=== PATIENT | female | born 1980 | race Caucasian/White ===

== ENCOUNTER 2018-04-07 19:48 | Emergency (ER) | payer SELFPAY ==
--- NOTE | 2018-04-07 20:37 | EDM.PDOC ---
<Amandeep Marin - Last Filed: 04/07/18 22:23> ED HPI GENERAL MEDICAL PROBLEM - General Chief Complaint: Respiratory Problem Stated Complaint: COUGHING, NASAL CONGESTION, CHEST CONGESTION Time Seen by Provider: 04/07/18 20:24 - Related Data Allergies Allergy/AdvReac Type Severity Reaction Status Date / Time ciprofloxacin [From Cipro] Allergy Anaphylactic Verified 04/07/18 20:19 Shock clarithromycin [From Biaxin] Allergy Hives Verified 04/07/18 20:19 Home Meds: Home Meds . [No Known Home Meds] 04/07/18 [History] ED ROS GENERAL - Review of Systems Review Of Systems: ROS reveals no pertinent complaints other than HPI. ED EXAM, GENERAL - Physical Exam Exam: See Below (See dictation) Course - Vital Signs Text/Narrative:: Patient emergency room course has been unremarkable patient is eager for discharge x-ray was negative labs were unremarkable patient be discharged home with diagnosis of viral syndrome Last Recorded V/S: Last Vital Signs Temp 98.8 F 04/07/18 20:10 Pulse 82 04/07/18 22:28 Resp 18 04/07/18 22:28 BP 133/76 04/07/18 22:28 Pulse Ox 98 04/07/18 22:28 - Orders/Labs/Meds Labs: Laboratory Tests 04/07/18 04/07/18 04/07/18 Range/Units 20:43 20:43 20:45 WBC 5.10 (4.0-11.0) K/uL RBC 4.28 L (4.30-5.90) M/uL Hgb 11.0 L (12.0-16.0) g/dL Hct 34.8 L (36.0-46.0) % MCV 81.3 (80.0-98.0) fL MCH 25.7 L (27.0-32.0) pg MCHC 31.6 (31.0-37.0) g/dL RDW Std Deviation 51.0 (28.0-62.0) fl RDW Coeff of Mikala 17 H (11.0-15.0) % Plt Count 214 (150-400) K/uL MPV 10.60 (7.40-12.00) fL Neut % (Auto) 40.8 L (48.0-80.0) % Lymph % (Auto) 44.9 H (16.0-40.0) % Windham % (Auto) 7.8 (0.0-15.0) % Eos % (Auto) 5.9 (0.0-7.0) % Baso % (Auto) 0.6 (0.0-1.5) % Neut # (Auto) 2.1 (1.4-5.7) K/uL Lymph # (Auto) 2.3 (0.6-2.4) K/uL Windham # (Auto) 0.4 (0.0-0.8) K/uL Eos # (Auto) 0.3 (0.0-0.7) K/uL Baso # (Auto) 0.0 (0.0-0.1) K/uL Nucleated RBC % 0.0 /100WBC Nucleated RBCs # 0 K/uL Sodium 133 L (136-145) mmol/L Potassium 4.1 (3.5-5.1) mmol/L Chloride 102 (98-107) mmol/L Carbon Dioxide 22.5 (21.0-32.0) mmol/L BUN 15 (7.0-18.0) mg/dL Creatinine 0.8 (0.6-1.0) mg/dL Est Cr Clr Drug Dosing 91.81 mL/min Estimated GFR (MDRD) > 60.0 ml/min Glucose 128 H (74-106) mg/dL Calcium 8.8 (8.5-10.1) mg/dL Total Bilirubin 0.2 (0.2-1.0) mg/dL AST 19 (15-37) IU/L ALT 20 (14-63) IU/L Alkaline Phosphatase 69 (46-116) U/L Total Protein 7.0 (6.4-8.2) g/dL Albumin 3.5 (3.4-5.0) g/dL Globulin 3.5 (2.6-4.0) g/dL Albumin/Globulin Ratio 1.0 (0.9-1.6) Urine Color YELLOW Urine Appearance CLEAR Urine pH 5.0 (5.0-8.0) Ur Specific Whitmore 1.010 (1.001-1.035) Urine Protein NEGATIVE (NEGATIVE) mg/dL Urine Glucose (UA) NEGATIVE (NEGATIVE) mg/dL Urine Ketones NEGATIVE (NEGATIVE) mg/dL Urine Occult Blood NEGATIVE (NEGATIVE) Urine Nitrite NEGATIVE (NEGATIVE) Urine Bilirubin NEGATIVE (NEGATIVE) Urine Urobilinogen 0.2 (<2.0) EU/dL Ur Leukocyte Esterase NEGATIVE (NEGATIVE) Meds: Medications Discontinued Medications Generic Name Dose Route Start Last Admin Trade Name Trinoq PRN Reason Stop Dose Admin Albuterol/Ipratropium 3 ml 04/07/18 20:46 04/07/18 21:02 Duoneb 3.0-0.5 Mg/3 Ml NEB 04/07/18 20:47 3 ml ONETIME ONE Administration Departure - Departure Time of Disposition: 22:24 Disposition: Home, Self-Care 01 Condition: Good Clinical Impression: Viral syndrome - Discharge Information Instructions: Viral Illness, Adult Referrals: PCP,Not In Area [Primary Care Provider] - Forms: ED Department Discharge Additional Instructions: The following information is given to patients seen in the emergency department who are being discharged to home. This information is to outline your options for follow-up care. We provide all patients seen in our emergency department with a follow-up referral. The need for follow-up, as well as the timing and circumstances, are variable depending upon the specifics of your emergency department visit. If you don't have a primary care physician on staff, we will provide you with a referral. We always advise you to contact your personal physician following an emergency department visit to inform them of the circumstance of the visit and for follow-up with them and/or the need for any referrals to a consulting specialist. The emergency department will also refer you to a specialist when appropriate. This referral assures that you have the opportunity for followup care with a specialist. All of these measure are taken in an effort to provide you with optimal care, which includes your followup. Under all circumstances we always encourage you to contact your private physician who remains a resource for coordinating your care. When calling for followup care, please make the office aware that this follow-up is from your recent emergency room visit. If for any reason you are refused follow-up, please contact the [facility] emergency department at and asked to speak to the emergency department charge nurse. [facility] [address] [place] [id number] Push fluids stop smoking follow-up primary medical doctor as needed as discussed the return as needed as discussed <Dann Hamlin E - Last Filed: 04/09/18 14:30> ED HPI GENERAL MEDICAL PROBLEM - General Source of Information: Reports: Patient History Limitations: Reports: No Limitations - History of Present Illness INITIAL COMMENTS - FREE TEXT/NARRATIVE: HISTORY AND PHYSICAL: History of present illness: Patient is a 38-year-old female who presents to the ED today with concerns of cough, intermittent fevers, and diarrhea. Patient states the cough and fevers have been ongoing for the last 5 days. She states she decided to come into the ED today when she started having quite foul smelling diarrhea. She states that her diarrhea is black and watery in this is not usual for her. She states normally she would have solid stools. Patient has not been on any by antibiotics recently or traveled outside of the country. He has not taken any medications other than DayQuil. Sensation is also been having body aches and headaches. Sensation states she does get abdominal cramping while she's having a bowel movement but this ends with the bowel movement. She does smoke cigarettes about half a pack a day for several years. She denies redness of breath, difficulties breathing, chest pain, palpitations, turning with urination, vaginal discharge, diaphoresis, abdominal pain, were all other GI, , respiratory, or cardiovascular complaints. Patient has had several surgeries but denies any chronic health history. Review of systems: As per history of present illness and below otherwise all systems reviewed and negative. Past medical history: As per history of present illness and as reviewed below otherwise noncontributory. Surgical history: As per history of present illness and as reviewed below otherwise noncontributory. Social history: See social history for further information Family history: As per history of present illness and as reviewed below otherwise noncontributory. Physical exam: General: Patient is alert, oriented, and in no acute distress. She is sitting comfortably on exam table. HEENT: Atraumatic, normocephalic, pupils equal and reactive bilaterally, negative for conjunctival pallor or scleral icterus, mucous membranes moist, TMs normal bilaterally, throat clear, neck supple, nontender, trachea midline. No drooling or trismus noted. No meningeal signs. No hot potato voice noted. Lungs: Diffuse wheezing heard throughout all lung marquez. Breath sounds equal bilaterally, chest nontender. Heart: S1S2, regular rate and rhythm without overt murmur Abdomen: Soft, nondistended, nontender. Negative for masses or hepatosplenomegaly. Negative for costovertebral tenderness. Pelvis: Stable nontender. Genitourinary: Deferred. Rectal: This was done with consent jackaroo at the bedside. Hemoccult is negative. Good rectal tone. Skin: Intact, warm, dry. No lesions or rashes noted. Extremities: Atraumatic, negative for cords or calf pain. Neurovascular unremarkable. Neuro: Awake, alert, oriented. Cranial nerves II through XII unremarkable. Cerebellum unremarkable. Motor and sensory unremarkable throughout. Exam nonfocal. Notes: Hemoccult was performed and was negative. Will do additional labs and chest x- ray. Lab work is unremarkable. Stool studies are still pending. Dr Marin was briefed on this patient and will disposition this patient accordingly Diagnostics: CBC, CMP, influenza, chest x-ray, stool studies Therapeutics: DuoNeb Impression: Viral Illness Plan: Per Dr Marin Definitive disposition and diagnosis as appropriate pending reevaluation and review of above. Treatments SURGICAL COORDINATOR: Reports: Acetaminophen chest;head Pain Score (Numeric/FACES): 6 Past Medical History Cardiovascular History: Reports: Hypertension - Infectious Disease History Infectious Disease History: Reports: None - Past Surgical History HEENT Surgical History: Reports: Tonsillectomy GI Surgical History: Reports: Bariatric Procedure, Cholecystectomy Other Female Surgeries/Procedures: bladder stents Other Musculoskeletal Surgeries/Procedures:: Leg surgery Social & Family History - Family History Family Medical History: Noncontributory - Tobacco Use Smoking Status *Q: Current Every Day Smoker Years of Tobacco use: 10 Packs/Tins Daily: 1 - Caffeine Use Caffeine Use: Reports: Coffee - Recreational Drug Use Recreational Drug Use: No Course - Orders/Labs/Meds Labs: Laboratory Tests 04/07/18 04/07/18 04/07/18 Range/Units 20:43 20:43 20:45 WBC 5.10 (4.0-11.0) K/uL RBC 4.28 L (4.30-5.90) M/uL Hgb 11.0 L (12.0-16.0) g/dL Hct 34.8 L (36.0-46.0) % MCV 81.3 (80.0-98.0) fL MCH 25.7 L (27.0-32.0) pg MCHC 31.6 (31.0-37.0) g/dL RDW Std Deviation 51.0 (28.0-62.0) fl RDW Coeff of Mikala 17 H (11.0-15.0) % Plt Count 214 (150-400) K/uL MPV 10.60 (7.40-12.00) fL Neut % (Auto) 40.8 L (48.0-80.0) % Lymph % (Auto) 44.9 H (16.0-40.0) % Windham % (Auto) 7.8 (0.0-15.0) % Eos % (Auto) 5.9 (0.0-7.0) % Baso % (Auto) 0.6 (0.0-1.5) % Neut # (Auto) 2.1 (1.4-5.7) K/uL Lymph # (Auto) 2.3 (0.6-2.4) K/uL Windham # (Auto) 0.4 (0.0-0.8) K/uL Eos # (Auto) 0.3 (0.0-0.7) K/uL Baso # (Auto) 0.0 (0.0-0.1) K/uL Nucleated RBC % 0.0 /100WBC Nucleated RBCs # 0 K/uL Sodium 133 L (136-145) mmol/L Potassium 4.1 (3.5-5.1) mmol/L Chloride 102 (98-107) mmol/L Carbon Dioxide 22.5 (21.0-32.0) mmol/L BUN 15 (7.0-18.0) mg/dL Creatinine 0.8 (0.6-1.0) mg/dL Est Cr Clr Drug Dosing 91.81 mL/min Estimated GFR (MDRD) > 60.0 ml/min Glucose 128 H (74-106) mg/dL Calcium 8.8 (8.5-10.1) mg/dL Total Bilirubin 0.2 (0.2-1.0) mg/dL AST 19 (15-37) IU/L ALT 20 (14-63) IU/L Alkaline Phosphatase 69 (46-116) U/L Total Protein 7.0 (6.4-8.2) g/dL Albumin 3.5 (3.4-5.0) g/dL Globulin 3.5 (2.6-4.0) g/dL Albumin/Globulin Ratio 1.0 (0.9-1.6) Urine Color YELLOW Urine Appearance CLEAR Urine pH 5.0 (5.0-8.0) Ur Specific Whitmore 1.010 (1.001-1.035) Urine Protein NEGATIVE (NEGATIVE) mg/dL Urine Glucose (UA) NEGATIVE (NEGATIVE) mg/dL Urine Ketones NEGATIVE (NEGATIVE) mg/dL Urine Occult Blood NEGATIVE (NEGATIVE) Urine Nitrite NEGATIVE (NEGATIVE) Urine Bilirubin NEGATIVE (NEGATIVE) Urine Urobilinogen 0.2 (<2.0) EU/dL Ur Leukocyte Esterase NEGATIVE (NEGATIVE) Meds: Medications Discontinued Medications Generic Name Dose Route Start Last Admin Trade Name Freq PRN Reason Stop Dose Admin Albuterol/Ipratropium 3 ml 04/07/18 20:46 04/07/18 21:02 Duoneb 3.0-0.5 Mg/3 Ml NEB 04/07/18 20:47 3 ml ONETIME ONE Administration
[2018-04-07] MEDS ORDERED: Albuterol/Ipratropium 3.0-0.5 MG/3 ML Neb Soln NEB ONE (20:46)
[2018-04-07 21:10] LABS: CHLORIDE,CL 102 mmol/L (98-107); SODIUM,NA 133 mmol/L (136-145)
--- NOTE | 2018-04-07 22:12 | CR ---
Indication: Cough Technique: Chest 2 views Comparison: None Findings: Cardiovascular and mediastinum: Heart size and vasculature are normal in caliber and appearance. Lungs and pleural spaces: Lungs are clear. No sign of infiltrate or mass. No sign of pleural effusion. No pneumothorax. Bones and soft tissues: Surgical clips in the upper abdomen. Impression: No acute or significant findings. Dictated by Kristofer Padilla MD @ Apr 07 2018 10:09PM Signed by Dr. Kristofer Padilla @ Apr 07 2018 10:11PM
== END 2018-04-07 22:39 | disposition home or self-care (01) ==
LOC: MW.ED 19:48
DX: B34.9 Viral infection, unspecified (principal); I10 Essential (primary) hypertension; F17.210 Nicotine dependence, cigarettes, uncomplicated; Z90.49 Acquired absence of other specified parts of digestive tract; Z98.890 Other specified postprocedural states
CPT/HCPCS: 36415; 71046; 71046-26; 80053; 81003; 85025; 87804; 94640; 99283; 99284-25; J7620-GY

== ENCOUNTER 2018-05-09 19:07 | Emergency (ER) | payer OTHER ==
[2018-05-09] MEDS ORDERED: LORazepam 2 MG/ML SDV IVPUSH ONE (19:13)
--- NOTE | 2018-05-09 19:13 | EDM.PDOC ---
<Jimena Christie - Last Filed: 05/09/18 20:10> ED HPI GENERAL MEDICAL PROBLEM - General Chief Complaint: Chest Pain Stated Complaint: CHEST PAIN Time Seen by Provider: 05/09/18 19:13 Source of Information: Reports: Patient History Limitations: Reports: No Limitations - History of Present Illness INITIAL COMMENTS - FREE TEXT/NARRATIVE: HISTORY AND PHYSICAL: History of present illness: Patient is a 38-year-old female here with complaint of chest pain and panic attack. She states she has a history of anxiety and has been under a lot of stress recently. She started feeling really anxious this morning and began having a panic attack that has progressively gotten worse through the day. She states it progressed to chest heaviness and she is feeling short of breath and nauseous. She denies abdominal pain, vomiting, diarrhea, cough, fever, chills. She does not take anything for her anxiety and denies other significant past medical history. He does smoke about 4 cigarettes per day 10+ years. Review of systems: As per history of present illness and below otherwise all systems reviewed and negative. Past medical history: As per history of present illness and as reviewed below otherwise noncontributory. Surgical history: As per history of present illness and as reviewed below otherwise noncontributory. Social history: No reported history of drug or alcohol abuse. Family history: As per history of present illness and as reviewed below otherwise noncontributory. Physical exam: General: Patient sitting comfortably in no acute distress and nontoxic appearing. Patient is tearful and anxious appearing on examination HEENT: Atraumatic, normocephalic, pupils reactive, negative for conjunctival pallor or scleral icterus, mucous membranes moist, throat clear, neck supple, nontender, trachea midline. No meningeal signs. Lungs: Clear to auscultation, breath sounds equal bilaterally, chest nontender. Heart: S1S2, regular, negative for clicks, rubs, or overt murmur. Abdomen: Soft, nondistended, nontender. Negative for masses or hepatosplenomegaly. Negative for costovertebral tenderness. No rigidity, rebound , guarding. Pelvis: Stable nontender. Genitourinary: Deferred. Rectal: Deferred. Extremities: Atraumatic, negative for cords or calf pain. Neurovascular unremarkable. Neuro: Awake, alert, oriented. Cranial nerves II through XII unremarkable. Cerebellum unremarkable. Motor and sensory unremarkable throughout. Exam nonfocal. Notes: Diagnostics: CBC, CMP, troponin, chest x-ray, EKG Therapeutics: Ativan 1 mg Zofran 4mg Prescriptions: None Impression: Anxiety attack, atypical chest pain Plan: 1. Follow up with primary care provider 2. Return to ED as needed as discussed Definitive disposition and diagnosis as appropriate pending reevaluation and review of above. chest Pain Score (Numeric/FACES): 3 - Related Data Allergies Allergy/AdvReac Type Severity Reaction Status Date / Time ciprofloxacin [From Cipro] Allergy Anaphylactic Verified 05/10/18 09:33 Shock clarithromycin [From Biaxin] Allergy Hives Verified 05/10/18 09:33 Home Meds: Home Meds . [No Known Home Meds] 04/07/18 [History] Past Medical History Cardiovascular History: Reports: Hypertension - Infectious Disease History Infectious Disease History: Reports: None - Past Surgical History HEENT Surgical History: Reports: Tonsillectomy GI Surgical History: Reports: Bariatric Procedure, Cholecystectomy Other Female Surgeries/Procedures: bladder stents Other Musculoskeletal Surgeries/Procedures:: Leg surgery Social & Family History - Family History Family Medical History: Noncontributory - Caffeine Use Caffeine Use: Reports: Coffee ED ROS GENERAL - Review of Systems Review Of Systems: ROS reveals no pertinent complaints other than HPI. ED EXAM, GENERAL - Physical Exam Exam: See Below (See dictation) Course - Vital Signs Last Recorded V/S: Last Vital Signs Temp 36.1 C 05/09/18 21:00 Pulse 72 05/09/18 21:00 Resp 18 05/09/18 21:00 BP 160/90 H 05/09/18 21:00 Pulse Ox 97 05/09/18 21:00 - Orders/Labs/Meds Labs: Laboratory Tests 05/09/18 05/09/18 Range/Units 19:10 19:10 WBC 5.82 (4.0-11.0) K/uL RBC 4.94 (4.30-5.90) M/uL Hgb 12.7 (12.0-16.0) g/dL Hct 38.4 (36.0-46.0) % MCV 77.7 L (80.0-98.0) fL MCH 25.7 L (27.0-32.0) pg MCHC 33.1 (31.0-37.0) g/dL RDW Std Deviation 50.5 (28.0-62.0) fl RDW Coeff of Mikala 18 H (11.0-15.0) % Plt Count 237 (150-400) K/uL MPV 10.50 (7.40-12.00) fL Neut % (Auto) 68.5 (48.0-80.0) % Lymph % (Auto) 18.0 (16.0-40.0) % Desha % (Auto) 12.7 (0.0-15.0) % Eos % (Auto) 0.3 (0.0-7.0) % Baso % (Auto) 0.5 (0.0-1.5) % Neut # (Auto) 4.0 (1.4-5.7) K/uL Lymph # (Auto) 1.1 (0.6-2.4) K/uL Desha # (Auto) 0.7 (0.0-0.8) K/uL Eos # (Auto) 0.0 (0.0-0.7) K/uL Baso # (Auto) 0.0 (0.0-0.1) K/uL Nucleated RBC % 0.0 /100WBC Nucleated RBCs # 0 K/uL Sodium 140 (136-145) mmol/L Potassium 3.7 (3.5-5.1) mmol/L Chloride 103 (98-107) mmol/L Carbon Dioxide 19.7 L (21.0-32.0) mmol/L BUN 7 (7.0-18.0) mg/dL Creatinine 1.0 (0.6-1.0) mg/dL Est Cr Clr Drug Dosing 73.45 mL/min Estimated GFR (MDRD) > 60.0 ml/min Glucose 145 H (74-106) mg/dL Calcium 9.9 (8.5-10.1) mg/dL Total Bilirubin 0.5 (0.2-1.0) mg/dL AST 18 (15-37) IU/L ALT 20 (14-63) IU/L Alkaline Phosphatase 78 (46-116) U/L Troponin I < 0.050 (0.000-0.056) ng/mL Total Protein 8.3 H (6.4-8.2) g/dL Albumin 4.5 (3.4-5.0) g/dL Globulin 3.8 (2.6-4.0) g/dL Albumin/Globulin Ratio 1.2 (0.9-1.6) Meds: Medications Discontinued Medications Generic Name Dose Route Start Last Admin Trade Name Freq PRN Reason Stop Dose Admin Lorazepam 1 mg 05/09/18 19:13 05/09/18 19:22 Ativan IVPUSH 05/09/18 19:14 1 mg ONETIME ONE Administration Ondansetron HCl 4 mg 05/09/18 20:10 05/09/18 20:17 Zofran IVPUSH 05/09/18 20:11 4 mg ONETIME ONE Administration Departure - Departure Disposition: Home, Self-Care 01 Condition: Good Clinical Impression: Anxiety attack, Atypical chest pain Instructions: Chest Wall Pain, [id number], Panic Attack Referrals: PCP,None [Primary Care Provider] - Forms: ED Department Discharge Additional Instructions: The following information is given to patients seen in the emergency department who are being discharged to home. This information is to outline your options for follow-up care. We provide all patients seen in our emergency department with a follow-up referral. The need for follow-up, as well as the timing and circumstances, are variable depending upon the specifics of your emergency department visit. If you don't have a primary care physician on staff, we will provide you with a referral. We always advise you to contact your personal physician following an emergency department visit to inform them of the circumstance of the visit and for follow-up with them and/or the need for any referrals to a consulting specialist. The emergency department will also refer you to a specialist when appropriate. This referral assures that you have the opportunity for follow-up care with a specialist. All of these measure are taken in an effort to provide you with optimal care, which includes your follow-up. Under all circumstances we always encourage you to contact your private physician who remains a resource for coordinating your care. When calling for follow-up care, please make the office aware that this follow-up is from your recent emergency room visit. If for any reason you are refused follow-up, please contact the [facility] Department at and asked to speak to the emergency department charge nurse. [facility] [address] [place] [address] [facility] [address] [place] [id number] 1. Follow up with primary care provider 2. Return to ED as needed as discussed <Amandeep Marin - Last Filed: 05/11/18 01:36> Departure - Departure Time of Disposition: 01:36
[2018-05-09 19:46] LABS: CHLORIDE,CL 103 mmol/L (98-107); SODIUM,NA 140 mmol/L (136-145)
--- NOTE | 2018-05-09 20:02 | CR ---
INDICATION: chest pain TECHNIQUE: Chest 1 view. COMPARISON: 04/07/18 FINDINGS: Cardiovascular and mediastinum: Heart size and vasculature are normal in caliber and appearance. Mediastinum is within normal limits. Lungs and pleural space: Lungs are clear. No sign of infiltrate or mass. No sign of pleural effusion. No pneumothorax. Bones and soft tissues: No significant findings. IMPRESSION: Unremarkable chest. Dictated by: Jourdan Mijares MD @ 05/09/2018 20:00:23 (Electronically Signed)
[2018-05-09] MEDS ORDERED: Ondansetron 4 MG/2 ML SDV IVPUSH ONE (20:10)
== END 2018-05-09 21:00 | disposition home or self-care (01) ==
LOC: MW.ED 19:07
DX: F41.9 Anxiety disorder, unspecified (principal); I10 Essential (primary) hypertension; Z88.1 Allergy status to other antibiotic agents
CPT/HCPCS: 36415; 71045; 80053; 84484; 85025; 93005; 96374; 96375; 99285; J2060; J2405; 99284

== ENCOUNTER 2018-05-10 09:27 | Emergency (ER) | payer OTHER ==
--- NOTE | 2018-05-10 09:36 | EDM.PDOC ---
ED HPI GENERAL MEDICAL PROBLEM - General Chief Complaint: General Stated Complaint: CHEST PAIN Time Seen by Provider: 05/10/18 09:29 - History of Present Illness INITIAL COMMENTS - FREE TEXT/NARRATIVE: HISTORY AND PHYSICAL: History of present illness: Patient's a 38-year-old white female history of anxiety gentleman served chest pain and anxiety she is seen yesterday for the same. No fever chills vomiting diarrhea or other complaints. Patient's chest pains vaguely describes no associated palpitations diaphoresis or shortness of breath. Review of systems: As per history of present illness and below otherwise all systems reviewed and negative. Past medical history: As per history of present illness and as reviewed below otherwise noncontributory. Surgical history: As per history of present illness and as reviewed below otherwise noncontributory. Social history: No reported history of drug or alcohol abuse. Family history: As per history of present illness and as reviewed below otherwise noncontributory. Physical exam: HEENT: Atraumatic, normocephalic, pupils reactive, negative for conjunctival pallor or scleral icterus, mucous membranes moist, throat clear, neck supple, nontender, trachea midline. Lungs: Clear to auscultation, breath sounds equal bilaterally, chest nontender. Heart: S1S2, regular, negative for clicks, rubs, or JVD. Abdomen: Soft, nondistended, nontender. Negative for masses or hepatosplenomegaly. Negative for costovertebral tenderness. Pelvis: Stable nontender. Genitourinary: Deferred. Rectal: Deferred. Extremities: Atraumatic, negative for cords or calf pain. Neurovascular unremarkable. Neuro: Awake, alert, anxious, oriented. Cranial nerves II through XII unremarkable. Cerebellum unremarkable. Motor and sensory unremarkable throughout. Exam nonfocal. Diagnostics: Chest x-ray EKG Therapeutics: None Impression: #1 atypical chest pain #2 anxiety Definitive disposition and diagnosis as appropriate pending reevaluation and review of above. Chest/Back Pain Score (Numeric/FACES): 10 - Related Data Allergies Allergy/AdvReac Type Severity Reaction Status Date / Time ciprofloxacin [From Cipro] Allergy Anaphylactic Verified 05/10/18 09:33 Shock clarithromycin [From Biaxin] Allergy Hives Verified 05/10/18 09:33 Home Meds: Home Meds . [No Known Home Meds] 04/07/18 [History] Past Medical History HEENT History: Reports: None Cardiovascular History: Reports: Hypertension Gastrointestinal History: Reports: None Genitourinary History: Reports: None Musculoskeletal History: Reports: None Psychiatric History: Reports: Anxiety, Depression - Infectious Disease History Infectious Disease History: Reports: None - Past Surgical History HEENT Surgical History: Reports: Tonsillectomy GI Surgical History: Reports: Bariatric Procedure, Cholecystectomy Other Female Surgeries/Procedures: bladder stents Other Musculoskeletal Surgeries/Procedures:: Leg surgery Social & Family History - Family History Family Medical History: Noncontributory - Caffeine Use Caffeine Use: Reports: Coffee ED ROS GENERAL - Review of Systems Review Of Systems: ROS reveals no pertinent complaints other than HPI. ED EXAM, GENERAL - Physical Exam Exam: See Below (dictation) Course - Vital Signs Last Recorded V/S: Last Vital Signs Temp 37.3 C 05/10/18 09:31 Pulse 118 H 05/10/18 09:31 Resp 24 H 05/10/18 09:31 BP 184/124 H 05/10/18 09:31 Pulse Ox 98 05/10/18 09:31 - Orders/Labs/Meds Orders: Active Orders 24 hr Category Date Time Status EKG 12 Lead [EKG Documentation Completion] [RC] STAT Care 05/10/18 09:30 Active Chest 1V Frontal [CR] Stat Exams 05/10/18 09:29 Ordered Departure - Departure Time of Disposition: 09:35 Disposition: Home, Self-Care 01 Condition: Good Clinical Impression: Atypical chest pain, Anxiety - Discharge Information Referrals: PCP,None [Primary Care Provider] - Additional Instructions: The following information is given to patients seen in the emergency department who are being discharged to home. This information is to outline your options for follow-up care. We provide all patients seen in our emergency department with a follow-up referral. The need for follow-up, as well as the timing and circumstances, are variable depending upon the specifics of your emergency department visit. If you don't have a primary care physician on staff, we will provide you with a referral. We always advise you to contact your personal physician following an emergency department visit to inform them of the circumstance of the visit and for follow-up with them and/or the need for any referrals to a consulting specialist. The emergency department will also refer you to a specialist when appropriate. This referral assures that you have the opportunity for followup care with a specialist. All of these measure are taken in an effort to provide you with optimal care, which includes your followup. Under all circumstances we always encourage you to contact your private physician who remains a resource for coordinating your care. When calling for followup care, please make the office aware that this follow-up is from your recent emergency room visit. If for any reason you are refused follow-up, please contact the [facility] emergency department at and asked to speak to the emergency department charge nurse. [facility] [address] [place] [id number] Follow-up primary care clinic as discussed prior return as needed as discussed - My Orders Last 24 Hours: My Active Orders 05/10/18 09:29 Chest 1V Frontal [CR] Stat 05/10/18 09:30 EKG 12 Lead [EKG Documentation Completion] [RC] STAT - Assessment/Plan Last 24 Hours: My Active Orders 05/10/18 09:29 Chest 1V Frontal [CR] Stat 05/10/18 09:30 EKG 12 Lead [EKG Documentation Completion] [RC] STAT
--- NOTE | 2018-05-10 10:41 | CR ---
HISTORY: Anxiety attack FINDINGS: Single AP view of the chest is provided. The lungs are normally expanded and clear. No pleural effusion or pneumothorax is seen. Cardiac silhouette size is within normal limits. There is a mild thoracic scoliosis convex to the right. IMPRESSION: Clear lungs. Dictated by José Sam MD @ May 10 2018 10:39AM Signed by Dr. José Sam @ May 10 2018 10:40AM
[2018-05-10] MEDS ORDERED: Ondansetron 4 MG Tab.DIS PO ONE (10:42)
== END 2018-05-10 11:10 | disposition home or self-care (01) ==
LOC: MW.ED 09:27
DX: F41.9 Anxiety disorder, unspecified (principal); R07.89 Other chest pain; I10 Essential (primary) hypertension; Z88.1 Allergy status to other antibiotic agents
CPT/HCPCS: 71045; 93005; 99285; A9270; 99283

== ENCOUNTER 2018-05-20 18:12 | Emergency (ER) | payer OTHER ==
--- NOTE | 2018-05-20 18:41 | EDM.PDOC ---
<Gini Stahl - Last Filed: 05/20/18 19:24> ED HPI GENERAL MEDICAL PROBLEM - General Chief Complaint: Abdominal Pain Stated Complaint: SPOKE TO NURSE Time Seen by Provider: 05/20/18 18:38 Source of Information: Reports: Patient History Limitations: Reports: No Limitations - History of Present Illness INITIAL COMMENTS - FREE TEXT/NARRATIVE: History of present illness: []Patient has been this ER several times for the same complaint of abdominal pain. She has had a history of gastric bypass, abdominal hysterectomy and gallbladder removal has had several complications including an abdominal wall hematoma. Is not vomiting but is spitting saliva up and has not had a bowel movement for days. Patient's last dose of Zofran was 11 AM and it does work for her. Review of systems: As per history of present illness and below otherwise all systems reviewed and negative. Past medical history: As per history of present illness and as reviewed below otherwise noncontributory. Surgical history: As per history of present illness and as reviewed below otherwise noncontributory. Social history: No reported history of drug or alcohol abuse. Family history: As per history of present illness and as reviewed below otherwise noncontributory. Physical exam: General: Well developed, well nourished in NAD HEENT: Atraumatic, normocephalic, pupils reactive, negative for conjunctival pallor or scleral icterus, mucous membranes moist, throat clear, neck supple, nontender, trachea midline. Lungs: Clear to auscultation, breath sounds equal bilaterally, chest nontender. Heart: S1S2, regular, negative for clicks, rubs, or JVD. Abdomen: Scaphoid, NABS, no tinkling, Soft, nondistended, nontender on exam with no rigidity, rebound or guarding. Negative for masses or hepatosplenomegaly. Negative for costovertebral tenderness. Pelvis: Stable nontender. Genitourinary: Deferred. Rectal: Deferred. Extremities: Atraumatic, negative for cords or calf pain. Neurovascular unremarkable. Neuro: Awake, alert, oriented. Cranial nerves II through XII unremarkable. Cerebellum unremarkable. Motor and sensory unremarkable throughout. Exam nonfocal. Skin:warm and dry Diagnostics: Acute Abdominal series-no bowel obstruction, increased stool, CBC, chemistry, UA , urine culture Therapeutics: Zofran, Ativan, Toradol ED Course: Patient signed out to Dr. Peter to check labs and disposition the patient. Impression: Chronic abdominal pain, constipation Prescriptions: none Plan: Follow-up with primary care Definitive disposition and diagnosis as appropriate pending reevaluation and review of above. v Abdominal Pain Score (Numeric/FACES): 9 - Related Data Allergies Allergy/AdvReac Type Severity Reaction Status Date / Time ciprofloxacin [From Cipro] Allergy Anaphylactic Verified 05/20/18 18:37 Shock clarithromycin [From Biaxin] Allergy Hives Verified 05/20/18 18:37 Home Meds: Home Meds Mirtazapine 15 mg PO DAILY 05/20/18 [History] Ondansetron HCl [Zofran] 4 mg PO Q4HR #12 tablet 05/20/18 [Rx] Ondansetron [Zofran] 1 tab PO ASDIRECTED PRN 05/20/18 [History] Past Medical History HEENT History: Reports: None Cardiovascular History: Reports: Hypertension Gastrointestinal History: Reports: None Genitourinary History: Reports: None Musculoskeletal History: Reports: None Psychiatric History: Reports: Anxiety, Depression - Infectious Disease History Infectious Disease History: Reports: None - Past Surgical History HEENT Surgical History: Reports: Tonsillectomy GI Surgical History: Reports: Bariatric Procedure, Cholecystectomy Other Female Surgeries/Procedures: bladder stents Other Musculoskeletal Surgeries/Procedures:: Leg surgery Social & Family History - Family History Family Medical History: Noncontributory - Caffeine Use Caffeine Use: Reports: Coffee ED ROS GENERAL - Review of Systems Review Of Systems: ROS reveals no pertinent complaints other than HPI. ED EXAM, GI/ABD - Physical Exam Exam: See Below (The history of present illness) Course - Vital Signs Last Recorded V/S: Last Vital Signs Temp 37.3 C 05/20/18 18:33 Pulse 78 05/20/18 19:40 Resp 16 05/20/18 19:40 BP 173/109 H 05/20/18 19:40 Pulse Ox 98 05/20/18 19:40 - Orders/Labs/Meds Orders: Active Orders 24 hr Category Date Time Status Enema [RC] ASDIRECTED Care 05/20/18 20:29 Active CULTURE BLOOD [BC] Stat Lab 05/20/18 18:58 Received CULTURE BLOOD [BC] Stat Lab 05/20/18 19:05 Received CULTURE URINE [RM] Routine Lab 05/20/18 19:12 Received Blood Culture x2 Reflex Set [OM.PC] Stat Oth 05/20/18 18:46 Ordered Labs: Laboratory Tests 05/20/18 05/20/18 05/20/18 Range/Units 18:56 18:58 19:12 WBC 10.76 (4.0-11.0) K/uL RBC 5.07 (4.30-5.90) M/uL Hgb 13.0 (12.0-16.0) g/dL Hct 39.5 (36.0-46.0) % MCV 77.9 L (80.0-98.0) fL MCH 25.6 L (27.0-32.0) pg MCHC 32.9 (31.0-37.0) g/dL RDW Std Deviation 50.5 (28.0-62.0) fl RDW Coeff of Mikala 18 H (11.0-15.0) % Plt Count 321 (150-400) K/uL MPV 10.70 (7.40-12.00) fL Neut % (Auto) 77.8 (48.0-80.0) % Lymph % (Auto) 11.6 L (16.0-40.0) % [place] % (Auto) 10.3 (0.0-15.0) % Eos % (Auto) 0.1 (0.0-7.0) % Baso % (Auto) 0.2 (0.0-1.5) % Neut # (Auto) 8.4 H (1.4-5.7) K/uL Lymph # (Auto) 1.3 (0.6-2.4) K/uL [place] # (Auto) 1.1 H (0.0-0.8) K/uL Eos # (Auto) 0.0 (0.0-0.7) K/uL Baso # (Auto) 0.0 (0.0-0.1) K/uL Nucleated RBC % 0.0 /100WBC Nucleated RBCs # 0 K/uL Sodium 137 (136-145) mmol/L Potassium 3.2 L (3.5-5.1) mmol/L Chloride 100 (98-107) mmol/L Carbon Dioxide 24.4 (21.0-32.0) mmol/L BUN 8 (7.0-18.0) mg/dL Creatinine 1.0 (0.6-1.0) mg/dL Est Cr Clr Drug Dosing TNP Estimated GFR (MDRD) > 60.0 ml/min Glucose 130 H (74-106) mg/dL Calcium 9.3 (8.5-10.1) mg/dL Total Bilirubin 0.4 (0.2-1.0) mg/dL AST 22 (15-37) IU/L ALT 31 (14-63) IU/L Alkaline Phosphatase 66 (46-116) U/L Total Protein 7.9 (6.4-8.2) g/dL Albumin 4.2 (3.4-5.0) g/dL Globulin 3.7 (2.6-4.0) g/dL Albumin/Globulin Ratio 1.1 (0.9-1.6) Lipase 175 (73-393) U/L Urine Color YELLOW Urine Appearance CLEAR Urine pH 6.0 (5.0-8.0) Ur Specific [place] 1.015 (1.001-1.035) Urine Protein TRACE H (NEGATIVE) mg/dL Urine Glucose (UA) NEGATIVE (NEGATIVE) mg/dL Urine Ketones TRACE H (NEGATIVE) mg/dL Urine Occult Blood TRACE-INTACT H (NEGATIVE) Urine Nitrite NEGATIVE (NEGATIVE) Urine Bilirubin NEGATIVE (NEGATIVE) Urine Urobilinogen 0.2 (<2.0) EU/dL Ur Leukocyte Esterase NEGATIVE (NEGATIVE) Urine RBC 3-6 (0-2/HPF) Urine WBC 1-2 (0-5/HPF) Ur Epithelial Cells MANY (NONE-FEW) Urine Bacteria FEW (NEGATIVE) Meds: Medications Discontinued Medications Generic Name Dose Route Start Last Admin Trade Name Freq PRN Reason Stop Dose Admin Ketorolac Tromethamine 60 mg 05/20/18 18:45 05/20/18 19:21 Toradol IM 05/20/18 18:46 60 mg ONETIME ONE Administration Lorazepam 0.5 mg 05/20/18 18:57 05/20/18 19:22 Ativan PO 05/20/18 18:58 0.5 mg ONETIME ONE Administration Ondansetron HCl 4 mg 05/20/18 18:44 05/20/18 19:20 Zofran Odt PO 05/20/18 18:45 4 mg ONETIME ONE Administration Departure - Departure Disposition: Home, Self-Care 01 Condition: Good Clinical Impression: Chronic abdominal pain Constipation Qualifiers: Constipation type: unspecified constipation type Qualified Code(s): K59.00 - Constipation, unspecified - Discharge Information *PRESCRIPTION DRUG MONITORING PROGRAM REVIEWED*: No *COPY OF PRESCRIPTION DRUG MONITORING REPORT IN PATIENT BERNABE: No Prescriptions: Ondansetron HCl [Zofran] 4 mg PO Q4HR #12 tablet Referrals: PCP,Unknown [Primary Care Provider] - Forms: ED Department Discharge Additional Instructions: The following information is given to patients seen in the emergency department who are being discharged to home. This information is to outline your options for follow-up care. We provide all patients seen in our emergency department with a follow-up referral. The need for follow-up, as well as the timing and circumstances, are variable depending upon the specifics of your emergency department visit. If you don't have a primary care physician on staff, we will provide you with a referral. We always advise you to contact your personal physician following an emergency department visit to inform them of the circumstance of the visit and for follow-up with them and/or the need for any referrals to a consulting specialist. The emergency department will also refer you to a specialist when appropriate. This referral assures that you have the opportunity for follow-up care with a specialist. All of these measure are taken in an effort to provide you with optimal care, which includes your follow-up. Under all circumstances we always encourage you to contact your private physician who remains a resource for coordinating your care. When calling for follow-up care, please make the office aware that this follow-up is from your recent emergency room visit. If for any reason you are refused follow-up, please contact the [facility] Emergency Department at and asked to speak to the emergency department charge nurse. [facility] [address] [place] [id number] Use [id number] Colace as we discussed as well as MiraLAX. Push hydration - My Orders Last 24 Hours: My Active Orders 05/20/18 20:29 Enema [RC] ASDIRECTED - Assessment/Plan Last 24 Hours: My Active Orders 05/20/18 20:29 Enema [RC] ASDIRECTED <Larisa Peter - Last Filed: 05/20/18 21:40> ED HPI GENERAL MEDICAL PROBLEM - History of Present Illness INITIAL COMMENTS - FREE TEXT/NARRATIVE: Please note that the patient wanted to try an enema which we attempted and she did have a small amount of output but nothing significant. She is aware of all testing results and care plan for home and has been advised to start over-the- counter Colace and use MiraLAX or other [id number] products to get her bowels going. Departure - Departure Time of Disposition: 21:40 Condition: Good
[2018-05-20] MEDS ORDERED: Ondansetron 4 MG Tab.DIS PO ONE ×2 (18:44→18:45)
[2018-05-20] MEDS ORDERED: Ketorolac 60 MG/2 ML SDV IM ONE (18:45)
[2018-05-20] MEDS ORDERED: LORazepam 0.5 MG Tab PO ONE (18:57)
--- NOTE | 2018-05-20 19:05 | CR ---
Indication: Abdominal pain. Prior gastric bypass. Technique: Abdomen 1 view. Comparison: None. Findings: Surgical clips in the right upper quadrant. Small-bowel loops are upper normal in caliber with a moderate amount of stool within the colon. Impression: Somewhat nonspecific bowel gas pattern with a moderate amount of stool within the colon. Dictated by Kristofer Padilla MD @ May 20 2018 7:02PM Signed by Dr. Kristofer Padilla @ May 20 2018 7:03PM
[2018-05-20 19:51] LABS: CHLORIDE,CL 100 mmol/L (98-107); SODIUM,NA 137 mmol/L (136-145)
== END 2018-05-20 21:57 | disposition home or self-care (01) ==
LOC: MW.ED 18:12
DX: K59.00 Constipation, unspecified (principal); I10 Essential (primary) hypertension; F41.9 Anxiety disorder, unspecified; F32.9 Major depressive disorder, single episode, unspecified; Z88.1 Allergy status to other antibiotic agents; Z79.899 Other long term (current) drug therapy
CPT/HCPCS: 36415; 74018; 80053; 81001; 83690; 85025; 87040; 87086; 96372; 99284; A9270; J1885; 99283

== ENCOUNTER 2018-06-17 21:23 | Emergency (ER) | payer OTHER ==
--- NOTE | 2018-06-17 21:46 | EDM.PDOC ---
<Kimberli Cohn R - Last Filed: 06/17/18 21:48> ED HPI GENERAL MEDICAL PROBLEM - General Chief Complaint: Lower Extremity Injury/Pain Stated Complaint: SWOLLEN LEG Time Seen by Provider: 06/17/18 23:48 Source of Information: Reports: Patient History Limitations: Reports: No Limitations - History of Present Illness INITIAL COMMENTS - FREE TEXT/NARRATIVE: Patient presents with a three-day history of swelling in the right lower extremity and a little bit in the left lower extremity. 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 About 8 months later she noticed swelling in the thigh. Imaging revealed multiple masses. Surgical excision of the masses and biopsy revealed myositis ossificans. 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 Denies fever, shortness of breath or breathing problems. She states she has had some swelling in the right lower extremity without DVT but that is usually only after being up on it for greater than 10- 12 hours. She has not done that recently. left leg Pain Score (Numeric/FACES): 6 - Related Data Allergies Allergy/AdvReac Type Severity Reaction Status Date / Time ciprofloxacin [From Cipro] Allergy Anaphylactic Verified 05/20/18 18:37 Shock clarithromycin [From Biaxin] Allergy Hives Verified 05/20/18 18:37 Home Meds: Home Meds Mirtazapine 30 mg PO DAILY 05/20/18 [History] LORazepam [Ativan] 0.5 mg PO ASDIRECTED 06/17/18 [History] Past Medical History HEENT History: Reports: None Cardiovascular History: Reports: Hypertension Respiratory History: Reports: None Gastrointestinal History: Reports: None Genitourinary History: Reports: None Musculoskeletal History: Reports: None Psychiatric History: Reports: Anxiety, Depression Hematologic History: Reports: Anemia, Blood Transfusion(s) - Infectious Disease History Infectious Disease History: Reports: None - Past Surgical History HEENT Surgical History: Reports: Tonsillectomy GI Surgical History: Reports: Bariatric Procedure, Cholecystectomy Other Female Surgeries/Procedures: bladder stents Other Musculoskeletal Surgeries/Procedures:: Leg surgery Social & Family History - Family History Family Medical History: Noncontributory - Tobacco Use Smoking Status *Q: Current Every Day Smoker Years of Tobacco use: 20 Packs/Tins Daily: 1 - Caffeine Use Caffeine Use: Reports: Coffee - Recreational Drug Use Recreational Drug Use: Yes Drug Use in Last 12 Months: Yes Recreational Drug Type: Reports: Marijuana/Hashish Review of Systems - Review of Systems Review Of Systems: ROS reveals no pertinent complaints other than HPI. ED EXAM, GENERAL - Physical Exam Exam: See Below Exam Limited By: No Limitations General Appearance: Alert, No Apparent Distress Ears: Normal External Exam Nose: Normal Inspection Throat/Mouth: Normal Inspection Head: Atraumatic, Normocephalic Neck: Normal Inspection Respiratory/Chest: No Respiratory Distress, Lungs Clear, Normal Breath Sounds Cardiovascular: Regular Rate, Rhythm, No Murmur, Other (Swelling right lower extremity) GI/Abdominal: Soft Extremities: Normal Range of Motion, Other (Marked swelling in the right works dramatically from approximately mid thigh down. No erythema or calor. Calf is soft. Pedal and posttibial pulses strong.) Neurological: Alert, Oriented, Normal Cognition, No Motor/Sensory Deficits Psychiatric: Normal Affect, Normal Mood Skin Exam: Warm, Dry, Intact, Normal Color, No Rash Lymphatic: No Adenopathy Course - Vital Signs Last Recorded V/S: Last Vital Signs Temp 96.9 F 06/17/18 21:27 Pulse 83 06/17/18 21:27 Resp 18 06/17/18 21:27 BP 145/98 H 06/17/18 21:27 Pulse Ox 100 06/17/18 21:27 - Orders/Labs/Meds Orders: Active Orders 24 hr Category Date Time Status Venous Doppler Lwr Ext Bi [US] Stat Exams 06/17/18 21:37 Taken Furosemide [Lasix] Med 06/17/18 23:46 Once 20 mg PO ONETIME ONE Labs: Laboratory Tests 06/17/18 06/17/18 06/17/18 Range/Units 21:25 21:25 21:25 WBC 6.00 (4.0-11.0) K/uL RBC 4.18 L (4.30-5.90) M/uL Hgb 11.0 L (12.0-16.0) g/dL Hct 34.1 L (36.0-46.0) % MCV 81.6 (80.0-98.0) fL MCH 26.3 L (27.0-32.0) pg MCHC 32.3 (31.0-37.0) g/dL RDW Std Deviation 55.0 (28.0-62.0) fl RDW Coeff of Mikala 19 H (11.0-15.0) % Plt Count 288 (150-400) K/uL MPV 10.40 (7.40-12.00) fL Neut % (Auto) 53.1 (48.0-80.0) % Lymph % (Auto) 34.0 (16.0-40.0) % [place] % (Auto) 7.3 (0.0-15.0) % Eos % (Auto) 4.8 (0.0-7.0) % Baso % (Auto) 0.8 (0.0-1.5) % Neut # (Auto) 3.2 (1.4-5.7) K/uL Lymph # (Auto) 2.0 (0.6-2.4) K/uL [place] # (Auto) 0.4 (0.0-0.8) K/uL Eos # (Auto) 0.3 (0.0-0.7) K/uL Baso # (Auto) 0.1 (0.0-0.1) K/uL Nucleated RBC % 0.0 /100WBC Nucleated RBCs # 0 K/uL INR 0.90 Sodium 145 (136-145) mmol/L Potassium 3.5 (3.5-5.1) mmol/L Chloride 110 H (98-107) mmol/L Carbon Dioxide 25.5 (21.0-32.0) mmol/L BUN 9 (7.0-18.0) mg/dL Creatinine 0.8 (0.6-1.0) mg/dL Est Cr Clr Drug Dosing 91.81 mL/min Estimated GFR (MDRD) > 60.0 ml/min Glucose 80 (74-106) mg/dL Calcium 8.5 (8.5-10.1) mg/dL Total Bilirubin 0.2 (0.2-1.0) mg/dL AST 35 (15-37) IU/L ALT 63 (14-63) IU/L Alkaline Phosphatase 104 (46-116) U/L Total Protein 6.1 L (6.4-8.2) g/dL Albumin 3.1 L (3.4-5.0) g/dL Globulin 3.0 (2.6-4.0) g/dL Albumin/Globulin Ratio 1.0 (0.9-1.6) Departure - Departure Disposition: Home, Self-Care 01 Clinical Impression: Lymphedema - Discharge Information Referrals: PCP,None [Primary Care Provider] - Forms: ED Department Discharge Additional Instructions: Akin wraps and elevation as needed Medication as directed Follow-up with primary care in one week The following information is given to patients seen in the emergency department who are being discharged to home. This information is to outline your options for follow-up care. We provide all patients seen in our emergency department with a follow-up referral. The need for follow-up, as well as the timing and circumstances, are variable depending upon the specifics of your emergency department visit. If you don't have a primary care physician on staff, we will provide you with a referral. We always advise you to contact your personal physician following an emergency department visit to inform them of the circumstance of the visit and for follow-up with them and/or the need for any referrals to a consulting specialist. The emergency department will also refer you to a specialist when appropriate. This referral assures that you have the opportunity for follow-up care with a specialist. All of these measure are taken in an effort to provide you with optimal care, which includes your follow-up. Under all circumstances we always encourage you to contact your private physician who remains a resource for coordinating your care. When calling for follow-up care, please make the office aware that this follow-up is from your recent emergency room visit. If for any reason you are refused follow-up, please contact the [facility] emergency department at and asked to speak to the emergency department charge nurse. - My Orders Last 24 Hours: My Active Orders 06/17/18 23:46 Furosemide [Lasix] 20 mg PO ONETIME ONE - Assessment/Plan Last 24 Hours: My Active Orders 06/17/18 23:46 Furosemide [Lasix] 20 mg PO ONETIME ONE <Herson Martini - Last Filed: 06/17/18 23:48> ED HPI GENERAL MEDICAL PROBLEM - General Source of Information: Reports: Patient - History of Present Illness INITIAL COMMENTS - FREE TEXT/NARRATIVE: I've seen and examined the patient above and agree with the above Patient was signed out to me to followUltrasound studies to rule out DVT HISTORY AND PHYSICAL: History of present illness: [] Review of systems: As per history of present illness and below otherwise all systems reviewed and negative. Past medical history: As per history of present illness and as reviewed below otherwise noncontributory. Surgical history: As per history of present illness and as reviewed below otherwise noncontributory. Social history: No reported history of drug or alcohol abuse. Family history: As per history of present illness and as reviewed below otherwise noncontributory. Physical exam: HEENT: Atraumatic, normocephalic, pupils reactive, negative for conjunctival pallor or scleral icterus, mucous membranes moist, throat clear, neck supple, nontender, trachea midline. Lungs: Clear to auscultation, breath sounds equal bilaterally, chest nontender. Heart: S1S2, regular, negative for clicks, rubs, or JVD. Abdomen: Soft, nondistended, nontender. Negative for masses or hepatosplenomegaly. Negative for costovertebral tenderness. Pelvis: Stable nontender. Genitourinary: Deferred. Rectal: Deferred. Extremities: Atraumatic, negative for cords or calf pain. Neurovascular unremarkable. Neuro: Awake, alert, oriented. Cranial nerves II through XII unremarkable. Cerebellum unremarkable. Motor and sensory unremarkable throughout. Exam nonfocal. Diagnostics: [CBC CMP INR ] Therapeutics: [620 mg by mouth daily #10 no refill first dose now ] Impression: [lymphEdema Chronic history of baseline ] Definitive disposition and diagnosis as appropriate pending reevaluation and review of above. Review of Systems - Review of Systems Review Of Systems: See Below ED EXAM, GENERAL - Physical Exam Exam: See Below Departure - Departure Time of Disposition: 23:48 Condition: Good
[2018-06-17 22:00] LABS: CHLORIDE,CL 110 mmol/L (98-107); SODIUM,NA 145 mmol/L (136-145)
[2018-06-17] MEDS ORDERED: Furosemide 20 MG Tab PO ONE (23:46)
--- NOTE | 2018-06-18 13:55 | US ---
EXAM DATE: 06/17/18 PATIENT'S AGE: 38 Patient: LILY ZHOU Facility: 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 Compression venous exam was performed using march-scale, color Doppler, and spectral Doppler imaging. COMPARISON: None FINDINGS: Sonographic imaging demonstrates the common femoral, deep femoral, superficial femoral, popliteal, posterior tibial and greater saphenous veins to be fully compressible with normal color Doppler blood flow in both lower extremities. Limited evaluation of the right common femoral artery vascular graft demonstrates a 1.4 cm fusiform aneurysm. IMPRESSION: No DVT within the bilateral lower extremities. Limited evaluation of the right common femoral artery vascular graft demonstrates a 1.4 cm fusiform aneurysm. The patient states that this is a known aneurysm. Please correlate with prior studies. Dictated by Maricarmen Saavedra MD @ Jun 17 2018 11:08PM Signed by: Maricarmen Saavedra MD @06/17/2018 11:08:30 PM (Electronic Signature) Report Signed by Proxy. [facility]ICY[facility]
== END 2018-06-18 00:15 | disposition home or self-care (01) ==
LOC: MW.ED 21:23
DX: I89.0 Lymphedema, not elsewhere classified (principal); I10 Essential (primary) hypertension; Z88.1 Allergy status to other antibiotic agents; Z86.2 Personal history of diseases of the blood and blood-forming organs and certain disorders involving the immune mechanism; Z98.84 Bariatric surgery status; Z90.49 Acquired absence of other specified parts of digestive tract; Z98.890 Other specified postprocedural states; F17.210 Nicotine dependence, cigarettes, uncomplicated
CPT/HCPCS: 36415; 80053; 85025; 85610; 93970; 99284; A9270

== ENCOUNTER 2018-06-25 18:42 | Emergency (ER) | payer OTHER ==
[2018-06-25] MEDS ORDERED: Sodium Chloride 0.9% 2.5 ML Syringe FLUSH PRN (19:33)
[2018-06-25] MEDS ORDERED: Sodium Chloride 0.9% 10 ML Syringe FLUSH PRN (19:33)
--- NOTE | 2018-06-25 19:34 | EDM.PDOC ---
ED HPI GENERAL MEDICAL PROBLEM - General Chief Complaint: General Stated Complaint: ANXIETY Time Seen by Provider: 06/25/18 19:27 - History of Present Illness INITIAL COMMENTS - FREE TEXT/NARRATIVE: HISTORY AND PHYSICAL: History of present illness: The patient is a 38-year-old female with a long-standing history of anxiety and has been seen here before in the ED just this year for similar and presents with anxiety associated with an acute onset of a vertigo episode that happened this morning. The patient says that she had vertigo about a year ago and this morning she had sudden onset of dizziness and spinning as well as associated nausea and vomiting. She says the symptoms of the dizziness are better with her eyes closed and when she keeps her head still and this is very similar to her vertigo for which she had been seen by provider about a year ago. She says that the symptoms with the vertigo are making her anxiety worse and she has tried Zofran at home as well as a dose of lorazepam. She has no recent head injury and has no headache has no fevers chills abdominal pain chest pain or shortness of breath. She has no sore throat or upper respiratory symptoms and has no focal neurologic changes. She says that all the symptoms are very similar to her prior vertigo and her anxiety but her home meds were not controlling any of this so she is here for evaluation. Review of systems: As per history of present illness and below otherwise all systems reviewed and negative. Past medical history: As per history of present illness and as reviewed below otherwise noncontributory. Surgical history: As per history of present illness and as reviewed below otherwise noncontributory. Social history: No reported history of drug or alcohol abuse. Family history: As per history of present illness and as reviewed below otherwise noncontributory. Physical exam: General: Well-developed well-nourished female who looks anxious in the room and vital signs were noted by me. She prefers to keep her eyes closed and her head still to prevent her symptoms. HEENT: Atraumatic, normocephalic, pupils reactive, EOMs are intact and there is nystagmus when the patient looks to the left and that is when her symptoms are exacerbated, negative for conjunctival pallor or scleral icterus, mucous membranes moist, throat clear, neck supple, nontender, trachea midline. There is no cervical adenopathy or nuchal rigidity Lungs: Clear to auscultation, breath sounds equal bilaterally, chest nontender. Heart: S1S2, regular, negative for clicks, rubs, or JVD. Abdomen: Soft, nondistended, nontender. Negative for masses or hepatosplenomegaly. Negative for costovertebral tenderness. Pelvis: Stable nontender. Genitourinary: Deferred. Rectal: Deferred. Extremities: Atraumatic, negative for cords or calf pain. Neurovascular unremarkable. Full range of motion without defects or deficits Neuro: Awake, alert, oriented. Cranial nerves II through XII unremarkable. Cerebellum unremarkable. Motor and sensory unremarkable throughout. Exam nonfocal. Diagnostics: None Therapeutics: IV fluids Solu-Medrol Ativan Zofran Valium IV Discussed with the patient that the vertigo symptoms will take some time and we will start her on a Medrol Dosepak and Antivert. She has Zofran and lorazepam at home. Impression: Acute episode of vertigo with history of same, anxiety attack with history of same Definitive disposition and diagnosis as appropriate pending reevaluation and review of above. - Related Data Allergies Allergy/AdvReac Type Severity Reaction Status Date / Time ciprofloxacin [From Cipro] Allergy Anaphylactic Verified 06/25/18 19:12 Shock clarithromycin [From Biaxin] Allergy Hives Verified 06/25/18 19:12 Home Meds: Home Meds Mirtazapine 30 mg PO BEDTIME 05/20/18 [History] LORazepam [Ativan] 0.5 mg PO ASDIRECTED 06/17/18 [History] Past Medical History HEENT History: Reports: None Cardiovascular History: Reports: Hypertension Respiratory History: Reports: None Gastrointestinal History: Reports: None Genitourinary History: Reports: None Musculoskeletal History: Reports: None Psychiatric History: Reports: Anxiety, Depression Hematologic History: Reports: Anemia, Blood Transfusion(s) - Infectious Disease History Infectious Disease History: Reports: None - Past Surgical History HEENT Surgical History: Reports: Tonsillectomy GI Surgical History: Reports: Bariatric Procedure, Cholecystectomy Other Female Surgeries/Procedures: bladder stents Other Musculoskeletal Surgeries/Procedures:: Leg surgery Social & Family History - Family History Family Medical History: Noncontributory - Tobacco Use Smoking Status *Q: Current Every Day Smoker Years of Tobacco use: 7 Packs/Tins Daily: 1 - Caffeine Use Caffeine Use: Reports: Coffee - Recreational Drug Use Recreational Drug Use: Yes Drug Use in Last 12 Months: Yes Recreational Drug Type: Reports: Marijuana/Hashish Other Recreational Drug Type: a week ago ED ROS GENERAL - Review of Systems Review Of Systems: ROS reveals no pertinent complaints other than HPI. ED EXAM, GENERAL - Physical Exam Exam: See Below (See dictation) Course - Vital Signs Last Recorded V/S: Last Vital Signs Temp 36.1 C 06/25/18 19:05 Pulse 66 06/25/18 19:05 Resp 18 06/25/18 19:05 BP 164/107 H 06/25/18 19:05 Pulse Ox 100 06/25/18 19:05 - Orders/Labs/Meds Orders: Active Orders 24 hr Category Date Time Status Sodium Chloride 0.9% [Saline Flush] Med 06/25/18 19:33 Active 10 ml FLUSH ASDIRECTED PRN Sodium Chloride 0.9% [Saline Flush] Med 06/25/18 19:33 Active 2.5 ml FLUSH ASDIRECTED PRN Saline Lock Insert [OM.PC] Stat Oth 06/25/18 19:33 Ordered Medication Orders Sodium Chloride (Saline Flush) 10 ml FLUSH ASDIRECTED PRN PRN Reason: Keep Vein Open Sodium Chloride (Saline Flush) 2.5 ml FLUSH ASDIRECTED PRN PRN Reason: Keep Vein Open Meds: Medications Generic Name Dose Route Start Last Admin Trade Name Freq PRN Reason Stop Dose Admin Sodium Chloride 10 ml 06/25/18 19:33 Saline Flush FLUSH ASDIRECTED PRN Keep Vein Open Sodium Chloride 2.5 ml 06/25/18 19:33 Saline Flush FLUSH ASDIRECTED PRN Keep Vein Open Discontinued Medications Generic Name Dose Route Start Last Admin Trade Name Freq PRN Reason Stop Dose Admin Diazepam 1 mg 06/25/18 20:47 Valium IVPUSH 06/25/18 20:48 ONETIME ONE Sodium Chloride 1,000 mls @ 999 mls/hr 06/25/18 19:33 06/25/18 20:12 Normal Saline IV 06/25/18 20:33 999 mls/hr STAT ONE Administration Lorazepam 1 mg 06/25/18 19:33 06/25/18 20:12 Ativan IVPUSH 06/25/18 19:34 1 mg ONETIME ONE Administration Meclizine HCl 25 mg 06/25/18 20:47 Antivert PO 06/25/18 20:48 ONETIME ONE Methylprednisolone Sodium Succinate 125 mg 06/25/18 19:33 06/25/18 20:12 Solu-Medrol IVPUSH 06/25/18 19:34 125 mg ONETIME ONE Administration Ondansetron HCl 4 mg 06/25/18 19:33 06/25/18 20:12 Zofran IVPUSH 06/25/18 19:34 4 mg ONETIME ONE Administration Departure - Departure Time of Disposition: 20:50 Disposition: Home, Self-Care 01 Condition: Good Clinical Impression: Vertigo, Acute anxiety - Discharge Information Referrals: PCP,Unknown [Primary Care Provider] - Forms: ED Department Discharge Additional Instructions: The following information is given to patients seen in the emergency department who are being discharged to home. This information is to outline your options for follow-up care. We provide all patients seen in our emergency department with a follow-up referral. The need for follow-up, as well as the timing and circumstances, are variable depending upon the specifics of your emergency department visit. If you don't have a primary care physician on staff, we will provide you with a referral. We always advise you to contact your personal physician following an emergency department visit to inform them of the circumstance of the visit and for follow-up with them and/or the need for any referrals to a consulting specialist. The emergency department will also refer you to a specialist when appropriate. This referral assures that you have the opportunity for followup care with a specialist. All of these measure are taken in an effort to provide you with optimal care, which includes your followup. Under all circumstances we always encourage you to contact your private physician who remains a resource for coordinating your care. When calling for followup care, please make the office aware that this follow-up is from your recent emergency room visit. If for any reason you are refused follow-up, please contact the [facility] emergency department at and ask to speak to the emergency department charge nurse. [facility]- [place] [address] Use the new medications as prescribed and also use her Zofran and lorazepam that you have at home as directed. Please call and schedule a follow-up appointment for further care and evaluation and return to ER as needed and as discussed. Push hydration and rest - My Orders Last 24 Hours: My Active Orders 06/25/18 19:33 Sodium Chloride 0.9% [Saline Flush] 10 ml FLUSH ASDIRECTED PRN Sodium Chloride 0.9% [Saline Flush] 2.5 ml FLUSH ASDIRECTED PRN Saline Lock Insert [OM.PC] Stat - Assessment/Plan Last 24 Hours: My Active Orders 06/25/18 19:33 Sodium Chloride 0.9% [Saline Flush] 10 ml FLUSH ASDIRECTED PRN Sodium Chloride 0.9% [Saline Flush] 2.5 ml FLUSH ASDIRECTED PRN Saline Lock Insert [OM.PC] Stat
[2018-06-25] MEDS: methylPREDNISolone Sodium Succinate 125 MG/2 ML SDV IVPUSH ONE (20:12)
[2018-06-25] MEDS: Ondansetron 4 MG/2 ML SDV IVPUSH ONE ×2 (20:12→21:35)
[2018-06-25] MEDS: Sodium Chloride 0.9% 1,000 ML IV ONE (20:12)
[2018-06-25] MEDS: LORazepam 2 MG/ML SDV IVPUSH ONE (20:12)
[2018-06-25] MEDS: diazePAM 5 MG/ML MDV ONE (21:04)
[2018-06-25] MEDS: Meclizine 25 MG Tab PO ONE (21:07)
== END 2018-06-25 21:42 | disposition home or self-care (01) ==
LOC: MW.ED 18:42
DX: F41.9 Anxiety disorder, unspecified (principal); R42 Dizziness and giddiness; I10 Essential (primary) hypertension; F17.210 Nicotine dependence, cigarettes, uncomplicated; Z88.1 Allergy status to other antibiotic agents
CPT/HCPCS: 96361; 96374; 96375; 96376; 99283; A9270; J2060; J2405; J2930; J7040

== ENCOUNTER 2018-08-15 09:51 | Emergency (ER) | payer OTHER ==
[2018-08-15] MEDS ORDERED: Sodium Chloride 0.9% 1,000 ML IV ONE (10:07)
[2018-08-15] MEDS ORDERED: Ketorolac 30 MG/ML SDV IVPUSH ONE (10:16)
[2018-08-15] MEDS ORDERED: Ondansetron 4 MG/2 ML SDV IVPUSH ONE (10:17)
[2018-08-15 10:44] LABS: CHLORIDE,CL 99 mmol/L (98-107); SODIUM,NA 136 mmol/L (136-145)
[2018-08-15] MEDS ORDERED: Iopamidol 755 MG/ML 500 ML Multipack Bottle IVPUSH STA (11:24)
--- NOTE | 2018-08-15 11:49 | EDM.PDOC ---
ED HPI GENERAL MEDICAL PROBLEM - General Chief Complaint: Abdominal Pain Stated Complaint: stomach pain Time Seen by Provider: 08/15/18 10:05 Source of Information: Reports: Patient History Limitations: Reports: No Limitations - History of Present Illness INITIAL COMMENTS - FREE TEXT/NARRATIVE: HISTORY AND PHYSICAL: History of present illness: Patient is a 38-year-old female presents to the ED today with concern of left- sided lower abdominal pain since yesterday. Patient states she has a history of gastric bypass done in the year 1999. Patient states following the surgery she did have a complication where she had to go and have some of the surgery redone. Patient states since then she hasn't had any issues for many years. Patient states she does have anemia and other vitamin deficiencies due to the surgery. Patient states she does have chronic pain due to the surgery in the past. Patient denies any other symptoms or concerns at this time. Patient denies any other health history. Patient denies fever, chills, chest pain, shortness of breath, or cough. Denies headache, neck stiff ness, change in vision, syncope, or near syncope. Denies nausea, vomiting, diarrhea, constipation, or dysuria. Has not noted any blood in urine or stool. Patient has been eating and drinking appropriately. Review of systems: As per history of present illness and below otherwise all systems reviewed and negative. Past medical history: As per history of present illness and as reviewed below otherwise noncontributory. Surgical history: As per history of present illness and as reviewed below otherwise noncontributory. Social history: See social history for further information Family history: As per history of present illness and as reviewed below otherwise noncontributory. Physical exam: General: Patient is alert, oriented, and in no acute distress. Patient laying comfortably on exam table but anxious appearing. HEENT: Atraumatic, normocephalic, pupils equal and reactive bilaterally, negative for conjunctival pallor or scleral icterus, mucous membranes moist, TMs normal bilaterally, throat clear, neck supple, nontender, trachea midline. No drooling or trismus noted. No meningeal signs. No hot potato voice noted. Lungs: Clear to auscultation, breath sounds equal bilaterally, chest nontender. Heart: S1S2, regular rate and rhythm without overt murmur Abdomen: Soft, nondistended. Moderate pain to palpation of the LLQ without guarding. Negative for masses or hepatosplenomegaly. Negative for costovertebral tenderness. Pelvis: Stable nontender. Genitourinary: Deferred. Rectal: Deferred. Skin: Intact, warm, dry. No lesions or rashes noted. Extremities: Atraumatic, negative for cords or calf pain. Neurovascular unremarkable. Neuro: Awake, alert, oriented. Cranial nerves II through XII unremarkable. Cerebellum unremarkable. Motor and sensory unremarkable throughout. Exam nonfocal. Notes: Patient does express having heartburn at the end of his stay in the ED, GI cocktail provided. BP at end of visit 149/102. Discussed the importance of follow up for her blood pressure with primary care. Patient states she has known high blood pressure just has not addressed it in the past. Discussed the importance for follow-up with primary care provider.Voices understanding and is agreeable to plan of care. Denies any further questions or concerns at this time. Diagnostics: EKG, CBC, CMP, UA, urine hCG, lipase, abdominal pelvic CT, troponin Therapeutics: Normal saline, Zofran, Toradol, GI cocktail, Clonidine Prescription: None Impression: Abdominal pain, unspecified Hypertension, unspecified Plan: 1. You can alternate ibuprofen and Tylenol as directed for pain and discomfort. 2. Follow-up with a primary care provider as discussed. Return to the ED as needed and as discussed. Definitive disposition and diagnosis as appropriate pending reevaluation and review of above. Left lower abdominal Pain Score (Numeric/FACES): 8 - Related Data Allergies Allergy/AdvReac Type Severity Reaction Status Date / Time ciprofloxacin [From Cipro] Allergy Anaphylactic Verified 08/15/18 09:57 Shock clarithromycin [From Biaxin] Allergy Hives Verified 08/15/18 09:57 Home Meds: Home Meds Mirtazapine 30 mg PO BEDTIME 05/20/18 [History] LORazepam [Ativan] 0.5 mg PO ASDIRECTED 06/17/18 [History] Escitalopram Oxalate [Lexapro] 5 mg PO DAILY 08/15/18 [History] Past Medical History HEENT History: Reports: None Cardiovascular History: Reports: Hypertension Respiratory History: Reports: None Gastrointestinal History: Reports: None Genitourinary History: Reports: None Musculoskeletal History: Reports: None Psychiatric History: Reports: Anxiety, Depression Hematologic History: Reports: Anemia, Blood Transfusion(s) - Infectious Disease History Infectious Disease History: Reports: None - Past Surgical History HEENT Surgical History: Reports: Tonsillectomy GI Surgical History: Reports: Bariatric Procedure, Cholecystectomy Other Female Surgeries/Procedures: bladder stents Other Musculoskeletal Surgeries/Procedures:: Leg surgery Social & Family History - Family History Family Medical History: Noncontributory - Tobacco Use Smoking Status *Q: Current Every Day Smoker Years of Tobacco use: 14 Packs/Tins Daily: 0.5 - Caffeine Use Caffeine Use: Reports: Coffee - Recreational Drug Use Recreational Drug Use: No ED ROS GENERAL - Review of Systems Review Of Systems: ROS reveals no pertinent complaints other than HPI. ED EXAM, GI/ABD - Physical Exam Exam: See Below (See dictation) Course - Vital Signs Last Recorded V/S: Last Vital Signs Temp 36.8 C 08/15/18 09:59 Pulse 74 08/15/18 12:21 Resp 20 08/15/18 12:21 BP 183/130 H 08/15/18 12:22 Pulse Ox 98 08/15/18 12:21 - Orders/Labs/Meds Orders: Active Orders 24 hr Category Date Time Status EKG Documentation Completion [RC] STAT Care 08/15/18 10:13 Active Labs: Laboratory Tests 08/15/18 08/15/18 08/15/18 Range/Units 10:05 10:05 10:05 WBC 5.32 (4.0-11.0) K/uL RBC 4.93 (4.30-5.90) M/uL Hgb 13.0 (12.0-16.0) g/dL Hct 39.9 (36.0-46.0) % MCV 80.9 (80.0-98.0) fL MCH 26.4 L (27.0-32.0) pg MCHC 32.6 (31.0-37.0) g/dL RDW Std Deviation 50.0 (28.0-62.0) fl RDW Coeff of Mikala 17 H (11.0-15.0) % Plt Count 327 (150-400) K/uL MPV 10.60 (7.40-12.00) fL Neut % (Auto) 85.6 H (48.0-80.0) % Lymph % (Auto) 10.2 L (16.0-40.0) % [place] % (Auto) 3.8 (0.0-15.0) % Eos % (Auto) 0.0 (0.0-7.0) % Baso % (Auto) 0.4 (0.0-1.5) % Neut # (Auto) 4.6 (1.4-5.7) K/uL Lymph # (Auto) 0.5 L (0.6-2.4) K/uL [place] # (Auto) 0.2 (0.0-0.8) K/uL Eos # (Auto) 0.0 (0.0-0.7) K/uL Baso # (Auto) 0.0 (0.0-0.1) K/uL Nucleated RBC % 0.0 /100WBC Nucleated RBCs # 0 K/uL Sodium 136 (136-145) mmol/L Potassium 3.9 (3.5-5.1) mmol/L Chloride 99 (98-107) mmol/L Carbon Dioxide 22.4 (21.0-32.0) mmol/L BUN 4 L (7.0-18.0) mg/dL Creatinine 0.7 (0.6-1.0) mg/dL Est Cr Clr Drug Dosing 104.93 mL/min Estimated GFR (MDRD) > 60.0 ml/min Glucose 147 H (74-106) mg/dL Calcium 9.3 (8.5-10.1) mg/dL Total Bilirubin 0.5 (0.2-1.0) mg/dL AST 19 (15-37) IU/L ALT 19 (14-63) IU/L Alkaline Phosphatase 91 (46-116) U/L Troponin I < 0.050 (0.000-0.056) ng/mL Total Protein 8.2 (6.4-8.2) g/dL Albumin 4.5 (3.4-5.0) g/dL Globulin 3.7 (2.6-4.0) g/dL Albumin/Globulin Ratio 1.2 (0.9-1.6) Lipase 129 (73-393) U/L Urine Color Urine Appearance Urine pH (5.0-8.0) Ur Specific [place] (1.001-1.035) Urine Protein (NEGATIVE) mg/dL Urine Glucose (UA) (NEGATIVE) mg/dL Urine Ketones (NEGATIVE) mg/dL Urine Occult Blood (NEGATIVE) Urine Nitrite (NEGATIVE) Urine Bilirubin (NEGATIVE) Urine Urobilinogen (<2.0) EU/dL Ur Leukocyte Esterase (NEGATIVE) Urine RBC (0-2/HPF) Urine WBC (0-5/HPF) Ur Epithelial Cells (NONE-FEW) Urine Bacteria (NEGATIVE) 08/15/18 Range/Units 11:20 WBC (4.0-11.0) K/uL RBC (4.30-5.90) M/uL Hgb (12.0-16.0) g/dL Hct (36.0-46.0) % MCV (80.0-98.0) fL MCH (27.0-32.0) pg MCHC (31.0-37.0) g/dL RDW Std Deviation (28.0-62.0) fl RDW Coeff of Mikala (11.0-15.0) % Plt Count (150-400) K/uL MPV (7.40-12.00) fL Neut % (Auto) (48.0-80.0) % Lymph % (Auto) (16.0-40.0) % [place] % (Auto) (0.0-15.0) % Eos % (Auto) (0.0-7.0) % Baso % (Auto) (0.0-1.5) % Neut # (Auto) (1.4-5.7) K/uL Lymph # (Auto) (0.6-2.4) K/uL [place] # (Auto) (0.0-0.8) K/uL Eos # (Auto) (0.0-0.7) K/uL Baso # (Auto) (0.0-0.1) K/uL Nucleated RBC % /100WBC Nucleated RBCs # K/uL Sodium (136-145) mmol/L Potassium (3.5-5.1) mmol/L Chloride (98-107) mmol/L Carbon Dioxide (21.0-32.0) mmol/L BUN (7.0-18.0) mg/dL Creatinine (0.6-1.0) mg/dL Est Cr Clr Drug Dosing mL/min Estimated GFR (MDRD) ml/min Glucose (74-106) mg/dL Calcium (8.5-10.1) mg/dL Total Bilirubin (0.2-1.0) mg/dL AST (15-37) IU/L ALT (14-63) IU/L Alkaline Phosphatase (46-116) U/L Troponin I (0.000-0.056) ng/mL Total Protein (6.4-8.2) g/dL Albumin (3.4-5.0) g/dL Globulin (2.6-4.0) g/dL Albumin/Globulin Ratio (0.9-1.6) Lipase (73-393) U/L Urine Color YELLOW Urine Appearance CLEAR Urine pH 7.0 (5.0-8.0) Ur Specific [place] 1.020 (1.001-1.035) Urine Protein TRACE H (NEGATIVE) mg/dL Urine Glucose (UA) NEGATIVE (NEGATIVE) mg/dL Urine Ketones TRACE H (NEGATIVE) mg/dL Urine Occult Blood NEGATIVE (NEGATIVE) Urine Nitrite NEGATIVE (NEGATIVE) Urine Bilirubin NEGATIVE (NEGATIVE) Urine Urobilinogen 0.2 (<2.0) EU/dL Ur Leukocyte Esterase NEGATIVE (NEGATIVE) Urine RBC 0-1 (0-2/HPF) Urine WBC 0-1 (0-5/HPF) Ur Epithelial Cells FEW (NONE-FEW) Urine Bacteria RARE (NEGATIVE) Meds: Medications Discontinued Medications Generic Name Dose Route Start Last Admin Trade Name Daniel PRN Reason Stop Dose Admin Clonidine HCl 0.1 mg 08/15/18 12:02 08/15/18 12:22 Catapres PO 08/15/18 12:03 0.1 mg ONETIME ONE Administration Al Hydroxide/Mg Hydroxide 15 0 ml 08/15/18 11:57 08/15/18 12:04 ml/ Lidocaine HCl 5 ml PO 08/15/18 11:58 1 each ONETIME ONE Administration Sodium Chloride 1,000 mls @ 999 mls/hr 08/15/18 10:07 08/15/18 10:16 Normal Saline IV 08/15/18 11:07 999 mls/hr BOLUS ONE Administration Iopamidol 80 ml 08/15/18 11:24 08/15/18 11:24 Isovue Multipack-370 (76%) IVPUSH 08/15/18 11:25 80 ml ONETIME STA Administration Ketorolac Tromethamine 30 mg 08/15/18 10:16 08/15/18 10:24 Toradol IVPUSH 08/15/18 10:17 30 mg ONETIME ONE Administration Ondansetron HCl 4 mg 08/15/18 10:17 08/15/18 10:25 Zofran IVPUSH 08/15/18 10:18 4 mg ONETIME ONE Administration Departure - Departure Time of Disposition: 12:00 Disposition: Home, Self-Care 01 Clinical Impression: Abdominal pain Qualifiers: Abdominal location: unspecified location Qualified Code(s): R10.9 - Unspecified abdominal pain Hypertension Qualifiers: Hypertension type: unspecified Qualified Code(s): I10 - Essential (primary) hypertension - Discharge Information Referrals: PCP,None [Primary Care Provider] - Forms: ED Department Discharge Additional Instructions: The following information is given to patients seen in the emergency department who are being discharged to home. This information is to outline your options for follow-up care. We provide all patients seen in our emergency department with a follow-up referral. The need for follow-up, as well as the timing and circumstances, are variable depending upon the specifics of your emergency department visit. If you don't have a primary care physician on staff, we will provide you with a referral. We always advise you to contact your personal physician following an emergency department visit to inform them of the circumstance of the visit and for follow-up with them and/or the need for any referrals to a consulting specialist. The emergency department will also refer you to a specialist when appropriate. This referral assures that you have the opportunity for follow-up care with a specialist. All of these measure are taken in an effort to provide you with optimal care, which includes your follow-up. Under all circumstances we always encourage you to contact your private physician who remains a resource for coordinating your care. When calling for follow-up care, please make the office aware that this follow-up is from your recent emergency room visit. If for any reason you are refused follow-up, please contact the [facility] Emergency Department at and asked to speak to the emergency department charge nurse. [facility] [address] [place] [id number] [facility] [address] [place] [id number] 1. You can alternate ibuprofen and Tylenol as directed for pain and discomfort. 2. Follow-up with a primary care provider as discussed. Return to the ED as needed and as discussed. - My Orders Last 24 Hours: My Active Orders 08/15/18 10:13 EKG Documentation Completion [RC] STAT - Assessment/Plan Last 24 Hours: My Active Orders 08/15/18 10:13 EKG Documentation Completion [RC] STAT
--- NOTE | 2018-08-15 11:49 | CT ---
INDICATION: Left lower quadrant pain and vomiting. History of gastric bypass. COMPARISON: [address] TECHNIQUE: 80 mL Isovue-370 IV contrast. FINDINGS: Bilateral saline breast implants incompletely visualized. Visualized lung bases are clear. Gastric bypass. No dilatation of the Sandra loop. Small amount of fluid in the bypassed stomach lumen. No small bowel dilatation. No colonic inflammation. Cholecystectomy. No nephrolithiasis or hydronephrosis. No air or fluid in the peritoneum. Benign small lymph nodes in the groin bilaterally. IMPRESSION: No source for pain identified. Gastric bypass changes and cholecystectomy changes. Please note that all CT scans at this facility use dose modulation, iterative reconstruction, and/or weight-based dosing when appropriate to reduce radiation dose to as low as reasonably achievable. Dictated by Go Ramos MD @ Aug 15 2018 11:38AM Signed by Dr. Go Ramos @ Aug 15 2018 11:48AM
[2018-08-15] MEDS ORDERED: Alum Hydrox/Mag Hydrox/Simeth 15 ML, Lidocaine 2% 5 ML PO ONE ×2 (11:57)
[2018-08-15] MEDS ORDERED: cloNIDine 0.1 MG Tab PO ONE (12:02)
== END 2018-08-15 12:50 | disposition home or self-care (01) ==
LOC: MW.ED 09:51
DX: R10.32 Left lower quadrant pain (principal); I10 Essential (primary) hypertension; F17.210 Nicotine dependence, cigarettes, uncomplicated; F41.9 Anxiety disorder, unspecified; F32.9 Major depressive disorder, single episode, unspecified; Z79.899 Other long term (current) drug therapy; Z88.1 Allergy status to other antibiotic agents
CPT/HCPCS: 36415; 74177; 80053; 81001; 83690; 84484; 85025; 93005; 96361; 96374; 96375; 99284; A9270; J1885; J2405; J7040; Q9967

== ENCOUNTER 2018-10-22 16:23 | Emergency (ER) | payer OTHER ==
--- NOTE | 2018-10-22 17:03 | EDM.PDOC ---
ED HPI GENERAL MEDICAL PROBLEM - General Chief Complaint: General Stated Complaint: FLU Time Seen by Provider: 10/22/18 16:26 Source of Information: Reports: Patient History Limitations: Reports: No Limitations - History of Present Illness INITIAL COMMENTS - FREE TEXT/NARRATIVE: HISTORY AND PHYSICAL: History of present illness: Patient is a 38-year-old female who presents to the ED today with concern of abdominal pain, generalized body aches, nausea, vomiting, chills, and feeling feverish but has not checked a temperature at home 1 day. Patient states she's not been able to eat or drink anything since yesterday at about noon. Patient states she has a history of gastric bypass that was done in the year 1999 but had to have a revision in 2013 due to issues with obstruction. Patient states she has taken 2 doses of Zofran throughout today which stopped her vomiting. Patient states she feels as if she needs to have a bowel movement but has not had a bowel movement in 2 days. Patient states she has a history of hysterectomy. Patient denies chest pain, shortness of breath, or cough. Denies headache, neck stiff ness, change in vision, syncope, or near syncope. Denies dysuria. Has not noted any blood in urine or stool. Review of systems: As per history of present illness and below otherwise all systems reviewed and negative. Past medical history: As per history of present illness and as reviewed below otherwise noncontributory. Surgical history: As per history of present illness and as reviewed below otherwise noncontributory. Social history: See social history for further information Family history: As per history of present illness and as reviewed below otherwise noncontributory. Physical exam: General: Patient is alert, oriented, and in no acute distress. Patient sitting comfortably on exam table HEENT: Atraumatic, normocephalic, pupils equal and reactive bilaterally, negative for conjunctival pallor or scleral icterus, mucous membranes dry, TMs normal bilaterally, throat clear, neck supple, nontender, trachea midline. No drooling or trismus noted. No meningeal signs. No hot potato voice noted. Lungs: Clear to auscultation, breath sounds equal bilaterally, chest nontender. Heart: S1S2, regular rate and rhythm without overt murmur Abdomen: Soft, nondistended. Mild generalized abdominal pain. Negative for masses or hepatosplenomegaly. Negative for costovertebral tenderness. Pelvis: Stable nontender. Genitourinary: Deferred. Rectal: Deferred. Skin: Intact, warm, dry. No lesions or rashes noted. Extremities: Atraumatic, negative for cords or calf pain. Neurovascular unremarkable. Neuro: Awake, alert, oriented. Cranial nerves II through XII unremarkable. Cerebellum unremarkable. Motor and sensory unremarkable throughout. Exam nonfocal. Notes: Dr. Martini verbally involved in patient care. Patient expresses improvement of symptoms throughout stating ED and able to tolerate PO intake. Discussed the importance for follow-up with primary care provider. Voices understanding and is agreeable to plan of care. Denies any further questions or concerns at this time. Diagnostics: CBC, CMP, UA, EKG, lipase, chest x-ray, troponin, abdominal pelvic CT Therapeutics: Saline, Zofran, Toradol, Morphine, Ativan, Labetalol Prescription: HCTZ (patient states she has several scripts for Zofran at home she can use) Impression: Generalized abdominal pain Dehydration Vomiting Hypertension Plan: 1. Encourage small but frequent sips of fluid to prevent dehydration. Uses Zofran you have at home as needed for nausea and vomiting. 2. Follow-up with your primary care provider as discussed. Return to the ED as needed and as discussed. 3. You can use Tylenol as directed for pain and discomfort. Follow up with primary care for blood pressure check. 4. Take medication as prescribed along with benadryl as discussed. Eat a clear liquid diet and use Miralax as directed until symptoms resolve. Definitive disposition and diagnosis as appropriate pending reevaluation and review of above. Generalized Pain Score (Numeric/FACES): 6 - Related Data Allergies Allergy/AdvReac Type Severity Reaction Status Date / Time ciprofloxacin [From Cipro] Allergy Anaphylactic Verified 10/22/18 16:44 Shock clarithromycin [From Biaxin] Allergy Hives Verified 10/22/18 16:44 Home Meds: Home Meds Mirtazapine 30 mg PO BEDTIME 05/20/18 [History] LORazepam [Ativan] 0.5 mg PO ASDIRECTED 06/17/18 [History] Escitalopram Oxalate [Lexapro] 5 mg PO DAILY 08/15/18 [History] Diazepam [Valium] 2 mg PO QID PRN 10/22/18 [History] Metoclopramide [Reglan] 5 mg PO Q8H 2 Days #6 tab 10/22/18 [Rx] Past Medical History HEENT History: Reports: None Cardiovascular History: Reports: Hypertension Respiratory History: Reports: None Gastrointestinal History: Reports: None Genitourinary History: Reports: None Musculoskeletal History: Reports: None Psychiatric History: Reports: Anxiety, Depression Hematologic History: Reports: Anemia, Blood Transfusion(s) - Infectious Disease History Infectious Disease History: Reports: None - Past Surgical History HEENT Surgical History: Reports: Tonsillectomy GI Surgical History: Reports: Bariatric Procedure, Cholecystectomy Other Female Surgeries/Procedures: bladder stents Other Musculoskeletal Surgeries/Procedures:: Leg surgery Social & Family History - Family History Family Medical History: Noncontributory - Tobacco Use Smoking Status *Q: Current Every Day Smoker Years of Tobacco use: 10 Packs/Tins Daily: 1 - Caffeine Use Caffeine Use: Reports: Coffee - Recreational Drug Use Recreational Drug Use: Yes Recreational Drug Type: Reports: Marijuana/Hashish Recreational Drug Use Frequency: Monthly ED ROS GENERAL - Review of Systems Review Of Systems: ROS reveals no pertinent complaints other than HPI. ED EXAM, GENERAL - Physical Exam Exam: See Below (See dictation) Course - Vital Signs Last Recorded V/S: Last Vital Signs Temp 36.7 C 10/22/18 16:46 Pulse 99 10/22/18 20:17 Resp 20 10/22/18 19:00 BP 180/104 H 10/22/18 20:27 Pulse Ox 98 10/22/18 19:00 - Orders/Labs/Meds Orders: Active Orders 24 hr Category Date Time Status EKG Documentation Completion [RC] STAT Care 10/22/18 17:00 Active CULTURE STREP A CONFIRMATION [RM] Stat Lab 10/22/18 17:00 Results STREP SCRN A RAPID W CULT CONF [RM] Stat Lab 10/22/18 17:00 Results Labs: Laboratory Tests 10/22/18 10/22/18 10/22/18 Range/Units 16:53 16:55 16:55 WBC 7.66 (4.0-11.0) K/uL RBC 5.03 (4.30-5.90) M/uL Hgb 12.4 (12.0-16.0) g/dL Hct 38.9 (36.0-46.0) % MCV 77.3 L (80.0-98.0) fL MCH 24.7 L (27.0-32.0) pg MCHC 31.9 (31.0-37.0) g/dL RDW Std Deviation 45.2 (28.0-62.0) fl RDW Coeff of Mikala 16 H (11.0-15.0) % Plt Count 340 (150-400) K/uL MPV 10.40 (7.40-12.00) fL Neut % (Auto) 89.7 H (48.0-80.0) % Lymph % (Auto) 6.9 L (16.0-40.0) % [place] % (Auto) 3.3 (0.0-15.0) % Eos % (Auto) 0.0 (0.0-7.0) % Baso % (Auto) 0.1 (0.0-1.5) % Neut # (Auto) 6.9 H (1.4-5.7) K/uL Lymph # (Auto) 0.5 L (0.6-2.4) K/uL [place] # (Auto) 0.3 (0.0-0.8) K/uL Eos # (Auto) 0.0 (0.0-0.7) K/uL Baso # (Auto) 0.0 (0.0-0.1) K/uL Nucleated RBC % 0.0 /100WBC Nucleated RBCs # 0 K/uL Sodium 137 (136-145) mmol/L Potassium 3.9 (3.5-5.1) mmol/L Chloride 99 (98-107) mmol/L Carbon Dioxide 21.3 (21.0-32.0) mmol/L BUN 9 (7.0-18.0) mg/dL Creatinine 0.7 (0.6-1.0) mg/dL Est Cr Clr Drug Dosing 104.93 mL/min Estimated GFR (MDRD) > 60.0 ml/min Glucose 153 H (74-106) mg/dL Calcium 10.2 H (8.5-10.1) mg/dL Total Bilirubin 0.5 (0.2-1.0) mg/dL AST 23 (15-37) IU/L ALT 24 (14-63) IU/L Alkaline Phosphatase 85 (46-116) U/L Troponin I (0.000-0.056) ng/mL Total Protein 8.2 (6.4-8.2) g/dL Albumin 4.3 (3.4-5.0) g/dL Globulin 3.9 (2.6-4.0) g/dL Albumin/Globulin Ratio 1.1 (0.9-1.6) Lipase (73-393) U/L Urine Color YELLOW Urine Appearance SLT CLOUDY Urine pH 6.5 (5.0-8.0) Ur Specific [place] >= 1.030 (1.001-1.035) Urine Protein 100 H (NEGATIVE) mg/dL Urine Glucose (UA) NEGATIVE (NEGATIVE) mg/dL Urine Ketones 15 H (NEGATIVE) mg/dL Urine Occult Blood TRACE-INTACT H (NEGATIVE) Urine Nitrite NEGATIVE (NEGATIVE) Urine Bilirubin NEGATIVE (NEGATIVE) Urine Urobilinogen 0.2 (<2.0) EU/dL Ur Leukocyte Esterase NEGATIVE (NEGATIVE) Urine RBC 1-3 (0-2/HPF) Urine WBC 0-2 (0-5/HPF) Ur Epithelial Cells MANY (NONE-FEW) Urine Bacteria FEW (NEGATIVE) 10/22/18 Range/Units 16:59 WBC (4.0-11.0) K/uL RBC (4.30-5.90) M/uL Hgb (12.0-16.0) g/dL Hct (36.0-46.0) % MCV (80.0-98.0) fL MCH (27.0-32.0) pg MCHC (31.0-37.0) g/dL RDW Std Deviation (28.0-62.0) fl RDW Coeff of [place] (11.0-15.0) % Plt Count (150-400) K/uL MPV (7.40-12.00) fL Neut % (Auto) (48.0-80.0) % Lymph % (Auto) (16.0-40.0) % [place] % (Auto) (0.0-15.0) % Eos % (Auto) (0.0-7.0) % Baso % (Auto) (0.0-1.5) % Neut # (Auto) (1.4-5.7) K/uL Lymph # (Auto) (0.6-2.4) K/uL [place] # (Auto) (0.0-0.8) K/uL Eos # (Auto) (0.0-0.7) K/uL Baso # (Auto) (0.0-0.1) K/uL Nucleated RBC % /100WBC Nucleated RBCs # K/uL Sodium (136-145) mmol/L Potassium (3.5-5.1) mmol/L Chloride (98-107) mmol/L Carbon Dioxide (21.0-32.0) mmol/L BUN (7.0-18.0) mg/dL Creatinine (0.6-1.0) mg/dL Est Cr Clr Drug Dosing mL/min Estimated GFR (MDRD) ml/min Glucose (74-106) mg/dL Calcium (8.5-10.1) mg/dL Total Bilirubin (0.2-1.0) mg/dL AST (15-37) IU/L ALT (14-63) IU/L Alkaline Phosphatase (46-116) U/L Troponin I < 0.050 (0.000-0.056) ng/mL Total Protein (6.4-8.2) g/dL Albumin (3.4-5.0) g/dL Globulin (2.6-4.0) g/dL Albumin/Globulin Ratio (0.9-1.6) Lipase 140 (73-393) U/L Urine Color Urine Appearance Urine pH (5.0-8.0) Ur Specific [place] (1.001-1.035) Urine Protein (NEGATIVE) mg/dL Urine Glucose (UA) (NEGATIVE) mg/dL Urine Ketones (NEGATIVE) mg/dL Urine Occult Blood (NEGATIVE) Urine Nitrite (NEGATIVE) Urine Bilirubin (NEGATIVE) Urine Urobilinogen (<2.0) EU/dL Ur Leukocyte Esterase (NEGATIVE) Urine RBC (0-2/HPF) Urine WBC (0-5/HPF) Ur Epithelial Cells (NONE-FEW) Urine Bacteria (NEGATIVE) Meds: Medications Discontinued Medications Generic Name Dose Route Start Last Admin Trade Name Freq PRN Reason Stop Dose Admin Sodium Chloride 1,000 mls @ 999 mls/hr 10/22/18 16:59 10/22/18 17:05 Normal Saline IV 10/22/18 17:59 999 mls/hr STAT ONE Administration Iopamidol 80 ml 10/22/18 18:24 10/22/18 18:25 Isovue Multipack-370 (76%) IVPUSH 10/22/18 18:25 80 ml ONETIME STA Administration Ketorolac Tromethamine 30 mg 10/22/18 16:59 10/22/18 17:05 Toradol IVPUSH 10/22/18 17:00 30 mg ONETIME ONE Administration Labetalol HCl 10 mg 10/22/18 20:28 Normodyne IVPUSH 10/22/18 20:29 ONETIME ONE Protocol Lorazepam 1 mg 10/22/18 19:50 10/22/18 19:59 Ativan IVPUSH 10/22/18 19:51 1 mg ONETIME ONE Administration Lorazepam Confirm 10/22/18 19:51 10/22/18 19:59 Ativan Administered 10/22/18 19:52 Not Given Dose 2 mg .ROUTE .STK-MED ONE Morphine Sulfate 2 mg 10/22/18 19:13 10/22/18 19:21 Morphine IVPUSH 10/22/18 19:14 2 mg ONETIME ONE Administration Ondansetron HCl 4 mg 10/22/18 16:59 10/22/18 17:05 Zofran IVPUSH 10/22/18 17:00 4 mg ONETIME ONE Administration Ondansetron HCl 4 mg 10/22/18 18:36 10/22/18 18:45 Zofran IVPUSH 10/22/18 18:37 4 mg ONETIME ONE Administration Departure - Departure Time of Disposition: 19:06 Disposition: Home, Self-Care 01 Clinical Impression: Generalized abdominal pain, Dehydration Vomiting Qualifiers: Vomiting type: unspecified Vomiting Intractability: unspecified Nausea presence : with nausea Qualified Code(s): R11.2 - Nausea with vomiting, unspecified Hypertension Qualifiers: Hypertension type: unspecified Qualified Code(s): I10 - Essential (primary) hypertension - Discharge Information Prescriptions: Metoclopramide [Reglan] 5 mg PO Q8H 2 Days #6 tab Instructions: Dehydration, Adult, [id number], Vomiting, Adult Referrals: PCP,Unknown [Primary Care Provider] - Forms: ED Department Discharge Additional Instructions: The following information is given to patients seen in the emergency department who are being discharged to home. This information is to outline your options for follow-up care. We provide all patients seen in our emergency department with a follow-up referral. The need for follow-up, as well as the timing and circumstances, are variable depending upon the specifics of your emergency department visit. If you don't have a primary care physician on staff, we will provide you with a referral. We always advise you to contact your personal physician following an emergency department visit to inform them of the circumstance of the visit and for follow-up with them and/or the need for any referrals to a consulting specialist. The emergency department will also refer you to a specialist when appropriate. This referral assures that you have the opportunity for follow-up care with a specialist. All of these measure are taken in an effort to provide you with optimal care, which includes your follow-up. Under all circumstances we always encourage you to contact your private physician who remains a resource for coordinating your care. When calling for follow-up care, please make the office aware that this follow-up is from your recent emergency room visit. If for any reason you are refused follow-up, please contact the [facility] at and asked to speak to the emergency department charge nurse. [facility] [address] [place] [address] [id number] [facility] [address] [place] [id number] 1. Encourage small but frequent sips of fluid to prevent dehydration. Uses Zofran you have at home as needed for nausea and vomiting. 2. Follow-up with your primary care provider and urology as discussed. Return to the ED as needed and as discussed. 3. You can use Tylenol as directed for pain and discomfort. Follow up with primary care for blood pressure check and follow up of medication. - My Orders Last 24 Hours: My Active Orders 10/22/18 17:00 EKG Documentation Completion [RC] STAT CULTURE STREP A CONFIRMATION [RM] Stat STREP SCRN A RAPID W CULT CONF [RM] Stat - Assessment/Plan Last 24 Hours: My Active Orders 10/22/18 17:00 EKG Documentation Completion [RC] STAT CULTURE STREP A CONFIRMATION [RM] Stat STREP SCRN A RAPID W CULT CONF [RM] Stat
[2018-10-22] MEDS: Ondansetron 4 MG/2 ML SDV IVPUSH ONE ×2 (17:05→18:45)
[2018-10-22] MEDS: Ketorolac 30 MG/ML SDV IVPUSH ONE (17:05)
[2018-10-22] MEDS: Sodium Chloride 0.9% 1,000 ML IV ONE (17:05)
[2018-10-22 17:50] LABS: CARBON DIOXIDE,CO2 21.3 mmol/L (21.0-32.0)
[2018-10-22 17:53] LABS: POTASSIUM,K 3.9 mmol/L (3.5-5.1); SODIUM,NA 137 mmol/L (136-145)
[2018-10-22 17:54] LABS: BLOOD UREA NITROGEN,BUN 9 mg/dL (7.0-18.0); CHLORIDE,CL 99 mmol/L (98-107); GLUCOSE RANDOM 153 mg/dL (74-106)
--- NOTE | 2018-10-22 17:59 | CR ---
INDICATION: Flu like symptoms CHEST, ONE VIEW An AP radiograph of the chest was performed. Comparison: 05/10/2018. The lungs appear clear and no pleural effusions are identified. The cardiomediastinal silhouette and pulmonary vasculature appear normal, as do the visualized bones. IMPRESSION: No acute intrathoracic abnormality identified. SOFIYA SOLIZ MD [employer] Dictated by: Apollo Soliz MD @ 10/22/2018 17:58:42 (Electronically Signed)
[2018-10-22] MEDS: Iopamidol 755 MG/ML 500 ML Multipack Bottle IVPUSH STA (18:25)
--- NOTE | 2018-10-22 18:53 | CT ---
INDICATION: Abdominal pain; vomiting; fever; status post gastric bypass in 1999 with revision in 2013. COMPARISON: CT abdomen and pelvis 08/15/2018. TECHNIQUE: CT abdomen and pelvis with intravenous contrast; coronal and sagittal reformats. FINDINGS: Status post bilateral augmentation mammoplasty. No abnormal intra pulmonary nodular densities through the lung bases. No evidence of pleural effusion. Normal size cardiac silhouette without any evidence of pericardial effusion. No focal hepatic or splenic pathology. No pancreatic pathology. Status post cholecystectomy. No adrenal pathology. Status post gastric bypass surgery. No kidneys stones or obstructive uropathy. No retroperitoneal lymphadenopathy. No evidence of abdominal or pelvic ascites. No pneumoperitoneum or intestinal obstruction. CT study of the pelvis is unremarkable. Status post hysterectomy. No interval change identified. IMPRESSION: 1. Status post gastric bypass surgery and cholecystectomy. 2. Negative CT abdomen and pelvis with intravenous contrast otherwise. Please note that all CT scans at this facility use dose modulation, iterative reconstruction, and/or weight-based dosing when appropriate to reduce radiation dose to as low as reasonably achievable. Dictated by Martita Reyse MD @ Oct 22 2018 6:46PM Signed by Dr. Martita Reyes @ Oct 22 2018 6:51PM
[2018-10-22] MEDS: Morphine 2 MG/ML Syringe IVPUSH ONE (19:21)
[2018-10-22] MEDS: LORazepam 2 MG/ML SDV IVPUSH ONE (19:59)
[2018-10-22] MEDS: LORazepam 2 MG/ML SDV ONE (19:59)
[2018-10-22] MEDS: Labetalol 100 MG/20 ML MDV IVPUSH ONE (20:41)
[2018-10-22] MEDS: Hydrochlorothiazide 25 MG Tab PO ONE (21:31)
== END 2018-10-22 21:36 | disposition home or self-care (01) ==
LOC: MW.ED 16:23
DX: E86.0 Dehydration (principal); I10 Essential (primary) hypertension; R10.84 Generalized abdominal pain; R11.2 Nausea with vomiting, unspecified; F17.210 Nicotine dependence, cigarettes, uncomplicated; Z88.1 Allergy status to other antibiotic agents; Z79.899 Other long term (current) drug therapy; F41.9 Anxiety disorder, unspecified; F32.9 Major depressive disorder, single episode, unspecified; Z98.84 Bariatric surgery status; Z98.890 Other specified postprocedural states; Z90.49 Acquired absence of other specified parts of digestive tract; Z90.710 Acquired absence of both cervix and uterus
CPT/HCPCS: 36415; 71045; 74177; 80053; 81001; 83690; 84484; 85025; 87081; 87804; 87880; 93005; 96361; 96374; 96375; 96376; 99284; A9270; J1885; J2060; J2270; J2405; J3490; J7040; Q9967

== ENCOUNTER 2018-10-24 13:42 | Observation (INO) | payer OTHER ==
[2018-10-24] MEDS ORDERED: Ondansetron 4 MG/2 ML SDV IVPUSH ONE (13:47)
[2018-10-24] MEDS ORDERED: Sodium Chloride 0.9% 2.5 ML Syringe FLUSH PRN (13:47)
[2018-10-24] MEDS ORDERED: Sodium Chloride 0.9% 10 ML Syringe FLUSH PRN (13:47)
[2018-10-24] MEDS ORDERED: Labetalol 100 MG/20 ML MDV IVPUSH ONE ×2 (13:54→15:13)
[2018-10-24 14:43] LABS: BLOOD UREA NITROGEN,BUN 18 mg/dL (7.0-18.0); CARBON DIOXIDE,CO2 25.5 mmol/L (21.0-32.0); CHLORIDE,CL 95 mmol/L (98-107); GLUCOSE RANDOM 122 mg/dL (74-106); SODIUM,NA 133 mmol/L (136-145)
[2018-10-24] MEDS ORDERED: LORazepam 1 MG Tab PO ONE ×2 (14:43→21:46)
[2018-10-24] MEDS ORDERED: Potassium Chloride 20 MEQ Tab.ER PO ONE ×2 (15:12→21:46)
--- NOTE | 2018-10-24 16:33 | PCM.HP.2 ---
<Nesha Brambila - Last Filed: 10/24/18 16:47> H&P History of Present Illness - General Date of Service: 10/24/18 Admit Problem/Dx: Admission Diagnosis/Problem Admission Diagnosis/Problem Hypertensive urgency - History of Present Illness Initial Comments - Free Text/Narative: The patient is a 38 year old female who presented to the ER with heart palpitations, lightheadedness, and pulsing in her head. She denies chest pain but endorses shortness of breath and nausea. She was seen in the ER 2 days earlier with abdominal pain, body aches, nausea/vomiting which has since improved. At that time CBC, CMP, UA, strep swab, flu swab, CXR, and CT ab/ pelvis did not show any significant findings. At that visit she had a BP of 202/ 109 was given IV labetalol and sent home with a script for HCTZ. In the ER today, her BP was 177/126, 192/115 and 168/102 after 2 doses of IV labetalol and IV Ativan. She has a history of anxiety for which she takes mirtazapine, Ativan, Lexapro, and Valium. She reports she has been out of her Ativan for 4 days. Lab work today did not see a leukocytosis or anemia but did find hypokalemia, UDS showed she was positive for marijuana. Initial troponin was negative. PCP-Dr. Everett Head/Chest Pain Score (Numeric/FACES): 6 - Related Data Allergies/Adverse Reactions: Allergies Allergy/AdvReac Type Severity Reaction Status Date / Time ciprofloxacin [From Cipro] Allergy Anaphylactic Verified 10/24/18 17:01 Shock clarithromycin [From Biaxin] Allergy Hives Verified 10/24/18 17:01 Home Medications: Home Meds Mirtazapine 30 mg PO BEDTIME 05/20/18 [History] LORazepam [Ativan] 0.5 mg PO BID 06/17/18 [History] Escitalopram Oxalate [Lexapro] 5 mg PO DAILY 08/15/18 [History] Diazepam [Valium] 2 mg PO QID PRN 10/22/18 [History] Metoclopramide [Reglan] 5 mg PO Q8H 2 Days #6 tab 10/22/18 [Rx] hydroCHLOROthiazide [Hydrochlorothiazide] 25 mg PO DAILY 10/24/18 [History] Past Medical History HEENT History: Reports: None Cardiovascular History: Reports: Hypertension Respiratory History: Reports: None Gastrointestinal History: Reports: None Genitourinary History: Reports: None Musculoskeletal History: Reports: None Psychiatric History: Reports: Anxiety, Depression Hematologic History: Reports: Anemia, Blood Transfusion(s) - Infectious Disease History Infectious Disease History: Reports: None - Past Surgical History HEENT Surgical History: Reports: Tonsillectomy GI Surgical History: Reports: Bariatric Procedure, Cholecystectomy Other Female Surgeries/Procedures: bladder stents Other Musculoskeletal Surgeries/Procedures:: Leg surgery Social & Family History - Family History Family Medical History: Noncontributory - Tobacco Use Smoking Status *Q: Current Every Day Smoker Years of Tobacco use: 10 Packs/Tins Daily: 0.5 - Caffeine Use Caffeine Use: Reports: Coffee - Alcohol Use Alcohol Use History: No - Recreational Drug Use Recreational Drug Use: Yes Drug Use in Last 12 Months: Yes Recreational Drug Type: Reports: Marijuana/Hashish Recreational Drug Use Frequency: Weekly H&P Review of Systems - Review of Systems: Review Of Systems: See Below General: Reports: No Symptoms HEENT: Reports: No Symptoms Pulmonary: Reports: Shortness of Breath. Denies: Wheezing, Cough Cardiovascular: Reports: Palpitations, Edema, Blood Pressure Problem. Denies: Chest Pain Gastrointestinal: Reports: Nausea. Denies: Abdominal Pain, Vomiting Genitourinary: Reports: No Symptoms Musculoskeletal: Reports: No Symptoms Skin: Reports: No Symptoms Psychiatric: Reports: No Symptoms Neurological: Reports: Headache Hematologic/Lymphatic: Reports: No Symptoms Immunologic: Reports: No Symptoms Exam - Exam Exam: See Below - Vital Signs Vital Signs: Last Vital Signs Temp 97.7 F 10/24/18 13:47 Pulse 64 10/24/18 14:55 Resp 16 10/24/18 14:55 BP 163/102 H 10/24/18 15:40 Pulse Ox 99 10/24/18 14:55 Weight: 66.224 kg - Exam General: Alert, Oriented, Cooperative HEENT: Conjunctiva Clear, EACs Clear, Mucosa Moist & [place], Posterior Pharynx Clear, Pupils Equal, Pupils Reactive Neck: Supple Lungs: Clear to Auscultation, Normal Respiratory Effort Cardiovascular: Regular Rate, Regular Rhythm GI/Abdominal Exam: Normal Bowel Sounds, Soft, Non-Tender, No Distention Extremities: Pedal Edema Skin: Warm, Dry Psychiatric: Alert, Normal Affect, Normal Mood - Patient Data Lab Results Last 24 hrs: Laboratory Results - last 24 hr 10/24/18 10/24/18 Range/Units 14:00 14:00 WBC 6.97 (4.0-11.0) K/uL RBC 5.06 (4.30-5.90) M/uL Hgb 12.5 (12.0-16.0) g/dL Hct 38.6 (36.0-46.0) % MCV 76.3 L (80.0-98.0) fL MCH 24.7 L (27.0-32.0) pg MCHC 32.4 (31.0-37.0) g/dL RDW Std Deviation 43.4 (28.0-62.0) fl RDW Coeff of Mikala 16 H (11.0-15.0) % Plt Count 312 (150-400) K/uL MPV 10.20 (7.40-12.00) fL Neut % (Auto) 61.5 (48.0-80.0) % Lymph % (Auto) 27.5 (16.0-40.0) % [place] % (Auto) 10.0 (0.0-15.0) % Eos % (Auto) 0.4 (0.0-7.0) % Baso % (Auto) 0.6 (0.0-1.5) % Neut # (Auto) 4.3 (1.4-5.7) K/uL Lymph # (Auto) 1.9 (0.6-2.4) K/uL [place] # (Auto) 0.7 (0.0-0.8) K/uL Eos # (Auto) 0.0 (0.0-0.7) K/uL Baso # (Auto) 0.0 (0.0-0.1) K/uL Nucleated RBC % 0.0 /100WBC Nucleated RBCs # 0 K/uL Sodium 133 L (136-145) mmol/L Potassium 3.0 L (3.5-5.1) mmol/L Chloride 95 L (98-107) mmol/L Carbon Dioxide 25.5 (21.0-32.0) mmol/L BUN 18 (7.0-18.0) mg/dL Creatinine 1.0 (0.6-1.0) mg/dL Est Cr Clr Drug Dosing 73.45 mL/min Estimated GFR (MDRD) > 60.0 ml/min Glucose 122 H (74-106) mg/dL Calcium 9.6 (8.5-10.1) mg/dL Total Bilirubin 0.7 (0.2-1.0) mg/dL AST 24 (15-37) IU/L ALT 25 (14-63) IU/L Alkaline Phosphatase 83 (46-116) U/L Troponin I < 0.050 (0.000-0.056) ng/mL Total Protein 7.5 (6.4-8.2) g/dL Albumin 4.1 (3.4-5.0) g/dL Globulin 3.4 (2.6-4.0) g/dL Albumin/Globulin Ratio 1.2 (0.9-1.6) Result Diagrams: 10/24/18 14:00 10/24/18 14:00 - Problem List (1) Hypertensive urgency SNOMED Code(s): 789960387 ICD Code: I16.0 - HYPERTENSIVE URGENCY Status: Acute Current Visit: Yes (2) Hypokalemia SNOMED Code(s): 26595900 ICD Code: E87.6 - HYPOKALEMIA Status: Acute Current Visit: Yes (3) Anxiety SNOMED Code(s): 24908601 ICD Code: F41.9 - ANXIETY DISORDER, UNSPECIFIED Status: Chronic Current Visit: No Problem List Initiated/Reviewed/Updated: Yes Orders Last 24hrs: Active Orders 24 hr Category Date Time Status Patient Status [ADT] Stat ADT 10/24/18 15:41 Active Cardiac Monitoring [RC] . DIRECTED Care 10/24/18 13:46 Active Cardiac Monitoring [RC] . DIRECTED Care 10/24/18 14:10 Active EKG Documentation Completion [RC] STAT Care 10/24/18 13:46 Active DRUG SCREEN, URINE [URCHEM] Stat Lab 10/24/18 15:55 Received Sodium Chloride 0.9% [Saline Flush] Med 10/24/18 13:47 Active 10 ml FLUSH ASDIRECTED PRN Sodium Chloride 0.9% [Saline Flush] Med 10/24/18 13:47 Active 2.5 ml FLUSH ASDIRECTED PRN Saline Lock Insert [OM.PC] Stat Oth 10/24/18 13:46 Ordered Medication Orders Sodium Chloride (Saline Flush) 10 ml FLUSH ASDIRECTED PRN PRN Reason: Keep Vein Open Last Admin: 10/24/18 14:00 Dose: 10 ml Sodium Chloride (Saline Flush) 2.5 ml FLUSH ASDIRECTED PRN PRN Reason: Keep Vein Open Last Admin: 10/24/18 14:00 Dose: 2.5 ml Assessment/Plan Comment:: 1. Admit for observation 2. Code status- Full 3. Vitals per routine 4. I/Os per routine 5. Diet- regular 6. DVT with lovenox 7. HTN urgency- monitor on telemetry, obtain CXR, will trend troponins. Restart HCTZ. Prn labetolol 8. Chronic anxiety- continue home meds 9. Hypokalemia- replaced with 40 mEq in the ER, will give another 40 [address] floor and recheck in the AM. Check magnesium level. <Marc Cortez - Last Filed: 10/24/18 17:08> H&P History of Present Illness - General Admit Problem/Dx: Admission Diagnosis/Problem Admission Diagnosis/Problem Hypertensive urgency I have seen and examined the patient independently of medical referral coordinator, Dr. Kosta DO. I have reviewed and agree with the plan of care as outlined for this patient by her. I have discussed the case with her. Please see orders. Exam - Vital Signs Vital Signs: Last Vital Signs Temp 36.5 C 10/24/18 13:47 Pulse 64 10/24/18 14:55 Resp 16 10/24/18 14:55 BP 163/102 H 10/24/18 15:40 Pulse Ox 99 10/24/18 14:55 - Patient Data Lab Results Last 24 hrs: Laboratory Results - last 24 hr 10/24/18 10/24/18 10/24/18 Range/Units 14:00 14:00 15:55 WBC 6.97 (4.0-11.0) K/uL RBC 5.06 (4.30-5.90) M/uL Hgb 12.5 (12.0-16.0) g/dL Hct 38.6 (36.0-46.0) % MCV 76.3 L (80.0-98.0) fL MCH 24.7 L (27.0-32.0) pg MCHC 32.4 (31.0-37.0) g/dL RDW Std Deviation 43.4 (28.0-62.0) fl RDW Coeff of Mikala 16 H (11.0-15.0) % Plt Count 312 (150-400) K/uL MPV 10.20 (7.40-12.00) fL Neut % (Auto) 61.5 (48.0-80.0) % Lymph % (Auto) 27.5 (16.0-40.0) % [place] % (Auto) 10.0 (0.0-15.0) % Eos % (Auto) 0.4 (0.0-7.0) % Baso % (Auto) 0.6 (0.0-1.5) % Neut # (Auto) 4.3 (1.4-5.7) K/uL Lymph # (Auto) 1.9 (0.6-2.4) K/uL [place] # (Auto) 0.7 (0.0-0.8) K/uL Eos # (Auto) 0.0 (0.0-0.7) K/uL Baso # (Auto) 0.0 (0.0-0.1) K/uL Nucleated RBC % 0.0 /100WBC Nucleated RBCs # 0 K/uL Sodium 133 L (136-145) mmol/L Potassium 3.0 L (3.5-5.1) mmol/L Chloride 95 L (98-107) mmol/L Carbon Dioxide 25.5 (21.0-32.0) mmol/L BUN 18 (7.0-18.0) mg/dL Creatinine 1.0 (0.6-1.0) mg/dL Est Cr Clr Drug Dosing 73.45 mL/min Estimated GFR (MDRD) > 60.0 ml/min Glucose 122 H (74-106) mg/dL Calcium 9.6 (8.5-10.1) mg/dL Total Bilirubin 0.7 (0.2-1.0) mg/dL AST 24 (15-37) IU/L ALT 25 (14-63) IU/L Alkaline Phosphatase 83 (46-116) U/L Troponin I < 0.050 (0.000-0.056) ng/mL Total Protein 7.5 (6.4-8.2) g/dL Albumin 4.1 (3.4-5.0) g/dL Globulin 3.4 (2.6-4.0) g/dL Albumin/Globulin Ratio 1.2 (0.9-1.6) Urine Opiates Screen NEGATIVE (NEGATIVE) Ur Oxycodone Screen NEGATIVE (NEGATIVE) Urine Methadone Screen NEGATIVE (NEGATIVE) Ur Barbiturates Screen NEGATIVE (NEGATIVE) Ur Phencyclidine Scrn NEGATIVE (NEGATIVE) Ur Amphetamine Screen NEGATIVE (NEGATIVE) U Methamphetamines Scrn NEGATIVE (NEGATIVE) U Benzodiazepines Scrn NEGATIVE (NEGATIVE) U Cocaine Metab Screen NEGATIVE (NEGATIVE) U Marijuana (THC) Screen POSITIVE (NEGATIVE) Result Diagrams: 10/24/18 14:00 10/24/18 14:00 Orders Last 24hrs: Active Orders 24 hr Category Date Time Status Patient Status [ADT] Stat ADT 10/24/18 15:41 Active Cardiac Monitoring [RC] . DIRECTED Care 10/24/18 13:46 Active Cardiac Monitoring [RC] . DIRECTED Care 10/24/18 14:10 Active Cardiac Monitoring [RC] . DIRECTED Care 10/24/18 16:38 Active EKG Documentation Completion [RC] STAT Care 10/24/18 13:46 Active Intake and Output [RC] ASDIRECTED Care 10/24/18 16:38 Active Telemetry Monitoring [Cardiac Monitoring] [RC] . Care 10/24/18 16:33 Active DIRECTED Vital Signs [RC] PER UNIT ROUTINE Care 10/24/18 16:38 Active Regular Diet [DIET] Diet 10/25/18 Breakfast Active Chest 1V Frontal [CR] Routine Exams 10/24/18 16:38 Ordered BASIC METABOLIC PANEL,BMP [CHEM] AM Lab 10/25/18 05:11 Ordered CBC WITH AUTO DIFF [HEME] AM Lab 10/25/18 05:11 Ordered MAGNESIUM [CHEM] Routine Lab 10/24/18 14:00 Received TROPONIN I [CHEM] AM Lab 10/25/18 05:11 Ordered TROPONIN I [CHEM] Routine Lab 10/24/18 22:00 Ordered Acetaminophen [Tylenol] Med 10/24/18 16:41 Active 650 mg PO Q4H PRN Enoxaparin [Lovenox] Med 10/24/18 16:45 Active 40 mg SUBCUT Q24H Escitalopram [Lexapro] Med 10/25/18 09:00 Active 5 mg PO DAILY Labetalol [Normodyne] Med 10/24/18 16:41 Active 20 mg IVPUSH Q4H PRN Mirtazapine [Remeron] Med 10/24/18 21:00 Active 30 mg PO BEDTIME Ondansetron [Zofran] Med 10/24/18 16:41 Active 4 mg IVPUSH Q4H PRN Potassium Chloride [Klor-Con M20] Med 10/24/18 21:46 Once 40 meq PO ONETIME ONE Sodium Chloride 0.9% [Saline Flush] Med 10/24/18 13:47 Active 10 ml FLUSH ASDIRECTED PRN Sodium Chloride 0.9% [Saline Flush] Med 10/24/18 13:47 Active 2.5 ml FLUSH ASDIRECTED PRN diazePAM [Valium] Med 10/24/18 16:44 Active 2 mg PO Q6H PRN hydroCHLOROthiazide Med 10/24/18 16:45 Active 25 mg PO DAILY Saline Lock Insert [OM.PC] Stat Oth 10/24/18 13:46 Ordered Resuscitation Status Routine Resus Stat 10/24/18 16:38 Ordered Medication Orders Acetaminophen (Tylenol) 650 mg PO Q4H PRN PRN Reason: Pain/Fever Diazepam (Valium) 2 mg PO Q6H PRN PRN Reason: Anxiety Enoxaparin Sodium (Lovenox) 40 mg SUBCUT Q24H COLIN Escitalopram Oxalate (Lexapro) 5 mg PO DAILY COLIN Hydrochlorothiazide (Hydrochlorothiazide) 25 mg PO DAILY COLIN Labetalol HCl (Normodyne) 20 mg IVPUSH Q4H PRN; Protocol PRN Reason: Hypertension Mirtazapine (Remeron) 30 mg PO BEDTIME COLIN Ondansetron HCl (Zofran) 4 mg IVPUSH Q4H PRN PRN Reason: Nausea/Vomiting Potassium Chloride (Klor-Con M20) 40 meq PO ONETIME ONE Stop: 10/24/18 21:47 Sodium Chloride (Saline Flush) 10 ml FLUSH ASDIRECTED PRN PRN Reason: Keep Vein Open Last Admin: 10/24/18 14:00 Dose: 10 ml Sodium Chloride (Saline Flush) 2.5 ml FLUSH ASDIRECTED PRN PRN Reason: Keep Vein Open Last Admin: 10/24/18 14:00 Dose: 2.5 ml
[2018-10-24] MEDS: Ondansetron 4 MG/2 ML SDV IVPUSH PRN ×2 (17:29→21:02)
[2018-10-24] MEDS: Acetaminophen 325 MG Tab PO PRN (17:29)
[2018-10-24] MEDS: Hydrochlorothiazide 25 MG Tab PO SCH (17:31)
[2018-10-24] MEDS: Enoxaparin 40 MG/0.4 ML Syringe SUBCUT SCH (17:32)
--- NOTE | 2018-10-24 18:06 | CR ---
INDICATION: SOB, HBP CHEST, ONE VIEW An AP radiograph of the chest was performed. Comparison: 05/10/2018. The lungs appear clear and no pleural effusions are identified. The cardiomediastinal silhouette and pulmonary vasculature appear normal, as do the visualized bones. IMPRESSION: No acute intrathoracic abnormality identified. SOFIYA SOLIZ MD [facility] Dictated by: Apollo Soliz MD @ 10/24/2018 18:04:57 (Electronically Signed)
[2018-10-24] MEDS: Diazepam 2 MG Tab PO PRN (18:37)
[2018-10-24] MEDS: Mirtazapine 15 MG Tab PO SCH (21:02)
[2018-10-24] MEDS: Labetalol 100 MG/20 ML MDV IVPUSH PRN (21:03)
[2018-10-25] MEDS: Acetaminophen 325 MG Tab PO PRN ×3 (00:32→14:13)
[2018-10-25] MEDS: Diazepam 2 MG Tab PO PRN ×4 (00:33→18:04)
[2018-10-25] MEDS: Ondansetron 4 MG/2 ML SDV IVPUSH PRN ×4 (02:33→19:45)
[2018-10-25 06:51] LABS: BLOOD UREA NITROGEN,BUN 12 mg/dL (7.0-18.0); CARBON DIOXIDE,CO2 25.5 mmol/L (21.0-32.0); CHLORIDE,CL 94 mmol/L (98-107); GLUCOSE RANDOM 118 mg/dL (74-106); POTASSIUM,K 3.1 mmol/L (3.5-5.1); SODIUM,NA 131 mmol/L (136-145)
[2018-10-25] MEDS ORDERED: Potassium Chloride 20 MEQ Tab.ER PO ONE (07:35)
[2018-10-25] MEDS ORDERED: Sodium Chloride 0.9% 1,000 ML IV STA (07:37)
[2018-10-25] MEDS: Hydrochlorothiazide 25 MG Tab PO SCH (08:09)
[2018-10-25] MEDS: Ferrous Sulfate 325 MG Tab PO SCH ×2 (08:09→16:15)
[2018-10-25] MEDS: Escitalopram 10 MG Tab PO SCH ×2 (08:10→08:12)
[2018-10-25] MEDS: Pantoprazole 40 MG Tab.CR PO SCH (10:41)
--- NOTE | 2018-10-25 15:18 | PCM.PN ---
<Belen Doherty - Last Filed: 10/25/18 15:12> - General Info Date of Service: 10/25/18 Subjective Update: patient's bedside: patient is not endorsing any new complaints except for abdominal discomfort and diarrhea. Describes the diarrhea as being "[place]-green and foul smelling"; denies any recent antibiotic use for the past 6 months. Denies any sick contacts. Denies any blood in the stool, dysuria, polyuria, polydipsia or hematuria. States also having reduced appetite.. - Review of Systems General: Reports: No Symptoms Cardiovascular: Reports: No Symptoms Gastrointestinal: Reports: Abdominal Pain, Diarrhea, Nausea. Denies: Constipation, Vomiting Genitourinary: Reports: No Symptoms. Denies: Dysuria, Frequency, Burning, Pain , Urgency Musculoskeletal: Denies: No Symptoms Neurological: Denies: No Symptoms Psychiatric: Denies: No Symptoms - Patient Data Vitals - Most Recent: Last Vital Signs Temp 98.5 F 10/25/18 12:00 Pulse 91 10/25/18 12:00 Resp 20 10/25/18 12:00 BP 162/101 H 10/25/18 12:00 Pulse Ox 97 10/25/18 12:00 Weight - Most Recent: 61.689 kg I&O - Last 24 Hours: Intake & Output 10/25/18 10/25/18 10/25/18 06:59 14:59 22:59 Intake Total 820 Output Total 1400 Balance -580 Lab Results Last 24 Hours: Laboratory Results - last 24 hr 10/24/18 10/24/18 10/24/18 Range/Units 14:00 15:55 21:58 WBC (4.0-11.0) K/uL RBC (4.30-5.90) M/uL Hgb (12.0-16.0) g/dL Hct (36.0-46.0) % MCV (80.0-98.0) fL MCH (27.0-32.0) pg MCHC (31.0-37.0) g/dL RDW Std Deviation (28.0-62.0) fl RDW Coeff of Mikala (11.0-15.0) % Plt Count (150-400) K/uL MPV (7.40-12.00) fL Neut % (Auto) (48.0-80.0) % Lymph % (Auto) (16.0-40.0) % [place] % (Auto) (0.0-15.0) % Eos % (Auto) (0.0-7.0) % Baso % (Auto) (0.0-1.5) % Neut # (Auto) (1.4-5.7) K/uL Lymph # (Auto) (0.6-2.4) K/uL [place] # (Auto) (0.0-0.8) K/uL Eos # (Auto) (0.0-0.7) K/uL Baso # (Auto) (0.0-0.1) K/uL Nucleated RBC % /100WBC Nucleated RBCs # K/uL Sodium (136-145) mmol/L Potassium (3.5-5.1) mmol/L Chloride (98-107) mmol/L Carbon Dioxide (21.0-32.0) mmol/L BUN (7.0-18.0) mg/dL Creatinine (0.6-1.0) mg/dL Est Cr Clr Drug Dosing mL/min Estimated GFR (MDRD) ml/min Glucose (74-106) mg/dL Calcium (8.5-10.1) mg/dL Magnesium 2.0 (1.8-2.4) mg/dL Troponin I < 0.050 (0.000-0.056) ng/mL Urine Color Urine Appearance Urine pH (5.0-8.0) Ur Specific [place] (1.001-1.035) Urine Protein (NEGATIVE) mg/dL Urine Glucose (UA) (NEGATIVE) mg/dL Urine Ketones (NEGATIVE) mg/dL Urine Occult Blood (NEGATIVE) Urine Nitrite (NEGATIVE) Urine Bilirubin (NEGATIVE) Urine Urobilinogen (<2.0) EU/dL Ur Leukocyte Esterase (NEGATIVE) Urine RBC (0-2/HPF) Urine WBC (0-5/HPF) Ur Epithelial Cells (NONE-FEW) Urine Bacteria (NEGATIVE) Urine Opiates Screen NEGATIVE (NEGATIVE) Ur Oxycodone Screen NEGATIVE (NEGATIVE) Urine Methadone Screen NEGATIVE (NEGATIVE) Ur Barbiturates Screen NEGATIVE (NEGATIVE) Ur Phencyclidine Scrn NEGATIVE (NEGATIVE) Ur Amphetamine Screen NEGATIVE (NEGATIVE) U Methamphetamines Scrn NEGATIVE (NEGATIVE) U Benzodiazepines Scrn NEGATIVE (NEGATIVE) U Cocaine Metab Screen NEGATIVE (NEGATIVE) U Marijuana (THC) Screen POSITIVE (NEGATIVE) 10/25/18 10/25/18 10/25/18 Range/Units 05:55 05:55 05:55 WBC 16.05 H (4.0-11.0) K/uL RBC 5.20 (4.30-5.90) M/uL Hgb 12.7 (12.0-16.0) g/dL Hct 39.6 (36.0-46.0) % MCV 76.2 L (80.0-98.0) fL MCH 24.4 L (27.0-32.0) pg MCHC 32.1 (31.0-37.0) g/dL RDW Std Deviation 42.5 (28.0-62.0) fl RDW Coeff of Mikala 15 (11.0-15.0) % Plt Count 310 (150-400) K/uL MPV 10.60 (7.40-12.00) fL Neut % (Auto) 84.4 H (48.0-80.0) % Lymph % (Auto) 5.5 L (16.0-40.0) % [place] % (Auto) 9.5 (0.0-15.0) % Eos % (Auto) 0.4 (0.0-7.0) % Baso % (Auto) 0.2 (0.0-1.5) % Neut # (Auto) 13.6 H (1.4-5.7) K/uL Lymph # (Auto) 0.9 (0.6-2.4) K/uL [place] # (Auto) 1.5 H (0.0-0.8) K/uL Eos # (Auto) 0.1 (0.0-0.7) K/uL Baso # (Auto) 0.0 (0.0-0.1) K/uL Nucleated RBC % 0.0 /100WBC Nucleated RBCs # 0 K/uL Sodium 131 L (136-145) mmol/L Potassium 3.1 L (3.5-5.1) mmol/L Chloride 94 L (98-107) mmol/L Carbon Dioxide 25.5 (21.0-32.0) mmol/L BUN 12 (7.0-18.0) mg/dL Creatinine 1.0 (0.6-1.0) mg/dL Est Cr Clr Drug Dosing 73.45 mL/min Estimated GFR (MDRD) > 60.0 ml/min Glucose 118 H (74-106) mg/dL Calcium 9.2 (8.5-10.1) mg/dL Magnesium 1.8 (1.8-2.4) mg/dL Troponin I < 0.050 (0.000-0.056) ng/mL Urine Color Urine Appearance Urine pH (5.0-8.0) Ur Specific [place] (1.001-1.035) Urine Protein (NEGATIVE) mg/dL Urine Glucose (UA) (NEGATIVE) mg/dL Urine Ketones (NEGATIVE) mg/dL Urine Occult Blood (NEGATIVE) Urine Nitrite (NEGATIVE) Urine Bilirubin (NEGATIVE) Urine Urobilinogen (<2.0) EU/dL Ur Leukocyte Esterase (NEGATIVE) Urine RBC (0-2/HPF) Urine WBC (0-5/HPF) Ur Epithelial Cells (NONE-FEW) Urine Bacteria (NEGATIVE) Urine Opiates Screen (NEGATIVE) Ur Oxycodone Screen (NEGATIVE) Urine Methadone Screen (NEGATIVE) Ur Barbiturates Screen (NEGATIVE) Ur Phencyclidine Scrn (NEGATIVE) Ur Amphetamine Screen (NEGATIVE) U Methamphetamines Scrn (NEGATIVE) U Benzodiazepines Scrn (NEGATIVE) U Cocaine Metab Screen (NEGATIVE) U Marijuana (THC) Screen (NEGATIVE) 10/25/18 Range/Units 09:55 WBC (4.0-11.0) K/uL RBC (4.30-5.90) M/uL Hgb (12.0-16.0) g/dL Hct (36.0-46.0) % MCV (80.0-98.0) fL MCH (27.0-32.0) pg MCHC (31.0-37.0) g/dL RDW Std Deviation (28.0-62.0) fl RDW Coeff of Mikala (11.0-15.0) % Plt Count (150-400) K/uL MPV (7.40-12.00) fL Neut % (Auto) (48.0-80.0) % Lymph % (Auto) (16.0-40.0) % [place] % (Auto) (0.0-15.0) % Eos % (Auto) (0.0-7.0) % Baso % (Auto) (0.0-1.5) % Neut # (Auto) (1.4-5.7) K/uL Lymph # (Auto) (0.6-2.4) K/uL [place] # (Auto) (0.0-0.8) K/uL Eos # (Auto) (0.0-0.7) K/uL Baso # (Auto) (0.0-0.1) K/uL Nucleated RBC % /100WBC Nucleated RBCs # K/uL Sodium (136-145) mmol/L Potassium (3.5-5.1) mmol/L Chloride (98-107) mmol/L Carbon Dioxide (21.0-32.0) mmol/L BUN (7.0-18.0) mg/dL Creatinine (0.6-1.0) mg/dL Est Cr Clr Drug Dosing mL/min Estimated GFR (MDRD) ml/min Glucose (74-106) mg/dL Calcium (8.5-10.1) mg/dL Magnesium (1.8-2.4) mg/dL Troponin I (0.000-0.056) ng/mL Urine Color YELLOW Urine Appearance CLEAR Urine pH 6.5 (5.0-8.0) Ur Specific [place] 1.010 (1.001-1.035) Urine Protein NEGATIVE (NEGATIVE) mg/dL Urine Glucose (UA) NEGATIVE (NEGATIVE) mg/dL Urine Ketones NEGATIVE (NEGATIVE) mg/dL Urine Occult Blood NEGATIVE (NEGATIVE) Urine Nitrite NEGATIVE (NEGATIVE) Urine Bilirubin NEGATIVE (NEGATIVE) Urine Urobilinogen 0.2 (<2.0) EU/dL Ur Leukocyte Esterase NEGATIVE (NEGATIVE) Urine RBC NONE SEEN (0-2/HPF) Urine WBC 0-1 (0-5/HPF) Ur Epithelial Cells FEW (NONE-FEW) Urine Bacteria FEW (NEGATIVE) Urine Opiates Screen (NEGATIVE) Ur Oxycodone Screen (NEGATIVE) Urine Methadone Screen (NEGATIVE) Ur Barbiturates Screen (NEGATIVE) Ur Phencyclidine Scrn (NEGATIVE) Ur Amphetamine Screen (NEGATIVE) U Methamphetamines Scrn (NEGATIVE) U Benzodiazepines Scrn (NEGATIVE) U Cocaine Metab Screen (NEGATIVE) U Marijuana (THC) Screen (NEGATIVE) Med Orders - Current: Current Medications Acetaminophen (Tylenol) 650 mg PO Q4H PRN PRN Reason: Pain/Fever Last Admin: 10/25/18 14:13 Dose: 650 mg Diazepam (Valium) 2 mg PO Q6H PRN PRN Reason: Anxiety Last Admin: 10/25/18 12:00 Dose: 2 mg Dicyclomine HCl (Bentyl) 10 mg PO QIDACANDBED PRN PRN Reason: Pain Enoxaparin Sodium (Lovenox) 40 mg SUBCUT Q24H [facility] Last Admin: 10/24/18 17:32 Dose: 40 mg Escitalopram Oxalate (Lexapro) 5 mg PO DAILY [facility] Last Admin: 10/25/18 08:12 Dose: Not Given Ferrous Sulfate (Ferrous Sulfate) 325 mg PO BIDMEALS [facility] Last Admin: 10/25/18 08:09 Dose: 325 mg Hydrochlorothiazide (Hydrochlorothiazide) 25 mg PO DAILY [facility] Last Admin: 10/25/18 08:09 Dose: 25 mg Sodium Chloride (Normal Saline) 1,000 mls @ 75 mls/hr IV NOW STA Stop: 10/25/18 20:56 Last Admin: 10/25/18 08:09 Dose: 75 mls/hr Labetalol HCl (Normodyne) 20 mg IVPUSH Q4H PRN; Protocol PRN Reason: Hypertension Last Admin: 10/24/18 21:03 Dose: 20 mg Mirtazapine (Remeron) 30 mg PO BEDTIME [facility] Last Admin: 10/24/18 21:02 Dose: 30 mg Ondansetron HCl (Zofran) 4 mg IVPUSH Q4H PRN PRN Reason: Nausea/Vomiting Last Admin: 10/25/18 10:40 Dose: 4 mg Pantoprazole Sodium (Protonix) 40 mg PO ACBREAKFAST [facility] Last Admin: 10/25/18 10:41 Dose: 40 mg Sodium Chloride (Saline Flush) 10 ml FLUSH ASDIRECTED PRN PRN Reason: Keep Vein Open Last Admin: 10/24/18 14:00 Dose: 10 ml Sodium Chloride (Saline Flush) 2.5 ml FLUSH ASDIRECTED PRN PRN Reason: Keep Vein Open Last Admin: 10/24/18 14:00 Dose: 2.5 ml Discontinued Medications Labetalol HCl (Normodyne) 20 mg IVPUSH ONETIME ONE; Protocol Stop: 10/24/18 13:55 Last Admin: 10/24/18 14:07 Dose: 20 mg Labetalol HCl (Normodyne) 20 mg IVPUSH ONETIME ONE; Protocol Stop: 10/24/18 15:14 Last Admin: 10/24/18 15:35 Dose: 20 mg Lorazepam (Ativan) 1 mg PO ONETIME ONE Stop: 10/24/18 14:44 Last Admin: 10/24/18 14:54 Dose: 1 mg Lorazepam (Ativan) 1 mg PO ONETIME ONE Stop: 10/24/18 21:47 Last Admin: 10/24/18 21:59 Dose: 1 mg Ondansetron HCl (Zofran) 4 mg IVPUSH ONETIME ONE Stop: 10/24/18 13:48 Last Admin: 10/24/18 14:00 Dose: 4 mg Potassium Chloride (Klor-Con M20) 40 meq PO ONETIME ONE Stop: 10/24/18 15:13 Last Admin: 10/24/18 16:09 Dose: 40 meq Potassium Chloride (Klor-Con M20) 40 meq PO ONETIME ONE Stop: 10/24/18 21:47 Last Admin: 10/24/18 21:02 Dose: 40 meq Potassium Chloride (Klor-Con M20) 40 meq PO ONETIME ONE Stop: 10/25/18 07:36 Last Admin: 10/25/18 08:11 Dose: 40 meq - Exam General: Alert, Oriented HEENT: EOMI Lungs: Clear to Auscultation, Normal Respiratory Effort Cardiovascular: Regular Rate, Regular Rhythm GI/Abdominal Exam: No Organomegaly, No Distention, Other (mild epigastric tenderness ) Skin: Warm, Dry, Intact Psy/Mental Status: Alert, Normal Affect, Normal Mood - Problem List Review Problem List Initiated/Reviewed/Updated: Yes - My Orders Last 24 Hours: My Active Orders 10/25/18 07:37 Sodium Chloride 0.9% [Normal Saline] 1,000 ml IV NOW 10/25/18 08:00 Ferrous Sulfate 325 mg PO BIDMEALS 10/25/18 10:45 Pantoprazole [ProTONIX] 40 mg PO ACBREAKFAST 10/25/18 13:28 CULTURE STOOL + CAMPY+SHIGATOX [RM] Urgent 10/25/18 15:11 Dicyclomine [Bentyl] 10 mg PO QIDACANDBED PRN - Plan Plan:: 1. HTN urgency- monitor on telemetry,Continue HCTZ. Prn labetolol 2. Chronic anxiety- continue home meds 3. Hypokalemia- continue to replace potassium PO; Mg2+ WNL. 4. Diarrhea : stool panel ordered: concerns for Campylobacter (consider Azithromycin), initiated on Bentyl for abdominal spasms. UA WNL. 5. Hyponatremia: continue IV NS; continue to monitor w/ repeat CMP in AM. 6. Microcytic Anemia: ferrous sulfate initiated <Marc Cortez - Last Filed: 10/25/18 15:53> - General Info Admission Dx/Problem (Free Text): I have examined the patient independently of biomedical engineering supervisor, Dr. Chas MD. I have discussed the case with him. I have reviewed and agree with the plan of care as outlined for the patient by him. Please see orders. - Patient Data Vitals - Most Recent: Last Vital Signs Temp 36.9 C 10/25/18 12:00 Pulse 91 10/25/18 12:00 Resp 20 10/25/18 12:00 BP 162/101 H 10/25/18 12:00 Pulse Ox 97 10/25/18 12:00 I&O - Last 24 Hours: Intake & Output 10/25/18 10/25/18 10/25/18 06:59 14:59 22:59 Intake Total 820 Output Total 1400 Balance -580 Lab Results Last 24 Hours: Laboratory Results - last 24 hr 10/24/18 10/24/18 10/24/18 Range/Units 14:00 15:55 21:58 WBC (4.0-11.0) K/uL RBC (4.30-5.90) M/uL Hgb (12.0-16.0) g/dL Hct (36.0-46.0) % MCV (80.0-98.0) fL MCH (27.0-32.0) pg MCHC (31.0-37.0) g/dL RDW Std Deviation (28.0-62.0) fl RDW Coeff of Mikala (11.0-15.0) % Plt Count (150-400) K/uL MPV (7.40-12.00) fL Neut % (Auto) (48.0-80.0) % Lymph % (Auto) (16.0-40.0) % [place] % (Auto) (0.0-15.0) % Eos % (Auto) (0.0-7.0) % Baso % (Auto) (0.0-1.5) % Neut # (Auto) (1.4-5.7) K/uL Lymph # (Auto) (0.6-2.4) K/uL [place] # (Auto) (0.0-0.8) K/uL Eos # (Auto) (0.0-0.7) K/uL Baso # (Auto) (0.0-0.1) K/uL Nucleated RBC % /100WBC Nucleated RBCs # K/uL Sodium (136-145) mmol/L Potassium (3.5-5.1) mmol/L Chloride (98-107) mmol/L Carbon Dioxide (21.0-32.0) mmol/L BUN (7.0-18.0) mg/dL Creatinine (0.6-1.0) mg/dL Est Cr Clr Drug Dosing mL/min Estimated GFR (MDRD) ml/min Glucose (74-106) mg/dL Calcium (8.5-10.1) mg/dL Magnesium 2.0 (1.8-2.4) mg/dL Troponin I < 0.050 (0.000-0.056) ng/mL Urine Color Urine Appearance Urine pH (5.0-8.0) Ur Specific [place] (1.001-1.035) Urine Protein (NEGATIVE) mg/dL Urine Glucose (UA) (NEGATIVE) mg/dL Urine Ketones (NEGATIVE) mg/dL Urine Occult Blood (NEGATIVE) Urine Nitrite (NEGATIVE) Urine Bilirubin (NEGATIVE) Urine Urobilinogen (<2.0) EU/dL Ur Leukocyte Esterase (NEGATIVE) Urine RBC (0-2/HPF) Urine WBC (0-5/HPF) Ur Epithelial Cells (NONE-FEW) Urine Bacteria (NEGATIVE) Urine Opiates Screen NEGATIVE (NEGATIVE) Ur Oxycodone Screen NEGATIVE (NEGATIVE) Urine Methadone Screen NEGATIVE (NEGATIVE) Ur Barbiturates Screen NEGATIVE (NEGATIVE) Ur Phencyclidine Scrn NEGATIVE (NEGATIVE) Ur Amphetamine Screen NEGATIVE (NEGATIVE) U Methamphetamines Scrn NEGATIVE (NEGATIVE) U Benzodiazepines Scrn NEGATIVE (NEGATIVE) U Cocaine Metab Screen NEGATIVE (NEGATIVE) U Marijuana (THC) Screen POSITIVE (NEGATIVE) 10/25/18 10/25/18 10/25/18 Range/Units 05:55 05:55 05:55 WBC 16.05 H (4.0-11.0) K/uL RBC 5.20 (4.30-5.90) M/uL Hgb 12.7 (12.0-16.0) g/dL Hct 39.6 (36.0-46.0) % MCV 76.2 L (80.0-98.0) fL MCH 24.4 L (27.0-32.0) pg MCHC 32.1 (31.0-37.0) g/dL RDW Std Deviation 42.5 (28.0-62.0) fl RDW Coeff of Mikala 15 (11.0-15.0) % Plt Count 310 (150-400) K/uL MPV 10.60 (7.40-12.00) fL Neut % (Auto) 84.4 H (48.0-80.0) % Lymph % (Auto) 5.5 L (16.0-40.0) % [place] % (Auto) 9.5 (0.0-15.0) % Eos % (Auto) 0.4 (0.0-7.0) % Baso % (Auto) 0.2 (0.0-1.5) % Neut # (Auto) 13.6 H (1.4-5.7) K/uL Lymph # (Auto) 0.9 (0.6-2.4) K/uL [place] # (Auto) 1.5 H (0.0-0.8) K/uL Eos # (Auto) 0.1 (0.0-0.7) K/uL Baso # (Auto) 0.0 (0.0-0.1) K/uL Nucleated RBC % 0.0 /100WBC Nucleated RBCs # 0 K/uL Sodium 131 L (136-145) mmol/L Potassium 3.1 L (3.5-5.1) mmol/L Chloride 94 L (98-107) mmol/L Carbon Dioxide 25.5 (21.0-32.0) mmol/L BUN 12 (7.0-18.0) mg/dL Creatinine 1.0 (0.6-1.0) mg/dL Est Cr Clr Drug Dosing 73.45 mL/min Estimated GFR (MDRD) > 60.0 ml/min Glucose 118 H (74-106) mg/dL Calcium 9.2 (8.5-10.1) mg/dL Magnesium 1.8 (1.8-2.4) mg/dL Troponin I < 0.050 (0.000-0.056) ng/mL Urine Color Urine Appearance Urine pH (5.0-8.0) Ur Specific [place] (1.001-1.035) Urine Protein (NEGATIVE) mg/dL Urine Glucose (UA) (NEGATIVE) mg/dL Urine Ketones (NEGATIVE) mg/dL Urine Occult Blood (NEGATIVE) Urine Nitrite (NEGATIVE) Urine Bilirubin (NEGATIVE) Urine Urobilinogen (<2.0) EU/dL Ur Leukocyte Esterase (NEGATIVE) Urine RBC (0-2/HPF) Urine WBC (0-5/HPF) Ur Epithelial Cells (NONE-FEW) Urine Bacteria (NEGATIVE) Urine Opiates Screen (NEGATIVE) Ur Oxycodone Screen (NEGATIVE) Urine Methadone Screen (NEGATIVE) Ur Barbiturates Screen (NEGATIVE) Ur Phencyclidine Scrn (NEGATIVE) Ur Amphetamine Screen (NEGATIVE) U Methamphetamines Scrn (NEGATIVE) U Benzodiazepines Scrn (NEGATIVE) U Cocaine Metab Screen (NEGATIVE) U Marijuana (THC) Screen (NEGATIVE) 10/25/18 Range/Units 09:55 WBC (4.0-11.0) K/uL RBC (4.30-5.90) M/uL Hgb (12.0-16.0) g/dL Hct (36.0-46.0) % MCV (80.0-98.0) fL MCH (27.0-32.0) pg MCHC (31.0-37.0) g/dL RDW Std Deviation (28.0-62.0) fl RDW Coeff of Mikala (11.0-15.0) % Plt Count (150-400) K/uL MPV (7.40-12.00) fL Neut % (Auto) (48.0-80.0) % Lymph % (Auto) (16.0-40.0) % [place] % (Auto) (0.0-15.0) % Eos % (Auto) (0.0-7.0) % Baso % (Auto) (0.0-1.5) % Neut # (Auto) (1.4-5.7) K/uL Lymph # (Auto) (0.6-2.4) K/uL [place] # (Auto) (0.0-0.8) K/uL Eos # (Auto) (0.0-0.7) K/uL Baso # (Auto) (0.0-0.1) K/uL Nucleated RBC % /100WBC Nucleated RBCs # K/uL Sodium (136-145) mmol/L Potassium (3.5-5.1) mmol/L Chloride (98-107) mmol/L Carbon Dioxide (21.0-32.0) mmol/L BUN (7.0-18.0) mg/dL Creatinine (0.6-1.0) mg/dL Est Cr Clr Drug Dosing mL/min Estimated GFR (MDRD) ml/min Glucose (74-106) mg/dL Calcium (8.5-10.1) mg/dL Magnesium (1.8-2.4) mg/dL Troponin I (0.000-0.056) ng/mL Urine Color YELLOW Urine Appearance CLEAR Urine pH 6.5 (5.0-8.0) Ur Specific [place] 1.010 (1.001-1.035) Urine Protein NEGATIVE (NEGATIVE) mg/dL Urine Glucose (UA) NEGATIVE (NEGATIVE) mg/dL Urine Ketones NEGATIVE (NEGATIVE) mg/dL Urine Occult Blood NEGATIVE (NEGATIVE) Urine Nitrite NEGATIVE (NEGATIVE) Urine Bilirubin NEGATIVE (NEGATIVE) Urine Urobilinogen 0.2 (<2.0) EU/dL Ur Leukocyte Esterase NEGATIVE (NEGATIVE) Urine RBC NONE SEEN (0-2/HPF) Urine WBC 0-1 (0-5/HPF) Ur Epithelial Cells FEW (NONE-FEW) Urine Bacteria FEW (NEGATIVE) Urine Opiates Screen (NEGATIVE) Ur Oxycodone Screen (NEGATIVE) Urine Methadone Screen (NEGATIVE) Ur Barbiturates Screen (NEGATIVE) Ur Phencyclidine Scrn (NEGATIVE) Ur Amphetamine Screen (NEGATIVE) U Methamphetamines Scrn (NEGATIVE) U Benzodiazepines Scrn (NEGATIVE) U Cocaine Metab Screen (NEGATIVE) U Marijuana (THC) Screen (NEGATIVE) Med Orders - Current: Current Medications Acetaminophen (Tylenol) 650 mg PO Q4H PRN PRN Reason: Pain/Fever Last Admin: 10/25/18 14:13 Dose: 650 mg Diazepam (Valium) 2 mg PO Q6H PRN PRN Reason: Anxiety Last Admin: 10/25/18 12:00 Dose: 2 mg Dicyclomine HCl (Bentyl) 10 mg PO QIDACANDBED PRN PRN Reason: Pain Enoxaparin Sodium (Lovenox) 40 mg SUBCUT Q24H [facility] Last Admin: 10/24/18 17:32 Dose: 40 mg Escitalopram Oxalate (Lexapro) 5 mg PO DAILY [facility] Last Admin: 10/25/18 08:12 Dose: Not Given Ferrous Sulfate (Ferrous Sulfate) 325 mg PO BIDMEALS [facility] Last Admin: 10/25/18 08:09 Dose: 325 mg Hydrochlorothiazide (Hydrochlorothiazide) 25 mg PO DAILY [facility] Last Admin: 10/25/18 08:09 Dose: 25 mg Sodium Chloride (Normal Saline) 1,000 mls @ 75 mls/hr IV NOW STA Stop: 10/25/18 20:56 Last Admin: 10/25/18 08:09 Dose: 75 mls/hr Labetalol HCl (Normodyne) 20 mg IVPUSH Q4H PRN; Protocol PRN Reason: Hypertension Last Admin: 10/24/18 21:03 Dose: 20 mg Mirtazapine (Remeron) 30 mg PO BEDTIME [facility] Last Admin: 10/24/18 21:02 Dose: 30 mg Ondansetron HCl (Zofran) 4 mg IVPUSH Q4H PRN PRN Reason: Nausea/Vomiting Last Admin: 10/25/18 10:40 Dose: 4 mg Pantoprazole Sodium (Protonix) 40 mg PO ACBREAKFAST [facility] Last Admin: 10/25/18 10:41 Dose: 40 mg Potassium Chloride (Klor-Con M20) 40 meq PO BEDTIME [facility] Sodium Chloride (Saline Flush) 10 ml FLUSH ASDIRECTED PRN PRN Reason: Keep Vein Open Last Admin: 10/24/18 14:00 Dose: 10 ml Sodium Chloride (Saline Flush) 2.5 ml FLUSH ASDIRECTED PRN PRN Reason: Keep Vein Open Last Admin: 10/24/18 14:00 Dose: 2.5 ml Discontinued Medications Labetalol HCl (Normodyne) 20 mg IVPUSH ONETIME ONE; Protocol Stop: 10/24/18 13:55 Last Admin: 10/24/18 14:07 Dose: 20 mg Labetalol HCl (Normodyne) 20 mg IVPUSH ONETIME ONE; Protocol Stop: 10/24/18 15:14 Last Admin: 10/24/18 15:35 Dose: 20 mg Lorazepam (Ativan) 1 mg PO ONETIME ONE Stop: 10/24/18 14:44 Last Admin: 10/24/18 14:54 Dose: 1 mg Lorazepam (Ativan) 1 mg PO ONETIME ONE Stop: 10/24/18 21:47 Last Admin: 10/24/18 21:59 Dose: 1 mg Ondansetron HCl (Zofran) 4 mg IVPUSH ONETIME ONE Stop: 10/24/18 13:48 Last Admin: 10/24/18 14:00 Dose: 4 mg Potassium Chloride (Klor-Con M20) 40 meq PO ONETIME ONE Stop: 10/24/18 15:13 Last Admin: 10/24/18 16:09 Dose: 40 meq Potassium Chloride (Klor-Con M20) 40 meq PO ONETIME ONE Stop: 10/24/18 21:47 Last Admin: 10/24/18 21:02 Dose: 40 meq Potassium Chloride (Klor-Con M20) 40 meq PO ONETIME ONE Stop: 10/25/18 07:36 Last Admin: 10/25/18 08:11 Dose: 40 meq
[2018-10-25] MEDS: Dicyclomine 10 MG Cap PO PRN ×2 (16:14→22:00)
[2018-10-25] MEDS: Enoxaparin 40 MG/0.4 ML Syringe SUBCUT SCH (16:15)
[2018-10-25] MEDS: Potassium Chloride 20 MEQ Tab.ER PO SCH (21:59)
[2018-10-25] MEDS: Ranitidine 15 MG/ML Syrup 10 ML UD Cup PO SCH (21:59)
[2018-10-25] MEDS: Mirtazapine 15 MG Tab PO SCH (22:00)
[2018-10-26] MEDS: Diazepam 2 MG Tab PO PRN ×4 (00:05→22:25)
[2018-10-26] MEDS: Ondansetron 4 MG/2 ML SDV IVPUSH PRN ×4 (06:01→22:25)
[2018-10-26 06:49] LABS: BLOOD UREA NITROGEN,BUN 4 mg/dL (7.0-18.0); CHLORIDE,CL 100 mmol/L (98-107); GLUCOSE RANDOM 96 mg/dL (74-106); POTASSIUM,K 3.4 mmol/L (3.5-5.1); SODIUM,NA 136 mmol/L (136-145)
[2018-10-26] MEDS: Pantoprazole 40 MG Tab.CR PO SCH (06:49)
[2018-10-26] MEDS: Dicyclomine 10 MG Cap PO PRN ×2 (06:49→17:13)
[2018-10-26] MEDS: Hydrochlorothiazide 25 MG Tab PO SCH (08:56)
[2018-10-26] MEDS: Ferrous Sulfate 325 MG Tab PO SCH ×2 (08:57→17:11)
[2018-10-26] MEDS: Escitalopram 10 MG Tab PO SCH (08:58)
[2018-10-26] MEDS: Ranitidine 15 MG/ML Syrup 10 ML UD Cup PO SCH ×2 (09:07→20:52)
[2018-10-26] MEDS: Labetalol 100 MG/20 ML MDV IVPUSH PRN (09:13)
[2018-10-26] MEDS ORDERED: Loperamide 2 MG Cap PO PRN (09:24)
[2018-10-26] MEDS ORDERED: Potassium Chloride 20 MEQ Tab.ER PO ONE (09:29)
[2018-10-26] MEDS: metroNIDAZOLE 250 MG Tab PO SCH ×2 (09:54→17:12)
[2018-10-26] MEDS ORDERED: Alum Hydrox/Mag Hydrox/Simeth 15 ML, Lidocaine 2% 5 ML PO ONE ×4 (10:24→16:36)
[2018-10-26] MEDS: LORazepam 1 MG Tab PO PRN ×2 (11:14→17:13)
--- NOTE | 2018-10-26 11:17 | PCM.PN ---
<Nesha Brambila - Last Filed: 10/26/18 11:11> - General Info Date of Service: 10/26/18 Subjective Update: On rounds this morning, patient reported she was doing better and was tolerating oral diet. She reports 6-7 watery bowel movements yesterday, Cdiff, Shiga, and Campylobacter are negative. Yesterday she complained of burning in her stomach and was started on Zantac. Her blood pressure had been under control but was elevated this morning to 180s/100s for which the nurses gave labetalol. At that point the patient was complaining of burning again and wanted a GI cocktail. She then become very anxious. - Review of Systems General: Reports: No Symptoms HEENT: Reports: No Symptoms Pulmonary: Reports: No Symptoms Cardiovascular: Reports: No Symptoms Gastrointestinal: Reports: Diarrhea, Other (stomach burning) Genitourinary: Reports: No Symptoms Musculoskeletal: Reports: No Symptoms Skin: Reports: No Symptoms Neurological: Reports: No Symptoms Psychiatric: Reports: Anxiety - Patient Data Vitals - Most Recent: Last Vital Signs Temp 98.2 F 10/26/18 08:00 Pulse 77 10/26/18 08:00 Resp 16 10/26/18 08:00 BP 182/102 H 10/26/18 08:00 Pulse Ox 98 10/26/18 08:00 Weight - Most Recent: 61.689 kg I&O - Last 24 Hours: Intake & Output 10/25/18 10/26/18 10/26/18 22:59 06:59 14:59 Intake Total 1563 1250 Output Total 600 Balance 963 1250 Lab Results Last 24 Hours: Laboratory Results - last 24 hr 10/26/18 10/26/18 Range/Units 06:05 06:05 WBC 3.81 L (4.0-11.0) K/uL RBC 4.86 (4.30-5.90) M/uL Hgb 11.8 L (12.0-16.0) g/dL Hct 38.0 (36.0-46.0) % MCV 78.2 L (80.0-98.0) fL MCH 24.3 L (27.0-32.0) pg MCHC 31.1 (31.0-37.0) g/dL RDW Std Deviation 45.2 (28.0-62.0) fl RDW Coeff of Mikala 16 H (11.0-15.0) % Plt Count 268 (150-400) K/uL MPV 11.00 (7.40-12.00) fL Add Manual Diff YES Neutrophils % (Manual) 42 L (48.0-80.0) % Lymphocytes % (Manual) 43 H (16.0-40.0) % Monocytes % (Manual) 12 (0.0-15.0) % Eosinophils % (Manual) 3 (0.0-7.0) % Nucleated RBC % 0.0 /100WBC Absolute Seg Neuts 1.6 (1.4-5.7) Lymphocytes # (Manual) 1.6 (0.6-2.4) Monocytes # (Manual) 0.5 (0.0-0.8) Eosinophils # (Manual) 0.1 (0.0-0.7) Nucleated RBCs # 0 K/uL Sodium 136 (136-145) mmol/L Potassium 3.4 L (3.5-5.1) mmol/L Chloride 100 (98-107) mmol/L Carbon Dioxide 28.0 (21.0-32.0) mmol/L BUN 4 L (7.0-18.0) mg/dL Creatinine 0.9 (0.6-1.0) mg/dL Est Cr Clr Drug Dosing 81.61 mL/min Estimated GFR (MDRD) > 60.0 ml/min Glucose 96 (74-106) mg/dL Calcium 9.0 (8.5-10.1) mg/dL Total Bilirubin 0.5 (0.2-1.0) mg/dL AST 15 (15-37) IU/L ALT 21 (14-63) IU/L Alkaline Phosphatase 74 (46-116) U/L Total Protein 6.7 (6.4-8.2) g/dL Albumin 3.6 (3.4-5.0) g/dL Globulin 3.1 (2.6-4.0) g/dL Albumin/Globulin Ratio 1.2 (0.9-1.6) [place] Results Last 24 Hours: Microbiology 10/25/18 15:20 Campylobacter Antigen Assay - Final Stool / Feces NEGATIVE CAMPYLOBACTER AG REFERENCE RANGE: NEGATIVE Shiga Toxin I - Final NEGATIVE FOR SHIGA TOXIN 1 REFERENCE RANGE: NEGATIVE Shiga Toxin II - Final NEGATIVE FOR SHIGA TOXIN 2 REFERENCE RANGE: NEGATIVE 10/25/18 15:20 Clostridium difficile Toxin A & B - Final Stool / Feces Negative for C.Diff Toxin/AG REFERENCE RANGE: NEGATIVE Med Orders - Current: Current Medications Acetaminophen (Tylenol) 650 mg PO Q4H PRN PRN Reason: Pain/Fever Last Admin: 10/25/18 14:13 Dose: 650 mg Diazepam (Valium) 2 mg PO Q6H PRN PRN Reason: Anxiety Last Admin: 10/26/18 06:05 Dose: 2 mg Dicyclomine HCl (Bentyl) 10 mg PO QIDACANDBED PRN PRN Reason: Pain Last Admin: 10/26/18 06:49 Dose: 10 mg Enoxaparin Sodium (Lovenox) 40 mg SUBCUT Q24H [facility] Last Admin: 10/25/18 16:15 Dose: 40 mg Escitalopram Oxalate (Lexapro) 5 mg PO DAILY [facility] Last Admin: 10/26/18 08:58 Dose: Not Given Ferrous Sulfate (Ferrous Sulfate) 325 mg PO BIDMEALS [facility] Last Admin: 10/26/18 08:57 Dose: 325 mg Hydrochlorothiazide (Hydrochlorothiazide) 25 mg PO DAILY [facility] Last Admin: 10/26/18 08:56 Dose: 25 mg Labetalol HCl (Normodyne) 20 mg IVPUSH Q4H PRN; Protocol PRN Reason: Hypertension Last Admin: 10/26/18 09:13 Dose: 20 mg Loperamide HCl (Imodium) 2 mg PO Q4H PRN PRN Reason: Diarrhea Lorazepam (Ativan) 1 mg PO Q6H PRN PRN Reason: Anxiety Metronidazole (Metronidazole) 500 mg PO Q8H [facility] Last Admin: 10/26/18 09:54 Dose: 500 mg Mirtazapine (Remeron) 30 mg PO BEDTIME [facility] Last Admin: 10/25/18 22:00 Dose: 30 mg Ondansetron HCl (Zofran) 4 mg IVPUSH Q4H PRN PRN Reason: Nausea/Vomiting Last Admin: 10/26/18 09:55 Dose: 4 mg Pantoprazole Sodium (Protonix) 40 mg PO ACBREAKFAST [facility] Last Admin: 10/26/18 06:49 Dose: 40 mg Potassium Chloride (Klor-Con M20) 40 meq PO BEDTIME [facility] Last Admin: 10/25/18 21:59 Dose: 40 meq Ranitidine HCl (Zantac) 150 mg PO BID [facility] Last Admin: 10/26/18 09:07 Dose: 150 mg Sodium Chloride (Saline Flush) 10 ml FLUSH ASDIRECTED PRN PRN Reason: Keep Vein Open Last Admin: 10/24/18 14:00 Dose: 10 ml Sodium Chloride (Saline Flush) 2.5 ml FLUSH ASDIRECTED PRN PRN Reason: Keep Vein Open Last Admin: 10/24/18 14:00 Dose: 2.5 ml Discontinued Medications Al Hydroxide/Mg Hydroxide 15 (ml/ Lidocaine HCl 5 ml) 0 ml PO ONETIME ONE Stop: 10/26/18 10:25 Last Admin: 10/26/18 10:58 Dose: 1 each Sodium Chloride (Normal Saline) 1,000 mls @ 75 mls/hr IV NOW STA Stop: 10/25/18 20:56 Last Admin: 10/25/18 08:09 Dose: 75 mls/hr Labetalol HCl (Normodyne) 20 mg IVPUSH ONETIME ONE; Protocol Stop: 10/24/18 13:55 Last Admin: 10/24/18 14:07 Dose: 20 mg Labetalol HCl (Normodyne) 20 mg IVPUSH ONETIME ONE; Protocol Stop: 10/24/18 15:14 Last Admin: 10/24/18 15:35 Dose: 20 mg Lorazepam (Ativan) 1 mg PO ONETIME ONE Stop: 10/24/18 14:44 Last Admin: 10/24/18 14:54 Dose: 1 mg Lorazepam (Ativan) 1 mg PO ONETIME ONE Stop: 10/24/18 21:47 Last Admin: 10/24/18 21:59 Dose: 1 mg Ondansetron HCl (Zofran) 4 mg IVPUSH ONETIME ONE Stop: 10/24/18 13:48 Last Admin: 10/24/18 14:00 Dose: 4 mg Potassium Chloride (Klor-Con M20) 40 meq PO ONETIME ONE Stop: 10/24/18 15:13 Last Admin: 10/24/18 16:09 Dose: 40 meq Potassium Chloride (Klor-Con M20) 40 meq PO ONETIME ONE Stop: 10/24/18 21:47 Last Admin: 10/24/18 21:02 Dose: 40 meq Potassium Chloride (Klor-Con M20) 40 meq PO ONETIME ONE Stop: 10/25/18 07:36 Last Admin: 10/25/18 08:11 Dose: 40 meq Potassium Chloride (Klor-Con M20) 40 meq PO ONETIME ONE Stop: 10/26/18 09:30 Last Admin: 10/26/18 09:55 Dose: 40 meq - Exam General: Alert, Oriented, Cooperative HEENT: Pupils Equal, Pupils Reactive, EOMI, Mucous Membr. Moist/[place]: Supple Lungs: Clear to Auscultation, Normal Respiratory Effort Cardiovascular: Regular Rate, Regular Rhythm GI/Abdominal Exam: Normal Bowel Sounds, Soft, Non-Tender, No Distention Extremities: No Pedal Edema Skin: Warm, Dry, Intact Neurological: No New Focal Deficit Psy/Mental Status: Alert, Normal Affect, Normal Mood - Problem List & Annotations (1) Hypertensive urgency SNOMED Code(s): 405628979 Code(s): I16.0 - HYPERTENSIVE URGENCY Status: Acute Current Visit: Yes (2) Hypokalemia SNOMED Code(s): 67079671 Code(s): E87.6 - HYPOKALEMIA Status: Acute Current Visit: Yes (3) Anxiety SNOMED Code(s): 05967781 Code(s): F41.9 - ANXIETY DISORDER, UNSPECIFIED Status: Chronic Current Visit: No - Problem List Review Problem List Initiated/Reviewed/Updated: Yes - My Orders Last 24 Hours: My Active Orders 10/26/18 09:24 Loperamide [Imodium] 2 mg PO Q4H PRN 10/26/18 09:30 metroNIDAZOLE 500 mg PO Q8H - Plan Plan:: 1. HTN urgency- no events on telemetry,continue HCTZ. Prn labetolol 2. Chronic anxiety- continue home meds, start Ativan 1 mg po q 6 as needed for anxiety 3. Hypokalemia- improved- give additional dose of 40 mEq today 4. Diarrhea : negative for Cdiff, Shiga, and Campylobacter. Continue Bentyl for bowel spasm, start Imodium and Flagyl. Could not give cipro or azithro due to patient allergies. Patient started on Zantac for stomach burning and given GI cocktail. 5. Hyponatremia: resolved 6. Microcytic Anemia: continue ferrous sulfate Will reassess this afternoon for possible discharge. <Marc Cortez M - Last Filed: 10/26/18 11:42> - General Info Admission Dx/Problem (Free Text): I have seen and examined the patient independently of medical instructor, Dr. Kosta DO. I have reviewed and agree with the plan of care as outlined for this patient by her. I have discussed the case with her. Please see orders. The patient is also been noted to be extremely anxious. She had been prescribed 1 mg of Ativan by mouth every 8 hours. - Patient Data Vitals - Most Recent: Last Vital Signs Temp 36.8 C 10/26/18 08:00 Pulse 77 10/26/18 08:00 Resp 16 10/26/18 08:00 BP 182/102 H 10/26/18 08:00 Pulse Ox 98 10/26/18 08:00 I&O - Last 24 Hours: Intake & Output 10/25/18 10/26/18 10/26/18 22:59 06:59 14:59 Intake Total 1563 1250 Output Total 600 Balance 963 1250 Lab Results Last 24 Hours: Laboratory Results - last 24 hr 10/26/18 10/26/18 Range/Units 06:05 06:05 WBC 3.81 L (4.0-11.0) K/uL RBC 4.86 (4.30-5.90) M/uL Hgb 11.8 L (12.0-16.0) g/dL Hct 38.0 (36.0-46.0) % MCV 78.2 L (80.0-98.0) fL MCH 24.3 L (27.0-32.0) pg MCHC 31.1 (31.0-37.0) g/dL RDW Std Deviation 45.2 (28.0-62.0) fl RDW Coeff of Mikala 16 H (11.0-15.0) % Plt Count 268 (150-400) K/uL MPV 11.00 (7.40-12.00) fL Add Manual Diff YES Neutrophils % (Manual) 42 L (48.0-80.0) % Lymphocytes % (Manual) 43 H (16.0-40.0) % Monocytes % (Manual) 12 (0.0-15.0) % Eosinophils % (Manual) 3 (0.0-7.0) % Nucleated RBC % 0.0 /100WBC Absolute Seg Neuts 1.6 (1.4-5.7) Lymphocytes # (Manual) 1.6 (0.6-2.4) Monocytes # (Manual) 0.5 (0.0-0.8) Eosinophils # (Manual) 0.1 (0.0-0.7) Nucleated RBCs # 0 K/uL Sodium 136 (136-145) mmol/L Potassium 3.4 L (3.5-5.1) mmol/L Chloride 100 (98-107) mmol/L Carbon Dioxide 28.0 (21.0-32.0) mmol/L BUN 4 L (7.0-18.0) mg/dL Creatinine 0.9 (0.6-1.0) mg/dL Est Cr Clr Drug Dosing 81.61 mL/min Estimated GFR (MDRD) > 60.0 ml/min Glucose 96 (74-106) mg/dL Calcium 9.0 (8.5-10.1) mg/dL Total Bilirubin 0.5 (0.2-1.0) mg/dL AST 15 (15-37) IU/L ALT 21 (14-63) IU/L Alkaline Phosphatase 74 (46-116) U/L Total Protein 6.7 (6.4-8.2) g/dL Albumin 3.6 (3.4-5.0) g/dL Globulin 3.1 (2.6-4.0) g/dL Albumin/Globulin Ratio 1.2 (0.9-1.6) [place] Results Last 24 Hours: Microbiology 10/25/18 15:20 Campylobacter Antigen Assay - Final Stool / Feces NEGATIVE CAMPYLOBACTER AG REFERENCE RANGE: NEGATIVE Shiga Toxin I - Final NEGATIVE FOR SHIGA TOXIN 1 REFERENCE RANGE: NEGATIVE Shiga Toxin II - Final NEGATIVE FOR SHIGA TOXIN 2 REFERENCE RANGE: NEGATIVE 10/25/18 15:20 Clostridium difficile Toxin A & B - Final Stool / Feces Negative for C.Diff Toxin/AG REFERENCE RANGE: NEGATIVE Med Orders - Current: Current Medications Acetaminophen (Tylenol) 650 mg PO Q4H PRN PRN Reason: Pain/Fever Last Admin: 10/25/18 14:13 Dose: 650 mg Diazepam (Valium) 2 mg PO Q6H PRN PRN Reason: Anxiety Last Admin: 10/26/18 06:05 Dose: 2 mg Dicyclomine HCl (Bentyl) 10 mg PO QIDACANDBED PRN PRN Reason: Pain Last Admin: 10/26/18 06:49 Dose: 10 mg Enoxaparin Sodium (Lovenox) 40 mg SUBCUT Q24H [facility] Last Admin: 10/25/18 16:15 Dose: 40 mg Escitalopram Oxalate (Lexapro) 5 mg PO DAILY [facility] Last Admin: 10/26/18 08:58 Dose: Not Given Ferrous Sulfate (Ferrous Sulfate) 325 mg PO BIDMEALS [facility] Last Admin: 10/26/18 08:57 Dose: 325 mg Hydrochlorothiazide (Hydrochlorothiazide) 25 mg PO DAILY [facility] Last Admin: 10/26/18 08:56 Dose: 25 mg Labetalol HCl (Normodyne) 20 mg IVPUSH Q4H PRN; Protocol PRN Reason: Hypertension Last Admin: 10/26/18 09:13 Dose: 20 mg Loperamide HCl (Imodium) 2 mg PO Q4H PRN PRN Reason: Diarrhea Lorazepam (Ativan) 1 mg PO Q6H PRN PRN Reason: Anxiety Last Admin: 10/26/18 11:14 Dose: 1 mg Metronidazole (Metronidazole) 500 mg PO Q8H [facility] Last Admin: 10/26/18 09:54 Dose: 500 mg Mirtazapine (Remeron) 30 mg PO BEDTIME [facility] Last Admin: 10/25/18 22:00 Dose: 30 mg Ondansetron HCl (Zofran) 4 mg IVPUSH Q4H PRN PRN Reason: Nausea/Vomiting Last Admin: 10/26/18 09:55 Dose: 4 mg Pantoprazole Sodium (Protonix) 40 mg PO ACBREAKFAST [facility] Last Admin: 10/26/18 06:49 Dose: 40 mg Potassium Chloride (Klor-Con M20) 40 meq PO BEDTIME [facility] Last Admin: 10/25/18 21:59 Dose: 40 meq Ranitidine HCl (Zantac) 150 mg PO BID [facility] Last Admin: 10/26/18 09:07 Dose: 150 mg Sodium Chloride (Saline Flush) 10 ml FLUSH ASDIRECTED PRN PRN Reason: Keep Vein Open Last Admin: 10/24/18 14:00 Dose: 10 ml Sodium Chloride (Saline Flush) 2.5 ml FLUSH ASDIRECTED PRN PRN Reason: Keep Vein Open Last Admin: 10/24/18 14:00 Dose: 2.5 ml Discontinued Medications Al Hydroxide/Mg Hydroxide 15 (ml/ Lidocaine HCl 5 ml) 0 ml PO ONETIME ONE Stop: 10/26/18 10:25 Last Admin: 10/26/18 10:58 Dose: 1 each Sodium Chloride (Normal Saline) 1,000 mls @ 75 mls/hr IV NOW STA Stop: 10/25/18 20:56 Last Admin: 10/25/18 08:09 Dose: 75 mls/hr Labetalol HCl (Normodyne) 20 mg IVPUSH ONETIME ONE; Protocol Stop: 10/24/18 13:55 Last Admin: 10/24/18 14:07 Dose: 20 mg Labetalol HCl (Normodyne) 20 mg IVPUSH ONETIME ONE; Protocol Stop: 10/24/18 15:14 Last Admin: 10/24/18 15:35 Dose: 20 mg Lorazepam (Ativan) 1 mg PO ONETIME ONE Stop: 10/24/18 14:44 Last Admin: 10/24/18 14:54 Dose: 1 mg Lorazepam (Ativan) 1 mg PO ONETIME ONE Stop: 10/24/18 21:47 Last Admin: 10/24/18 21:59 Dose: 1 mg Ondansetron HCl (Zofran) 4 mg IVPUSH ONETIME ONE Stop: 10/24/18 13:48 Last Admin: 10/24/18 14:00 Dose: 4 mg Potassium Chloride (Klor-Con M20) 40 meq PO ONETIME ONE Stop: 10/24/18 15:13 Last Admin: 10/24/18 16:09 Dose: 40 meq Potassium Chloride (Klor-Con M20) 40 meq PO ONETIME ONE Stop: 10/24/18 21:47 Last Admin: 10/24/18 21:02 Dose: 40 meq Potassium Chloride (Klor-Con M20) 40 meq PO ONETIME ONE Stop: 10/25/18 07:36 Last Admin: 10/25/18 08:11 Dose: 40 meq Potassium Chloride (Klor-Con M20) 40 meq PO ONETIME ONE Stop: 10/26/18 09:30 Last Admin: 10/26/18 09:55 Dose: 40 meq - My Orders Last 24 Hours: My Active Orders 10/25/18 21:00 Ranitidine [Zantac] 150 mg PO BID [facility] [COMM] Stat 10/26/18 11:02 LORazepam [Ativan] 1 mg PO Q6H PRN
[2018-10-26] MEDS: Enoxaparin 40 MG/0.4 ML Syringe SUBCUT SCH (17:11)
[2018-10-26] MEDS: Potassium Chloride 20 MEQ Tab.ER PO SCH (20:51)
[2018-10-26] MEDS: Mirtazapine 15 MG Tab PO SCH (20:51)
[2018-10-27] MEDS: metroNIDAZOLE 250 MG Tab PO SCH (02:43)
[2018-10-27] MEDS: Ondansetron 4 MG/2 ML SDV IVPUSH PRN (02:57)
[2018-10-27] MEDS: LORazepam 1 MG Tab PO PRN (03:05)
[2018-10-27] MEDS: Pantoprazole 40 MG Tab.CR PO SCH (07:22)
--- NOTE | 2018-10-27 07:38 | PCM.DCSUM1 ---
<Nesha Brambila - Last Filed: 10/27/18 08:57> Discharge Summary - Hospital Course Free Text/Narrative:: Admission Date: 10/24/18 Discharge Date: 10/27/18 Admission Diagnosis: 1. HTN urgency 2. Chronic anxiety 3. Hypokalemia Discharge Diagnosis: 1. HTN urgency- resolved 2. Chronic anxiety 3. Hypokalemia- resolved 4. Diarrhea- improved 5. Hyponatremia- resolved 6. Microcytic anemia Procedures: None Consults: None Hospital Course: The patient is a 38-year-old female who presented to the ER with heart palpitations, lightheadedness and pulsing in her head. At that time she had an elevated blood pressure of 177/126 and 192/115. She was given 2 doses of IV labetalol and IV Ativan in the ER. Initial laboratory in the ER, found hypokalemia, UDS was positive for marijuana and initial troponin was negative. She was admitted to the medical surgical floor for observation. For the hypertensive urgency, she was monitored on telemetry without any significant events, troponins were trended and negative 3, and she was continued on her home hydrochlorothiazide. She did have prn labetalol for elevated BP. Her blood pressures improved by day of discharge. For her chronic anxiety, she was continued on her home meds. That was still not controlling her anxiety so she was started on po Ativan and reported significant improvement. For her hypokalemia, this was replaced and resolved. For her diarrhea. stool studies were obtained and were negative. She had been started on Flagyl, Bentyl and Imodium for the diarrhea. By day of discharge, her diarrhea had significantly improved. She was found to have microcytic anemia and started on ferrous sulfate. She reports some burning in her stomach that improved with Zantac and GI cocktail. She does have an appointment with Gen. surgery this week to discuss colonoscopy and EGD. By day of discharge, the patient was feeling much better and stated she was ready to go home. Disposition: Home Discharge Condition: vitals stable, tolerating oral diet, ambulating without difficulty, symptom improvement Discharge Instructions: bland diet as tolerated, activity as tolerated, take medications as prescribed. Symptoms to report to physician include fever/chills , chest pain, shortness of breath, abdominal pain, erythema, drainage/discharge , or not improving as expected. Discharge Medications: Mirtazapine 30 mg PO BEDTIME Escitalopram Oxalate [Lexapro] 5 mg PO DAILY Diazepam [Valium] 2 mg PO QID PRN Metoclopramide [Reglan] 5 mg PO Q8H hydroCHLOROthiazide [Hydrochlorothiazide] 25 mg PO DAILY Dicyclomine [Bentyl] 10 mg PO QIDACANDBED PRN Ferrous Sulfate 325 mg PO BIDMEALS GI Cocktail 10 ml PO DAILY PRN Pantoprazole [ProTONIX] 40 mg PO ACBREAKFAST metroNIDAZOLE 500 mg PO Q8H 7 Days Follow-up: 1. PCP- Dr. Everett 2. General Surgery on 10/29/18 - Discharge Data Discharge Date: 10/27/18 Discharge Disposition: Home, Self-Care 01 Condition: Fair - Discharge Diagnosis/Problem(s) (1) Hypertensive urgency SNOMED Code(s): 288052279 ICD Code: I16.0 - HYPERTENSIVE URGENCY Status: Acute (2) Hypokalemia SNOMED Code(s): 10336196 ICD Code: E87.6 - HYPOKALEMIA Status: Acute (3) Anxiety SNOMED Code(s): 23705953 ICD Code: F41.9 - ANXIETY DISORDER, UNSPECIFIED Status: Chronic - Discharge Plan Prescriptions/Med Rec: Dicyclomine [Bentyl] 10 mg PO QIDACANDBED PRN 7 Days #30 cap PRN Reason: Abdominal Pain Ferrous Sulfate 325 mg PO BIDMEALS 14 Days #28 tablet GI Cocktail 10 ml PO DAILY PRN 5 Days #1 bottle PRN Reason: Dyspnea metroNIDAZOLE 500 mg PO Q8H 7 Days #14 tablet Pantoprazole [ProTONIX] 40 mg PO ACBREAKFAST 14 Days #14 tab.cr Home Medications: Home Meds Mirtazapine 30 mg PO BEDTIME 05/20/18 [History] Escitalopram Oxalate [Lexapro] 5 mg PO DAILY 08/15/18 [History] Diazepam [Valium] 2 mg PO QID PRN 10/22/18 [History] Metoclopramide [Reglan] 5 mg PO Q8H 2 Days #6 tab 10/22/18 [Rx] hydroCHLOROthiazide [Hydrochlorothiazide] 25 mg PO DAILY 10/24/18 [History] Dicyclomine [Bentyl] 10 mg PO QIDACANDBED PRN 7 Days #30 cap 10/27/18 [Rx] Ferrous Sulfate 325 mg PO BIDMEALS 14 Days #28 tablet 10/27/18 [Rx] GI Cocktail 10 ml PO DAILY PRN 5 Days #1 bottle 10/27/18 [Rx] Pantoprazole [ProTONIX] 40 mg PO ACBREAKFAST 14 Days #14 tab.cr 10/27/18 [Rx] metroNIDAZOLE 500 mg PO Q8H 7 Days #14 tablet 10/27/18 [Rx] Patient Handouts: Dicyclomine tablets or capsules, Iron tablets, capsules, extended-release tablets, Hypertension, [id number], Pantoprazole tablets, Lorazepam tablets, Metronidazole tablets or capsules Referrals: Belen Doherty MD [Resident] - 11/05/18 3:30 am (It was not able to be made with Dr. Everett due to him being on vacation.) - Discharge Summary/Plan Comment DC Time >30 min.: No - Patient Data Vitals - Most Recent: Last Vital Signs Temp 98 F 10/27/18 04:00 Pulse 87 10/27/18 04:00 Resp 16 10/27/18 04:00 BP 140/81 10/27/18 04:00 Pulse Ox 99 10/27/18 04:00 Weight - Most Recent: 61.689 kg I&O - Last 24 hours: Intake & Output 10/26/18 10/27/18 10/27/18 22:59 06:59 14:59 Intake Total 800 Balance 800 Lab Results - Last 24 hrs: Laboratory Results - last 24 hr 10/27/18 Range/Units 07:20 WBC 4.33 (4.0-11.0) K/uL RBC 5.20 (4.30-5.90) M/uL Hgb 13.0 (12.0-16.0) g/dL Hct 40.6 (36.0-46.0) % MCV 78.1 L (80.0-98.0) fL MCH 25.0 L (27.0-32.0) pg MCHC 32.0 (31.0-37.0) g/dL RDW Std Deviation 43.9 (28.0-62.0) fl RDW Coeff of Mikala 16 H (11.0-15.0) % Plt Count 240 (150-400) K/uL MPV 10.70 (7.40-12.00) fL Neut % (Auto) 35.3 L (48.0-80.0) % Lymph % (Auto) 48.5 H (16.0-40.0) % [place] % (Auto) 12.9 (0.0-15.0) % Eos % (Auto) 2.1 (0.0-7.0) % Baso % (Auto) 1.2 (0.0-1.5) % Neut # (Auto) 1.5 (1.4-5.7) K/uL Lymph # (Auto) 2.1 (0.6-2.4) K/uL [place] # (Auto) 0.6 (0.0-0.8) K/uL Eos # (Auto) 0.1 (0.0-0.7) K/uL Baso # (Auto) 0.1 (0.0-0.1) K/uL Nucleated RBC % 0.0 /100WBC Nucleated RBCs # 0 K/uL RIGOBERTO Results - Last 24 hrs: Microbiology 10/25/18 15:20 Campylobacter Antigen Assay - Final Stool / Feces NEGATIVE CAMPYLOBACTER AG REFERENCE RANGE: NEGATIVE Shiga Toxin I - Final NEGATIVE FOR SHIGA TOXIN 1 REFERENCE RANGE: NEGATIVE Shiga Toxin II - Final NEGATIVE FOR SHIGA TOXIN 2 REFERENCE RANGE: NEGATIVE Med Orders - Current: Current Medications Acetaminophen (Tylenol) 650 mg PO Q4H PRN PRN Reason: Pain/Fever Last Admin: 10/25/18 14:13 Dose: 650 mg Diazepam (Valium) 2 mg PO Q6H PRN PRN Reason: Anxiety Last Admin: 10/26/18 22:25 Dose: 2 mg Dicyclomine HCl (Bentyl) 10 mg PO QIDACANDBED PRN PRN Reason: Pain Last Admin: 10/26/18 17:13 Dose: 10 mg Enoxaparin Sodium (Lovenox) 40 mg SUBCUT Q24H [facility] [place] Last Admin: 10/26/18 17:11 Dose: 40 mg Escitalopram Oxalate (Lexapro) 5 mg PO DAILY [facility] [place] Last Admin: 10/26/18 08:58 Dose: Not Given Ferrous Sulfate (Ferrous Sulfate) 325 mg PO BIDMEALS [facility] [place] Last Admin: 10/26/18 17:11 Dose: 325 mg Hydrochlorothiazide (Hydrochlorothiazide) 25 mg PO DAILY [facility] [place] Last Admin: 10/26/18 08:56 Dose: 25 mg Labetalol HCl (Normodyne) 20 mg IVPUSH Q4H PRN; Protocol PRN Reason: Hypertension Last Admin: 10/26/18 09:13 Dose: 20 mg Loperamide HCl (Imodium) 2 mg PO Q4H PRN PRN Reason: Diarrhea Lorazepam (Ativan) 1 mg PO Q6H PRN PRN Reason: Anxiety Last Admin: 10/27/18 03:05 Dose: 1 mg Metronidazole (Metronidazole) 500 mg PO Q8H [facility]IN Mirtazapine (Remeron) 30 mg PO BEDTIME [facility]IN Last Admin: 10/26/18 20:51 Dose: 30 mg Ondansetron HCl (Zofran) 4 mg IVPUSH Q4H PRN PRN Reason: Nausea/Vomiting Last Admin: 10/27/18 02:57 Dose: 4 mg Pantoprazole Sodium (Protonix) 40 mg PO ACBREAKFAST [facility] [place] Last Admin: 10/27/18 07:22 Dose: 40 mg Potassium Chloride (Klor-Con M20) 40 meq PO BEDTIME [facility]IN Last Admin: 10/26/18 20:51 Dose: 40 meq Ranitidine HCl (Zantac) 150 mg PO BID [facility] [place] Last Admin: 10/26/18 20:52 Dose: 150 mg Sodium Chloride (Saline Flush) 10 ml FLUSH ASDIRECTED PRN PRN Reason: Keep Vein Open Last Admin: 10/24/18 14:00 Dose: 10 ml Sodium Chloride (Saline Flush) 2.5 ml FLUSH ASDIRECTED PRN PRN Reason: Keep Vein Open Last Admin: 10/24/18 14:00 Dose: 2.5 ml Discontinued Medications Al Hydroxide/Mg Hydroxide 15 (ml/ Lidocaine HCl 5 ml) 0 ml PO ONETIME ONE Stop: 10/26/18 10:25 Last Admin: 10/26/18 10:58 Dose: 1 each Al Hydroxide/Mg Hydroxide 15 (ml/ Lidocaine HCl 5 ml) 0 ml PO ONETIME ONE Stop: 10/26/18 16:37 Last Admin: 10/26/18 17:16 Dose: 1 each Sodium Chloride (Normal Saline) 1,000 mls @ 75 mls/hr IV NOW STA Stop: 10/25/18 20:56 Last Admin: 10/25/18 08:09 Dose: 75 mls/hr Labetalol HCl (Normodyne) 20 mg IVPUSH ONETIME ONE; Protocol Stop: 10/24/18 13:55 Last Admin: 10/24/18 14:07 Dose: 20 mg Labetalol HCl (Normodyne) 20 mg IVPUSH ONETIME ONE; Protocol Stop: 10/24/18 15:14 Last Admin: 10/24/18 15:35 Dose: 20 mg Lorazepam (Ativan) 1 mg PO ONETIME ONE Stop: 10/24/18 14:44 Last Admin: 10/24/18 14:54 Dose: 1 mg Lorazepam (Ativan) 1 mg PO ONETIME ONE Stop: 10/24/18 21:47 Last Admin: 10/24/18 21:59 Dose: 1 mg Metronidazole (Metronidazole) 500 mg PO Q8H [facility] Last Admin: 10/27/18 02:43 Dose: Not Given Ondansetron HCl (Zofran) 4 mg IVPUSH ONETIME ONE Stop: 10/24/18 13:48 Last Admin: 10/24/18 14:00 Dose: 4 mg Potassium Chloride (Klor-Con M20) 40 meq PO ONETIME ONE Stop: 10/24/18 15:13 Last Admin: 10/24/18 16:09 Dose: 40 meq Potassium Chloride (Klor-Con M20) 40 meq PO ONETIME ONE Stop: 10/24/18 21:47 Last Admin: 10/24/18 21:02 Dose: 40 meq Potassium Chloride (Klor-Con M20) 40 meq PO ONETIME ONE Stop: 10/25/18 07:36 Last Admin: 10/25/18 08:11 Dose: 40 meq Potassium Chloride (Klor-Con M20) 40 meq PO ONETIME ONE Stop: 10/26/18 09:30 Last Admin: 10/26/18 09:55 Dose: 40 meq <Marc Cortez - Last Filed: 10/27/18 11:11> Discharge Summary - Hospital Course Free Text/Narrative:: I have seen and examined the patient independently of medical research assistant, Dr. Kosta DO. I have reviewed and agree with the plan of care as outlined for this patient by her. I have discussed the case with her. Please see orders. - Patient Data Vitals - Most Recent: Last Vital Signs Temp 36.5 C 10/27/18 07:35 Pulse 86 10/27/18 07:35 Resp 18 10/27/18 07:35 BP 137/68 10/27/18 07:35 Pulse Ox 97 10/27/18 07:35 I&O - Last 24 hours: Intake & Output 10/26/18 10/27/18 10/27/18 22:59 06:59 14:59 Intake Total 800 550 Output Total 850 Balance 800 -300 Lab Results - Last 24 hrs: Laboratory Results - last 24 hr 10/27/18 10/27/18 Range/Units 07:20 08:12 WBC 4.33 (4.0-11.0) K/uL RBC 5.20 (4.30-5.90) M/uL Hgb 13.0 (12.0-16.0) g/dL Hct 40.6 (36.0-46.0) % MCV 78.1 L (80.0-98.0) fL MCH 25.0 L (27.0-32.0) pg MCHC 32.0 (31.0-37.0) g/dL RDW Std Deviation 43.9 (28.0-62.0) fl RDW Coeff of Mikala 16 H (11.0-15.0) % Plt Count 240 (150-400) K/uL MPV 10.70 (7.40-12.00) fL Neut % (Auto) 35.3 L (48.0-80.0) % Lymph % (Auto) 48.5 H (16.0-40.0) % [place] % (Auto) 12.9 (0.0-15.0) % Eos % (Auto) 2.1 (0.0-7.0) % Baso % (Auto) 1.2 (0.0-1.5) % Neut # (Auto) 1.5 (1.4-5.7) K/uL Lymph # (Auto) 2.1 (0.6-2.4) K/uL [place] # (Auto) 0.6 (0.0-0.8) K/uL Eos # (Auto) 0.1 (0.0-0.7) K/uL Baso # (Auto) 0.1 (0.0-0.1) K/uL Nucleated RBC % 0.0 /100WBC Nucleated RBCs # 0 K/uL Sodium 137 (136-145) mmol/L Potassium 4.2 (3.5-5.1) mmol/L Chloride 99 (98-107) mmol/L Carbon Dioxide 23.5 (21.0-32.0) mmol/L BUN 7 (7.0-18.0) mg/dL Creatinine 1.0 (0.6-1.0) mg/dL Est Cr Clr Drug Dosing 73.45 mL/min Estimated GFR (MDRD) > 60.0 ml/min Glucose 101 (74-106) mg/dL Calcium 9.5 (8.5-10.1) mg/dL RIGOBERTO Results - Last 24 hrs: Microbiology 10/25/18 15:20 Stool Culture - Final Stool / Feces NO SALMONELLA, SHIGELLA,OR E.COLI O157 ISOLATED Campylobacter Antigen Assay - Final NEGATIVE CAMPYLOBACTER AG REFERENCE RANGE: NEGATIVE Shiga Toxin I - Final NEGATIVE FOR SHIGA TOXIN 1 REFERENCE RANGE: NEGATIVE Shiga Toxin II - Final NEGATIVE FOR SHIGA TOXIN 2 REFERENCE RANGE: NEGATIVE Med Orders - Current: Current Medications Discontinued Medications Acetaminophen (Tylenol) 650 mg PO Q4H PRN PRN Reason: Pain/Fever Last Admin: 10/25/18 14:13 Dose: 650 mg Al Hydroxide/Mg Hydroxide 15 (ml/ Lidocaine HCl 5 ml) 0 ml PO ONETIME ONE Stop: 10/26/18 10:25 Last Admin: 10/26/18 10:58 Dose: 1 each Al Hydroxide/Mg Hydroxide 15 (ml/ Lidocaine HCl 5 ml) 0 ml PO ONETIME ONE Stop: 10/26/18 16:37 Last Admin: 10/26/18 17:16 Dose: 1 each Diazepam (Valium) 2 mg PO Q6H PRN PRN Reason: Anxiety Last Admin: 10/27/18 08:43 Dose: 2 mg Dicyclomine HCl (Bentyl) 10 mg PO QIDACANDBED PRN PRN Reason: Pain Last Admin: 10/27/18 08:46 Dose: 10 mg Enoxaparin Sodium (Lovenox) 40 mg SUBCUT Q24H [facility] Last Admin: 10/26/18 17:11 Dose: 40 mg Escitalopram Oxalate (Lexapro) 5 mg PO DAILY [facility] Last Admin: 10/27/18 08:41 Dose: 5 mg Ferrous Sulfate (Ferrous Sulfate) 325 mg PO BIDMEALS [facility] [place] Last Admin: 10/27/18 08:38 Dose: 325 mg Hydrochlorothiazide (Hydrochlorothiazide) 25 mg PO DAILY [facility] [place] Last Admin: 10/27/18 08:43 Dose: 25 mg Sodium Chloride (Normal Saline) 1,000 mls @ 75 mls/hr IV NOW STA Stop: 10/25/18 20:56 Last Admin: 10/25/18 08:09 Dose: 75 mls/hr Labetalol HCl (Normodyne) 20 mg IVPUSH ONETIME ONE; Protocol Stop: 10/24/18 13:55 Last Admin: 10/24/18 14:07 Dose: 20 mg Labetalol HCl (Normodyne) 20 mg IVPUSH ONETIME ONE; Protocol Stop: 10/24/18 15:14 Last Admin: 10/24/18 15:35 Dose: 20 mg Labetalol HCl (Normodyne) 20 mg IVPUSH Q4H PRN; Protocol PRN Reason: Hypertension Last Admin: 10/26/18 09:13 Dose: 20 mg Loperamide HCl (Imodium) 2 mg PO Q4H PRN PRN Reason: Diarrhea Lorazepam (Ativan) 1 mg PO ONETIME ONE Stop: 10/24/18 14:44 Last Admin: 10/24/18 14:54 Dose: 1 mg Lorazepam (Ativan) 1 mg PO ONETIME ONE Stop: 10/24/18 21:47 Last Admin: 10/24/18 21:59 Dose: 1 mg Lorazepam (Ativan) 1 mg PO Q6H PRN PRN Reason: Anxiety Last Admin: 10/27/18 03:05 Dose: 1 mg Metronidazole (Metronidazole) 500 mg PO Q8H [facility] [place] Last Admin: 10/27/18 02:43 Dose: Not Given Metronidazole (Metronidazole) 500 mg PO Q8H [facility] [place] Last Admin: 10/27/18 08:38 Dose: 500 mg Mirtazapine (Remeron) 30 mg PO BEDTIME [facility] [place] Last Admin: 10/26/18 20:51 Dose: 30 mg Ondansetron HCl (Zofran) 4 mg IVPUSH ONETIME ONE Stop: 10/24/18 13:48 Last Admin: 10/24/18 14:00 Dose: 4 mg Ondansetron HCl (Zofran) 4 mg IVPUSH Q4H PRN PRN Reason: Nausea/Vomiting Last Admin: 10/27/18 02:57 Dose: 4 mg Pantoprazole Sodium (Protonix) 40 mg PO ACBREAKFAST [facility] [place] Last Admin: 10/27/18 07:22 Dose: 40 mg Potassium Chloride (Klor-Con M20) 40 meq PO ONETIME ONE Stop: 10/24/18 15:13 Last Admin: 10/24/18 16:09 Dose: 40 meq Potassium Chloride (Klor-Con M20) 40 meq PO ONETIME ONE Stop: 10/24/18 21:47 Last Admin: 10/24/18 21:02 Dose: 40 meq Potassium Chloride (Klor-Con M20) 40 meq PO ONETIME ONE Stop: 10/25/18 07:36 Last Admin: 10/25/18 08:11 Dose: 40 meq Potassium Chloride (Klor-Con M20) 40 meq PO BEDTIME [facility] Last Admin: 10/26/18 20:51 Dose: 40 meq Potassium Chloride (Klor-Con M20) 40 meq PO ONETIME ONE Stop: 10/26/18 09:30 Last Admin: 10/26/18 09:55 Dose: 40 meq Ranitidine HCl (Zantac) 150 mg PO BID [facility] [place] Last Admin: 10/27/18 08:40 Dose: 150 mg Sodium Chloride (Saline Flush) 10 ml FLUSH ASDIRECTED PRN PRN Reason: Keep Vein Open Last Admin: 10/24/18 14:00 Dose: 10 ml Sodium Chloride (Saline Flush) 2.5 ml FLUSH ASDIRECTED PRN PRN Reason: Keep Vein Open Last Admin: 10/24/18 14:00 Dose: 2.5 ml
[2018-10-27] MEDS ORDERED: metroNIDAZOLE 250 MG Tab PO SCH (08:00)
[2018-10-27] MEDS: Ferrous Sulfate 325 MG Tab PO SCH (08:38)
[2018-10-27] MEDS: Ranitidine 15 MG/ML Syrup 10 ML UD Cup PO SCH (08:40)
[2018-10-27] MEDS: Escitalopram 10 MG Tab PO SCH (08:41)
[2018-10-27] MEDS: Hydrochlorothiazide 25 MG Tab PO SCH (08:43)
[2018-10-27] MEDS: Diazepam 2 MG Tab PO PRN (08:43)
[2018-10-27 08:44] LABS: BLOOD UREA NITROGEN,BUN 7 mg/dL (7.0-18.0); CARBON DIOXIDE,CO2 23.5 mmol/L (21.0-32.0); CHLORIDE,CL 99 mmol/L (98-107); GLUCOSE RANDOM 101 mg/dL (74-106); POTASSIUM,K 4.2 mmol/L (3.5-5.1); SODIUM,NA 137 mmol/L (136-145)
[2018-10-27] MEDS: Dicyclomine 10 MG Cap PO PRN (08:46)
== END 2018-10-27 10:30 | disposition home or self-care (01) ==
LOC: MW.ED 13:42 → MW.MS 15:46
PROVIDERS: ADMIT Internal Medicine; ATTEND Internal Medicine
DX: I16.0 Hypertensive urgency (principal); F41.9 Anxiety disorder, unspecified; E87.6 Hypokalemia; R19.7 Diarrhea, unspecified; E87.1 Hypo-osmolality and hyponatremia; D50.9 Iron deficiency anemia, unspecified; F32.9 Major depressive disorder, single episode, unspecified; F17.210 Nicotine dependence, cigarettes, uncomplicated; Z79.899 Other long term (current) drug therapy; Z88.1 Allergy status to other antibiotic agents
CPT/HCPCS: 36415; 71045; 80048; 80053; 80305; 81001; 83735; 84484; 85025; 87046; 87324; 87899; 93005; 96361; 96372; 96374; 96375; 96376; 99285; A9270; G0378; J1650; J2405; J3490; J7040

== ENCOUNTER 2018-11-04 14:41 | Emergency (ER) | payer OTHER ==
[2018-11-04] MEDS ORDERED: diphenhydrAMINE 25 MG Cap PO ONE (15:00)
[2018-11-04] MEDS ORDERED: predniSONE 20 MG Tab PO ONE (15:00)
--- NOTE | 2018-11-04 15:01 | EDM.PDOC ---
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 Patient has no symptoms at this time she states that when she had her allergic reaction to the last bee sting the site became swollen immediately and she eventually had trouble breathing. Review of systems: As per history of present illness and below otherwise all systems reviewed and negative. Past medical history: As per history of present illness and as reviewed below otherwise noncontributory. Surgical history: As per history of present illness and as reviewed below otherwise noncontributory. Social history: No reported history of drug or alcohol abuse. Family history: As per history of present illness and as reviewed below otherwise noncontributory. Physical exam: General: Well developed, well nourished in NAD HEENT: Atraumatic, normocephalic, pupils reactive, negative for conjunctival pallor or scleral icterus, mucous membranes moist, throat clear, no edema, neck supple, nontender, trachea midline. No stridor Lungs: Clear to auscultation, breath sounds equal bilaterally, chest nontender. No wheezing Heart: S1S2, regular, negative for clicks, rubs, or JVD. Abdomen: NABS, Soft, nondistended, nontender. Negative for masses or hepatosplenomegaly. Negative for costovertebral tenderness. Pelvis: Stable nontender. Genitourinary: Deferred. Rectal: Deferred. Extremities: Left index finger is the site where she was stung by a bee there is no erythema or edema, and stations intact brisk capillary refill. negative for cords or calf pain. Neurovascular unremarkable. Neuro: Awake, alert, oriented. Cranial nerves II through XII unremarkable. Cerebellum unremarkable. Motor and sensory unremarkable throughout. Exam nonfocal. Skin:warm and dry no rash Diagnostics: None Therapeutics: benadryl, prednisone ED Course: Stable Impression: Medical screening exam Prescriptions: None Plan: Take meds as directed, follow up with your primary care physician, return to ER if symptoms worsen or change. Definitive disposition and diagnosis as appropriate pending reevaluation and review of above. left 2nd digit Pain Score (Numeric/FACES): 5 - Related Data Allergies Allergy/AdvReac Type Severity Reaction Status Date / Time adhesive tape Allergy Hives Verified 11/04/18 14:43 aloe vera Allergy Rash Verified 11/04/18 14:43 ciprofloxacin [From Cipro] Allergy Anaphylactic Verified 11/04/18 14:43 Shock clarithromycin [From Biaxin] Allergy Hives Verified 11/04/18 14:43 Home Meds: Home Meds Mirtazapine 45 mg PO BEDTIME 05/20/18 [History] Diazepam [Valium] 2 mg PO BID 10/22/18 [History] hydroCHLOROthiazide [Hydrochlorothiazide] 25 mg PO DAILY 10/24/18 [History] Pantoprazole [ProTONIX] 40 mg PO ACBREAKFAST 14 Days #14 tab.cr 10/27/18 [Rx] Dicyclomine [Bentyl] 10 mg PO QID PRN 11/03/18 [History] L.acidoph,Paracasei, B.lactis [Probiotic] 1 cap PO DAILY 11/03/18 [History] LORazepam 1 mg PO Q12H PRN 11/03/18 [History] Multivitamin [Multi-Vitamin Daily] 1 tab PO DAILY 11/03/18 [History] Ondansetron [Zofran] 4 mg PO Q6H PRN 11/03/18 [History] Potassium Chloride [Klor-Con 10] 10 meq PO DAILY 11/03/18 [History] Vitamin C/Biotin [Hair, Skin and Nails Gummies] 1 tab PO DAILY 11/03/18 [History ] traMADol HCl [Tramadol HCl] 50 mg PO Q6H PRN 11/03/18 [History] Past Medical History HEENT History: Reports: Other (See Below) Other HEENT History: wears glasses Cardiovascular History: Reports: Blood Clots/VTE/DVT, Hypertension Other Cardiovascular History: 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, does not take anticoagulants Respiratory History: Reports: None Gastrointestinal History: Reports: Chronic Constipation, Chronic Diarrhea, GERD Genitourinary History: Reports: Renal Calculus Other Genitourinary History: has passed a kidney stone [employer] History: Reports: None Musculoskeletal History: Reports: Fracture Other Musculoskeletal History: hx of fx fingers and toes Neurological History: Reports: None Psychiatric History: Reports: Anxiety, PTSD Endocrine/Metabolic History: Reports: None Hematologic History: Reports: None Immunologic History: Reports: None Oncologic (Cancer) History: Reports: None Dermatologic History: Reports: None - Infectious Disease History Infectious Disease History: Reports: None - Past Surgical History Head Surgeries/Procedures: Reports: None HEENT Surgical History: Reports: Adenoidectomy, Naso-Sinus Surgery, Tonsillectomy Cardiovascular Surgical History: Reports: None Respiratory Surgical History: Reports: None GI Surgical History: Reports: Bariatric Procedure, Cholecystectomy, Colon Other GI Surgeries/Procedures: repair of Intussusception following Sandra-En-Y gastric bypass, surgery to remove hematoma following Cholestectomy Female Surgical History: Reports: Breast Implant, Breast Reduction, Hysterectomy Endocrine Surgical History: Reports: None Neurological Surgical History: Reports: None Musculoskeletal Surgical History: Reports: Other (See Below) Other Musculoskeletal Surgeries/Procedures:: 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, developed MRSA and was treated with medical maggots, states MRSA has been "cleared" and tested negative with nasal swabs x3 Oncologic Surgical History: Reports: None Dermatological Surgical History: Reports: None Social & Family History - Family History Family Medical History: Noncontributory - Tobacco Use Smoking Status *Q: Current Every Day Smoker Years of Tobacco use: 10 Packs/Tins Daily: 0.5 - Caffeine Use Caffeine Use: Reports: Coffee, Energy Drinks - Recreational Drug Use Recreational Drug Use: Yes Recreational Drug Type: Reports: Marijuana/Hashish Recreational Drug Use Frequency: Weekly ED ROS ALLERGIC REACTION - Review of Systems Review Of Systems: See Below ED EXAM GENERAL NO PERIP PULSE - Physical Exam Exam: See Below Course - Vital Signs Last Recorded V/S: Last Vital Signs Temp 98.2 F 11/04/18 14:44 Pulse 81 11/04/18 14:44 Resp 18 11/04/18 14:44 BP 119/73 11/04/18 14:44 Pulse Ox 97 11/04/18 14:44 - Orders/Labs/Meds Meds: Medications Discontinued Medications Generic Name Dose Route Start Last Admin Trade Name Freq PRN Reason Stop Dose Admin Diphenhydramine HCl 50 mg 11/04/18 15:00 11/04/18 15:06 Benadryl PO 11/04/18 15:01 50 mg ONETIME ONE Administration Prednisone 60 mg 11/04/18 15:00 11/04/18 15:06 Prednisone PO 11/04/18 15:01 60 mg ONETIME ONE Administration Departure - Departure Time of Disposition: 16:00 Disposition: Home, Self-Care 01 Condition: Good Clinical Impression: Encounter for medical screening examination - Discharge Information *PRESCRIPTION DRUG MONITORING PROGRAM REVIEWED*: Not Applicable *COPY OF PRESCRIPTION DRUG MONITORING REPORT IN PATIENT BERNABE: Not Applicable Referrals: PCP,Unknown [Primary Care Provider] - Additional Instructions: The following information is given to patients seen in the emergency department who are being discharged to home. This information is to outline your options for follow-up care. We provide all patients seen in our emergency department with a follow-up referral. The need for follow-up, as well as the timing and circumstances, are variable depending upon the specifics of your emergency department visit. If you don't have a primary care physician on staff, we will provide you with a referral. We always advise you to contact your personal physician following an emergency department visit to inform them of the circumstance of the visit and for follow-up with them and/or the need for any referrals to a consulting specialist. The emergency department will also refer you to a specialist when appropriate. This referral assures that you have the opportunity for follow-up care with a specialist. All of these measure are taken in an effort to provide you with optimal care, which includes your follow-up. Under all circumstances we always encourage you to contact your private physician who remains a resource for coordinating your care. When calling for follow-up care, please make the office aware that this follow-up is from your recent emergency room visit. If for any reason you are refused follow-up, please contact the [facility] Emergency Department at and asked to speak to the emergency department charge nurse. Take benadryl as directed, follow up with your primary care physician, return to ER if symptoms worsen or change. [facility] [address] [place] [id number]
== END 2018-11-04 16:17 | disposition home or self-care (01) ==
LOC: MW.ED 14:41
DX: T63.441A Toxic effect of venom of bees, accidental (unintentional), initial encounter (principal); I10 Essential (primary) hypertension; K21.9 Gastro-esophageal reflux disease without esophagitis; F41.9 Anxiety disorder, unspecified; F17.210 Nicotine dependence, cigarettes, uncomplicated; Z91.048 Other nonmedicinal substance allergy status; Z88.1 Allergy status to other antibiotic agents; Z79.899 Other long term (current) drug therapy; Z86.718 Personal history of other venous thrombosis and embolism
CPT/HCPCS: 99282; A9270

== ENCOUNTER 2018-11-06 08:14 | Day surgery (SDC) | payer OTHER ==
[~2018-11-06 08:14] MED LIST: Lactated Ringers 1,000 ML IV SCH; Lidocaine 2% 5 ML SDV ONE; Midazolam 1 MG/ML 2 ML SDV ONE; Propofol 200 MG/20 ML SDV ONE; Sodium Chloride 0.9% 10 ML SDV IV PRN; Sodium Chloride 0.9% 10 ML Syringe FLUSH PRN; Sodium Chloride 0.9% 2.5 ML Syringe FLUSH PRN; fentaNYL 100 MCG/2 ML SDV ONE
--- NOTE | 2018-11-06 09:03 | PCM.PREANE ---
Preanesthetic Assessment - Anesthesia/Transfusion/Family Hx Anesthesia History: Prior Anesthesia Without Reaction Family History of Anesthesia Reaction: No Transfusion History: Prior Transfusion Without Reaction - Review of Systems General: No Symptoms Pulmonary: No Symptoms Cardiovascular: No Symptoms Neurological: No Symptoms Other: Reports: None - Physical Assessment NPO Status Date: 11/06/18 NPO Status Time: 06:00 Vital Signs: Last Vital Signs Temp 97.2 F 11/06/18 08:45 Pulse 76 11/06/18 08:45 Resp 16 11/06/18 08:45 BP 143/85 H 11/06/18 08:45 Pulse Ox 99 11/06/18 08:45 Height: 5 ft 7 in Weight: 63.049 kg ASA Class: 2 Mental Status: Alert & Oriented x3 Airway Class: Mallampati = 2 Dentition: Reports: Normal Dentition ROM/Head Extension: Full Lungs: Clear to Auscultation, Normal Respiratory Effort Cardiovascular: Regular Rate, Regular Rhythm - Lab Values: Laboratory Last Values Urine HCG, Qual NEGATIVE (NEGATIVE) 11/06/18 08:21 - Allergies Allergies/Adverse Reactions: Allergies Allergy/AdvReac Type Severity Reaction Status Date / Time adhesive tape Allergy Hives Verified 11/04/18 14:43 aloe vera Allergy Rash Verified 11/04/18 14:43 ciprofloxacin [From Cipro] Allergy Anaphylactic Verified 11/04/18 14:43 Shock clarithromycin [From Biaxin] Allergy Hives Verified 11/04/18 14:43 - Blood Blood Available: No - Acknowledgements Anesthesia Type Planned: General Anesthesia Pt an Appropriate Candidate for the Planned Anesthesia: Yes Alternatives and Risks of Anesthesia Discussed w Pt/Guardian: Yes Pt/Guardian Understands and Agrees with Anesthesia Plan: Yes PreAnesthesia Questionnaire HEENT History: Reports: Other (See Below) Other HEENT History: wears glasses Cardiovascular History: Reports: Blood Clots/VTE/DVT, Hypertension Other Cardiovascular History: 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, does not take anticoagulants Respiratory History: Reports: None Gastrointestinal History: Reports: Chronic Constipation, Chronic Diarrhea, GERD Genitourinary History: Reports: Renal Calculus Other Genitourinary History: has passed a kidney stone [employer]ER History: Reports: None Musculoskeletal History: Reports: Fracture Other Musculoskeletal History: hx of fx fingers and toes Neurological History: Reports: None Psychiatric History: Reports: Anxiety, PTSD Endocrine/Metabolic History: Reports: None Hematologic History: Reports: None Immunologic History: Reports: None Oncologic (Cancer) History: Reports: None Dermatologic History: Reports: None - Infectious Disease History Infectious Disease History: Reports: None - Past Surgical History Head Surgeries/Procedures: Reports: None HEENT Surgical History: Reports: Adenoidectomy, Naso-Sinus Surgery, Tonsillectomy Cardiovascular Surgical History: Reports: None Respiratory Surgical History: Reports: None GI Surgical History: Reports: Bariatric Procedure, Cholecystectomy, Colon Other GI Surgeries/Procedures: repair of Intussusception following Sandra-En-Y gastric bypass, surgery to remove hematoma following Cholestectomy Female Surgical History: Reports: Breast Implant, Breast Reduction, Hysterectomy Other Female Surgeries/Procedures: bladder stents Endocrine Surgical History: Reports: None Neurological Surgical History: Reports: None Musculoskeletal Surgical History: Reports: Other (See Below) Other Musculoskeletal Surgeries/Procedures:: 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, developed MRSA and was treated with medical maggots, states MRSA has been "cleared" and tested negative with nasal swabs x3 Oncologic Surgical History: Reports: None Dermatological Surgical History: Reports: None - SUBSTANCE USE Smoking Status *Q: Current Every Day Smoker Tobacco Use Within Last Twelve Months: Cigarettes Recreational Drug Use History: Yes Recreational Drug Type: Reports: Marijuana/Hashish - HOME MEDS Home Medications: Home Meds Mirtazapine 45 mg PO BEDTIME 05/20/18 [History] Diazepam [Valium] 2 mg PO BID 10/22/18 [History] hydroCHLOROthiazide [Hydrochlorothiazide] 25 mg PO DAILY 10/24/18 [History] Pantoprazole [ProTONIX] 40 mg PO ACBREAKFAST 14 Days #14 tab.cr 10/27/18 [Rx] Dicyclomine [Bentyl] 10 mg PO QID PRN 11/03/18 [History] L.acidoph,Paracasei, B.lactis [Probiotic] 1 cap PO DAILY 11/03/18 [History] LORazepam 1 mg PO Q12H PRN 11/03/18 [History] Multivitamin [Multi-Vitamin Daily] 1 tab PO DAILY 11/03/18 [History] Ondansetron [Zofran] 4 mg PO Q6H PRN 11/03/18 [History] Potassium Chloride [Klor-Con 10] 10 meq PO DAILY 11/03/18 [History] Vitamin C/Biotin [Hair, Skin and Nails Gummies] 1 tab PO DAILY 11/03/18 [History ] traMADol HCl [Tramadol HCl] 50 mg PO Q6H PRN 11/03/18 [History] - CURRENT (IN HOUSE) MEDS Current Meds: Current Medications Lactated Ringer's (Ringers, Lactated) 1,000 mls @ 125 mls/hr IV ASDIRECTED COLIN Last Admin: 11/06/18 08:40 Dose: 125 mls/hr Sodium Chloride (Saline Flush) 10 ml FLUSH ASDIRECTED PRN PRN Reason: Keep Vein Open Sodium Chloride (Saline Flush) 2.5 ml FLUSH ASDIRECTED PRN PRN Reason: Keep Vein Open Sodium Chloride (Saline Flush) 10 ml FLUSH ASDIRECTED PRN PRN Reason: Keep Vein Open Sodium Chloride (Saline Flush) 2.5 ml FLUSH ASDIRECTED PRN PRN Reason: Keep Vein Open Sodium Chloride (Normal Saline) 10 ml IV ASDIRECTED PRN PRN Reason: IV Use Discontinued Medications Fentanyl (Sublimaze) Confirm Administered Dose 100 mcg .ROUTE .STK-MED ONE Stop: 11/06/18 07:10 Lidocaine (Xylocaine-Mpf 2%) Confirm Administered Dose 5 ml .ROUTE .STK-MED ONE Stop: 11/06/18 07:10 Midazolam HCl (Versed 1 Mg/Ml) Confirm Administered Dose 2 mg .ROUTE .STK-MED ONE Stop: 11/06/18 07:10 Propofol (Diprivan 20 Ml) Confirm Administered Dose 400 mg .ROUTE .STK-MED ONE Stop: 11/06/18 07:10
[2018-11-06] MEDS ORDERED: Glycopyrrolate 0.2 MG/ML SDV ONE (09:50)
[2018-11-06] MEDS ORDERED: Propofol 200 MG/20 ML SDV ONE (09:58)
--- NOTE | 2018-11-06 12:07 | PCM.POSTAN ---
POST ANESTHESIA ASSESSMENT - MENTAL STATUS Mental Status: Alert, Oriented - VITAL SIGNS Vital Signs: Last Vital Signs Temp 97.3 F 11/06/18 10:30 Pulse 91 11/06/18 10:30 Resp 16 11/06/18 10:30 BP 113/55 L 11/06/18 10:30 Pulse Ox 98 11/06/18 10:30 - RESPIRATORY Respiratory Status: Respiratory Rate WNL, Airway Patent, O2 Saturation Stable - CARDIOVASCULAR CV Status: Pulse Rate WNL, Blood Pressure Stable - GASTROINTESTINAL GI Status: No Symptoms - POST OP HYDRATION Hydration Status: Adequate & Stable
--- NOTE | 2018-11-06 12:07 | PCM48HPAN ---
Post Anesthesia Note - EVALUATION WITHIN 48HRS OF ANESTHETIC Vital Signs in Normal Range: Yes Patient Participated in Evaluation: Yes Respiratory Function Stable: Yes Airway Patent: Yes Cardiovascular Function Stable: Yes Hydration Status Stable: Yes Pain Control Satisfactory: Yes Nausea and Vomiting Control Satisfactory: Yes Mental Status Recovered: Yes Vital Signs: Last Vital Signs Temp 97.3 F 11/06/18 10:30 Pulse 91 11/06/18 10:30 Resp 16 11/06/18 10:30 BP 113/55 L 11/06/18 10:30 Pulse Ox 98 11/06/18 10:30
--- NOTE | 2018-11-06 12:44 | PCM.OPNOTE ---
- General Post-Op/Procedure Note Date of Surgery/Procedure: 11/06/18 Operative Procedure(s): Diagnostic EGD and colonoscopy Findings: Normal EGD, sigmoid colon polyp Pre Op Diagnosis: Epigastric pain, family history of colon cancer Post-Op Diagnosis: SIgmoid colon polyp Anesthesia Technique: [employer] Primary Surgeon: Vida Tomlinson Condition: Good Free Text/Narrative:: Intake & Output 11/05/18 11/06/18 11/06/18 22:59 06:59 14:59 Intake Total 900 Balance 900
--- NOTE | 2018-11-06 16:16 | OR ---
SURGEON: NALLELY ORELLANA MD DATE OF PROCEDURE: 11/06/2018 PREOPERATIVE DIAGNOSES: Epigastric pain, family history of colon cancer. POSTOPERATIVE DIAGNOSES: 1. Normal esophagogastroduodenoscopy. 2. Sigmoid colon polyp. PROCEDURES PERFORMED: Diagnostic esophagogastroduodenoscopy and colonoscopy. ANESTHESIA: MAC. INSTRUMENT USED: Olympus endoscope and colonoscope. EXTENT OF EXAM: 1. To the Sandra limb. 2. To the cecum. PREPARATION: Good. LIMITATIONS: None. INDICATION FOR EXAMINATION: The patient is a 38-year-old female who presents with epigastric pain and a family history of colon cancer. I explained the need for diagnostic EGD and colonoscopy. The patient and I discussed the procedure, expected perioperative course, and risks including bleeding, infection, or damage to surrounding structures including perforation. The patient verbalized understanding and wishes to proceed. PROCEDURE IN DETAIL: The patient was brought to the endoscopy suite and placed in a left lateral decubitus position. A time-out was completed verifying the patient's name, age, date of , allergies, and procedure to be performed. Monitored anesthesia care was induced and continuous oxygen was provided via nasal cannula throughout the procedure. A bite block was placed in the patient's mouth. After adequate sedation was achieved, a well-lubricated endoscope was placed in the patient's mouth and advanced under direct visualization to the Sandra-en-Y limb. The small bowel mucosa appeared normal and a photograph was taken. Scope was then fully withdrawn while examining the color, texture, anatomy, and integrity of the mucosa of the upper GI tract. The GJ junction overall appeared normal with no signs of gross inflammation or ulceration. A biopsy was taken of the GJ anastomosis line. The gastric pouch appeared normal and a photograph was taken. The scope was then brought into the esophagus and a photograph was taken of the Z-line. This appeared normal. The esophageal mucosa was free of pathology. The scope was removed, and this portion of the procedure terminated. I then turned my attention to the colonoscopic portion of the case. Digital rectal exam was performed. This exam was within normal limits. A well-lubricated colonoscope was inserted in the rectum and advanced under direct visualization to the level of the cecum. The cecum was identified by both visual and anatomic landmarks. A photograph was taken of the cecal cap as well as with the scope retroflexed within the cecum. Scope was then fully withdrawn while examining the color, texture, anatomy, and integrity of the mucosa from the cecum to the anal canal. The patient was found to have 1 small polyp in the sigmoid colon. This was removed using a cold biopsy forceps. The scope was then brought into the rectum and retroflexed to allow visualization of the anal canal opening. This appeared normal and a photograph was taken. The scope was then straightened out and fully withdrawn. The cecum to anus time was 9 minutes. The patient tolerated the procedure well and was transferred to PACU in stable condition. ENDOSCOPIC DIAGNOSES: 1. Normal EGD. 2. Sigmoid colon polyp. RECOMMENDATIONS: Continue to take pantoprazole daily. We will see the patient back in clinic for followup in 2 weeks. ATIYA MORA /[id number]
== END 2018-11-06 10:55 | disposition home or self-care (01) ==
LOC: MW.SDS 08:14
PROVIDERS: ATTEND Surgery
DX: D12.5 Benign neoplasm of sigmoid colon (principal); K59.00 Constipation, unspecified; R10.13 Epigastric pain; R11.2 Nausea with vomiting, unspecified; F17.210 Nicotine dependence, cigarettes, uncomplicated; F41.9 Anxiety disorder, unspecified; F32.9 Major depressive disorder, single episode, unspecified; Z88.1 Allergy status to other antibiotic agents; Z91.048 Other nonmedicinal substance allergy status; Z98.84 Bariatric surgery status; Z83.71 Family history of colonic polyps; Z80.0 Family history of malignant neoplasm of digestive organs; Z79.899 Other long term (current) drug therapy
CPT/HCPCS: 43239; 45380; 81025; J2001; J2250; J2704; J3010; J3490; J7120

== ENCOUNTER 2019-02-17 12:44 | Emergency (ER) | payer OTHER ==
[2019-02-17] MEDS ORDERED: Sodium Chloride 0.9% 1,000 ML IV ONE (12:56)
[2019-02-17] MEDS ORDERED: Sodium Chloride 0.9% 10 ML Syringe FLUSH PRN (12:56)
[2019-02-17] MEDS ORDERED: Ondansetron 4 MG/2 ML SDV IVPUSH ONE ×2 (12:56→14:31)
[2019-02-17] MEDS ORDERED: Ketorolac 30 MG/ML SDV IVPUSH ONE (12:56)
[2019-02-17] MEDS ORDERED: Sodium Chloride 0.9% 2.5 ML Syringe FLUSH PRN (12:56)
--- NOTE | 2019-02-17 12:57 | EDM.PDOC ---
ED HPI GENERAL MEDICAL PROBLEM - General Chief Complaint: Abdominal Pain Stated Complaint: STOMARK PAIN Time Seen by Provider: 02/17/19 12:56 Source of Information: Reports: Patient History Limitations: Reports: No Limitations - History of Present Illness INITIAL COMMENTS - FREE TEXT/NARRATIVE: HISTORY AND PHYSICAL: History of present illness: Patient is a 39-year-old female presents to the ED with complaint of abdominal pain since yesterday. Patient reports having diffuse abdominal pain, nausea, and vomiting. She denies diarrhea, reports last BM was yesterday. Denies fevers , chills, cough, chest pain, shortness of breath, dysuria, hematuria. Past surgical history includes gastric bypass 12 years ago, hysterectomy, cholecystectomy. Review of systems: As per history of present illness and below otherwise all systems reviewed and negative. Past medical history: As per history of present illness and as reviewed below otherwise noncontributory. Surgical history: As per history of present illness and as reviewed below otherwise noncontributory. Social history: No reported history of drug or alcohol abuse. Family history: As per history of present illness and as reviewed below otherwise noncontributory. Physical exam: General: Patient sitting comfortably in no acute distress and nontoxic appearing HEENT: Atraumatic, normocephalic, pupils reactive, negative for conjunctival pallor or scleral icterus, mucous membranes moist, throat clear, neck supple, nontender, trachea midline. No meningeal signs. Lungs: Clear to auscultation, breath sounds equal bilaterally, chest nontender. Heart: S1S2, regular, negative for clicks, rubs, or overt murmur. Abdomen: Soft, nondistended, nontender. Negative for masses or hepatosplenomegaly. Negative for costovertebral tenderness. No rigidity, rebound , guarding. Pelvis: Stable nontender. Genitourinary: Deferred. Rectal: Deferred. Extremities: Atraumatic, negative for cords or calf pain. Neurovascular unremarkable. Neuro: Awake, alert, oriented. Cranial nerves II through XII unremarkable. Cerebellum unremarkable. Motor and sensory unremarkable throughout. Exam nonfocal. Notes: Diagnostics: CBC, CMP, lipase, UA, urine hcg, CT abdomen/pelvis Therapeutics: 30mg Toradol IV Prescriptions: Zofran Toradol GI Cocktail Diagnosis: Gastroenteritis Definitive disposition and diagnosis as appropriate pending reevaluation and review of above. abdomen Pain Score (Numeric/FACES): 8 - Related Data Allergies Allergy/AdvReac Type Severity Reaction Status Date / Time adhesive tape Allergy Hives Verified 02/17/19 12:48 aloe vera Allergy Rash Verified 02/17/19 12:48 amoxicillin [From Augmentin] Allergy Rash Verified 02/17/19 12:48 ciprofloxacin [From Cipro] Allergy Anaphylactic Verified 02/17/19 12:48 Shock clarithromycin [From Biaxin] Allergy Hives Verified 02/17/19 12:48 clavulanic acid Allergy Rash Verified 02/17/19 12:48 [From Augmentin] Home Meds: Home Meds Mirtazapine 45 mg PO BEDTIME 05/20/18 [History] Diazepam [Valium] 2 mg PO BID 10/22/18 [History] hydroCHLOROthiazide [Hydrochlorothiazide] 25 mg PO DAILY 10/24/18 [History] Pantoprazole [ProTONIX] 40 mg PO ACBREAKFAST 14 Days #14 tab.cr 10/27/18 [Rx] Dicyclomine [Bentyl] 10 mg PO QID PRN 11/03/18 [History] L.acidoph,Paracasei, B.lactis [Probiotic] 1 cap PO DAILY 11/03/18 [History] LORazepam 1 mg PO Q12H PRN 11/03/18 [History] Multivitamin [Multi-Vitamin Daily] 1 tab PO DAILY 11/03/18 [History] Ondansetron [Zofran] 4 mg PO Q6H PRN 11/03/18 [History] Potassium Chloride [Klor-Con 10] 10 meq PO DAILY 11/03/18 [History] Vitamin C/Biotin [Hair, Skin and Nails Gummies] 1 tab PO DAILY 11/03/18 [History ] traMADol HCl [Tramadol HCl] 50 mg PO Q6H PRN 11/03/18 [History] GI Cocktail 20 ml PO ONETIME #1 bottle 02/17/19 [Rx] Ondansetron [Zofran ODT] 4 mg PO Q6H PRN #10 tab.dis 02/17/19 [Rx] Past Medical History HEENT History: Reports: Other (See Below) Other HEENT History: wears glasses Cardiovascular History: Reports: Blood Clots/VTE/DVT, Hypertension Other Cardiovascular History: 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, does not take anticoagulants Respiratory History: Reports: None Gastrointestinal History: Reports: Chronic Constipation, Chronic Diarrhea, GERD Genitourinary History: Reports: Renal Calculus Other Genitourinary History: has passed a kidney stone SLAG WHEELER History: Reports: None Musculoskeletal History: Reports: Fracture Other Musculoskeletal History: hx of fx fingers and toes Neurological History: Reports: None Psychiatric History: Reports: Anxiety, PTSD Endocrine/Metabolic History: Reports: None Hematologic History: Reports: None Immunologic History: Reports: None Oncologic (Cancer) History: Reports: None Dermatologic History: Reports: None - Infectious Disease History Infectious Disease History: Reports: MRSA - Past Surgical History Head Surgeries/Procedures: Reports: None HEENT Surgical History: Reports: Adenoidectomy, Naso-Sinus Surgery, Tonsillectomy Cardiovascular Surgical History: Reports: None Respiratory Surgical History: Reports: None GI Surgical History: Reports: Bariatric Procedure, Cholecystectomy, Colon Other GI Surgeries/Procedures: repair of Intussusception following Sandra-En-Y gastric bypass, surgery to remove hematoma following Cholestectomy Female Surgical History: Reports: Breast Implant, Breast Reduction, Hysterectomy Other Female Surgeries/Procedures: bladder stents Endocrine Surgical History: Reports: None Neurological Surgical History: Reports: None Musculoskeletal Surgical History: Reports: Other (See Below) Other Musculoskeletal Surgeries/Procedures:: 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, developed MRSA and was treated with medical maggots, states MRSA has been "cleared" and tested negative with nasal swabs x3 Oncologic Surgical History: Reports: None Dermatological Surgical History: Reports: None Social & Family History - Family History Family Medical History: Noncontributory - Tobacco Use Smoking Status *Q: Current Every Day Smoker Years of Tobacco use: 20 Packs/Tins Daily: 1 - Caffeine Use Caffeine Use: Reports: Coffee - Recreational Drug Use Recreational Drug Use: Yes Recreational Drug Type: Reports: Marijuana/Hashish Recreational Drug Use Frequency: Rarely ED ROS GENERAL - Review of Systems Review Of Systems: Comprehensive ROS is negative, except as noted in HPI. ED EXAM, GI/ABD - Physical Exam Exam: See Below (see dictation) Course - Vital Signs Last Recorded V/S: Last Vital Signs Temp 97.6 F 02/17/19 12:49 Pulse 84 02/17/19 14:58 Resp 18 02/17/19 14:58 BP 156/102 H 02/17/19 14:58 Pulse Ox 98 02/17/19 14:58 - Orders/Labs/Meds Orders: Active Orders 24 hr Category Date Time Status Sodium Chloride 0.9% [Saline Flush] Med 02/17/19 12:56 Active 10 ml FLUSH ASDIRECTED PRN Sodium Chloride 0.9% [Saline Flush] Med 02/17/19 12:56 Active 2.5 ml FLUSH ASDIRECTED PRN Saline Lock Insert [OM.PC] Stat Oth 02/17/19 12:55 Ordered Medication Orders Sodium Chloride (Saline Flush) 10 ml FLUSH ASDIRECTED PRN PRN Reason: Keep Vein Open Last Admin: 02/17/19 13:23 Dose: 10 ml Sodium Chloride (Saline Flush) 2.5 ml FLUSH ASDIRECTED PRN PRN Reason: Keep Vein Open Last Admin: 02/17/19 13:23 Dose: 2.5 ml Labs: Laboratory Tests 02/17/19 02/17/19 02/17/19 Range/Units 12:55 12:55 12:55 WBC 8.57 (4.0-11.0) K/uL RBC 5.47 (4.30-5.90) M/uL Hgb 13.2 (12.0-16.0) g/dL Hct 39.7 (36.0-46.0) % MCV 72.6 L (80.0-98.0) fL MCH 24.1 L (27.0-32.0) pg MCHC 33.2 (31.0-37.0) g/dL RDW Std Deviation 48.1 (28.0-62.0) fl RDW Coeff of Mikala 19 H (11.0-15.0) % Plt Count 301 (150-400) K/uL MPV 9.90 (7.40-12.00) fL Neut % (Auto) 86.6 H (48.0-80.0) % Lymph % (Auto) 7.2 L (16.0-40.0) % [place] % (Auto) 6.1 (0.0-15.0) % Eos % (Auto) 0.0 (0.0-7.0) % Baso % (Auto) 0.1 (0.0-1.5) % Neut # (Auto) 7.4 H (1.4-5.7) K/uL Lymph # (Auto) 0.6 (0.6-2.4) K/uL [place] # (Auto) 0.5 (0.0-0.8) K/uL Eos # (Auto) 0.0 (0.0-0.7) K/uL Baso # (Auto) 0.0 (0.0-0.1) K/uL Nucleated RBC % 0.0 /100WBC Nucleated RBCs # 0 K/uL Lactate (0.20-2.00) mmol/L Sodium 134 L (136-145) mmol/L Potassium 3.9 (3.5-5.1) mmol/L Chloride 98 (98-107) mmol/L Carbon Dioxide 21.5 (21.0-32.0) mmol/L BUN 10 (7.0-18.0) mg/dL Creatinine 0.8 (0.6-1.0) mg/dL Est Cr Clr Drug Dosing 90.90 mL/min Estimated GFR (MDRD) > 60.0 ml/min Glucose 147 H (74-106) mg/dL Calcium 9.5 (8.5-10.1) mg/dL Total Bilirubin 0.4 (0.2-1.0) mg/dL AST 26 (15-37) IU/L ALT 30 (14-63) IU/L Alkaline Phosphatase 83 (46-116) U/L Total Protein 8.8 H (6.4-8.2) g/dL Albumin 5.0 (3.4-5.0) g/dL Globulin 3.8 (2.6-4.0) g/dL Albumin/Globulin Ratio 1.3 (0.9-1.6) Lipase 148 (73-393) U/L Urine Color YELLOW Urine Appearance CLEAR Urine pH 7.0 (5.0-8.0) Ur Specific [place] 1.025 (1.001-1.035) Urine Protein 100 H (NEGATIVE) mg/dL Urine Glucose (UA) NEGATIVE (NEGATIVE) mg/dL Urine Ketones 15 H (NEGATIVE) mg/dL Urine Occult Blood TRACE-INTACT H (NEGATIVE) Urine Nitrite NEGATIVE (NEGATIVE) Urine Bilirubin NEGATIVE (NEGATIVE) Urine Urobilinogen 0.2 (<2.0) EU/dL Ur Leukocyte Esterase NEGATIVE (NEGATIVE) Urine RBC 0-1 (0-2/HPF) Urine WBC 0-1 (0-5/HPF) Ur Epithelial Cells RARE (NONE-FEW) Urine Bacteria RARE (NEGATIVE) 02/17/19 Range/Units 12:55 WBC (4.0-11.0) K/uL RBC (4.30-5.90) M/uL Hgb (12.0-16.0) g/dL Hct (36.0-46.0) % MCV (80.0-98.0) fL MCH (27.0-32.0) pg MCHC (31.0-37.0) g/dL RDW Std Deviation (28.0-62.0) fl RDW Coeff of [place] (11.0-15.0) % Plt Count (150-400) K/uL MPV (7.40-12.00) fL Neut % (Auto) (48.0-80.0) % Lymph % (Auto) (16.0-40.0) % [place] % (Auto) (0.0-15.0) % Eos % (Auto) (0.0-7.0) % Baso % (Auto) (0.0-1.5) % Neut # (Auto) (1.4-5.7) K/uL Lymph # (Auto) (0.6-2.4) K/uL [place] # (Auto) (0.0-0.8) K/uL Eos # (Auto) (0.0-0.7) K/uL Baso # (Auto) (0.0-0.1) K/uL Nucleated RBC % /100WBC Nucleated RBCs # K/uL Lactate 1.7 (0.20-2.00) mmol/L Sodium (136-145) mmol/L Potassium (3.5-5.1) mmol/L Chloride (98-107) mmol/L Carbon Dioxide (21.0-32.0) mmol/L BUN (7.0-18.0) mg/dL Creatinine (0.6-1.0) mg/dL Est Cr Clr Drug Dosing mL/min Estimated GFR (MDRD) ml/min Glucose (74-106) mg/dL Calcium (8.5-10.1) mg/dL Total Bilirubin (0.2-1.0) mg/dL AST (15-37) IU/L ALT (14-63) IU/L Alkaline Phosphatase (46-116) U/L Total Protein (6.4-8.2) g/dL Albumin (3.4-5.0) g/dL Globulin (2.6-4.0) g/dL Albumin/Globulin Ratio (0.9-1.6) Lipase (73-393) U/L Urine Color Urine Appearance Urine pH (5.0-8.0) Ur Specific [place] (1.001-1.035) Urine Protein (NEGATIVE) mg/dL Urine Glucose (UA) (NEGATIVE) mg/dL Urine Ketones (NEGATIVE) mg/dL Urine Occult Blood (NEGATIVE) Urine Nitrite (NEGATIVE) Urine Bilirubin (NEGATIVE) Urine Urobilinogen (<2.0) EU/dL Ur Leukocyte Esterase (NEGATIVE) Urine RBC (0-2/HPF) Urine WBC (0-5/HPF) Ur Epithelial Cells (NONE-FEW) Urine Bacteria (NEGATIVE) Meds: Medications Generic Name Dose Route Start Last Admin Trade Name Freq PRN Reason Stop Dose Admin Sodium Chloride 10 ml 02/17/19 12:56 02/17/19 13:23 Saline Flush FLUSH 10 ml ASDIRECTED PRN Administration Keep Vein Open Sodium Chloride 2.5 ml 02/17/19 12:56 02/17/19 13:23 Saline Flush FLUSH 2.5 ml ASDIRECTED PRN Administration Keep Vein Open Discontinued Medications Generic Name Dose Route Start Last Admin Trade Name Freq PRN Reason Stop Dose Admin Al Hydroxide/Mg Hydroxide 15 0 ml 02/17/19 15:02 ml/ Lidocaine HCl 5 ml PO 02/17/19 15:03 ONETIME ONE Sodium Chloride 1,000 mls @ 999 mls/hr 02/17/19 12:56 02/17/19 13:20 Normal Saline IV 02/17/19 13:56 999 mls/hr STAT ONE Administration Iopamidol 78 ml 02/17/19 14:40 02/17/19 14:40 Isovue-370 (76%) IVPUSH 02/17/19 14:41 78 ml ONETIME STA Administration Ketorolac Tromethamine 30 mg 02/17/19 12:56 02/17/19 13:22 Toradol IVPUSH 02/17/19 12:57 30 mg ONETIME ONE Administration Ondansetron HCl 4 mg 02/17/19 12:56 02/17/19 13:22 Zofran IVPUSH 02/17/19 12:57 4 mg ONETIME ONE Administration Ondansetron HCl 4 mg 02/17/19 14:31 02/17/19 14:51 Zofran IVPUSH 02/17/19 14:32 4 mg ONETIME ONE Administration Departure - Departure Time of Disposition: 15:15 Disposition: Home, Self-Care 01 Condition: Good Clinical Impression: Gastroenteritis - Discharge Information Referrals: PCP,Unknown [Primary Care Provider] - Forms: ED Department Discharge Additional Instructions: The following information is given to patients seen in the emergency department who are being discharged to home. This information is to outline your options for follow-up care. We provide all patients seen in our emergency department with a follow-up referral. The need for follow-up, as well as the timing and circumstances, are variable depending upon the specifics of your emergency department visit. If you don't have a primary care physician on staff, we will provide you with a referral. We always advise you to contact your personal physician following an emergency department visit to inform them of the circumstance of the visit and for follow-up with them and/or the need for any referrals to a consulting specialist. The emergency department will also refer you to a specialist when appropriate. This referral assures that you have the opportunity for follow-up care with a specialist. All of these measure are taken in an effort to provide you with optimal care, which includes your follow-up. Under all circumstances we always encourage you to contact your private physician who remains a resource for coordinating your care. When calling for follow-up care, please make the office aware that this follow-up is from your recent emergency room visit. If for any reason you are refused follow-up, please contact the [facility] Emergency Department at and asked to speak to the emergency department charge nurse. [facility] [address] [place] [id number] [id number] Take medication as need as instructed Drink plenty of small sips of fluids throughout the day and bland food as tolerated Follow up with primary care provider Return to ED as needed as discussed Sepsis Event Note - Evaluation Sepsis Screening Result: No Definite Risk - Focused Exam Vital Signs: Vital Signs Temp Pulse Resp BP Pulse Ox 02/17/19 14:58 84 18 156/102 H 98 02/17/19 12:49 97.6 F 83 20 185/112 H 99 Date Exam was Performed: 02/17/19 Time Exam was Performed: 15:14 - My Orders Last 24 Hours: My Active Orders 02/17/19 12:55 Saline Lock Insert [OM.PC] Stat 02/17/19 12:56 Sodium Chloride 0.9% [Saline Flush] 10 ml FLUSH ASDIRECTED PRN Sodium Chloride 0.9% [Saline Flush] 2.5 ml FLUSH ASDIRECTED PRN - Assessment/Plan Last 24 Hours: My Active Orders 02/17/19 12:55 Saline Lock Insert [OM.PC] Stat 02/17/19 12:56 Sodium Chloride 0.9% [Saline Flush] 10 ml FLUSH ASDIRECTED PRN Sodium Chloride 0.9% [Saline Flush] 2.5 ml FLUSH ASDIRECTED PRN
[2019-02-17 13:54] LABS: BLOOD UREA NITROGEN,BUN 10 mg/dL (7.0-18.0); CARBON DIOXIDE,CO2 21.5 mmol/L (21.0-32.0); CHLORIDE,CL 98 mmol/L (98-107); GLUCOSE RANDOM 147 mg/dL (74-106); LIPASE 148 U/L (73-393); POTASSIUM,K 3.9 mmol/L (3.5-5.1); SODIUM,NA 134 mmol/L (136-145)
[2019-02-17] MEDS ORDERED: Iopamidol 755 Mg/ML 100 ML Bottle IVPUSH STA (14:40)
[2019-02-17] MEDS ORDERED: Alum Hydrox/Mag Hydrox/Simeth 15 ML, Lidocaine 2% 5 ML PO ONE ×2 (15:02)
--- NOTE | 2019-02-17 15:05 | CT ---
INDICATION: Abdominal pain. Nausea and vomiting. Sensation of fullness in the abdomen. Rule out small bowel obstruction present history gastric bypass 20 years ago with revision 6 years ago. TECHNIQUE: Volumetric helical scanning of the abdomen and pelvis was performed with 78 cc of Isovue 370 contrast material IV. Coronal and sagittal reconstructions were obtained. COMPARISON: None. FINDINGS: There is no evidence of bowel obstruction or inflammation. A normal appendix is noted. Postop changes of gastric bypass and cholecystectomy are demonstrated. The liver is normal in size, shape and attenuation. No bile duct dilation is evident. The spleen is within normal limits. The adrenal glands are unremarkable. The pancreas is within normal limits. The kidneys are unremarkable. No lymphadenopathy is evident. The uterus has been removed. Structures consistent with normal ovaries appear to be present. The lung bases are clear. The heart is normal in size. IMPRESSION: 1. Etiology of abdominal pain not evident. 2. Post gastric bypass, cholecystectomy and hysterectomy. Please note that all CT scans at this facility use dose modulation, iterative reconstruction, and/or weight-based dosing when appropriate to reduce radiation dose to as low as reasonably achievable. Dictated by Dharmesh Gracia MD @ Feb 17 2019 2:57PM Signed by Dr. Dharmesh Gracia @ Feb 17 2019 3:04PM
== END 2019-02-17 15:40 | disposition home or self-care (01) ==
LOC: MW.ED 12:44
DX: K52.9 Noninfective gastroenteritis and colitis, unspecified (principal); I10 Essential (primary) hypertension; K21.9 Gastro-esophageal reflux disease without esophagitis; F41.9 Anxiety disorder, unspecified; F17.210 Nicotine dependence, cigarettes, uncomplicated; Z91.09 Other allergy status, other than to drugs and biological substances; Z88.1 Allergy status to other antibiotic agents; Z79.899 Other long term (current) drug therapy
CPT/HCPCS: 36415; 74177; 80053; 81001; 83605; 83690; 85025; 96361; 96374; 96375; 96376; 99284; A9270; J1885; J2405; J7030; Q9967

== ENCOUNTER 2019-02-19 20:19 | Emergency (ER) | payer SELFPAY ==
[2019-02-19] MEDS ORDERED: Sodium Chloride 0.9% 1,000 ML IV ONE (21:30)
[2019-02-19] MEDS ORDERED: Ondansetron 4 MG/2 ML SDV IVPUSH ONE (21:32)
[2019-02-19 22:05] LABS: BLOOD UREA NITROGEN,BUN 16 mg/dL (7.0-18.0); CARBON DIOXIDE,CO2 22.2 mmol/L (21.0-32.0); CHLORIDE,CL 98 mmol/L (98-107); GLUCOSE RANDOM 113 mg/dL (74-106); POTASSIUM,K 3.4 mmol/L (3.5-5.1); SODIUM,NA 134 mmol/L (136-145)
--- NOTE | 2019-02-19 23:45 | EDM.PDOC ---
ED HPI GENERAL MEDICAL PROBLEM - General Chief Complaint: Abdominal Pain Stated Complaint: ABDOMINAL PAIN/VOMITING Time Seen by Provider: 02/19/19 21:23 Source of Information: Reports: Patient - History of Present Illness INITIAL COMMENTS - FREE TEXT/NARRATIVE: -year-old female presents emergency room chief complaint abdominal pain. The patient was in the emergency room yesterday had a negative work-up including CT scan and lab work and evaluation. Patient states that her stomach still is cramping Onset: Today Duration: Week(s):, Waxing/Waning Quality: Reports: Burning Severity: Mild Improves with: Reports: None Worsens with: Reports: None Associated Symptoms: Reports: No Other Symptoms, Nausea/Vomiting abdominal Pain Score (Numeric/FACES): 8 - Related Data Allergies Allergy/AdvReac Type Severity Reaction Status Date / Time adhesive tape Allergy Hives Verified 02/19/19 21:07 aloe vera Allergy Rash Verified 02/19/19 21:07 amoxicillin [From Augmentin] Allergy Rash Verified 02/19/19 21:07 ciprofloxacin [From Cipro] Allergy Anaphylactic Verified 02/19/19 21:07 Shock clarithromycin [From Biaxin] Allergy Hives Verified 02/19/19 21:07 clavulanic acid Allergy Rash Verified 02/19/19 21:07 [From Augmentin] Home Meds: Home Meds Mirtazapine 45 mg PO BEDTIME 05/20/18 [History] Diazepam [Valium] 2 mg PO BID 10/22/18 [History] hydroCHLOROthiazide [Hydrochlorothiazide] 25 mg PO DAILY 10/24/18 [History] Pantoprazole [ProTONIX] 40 mg PO ACBREAKFAST 14 Days #14 tab.cr 10/27/18 [Rx] Dicyclomine [Bentyl] 10 mg PO QID PRN 11/03/18 [History] L.acidoph,Paracasei, B.lactis [Probiotic] 1 cap PO DAILY 11/03/18 [History] LORazepam 1 mg PO Q12H PRN 11/03/18 [History] Multivitamin [Multi-Vitamin Daily] 1 tab PO DAILY 11/03/18 [History] Potassium Chloride [Klor-Con 10] 10 meq PO DAILY 11/03/18 [History] Vitamin C/Biotin [Hair, Skin and Nails Gummies] 1 tab PO DAILY 11/03/18 [History ] traMADol HCl [Tramadol HCl] 50 mg PO Q6H PRN 11/03/18 [History] GI Cocktail 15 ml PO ONETIME #1 bottle 02/17/19 [Rx] Ondansetron [Zofran ODT] 4 mg PO Q8HR PRN 02/19/19 [History] Past Medical History HEENT History: Reports: Other (See Below) Other HEENT History: wears glasses Cardiovascular History: Reports: Blood Clots/VTE/DVT, Hypertension Other Cardiovascular History: 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, does not take anticoagulants Respiratory History: Reports: None Gastrointestinal History: Reports: Chronic Constipation, Chronic Diarrhea, GERD Genitourinary History: Reports: Renal Calculus Other Genitourinary History: has passed a kidney stone [employer] History: Reports: None Musculoskeletal History: Reports: Fracture Other Musculoskeletal History: hx of fx fingers and toes Neurological History: Reports: None Psychiatric History: Reports: Anxiety, PTSD Endocrine/Metabolic History: Reports: None Hematologic History: Reports: None Immunologic History: Reports: None Oncologic (Cancer) History: Reports: None Dermatologic History: Reports: None - Infectious Disease History Infectious Disease History: Reports: Chicken Pox, MRSA - Past Surgical History Head Surgeries/Procedures: Reports: None HEENT Surgical History: Reports: Adenoidectomy, Naso-Sinus Surgery, Tonsillectomy Cardiovascular Surgical History: Reports: None Respiratory Surgical History: Reports: None GI Surgical History: Reports: Bariatric Procedure, Cholecystectomy, Colon Other GI Surgeries/Procedures: repair of Intussusception following Sandra-En-Y gastric bypass, surgery to remove hematoma following Cholestectomy Female Surgical History: Reports: Breast Implant, Breast Reduction, Hysterectomy Other Female Surgeries/Procedures: bladder stents Endocrine Surgical History: Reports: None Neurological Surgical History: Reports: None Musculoskeletal Surgical History: Reports: Other (See Below) Other Musculoskeletal Surgeries/Procedures:: 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, developed MRSA and was treated with medical maggots, states MRSA has been "cleared" and tested negative with nasal swabs x3 Oncologic Surgical History: Reports: None Dermatological Surgical History: Reports: None Social & Family History - Family History Family Medical History: Noncontributory - Tobacco Use Smoking Status *Q: Current Every Day Smoker Years of Tobacco use: 20 Packs/Tins Daily: 1 - Caffeine Use Caffeine Use: Reports: Coffee, Energy Drinks - Recreational Drug Use Recreational Drug Use: Yes Recreational Drug Type: Reports: Marijuana/Hashish ED ROS GENERAL - Review of Systems Review Of Systems: Comprehensive ROS is negative, except as noted in HPI. Constitutional: Reports: No Symptoms HEENT: Reports: No Symptoms Respiratory: Reports: No Symptoms Cardiovascular: Reports: No Symptoms Endocrine: Reports: No Symptoms GI/Abdominal: Reports: Abdominal Pain, Vomiting Musculoskeletal: Reports: No Symptoms Skin: Reports: No Symptoms Neurological: Reports: No Symptoms Psychiatric: Reports: No Symptoms Hematologic/Lymphatic: Reports: No Symptoms Immunologic: Reports: No Symptoms ED EXAM, GI/ABD - Physical Exam Exam: See Below Exam Limited By: No Limitations General Appearance: Alert, WD/WN, No Apparent Distress Ears: Normal External Exam, Normal Canal, Hearing Grossly Normal, Normal TMs Nose: Normal Inspection, Normal Mucosa Throat/Mouth: Normal Inspection Head: Atraumatic, Normocephalic Neck: Normal Inspection, Supple, Non-Tender Respiratory/Chest: No Respiratory Distress, Lungs Clear, Decreased Breath Sounds Cardiovascular: Normal Peripheral Pulses, Regular Rate, Rhythm, No JVD, No Murmur (Female) Exam: Deferred Rectal (Female) Exam: Deferred, Other Extremities: Normal Inspection, Normal Range of Motion Neurological: Alert, Oriented, CN II-XII Intact Psychiatric: Normal Affect, Normal Mood Skin Exam: Warm, Dry, Intact Course - Vital Signs Last Recorded V/S: Last Vital Signs Temp 98.8 F 02/19/19 21:10 Pulse 99 02/19/19 21:10 Resp 18 02/19/19 21:10 BP 165/101 H 02/19/19 21:10 Pulse Ox 99 02/19/19 21:10 - Orders/Labs/Meds Labs: Laboratory Tests 02/19/19 02/19/19 Range/Units 21:27 21:27 WBC 9.25 (4.0-11.0) K/uL RBC 5.08 (4.30-5.90) M/uL Hgb 12.0 (12.0-16.0) g/dL Hct 36.8 (36.0-46.0) % MCV 72.4 L (80.0-98.0) fL MCH 23.6 L (27.0-32.0) pg MCHC 32.6 (31.0-37.0) g/dL RDW Std Deviation 48.2 (28.0-62.0) fl RDW Coeff of Mikala 18 H (11.0-15.0) % Plt Count 241 (150-400) K/uL MPV 10.40 (7.40-12.00) fL Neut % (Auto) 82.9 H (48.0-80.0) % Lymph % (Auto) 10.3 L (16.0-40.0) % Beadle % (Auto) 6.4 (0.0-15.0) % Eos % (Auto) 0.2 (0.0-7.0) % Baso % (Auto) 0.2 (0.0-1.5) % Neut # (Auto) 7.7 H (1.4-5.7) K/uL Lymph # (Auto) 1.0 (0.6-2.4) K/uL Beadle # (Auto) 0.6 (0.0-0.8) K/uL Eos # (Auto) 0.0 (0.0-0.7) K/uL Baso # (Auto) 0.0 (0.0-0.1) K/uL Nucleated RBC % 0.0 /100WBC Nucleated RBCs # 0 K/uL Sodium 134 L (136-145) mmol/L Potassium 3.4 L (3.5-5.1) mmol/L Chloride 98 (98-107) mmol/L Carbon Dioxide 22.2 (21.0-32.0) mmol/L BUN 16 (7.0-18.0) mg/dL Creatinine 0.9 (0.6-1.0) mg/dL Est Cr Clr Drug Dosing 78.57 mL/min Estimated GFR (MDRD) > 60.0 ml/min Glucose 113 H (74-106) mg/dL Calcium 9.0 (8.5-10.1) mg/dL Total Bilirubin 0.4 (0.2-1.0) mg/dL AST 27 (15-37) IU/L ALT 26 (14-63) IU/L Alkaline Phosphatase 74 (46-116) U/L Total Protein 7.9 (6.4-8.2) g/dL Albumin 4.5 (3.4-5.0) g/dL Globulin 3.4 (2.6-4.0) g/dL Albumin/Globulin Ratio 1.3 (0.9-1.6) Meds: Medications Discontinued Medications Generic Name Dose Route Start Last Admin Trade Name Freq PRN Reason Stop Dose Admin Sodium Chloride 1,000 mls @ 1,000 mls/hr 02/19/19 21:30 02/19/19 22:22 Normal Saline IV 02/19/19 22:29 1,000 mls/hr .Bolus ONE Administration Ondansetron HCl 8 mg 02/19/19 21:32 02/19/19 22:22 Zofran IVPUSH 02/19/19 21:33 8 mg ONETIME ONE Administration Departure - Departure Time of Disposition: 04:00 Disposition: Home, Self-Care 01 Condition: Good Clinical Impression: Gastritis, Chronic abdominal pain - Discharge Information Referrals: Abelardo Aguila MD [Primary Care Provider] - Sepsis Event Note - Evaluation Sepsis Screening Result: No Definite Risk - Focused Exam Vital Signs: Vital Signs Temp Pulse Resp BP Pulse Ox 02/19/19 21:10 98.8 F 99 18 165/101 H 99 Date Exam was Performed: 02/19/19 Time Exam was Performed: 23:40
== END 2019-02-19 23:52 | disposition home or self-care (01) ==
LOC: MW.ED 20:19
DX: K29.70 Gastritis, unspecified, without bleeding (principal); I10 Essential (primary) hypertension; F41.9 Anxiety disorder, unspecified; Z86.718 Personal history of other venous thrombosis and embolism; K21.9 Gastro-esophageal reflux disease without esophagitis; Z90.49 Acquired absence of other specified parts of digestive tract; F17.210 Nicotine dependence, cigarettes, uncomplicated; Z88.1 Allergy status to other antibiotic agents; Z91.048 Other nonmedicinal substance allergy status; Z79.899 Other long term (current) drug therapy
CPT/HCPCS: 36415; 80053; 85025; 96361; 96374; 99284; J2405; J7030; 99283

== ENCOUNTER 2019-06-15 14:25 | Emergency (ER) | payer BC, OTHER ==
[2019-06-15] MEDS ORDERED: Ondansetron 4 MG/2 ML SDV IVPUSH ONE (14:45)
[2019-06-15] MEDS ORDERED: Sodium Chloride 0.9% 1,000 ML IV ONE (14:45)
[2019-06-15] MEDS ORDERED: Morphine 2 MG/ML Syringe IVPUSH ONE (14:47)
--- NOTE | 2019-06-15 14:47 | EDM.PDOC ---
ED HPI GENERAL MEDICAL PROBLEM - General Chief Complaint: Abdominal Pain Stated Complaint: NAUSEA/ABDOMINAL PAIN Time Seen by Provider: 06/15/19 14:41 Source of Information: Reports: Patient History Limitations: Reports: No Limitations - History of Present Illness INITIAL COMMENTS - FREE TEXT/NARRATIVE: HISTORY AND PHYSICAL: History of present illness: Patient is a 39-year-old female who presents to the emergency room today with complaints of generalized abdominal pain and nausea. She had a gastric procedure done approximately 10+ years ago, states she has not had any problems up until 3 years ago. Over the past 3 years she has been having intermittent episodes of generalized abdominal pain with nausea and states "I cannot keep any weight on". She has been seen multiple times through the emergency room, the clinic and specialist. She states her labs and CT scans end up being normal. Saturday she ate some "bad [place] food" and started to have some generalized abdominal pain with nausea. She did have a few loose stools on Saturday, none today. Patient denies any fever, chills, headache, change in vision, syncope or near syncope. Denies any chest pain, back pain, shortness of breath or cough. Denies any vomiting, constipation or dysuria. Has not noted any blood in urine or stool. Denies any alcohol or drug abuse. Review of systems: As per history of present illness and below otherwise all systems reviewed and negative. Past medical history: As per history of present illness and as reviewed below otherwise noncontributory. Surgical history: As per history of present illness and as reviewed below otherwise noncontributory. Social history: See social history for further information Family history: As per history of present illness and as reviewed below otherwise noncontributory. Physical exam: General: Well-developed and well-nourished 39-year-old female. Alert and oriented. Nontoxic-appearing but appears anxious and mildly uncomfortable due to her abdominal pain. HEENT: Atraumatic, normocephalic, pupils equal and reactive bilaterally, negative for conjunctival pallor or scleral icterus, mucous membranes moist, nontender, trachea midline. No drooling or trismus noted. No meningeal signs. No hot potato voice noted. Lungs: Clear to auscultation, breath sounds equal bilaterally, chest nontender. Heart: S1S2, regular rate and rhythm without overt murmur Abdomen: Soft, nondistended, diffuse tenderness in all 4 quadrants, nonspecific. Negative for masses or hepatosplenomegaly. Negative for costovertebral tenderness. Skin: Thinning skin noted from previous bariatric surgery. Scar noted to mid left abdomen. Intact, warm, dry. No lesions or rashes noted. Extremities: Atraumatic, moves all extremities per self without difficulty or deficits. Neurovascular unremarkable. Neuro: Awake, alert, oriented. Cranial nerves II through XII unremarkable. Cerebellum unremarkable. Motor and sensory unremarkable throughout. Exam nonfocal. Notes: Lab work is unremarkable with the exception of appearing to be dehydrated with her sodium and BUN/creatinine being slightly altered. She did get fluids and states she does feel better. I do want her to follow-up with her primary care provider at the clinic for reevaluation of her lab work. She states she will push fluids at home. Vital signs remained stable. Supportive care measures were reviewed and discussed. Voices understanding and is agreeable to plan of care. Denies any further questions or concerns at this time. Diagnostics: CBC, CMP, lipase, UA, urine Therapeutics: IV fluid, Zofran, morphine, macrobid Prescription: Macrobid Impression: Abdominal Pain, generalized UTI Plan: 1. [place] diet over the next 24-48 hours. Advance as tolerated. Increase your oral fluids. 2. Over the counter pain medications as needed for pain. 3. Follow up with a general surgeon, welder/fitter or your bariatric surgeon for further care and management of your chronic abdominal pain. 4. Return to the ED as needed and as discussed. Definitive disposition and diagnosis as appropriate pending reevaluation and review of above. Duration: Day(s): Location: Reports: Abdomen Abdominal Pain Score (Numeric/FACES): 8 - Related Data Allergies Allergy/AdvReac Type Severity Reaction Status Date / Time adhesive tape Allergy Hives Verified 06/15/19 14:38 aloe vera Allergy Rash Verified 06/15/19 14:38 amoxicillin [From Augmentin] Allergy Rash Verified 06/15/19 14:38 ciprofloxacin [From Cipro] Allergy Anaphylactic Verified 06/15/19 14:38 Shock clarithromycin [From Biaxin] Allergy Hives Verified 06/15/19 14:38 clavulanic acid Allergy Rash Verified 06/15/19 14:38 [From Augmentin] cyclobenzaprine Allergy Seizure Verified 06/15/19 14:38 [From Flexeril] Home Meds: Home Meds Mirtazapine 45 mg PO BEDTIME 05/20/18 [History] diazePAM [Valium] 2 mg PO BID 10/22/18 [History] hydroCHLOROthiazide [Hydrochlorothiazide] 25 mg PO DAILY 10/24/18 [History] Pantoprazole [ProTONIX] 40 mg PO ACBREAKFAST 14 Days #14 tab.cr 10/27/18 [Rx] Dicyclomine [Bentyl] 10 mg PO QID PRN 11/03/18 [History] L.acidoph,Paracasei, B.lactis [Probiotic] 1 cap PO DAILY 11/03/18 [History] LORazepam 1 mg PO Q12H PRN 11/03/18 [History] Multivitamin [Multi-Vitamin Daily] 1 tab PO DAILY 11/03/18 [History] Potassium Chloride [Klor-Con 10] 10 meq PO DAILY 11/03/18 [History] Vitamin C/Biotin [Hair, Skin and Nails Gummies] 1 tab PO DAILY 11/03/18 [History ] traMADol HCl [Tramadol HCl] 50 mg PO Q6H PRN 11/03/18 [History] GI Cocktail 15 ml PO ONETIME #1 bottle 02/17/19 [Rx] Ondansetron [Zofran ODT] 4 mg PO Q8HR PRN 02/19/19 [History] Nitrofurantoin Monohyd/M-Cryst [Macrobid 100 mg Capsule] 100 mg PO BID 5 Days # 10 capsule 06/15/19 [Rx] carisoprodoL [Soma] 350 mg PO DAILY 06/15/19 [History] Past Medical History HEENT History: Reports: Other (See Below) Other HEENT History: wears glasses Cardiovascular History: Reports: Blood Clots/VTE/DVT, Hypertension Other Cardiovascular History: 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, does not take anticoagulants Respiratory History: Reports: None Gastrointestinal History: Reports: Chronic Constipation, Chronic Diarrhea, GERD Genitourinary History: Reports: Renal Calculus Other Genitourinary History: has passed a kidney stone CURRICULUM AND ASSESSMENT DIRECTOR History: Reports: None Musculoskeletal History: Reports: Fracture Other Musculoskeletal History: hx of fx fingers and toes Neurological History: Reports: None Psychiatric History: Reports: Anxiety, PTSD Endocrine/Metabolic History: Reports: None Hematologic History: Reports: None Immunologic History: Reports: None Oncologic (Cancer) History: Reports: None Dermatologic History: Reports: None - Infectious Disease History Infectious Disease History: Reports: Chicken Pox, MRSA - Past Surgical History Head Surgeries/Procedures: Reports: None HEENT Surgical History: Reports: Adenoidectomy, Naso-Sinus Surgery, Tonsillectomy Cardiovascular Surgical History: Reports: None Respiratory Surgical History: Reports: None GI Surgical History: Reports: Bariatric Procedure, Cholecystectomy, Colon Other GI Surgeries/Procedures: repair of Intussusception following Sandra-En-Y gastric bypass, surgery to remove hematoma following Cholestectomy Female Surgical History: Reports: Breast Implant, Breast Reduction, Hysterectomy Other Female Surgeries/Procedures: bladder stents Endocrine Surgical History: Reports: None Neurological Surgical History: Reports: None Musculoskeletal Surgical History: Reports: Other (See Below) Other Musculoskeletal Surgeries/Procedures:: 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, developed MRSA and was treated with medical maggots, states MRSA has been "cleared" and tested negative with nasal swabs x3 Oncologic Surgical History: Reports: None Dermatological Surgical History: Reports: None Social & Family History - Family History Family Medical History: Noncontributory - Tobacco Use Smoking Status *Q: Current Every Day Smoker Years of Tobacco use: 15 Packs/Tins Daily: 0.2 - Caffeine Use Caffeine Use: Reports: None - Recreational Drug Use Recreational Drug Use: No ED ROS GENERAL - Review of Systems Review Of Systems: Comprehensive ROS is negative, except as noted in HPI. ED EXAM, GI/ABD - Physical Exam Exam: See Below (See dictation) Course - Vital Signs Last Recorded V/S: Last Vital Signs Temp 97.6 F 06/15/19 14:32 Pulse 120 H 06/15/19 14:32 Resp 18 06/15/19 14:32 BP 108/68 06/15/19 14:32 Pulse Ox 96 06/15/19 14:32 - Orders/Labs/Meds Orders: Active Orders 24 hr Category Date Time Status Sodium Chloride 0.9% [Normal Saline] 500 ml Med 06/15/19 15:45 Active IV STAT Medication Orders Sodium Chloride (Normal Saline) 500 mls @ 999 mls/hr IV STAT COLIN Last Admin: 06/15/19 16:28 Dose: 999 mls/hr Labs: Laboratory Tests 06/15/19 06/15/19 06/15/19 Range/Units 14:50 14:50 15:40 WBC 9.66 (4.0-11.0) K/uL RBC 5.82 (4.30-5.90) M/uL Hgb 13.7 (12.0-16.0) g/dL Hct 42.9 (36.0-46.0) % MCV 73.7 L (80.0-98.0) fL MCH 23.5 L (27.0-32.0) pg MCHC 31.9 (31.0-37.0) g/dL RDW Std Deviation 47.8 (28.0-62.0) fl RDW Coeff of Mikala 18 H (11.0-15.0) % Plt Count 484 H (150-400) K/uL MPV 10.40 (7.40-12.00) fL Neut % (Auto) 68.0 (48.0-80.0) % Lymph % (Auto) 17.7 (16.0-40.0) % [place] % (Auto) 14.1 (0.0-15.0) % Eos % (Auto) 0.0 (0.0-7.0) % Baso % (Auto) 0.2 (0.0-1.5) % Neut # (Auto) 6.6 H (1.4-5.7) K/uL Lymph # (Auto) 1.7 (0.6-2.4) K/uL [place] # (Auto) 1.4 H (0.0-0.8) K/uL Eos # (Auto) 0.0 (0.0-0.7) K/uL Baso # (Auto) 0.0 (0.0-0.1) K/uL Nucleated RBC % 0.0 /100WBC Nucleated RBCs # 0 K/uL Sodium 135 L (136-145) mmol/L Potassium 3.3 L (3.5-5.1) mmol/L Chloride 98 (98-107) mmol/L Carbon Dioxide 21.2 (21.0-32.0) mmol/L BUN 28 H (7.0-18.0) mg/dL Creatinine 1.3 H (0.6-1.0) mg/dL Est Cr Clr Drug Dosing 53.55 mL/min Estimated GFR (MDRD) 45.4 ml/min Glucose 125 H (74-106) mg/dL Calcium 9.3 (8.5-10.1) mg/dL Total Bilirubin 0.8 (0.2-1.0) mg/dL AST 59 H (15-37) IU/L ALT 37 (14-63) IU/L Alkaline Phosphatase 84 (46-116) U/L Total Protein 8.7 H (6.4-8.2) g/dL Albumin 4.5 (3.4-5.0) g/dL Globulin 4.2 H (2.6-4.0) g/dL Albumin/Globulin Ratio 1.1 (0.9-1.6) Lipase 224 (73-393) U/L Urine Color YELLOW Urine Appearance HAZY Urine pH 6.0 (5.0-8.0) Ur Specific [place] >= 1.030 (1.001-1.035) Urine Protein 100 H (NEGATIVE) mg/dL Urine Glucose (UA) NEGATIVE (NEGATIVE) mg/dL Urine Ketones NEGATIVE (NEGATIVE) mg/dL Urine Occult Blood SMALL H (NEGATIVE) Urine Nitrite NEGATIVE (NEGATIVE) Urine Bilirubin SMALL H (NEGATIVE) Urine Ictotest NEGATIVE Urine Urobilinogen 0.2 (<2.0) EU/dL Ur Leukocyte Esterase NEGATIVE (NEGATIVE) Urine RBC 2-6 (0-2/HPF) Urine WBC 1-4 (0-5/HPF) Ur Epithelial Cells FEW (NONE-FEW) Urine Bacteria 1+ H (NEGATIVE) Urine HCG, Qual (NEGATIVE) 06/15/19 Range/Units 15:40 WBC (4.0-11.0) K/uL RBC (4.30-5.90) M/uL Hgb (12.0-16.0) g/dL Hct (36.0-46.0) % MCV (80.0-98.0) fL MCH (27.0-32.0) pg MCHC (31.0-37.0) g/dL RDW Std Deviation (28.0-62.0) fl RDW Coeff of Mikala (11.0-15.0) % Plt Count (150-400) K/uL MPV (7.40-12.00) fL Neut % (Auto) (48.0-80.0) % Lymph % (Auto) (16.0-40.0) % [place] % (Auto) (0.0-15.0) % Eos % (Auto) (0.0-7.0) % Baso % (Auto) (0.0-1.5) % Neut # (Auto) (1.4-5.7) K/uL Lymph # (Auto) (0.6-2.4) K/uL [place] # (Auto) (0.0-0.8) K/uL Eos # (Auto) (0.0-0.7) K/uL Baso # (Auto) (0.0-0.1) K/uL Nucleated RBC % /100WBC Nucleated RBCs # K/uL Sodium (136-145) mmol/L Potassium (3.5-5.1) mmol/L Chloride (98-107) mmol/L Carbon Dioxide (21.0-32.0) mmol/L BUN (7.0-18.0) mg/dL Creatinine (0.6-1.0) mg/dL Est Cr Clr Drug Dosing mL/min Estimated GFR (MDRD) ml/min Glucose (74-106) mg/dL Calcium (8.5-10.1) mg/dL Total Bilirubin (0.2-1.0) mg/dL AST (15-37) IU/L ALT (14-63) IU/L Alkaline Phosphatase (46-116) U/L Total Protein (6.4-8.2) g/dL Albumin (3.4-5.0) g/dL Globulin (2.6-4.0) g/dL Albumin/Globulin Ratio (0.9-1.6) Lipase (73-393) U/L Urine Color Urine Appearance Urine pH (5.0-8.0) Ur Specific [place] (1.001-1.035) Urine Protein (NEGATIVE) mg/dL Urine Glucose (UA) (NEGATIVE) mg/dL Urine Ketones (NEGATIVE) mg/dL Urine Occult Blood (NEGATIVE) Urine Nitrite (NEGATIVE) Urine Bilirubin (NEGATIVE) Urine Ictotest Urine Urobilinogen (<2.0) EU/dL Ur Leukocyte Esterase (NEGATIVE) Urine RBC (0-2/HPF) Urine WBC (0-5/HPF) Ur Epithelial Cells (NONE-FEW) Urine Bacteria (NEGATIVE) Urine HCG, Qual NEGATIVE (NEGATIVE) Meds: Medications Generic Name Dose Route Start Last Admin Trade Name Freq PRN Reason Stop Dose Admin Sodium Chloride 500 mls @ 999 mls/hr 06/15/19 15:45 06/15/19 16:28 Normal Saline IV 999 mls/hr STAT COLIN Administration Discontinued Medications Generic Name Dose Route Start Last Admin Trade Name Freq PRN Reason Stop Dose Admin Sodium Chloride 1,000 mls @ 999 mls/hr 06/15/19 14:45 06/15/19 15:04 Normal Saline IV 06/15/19 15:45 999 mls/hr STAT ONE Administration Morphine Sulfate 2 mg 06/15/19 14:47 06/15/19 15:07 Morphine IVPUSH 06/15/19 14:48 2 mg ONETIME ONE Administration Nitrofurantoin Macrocrystals 100 mg 06/15/19 16:09 06/15/19 16:28 Macrobid PO 06/15/19 16:10 100 mg ONETIME ONE Administration Ondansetron HCl 4 mg 06/15/19 14:45 06/15/19 15:05 Zofran IVPUSH 06/15/19 14:46 4 mg ONETIME ONE Administration Departure - Departure Time of Disposition: 17:03 Disposition: Home, Self-Care 01 Clinical Impression: UTI, Urinary tract infectious disease Abdominal pain Qualifiers: Abdominal location: generalized Qualified Code(s): R10.84 - Generalized abdominal pain - Discharge Information Prescriptions: Nitrofurantoin Monohyd/M-Cryst [Macrobid 100 mg Capsule] 100 mg PO BID 5 Days # 10 capsule Instructions: Urinary Tract Infection, Adult, [id number], Abdominal Pain, Adult, [id number] Referrals: PCP,None [Primary Care Provider] - Forms: ED Department Discharge Additional Instructions: The following information is given to patients seen in the emergency department who are being discharged to home. This information is to outline your options for follow-up care. We provide all patients seen in our emergency department with a follow-up referral. The need for follow-up, as well as the timing and circumstances, are variable depending upon the specifics of your emergency department visit. If you don't have a primary care physician on staff, we will provide you with a referral. We always advise you to contact your personal physician following an emergency department visit to inform them of the circumstance of the visit and for follow-up with them and/or the need for any referrals to a consulting specialist. The emergency department will also refer you to a specialist when appropriate. This referral assures that you have the opportunity for follow-up care with a specialist. All of these measure are taken in an effort to provide you with optimal care, which includes your follow-up. Under all circumstances we always encourage you to contact your private physician who remains a resource for coordinating your care. When calling for follow-up care, please make the office aware that this follow-up is from your recent emergency room visit. If for any reason you are refused follow-up, please contact the [facility] Emergency Department at and asked to speak to the emergency department charge nurse. [facility] [address] [place] [address] [place] [address] 1. [place] diet over the next 24-48 hours. Advance as tolerated. Increase your oral fluids. 2. Over the counter pain medications as needed for pain. 3. Follow up with a general surgeon, welder/fitter or your bariatric surgeon for further care and management of your chronic abdominal pain. 4. Return to the ED as needed and as discussed. Sepsis Event Note - Evaluation Sepsis Screening Result: No Definite Risk - Focused Exam Vital Signs: Vital Signs Temp Pulse Resp BP Pulse Ox 06/15/19 14:32 97.6 F 120 H 18 108/68 96 Date Exam was Performed: 06/15/19 Time Exam was Performed: 17:03 - My Orders Last 24 Hours: My Active Orders 06/15/19 15:45 Sodium Chloride 0.9% [Normal Saline] 500 ml IV STAT - Assessment/Plan Last 24 Hours: My Active Orders 06/15/19 15:45 Sodium Chloride 0.9% [Normal Saline] 500 ml IV STAT
[2019-06-15 15:40] LABS: CARBON DIOXIDE,CO2 21.2 mmol/L (21.0-32.0); POTASSIUM,K 3.3 mmol/L (3.5-5.1)
[2019-06-15] MEDS ORDERED: Sodium Chloride 0.9% 500 ML IV SCH (15:45)
[2019-06-15] MEDS ORDERED: Nitrofurantoin Monohydrate/Macrocrystalline 100 MG Cap PO ONE (16:09)
== END 2019-06-15 17:15 | disposition home or self-care (01) ==
LOC: MW.ED 14:25
DX: N39.0 Urinary tract infection, site not specified (principal); I10 Essential (primary) hypertension; K21.9 Gastro-esophageal reflux disease without esophagitis; F41.9 Anxiety disorder, unspecified; F17.210 Nicotine dependence, cigarettes, uncomplicated; Z90.49 Acquired absence of other specified parts of digestive tract; Z88.0 Allergy status to penicillin; Z88.8 Allergy status to other drugs, medicaments and biological substances; Z79.899 Other long term (current) drug therapy; Z90.89 Acquired absence of other organs; Z90.710 Acquired absence of both cervix and uterus; Z88.1 Allergy status to other antibiotic agents; Z91.048 Other nonmedicinal substance allergy status
CPT/HCPCS: 36415; 80053; 81001; 81025; 83690; 85025; 96361; 96374; 96375; 99284; A9270; J2270; J2405; J7030; J7040; 99283

== ENCOUNTER 2019-07-19 01:06 | Emergency (ER) | payer BC ==
[2019-07-19] MEDS ORDERED: Lactated Ringers 1,000 ML IV ONE (01:28)
[2019-07-19] MEDS ORDERED: Sodium Chloride 0.9% 10 ML Syringe FLUSH PRN (01:28)
[2019-07-19] MEDS ORDERED: Sodium Chloride 0.9% 2.5 ML Syringe FLUSH PRN (01:28)
[2019-07-19] MEDS ORDERED: Sodium Chloride 0.9% 10 ML SDV IV PRN (01:28)
[2019-07-19] MEDS ORDERED: Ondansetron 4 MG/2 ML SDV IVPUSH ONE (01:33)
[2019-07-19] MEDS ORDERED: Haloperidol Lactate 5 MG/ML SDV IM ONE (01:33)
[2019-07-19] MEDS ORDERED: Alum Hydrox/Mag Hydrox/Simeth 15 ML, Lidocaine 2% 5 ML PO ONE ×2 (01:33)
[2019-07-19] MEDS ORDERED: Acetaminophen 500 MG Tab PO ONE (01:33)
--- NOTE | 2019-07-19 01:37 | EDM.PDOC ---
ED HPI GENERAL MEDICAL PROBLEM - General Chief Complaint: Gastrointestinal Problem Stated Complaint: VOMITTING Time Seen by Provider: 07/19/19 01:09 Source of Information: Reports: Patient History Limitations: Reports: No Limitations - History of Present Illness INITIAL COMMENTS - FREE TEXT/NARRATIVE: 39-year-old female with a past medical history of anxiety, chronic abdominal pain, status post hysterectomy and cholecystectomy presenting with abdominal pain, lightheadedness, and nausea. Onset of symptoms around 6 PM this evening. Reports lightheadedness without syncope, nausea without emesis, and both left upper quadrant and right lower quadrant abdominal pain. Pain is improved with rest and sleep, nothing makes it worse. Pain has been constant, rated at 10 out of 10. No self treatment prior to arrival, no other complaints. No dysuria , urinary frequency, hematuria, or GI bleeding. Treatments INJURY/SAFETY HAZARD ASSESSMENT: Reports: Other (see below) Other Treatments INJURY/SAFETY HAZARD ASSESSMENT: see triage abdominal Pain Score (Numeric/FACES): 8 - Related Data Allergies Allergy/AdvReac Type Severity Reaction Status Date / Time adhesive tape Allergy Hives Verified 07/19/19 01:13 aloe vera Allergy Rash Verified 07/19/19 01:13 amoxicillin [From Augmentin] Allergy Rash Verified 07/19/19 01:13 ciprofloxacin [From Cipro] Allergy Anaphylactic Verified 07/19/19 01:13 Shock clarithromycin [From Biaxin] Allergy Hives Verified 07/19/19 01:13 clavulanic acid Allergy Rash Verified 07/19/19 01:13 [From Augmentin] cyclobenzaprine Allergy Seizure Verified 07/19/19 01:13 [From Flexeril] Home Meds: Home Meds diazePAM [Valium] 2 mg PO BID 10/22/18 [History] hydroCHLOROthiazide [Hydrochlorothiazide] 25 mg PO DAILY 10/24/18 [History] Pantoprazole [ProTONIX] 40 mg PO ACBREAKFAST 14 Days #14 tab.cr 10/27/18 [Rx] Dicyclomine [Bentyl] 10 mg PO QID PRN 11/03/18 [History] LORazepam 1 mg PO Q12H PRN 11/03/18 [History] Multivitamin [Multi-Vitamin Daily] 1 tab PO DAILY 11/03/18 [History] Potassium Chloride [Klor-Con 10] 10 meq PO DAILY 11/03/18 [History] Vitamin C/Biotin [Hair, Skin and Nails Gummies] 1 tab PO DAILY 11/03/18 [History ] traMADol HCl [Tramadol HCl] 50 mg PO Q6H PRN 11/03/18 [History] GI Cocktail 15 ml PO ONETIME #1 bottle 02/17/19 [Rx] Ondansetron [Zofran ODT] 4 mg PO Q8HR PRN 02/19/19 [History] carisoprodoL [Soma] 350 mg PO DAILY 06/15/19 [History] Past Medical History HEENT History: Reports: Other (See Below) Other HEENT History: wears glasses Cardiovascular History: Reports: Blood Clots/VTE/DVT, Hypertension Other Cardiovascular History: 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, does not take anticoagulants Respiratory History: Reports: None Gastrointestinal History: Reports: Chronic Constipation, Chronic Diarrhea, GERD Genitourinary History: Reports: Renal Calculus Other Genitourinary History: has passed a kidney stone [employer] History: Reports: None Musculoskeletal History: Reports: Fracture Other Musculoskeletal History: hx of fx fingers and toes Neurological History: Reports: None Psychiatric History: Reports: Anxiety, PTSD Endocrine/Metabolic History: Reports: None Hematologic History: Reports: None Immunologic History: Reports: None Oncologic (Cancer) History: Reports: None Dermatologic History: Reports: None - Infectious Disease History Infectious Disease History: Reports: Chicken Pox, MRSA - Past Surgical History Head Surgeries/Procedures: Reports: None HEENT Surgical History: Reports: Adenoidectomy, Naso-Sinus Surgery, Tonsillectomy Cardiovascular Surgical History: Reports: None Respiratory Surgical History: Reports: None GI Surgical History: Reports: Bariatric Procedure, Cholecystectomy, Colon Other GI Surgeries/Procedures: repair of Intussusception following Sandra-En-Y gastric bypass, surgery to remove hematoma following Cholestectomy Female Surgical History: Reports: Breast Implant, Breast Reduction, Hysterectomy Other Female Surgeries/Procedures: bladder stents Endocrine Surgical History: Reports: None Neurological Surgical History: Reports: None Musculoskeletal Surgical History: Reports: Other (See Below) Other Musculoskeletal Surgeries/Procedures:: 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, developed MRSA and was treated with medical maggots, states MRSA has been "cleared" and tested negative with nasal swabs x3 Oncologic Surgical History: Reports: None Dermatological Surgical History: Reports: None Social & Family History - Family History Family Medical History: Noncontributory - Tobacco Use Smoking Status *Q: Current Every Day Smoker Years of Tobacco use: 25 Packs/Tins Daily: 1 - Caffeine Use Caffeine Use: Reports: None - Recreational Drug Use Recreational Drug Use: Yes Recreational Drug Type: Reports: Marijuana/Hashish ED ROS GENERAL - Review of Systems Review Of Systems: See Below Constitutional: Reports: Malaise. Denies: Fever, Chills HEENT: Reports: No Symptoms Respiratory: Denies: Shortness of Breath Cardiovascular: Denies: Chest Pain GI/Abdominal: Reports: Abdominal Pain, Nausea. Denies: Black Stool, Bloody Stool, Constipation, Diarrhea, Decreased Appetite, Difficulty Swallowing, Distension, Hematemesis, Hematochezia, Melena, Vomiting : Denies: Discharge, Dysuria, Flank Pain, Frequency, Hematuria, Urgency Musculoskeletal: Reports: No Symptoms Skin: Reports: No Symptoms Neurological: Denies: Headache Psychiatric: Reports: No Symptoms Hematologic/Lymphatic: Reports: No Symptoms Immunologic: Reports: No Symptoms ED EXAM, GI/ABD - Physical Exam Exam: See Below Text/Narrative:: Vital signs reviewed. Nursing notes reviewed. Constitutional: Awake, alert, extremely anxious looking woman. Head: Normocephalic, atraumatic. Eyes: EOMI, conjunctiva normal, no discharge, no scleral icterus. Ears, Nose, Throat: External ears and ears normal, moist oral mucosa. Cardiovascular: 2+ radial pulse, capillary refill less than 2 seconds. Pulmonary: normal work of breathing, no accessory muscle use. Abdomen/GI: Soft, mild tenderness in the left upper quadrant in the right lower quadrant, nondistended, no guarding or rigidity, no masses. Musculoskeletal: No deformities. Integumentary: Appropriate color for ethnicity, warm, dry, no pallor or jaundice , no rash. Neurologic: Alert, answering questions appropriately, normal speech, no facial droop, moving all extremities well. Psychiatric: Very anxious, somewhat shaky, pain out of proportion to examination. Course - Vital Signs Text/Narrative:: Patient hemodynamically stable, afebrile, well-appearing, looks nontoxic. Differential diagnosis includes but is not limited to: Splenic infarction, gastritis, peptic ulcer disease, pancreatitis, appendicitis, ileus, bowel obstruction, hernia, epiploic appendagitis, sepsis, electrolyte abnormality, hypoglycemia, nonspecific abdominal pain, and many others 0221: CBC shows a mild microcytic anemia. Negative test. Urinalysis shows small ketones but no blood or evidence of infection. Awaiting remainder of laboratory studies. 0230: Electrolytes and creatinine normal. Troponin negative. Liver function test negative. Lipase within normal limits. Pain somewhat improved but still persistent. Will pursue CT imaging of the abdomen/pelvis. 0321: CT abdomen/pelvis returned showing no acute abnormalities. Patient resting comfortably, sleeping in between cares. Plan: Patient is stable to discharge home with outpatient primary care follow- up. No evidence of acute pathology or an emergency medical condition to explain the patient's complaints. Short course of Zofran prescribed via [facility]. [id number] acetaminophen and ibuprofen as needed for pain. Strict emergency department return precautions were provided, patient indicated understanding. All questions were answered prior to departure. Discharged in good condition. Last Recorded V/S: Last Vital Signs Temp 35.9 C L 07/19/19 01:13 Pulse 73 07/19/19 01:24 Resp 18 07/19/19 01:24 BP 171/105 H 07/19/19 01:24 Pulse Ox 100 07/19/19 01:24 - Orders/Labs/Meds Orders: Active Orders 24 hr Category Date Time Status EKG 12 Lead [EKG Documentation Completion] [RC] STAT Care 07/19/19 01:57 Active Sodium Chloride 0.9% [Normal Saline] Med 07/19/19 01:28 Active 10 ml IV ASDIRECTED PRN Sodium Chloride 0.9% [Saline Flush] Med 07/19/19 01:28 Active 10 ml FLUSH ASDIRECTED PRN Sodium Chloride 0.9% [Saline Flush] Med 07/19/19 01:28 Active 2.5 ml FLUSH ASDIRECTED PRN Peripheral IV Insertion Adult [OM.PC] Stat Oth 07/19/19 01:28 Ordered Medication Orders Sodium Chloride (Saline Flush) 10 ml FLUSH ASDIRECTED PRN PRN Reason: Keep Vein Open Sodium Chloride (Saline Flush) 2.5 ml FLUSH ASDIRECTED PRN PRN Reason: Keep Vein Open Sodium Chloride (Normal Saline) 10 ml IV ASDIRECTED PRN PRN Reason: IV Use Labs: Laboratory Tests 07/19/19 07/19/1920 Range/Units 01:55 01:55 01:55 WBC 6.09 (4.0-11.0) K/uL RBC 4.81 (4.30-5.90) M/uL Hgb 11.0 L (12.0-16.0) g/dL Hct 35.1 L (36.0-46.0) % MCV 73.0 L (80.0-98.0) fL MCH 22.9 L (27.0-32.0) pg MCHC 31.3 (31.0-37.0) g/dL RDW Std Deviation 47.5 (28.0-62.0) fl RDW Coeff of Mikala 18 H (11.0-15.0) % Plt Count 295 (150-400) K/uL MPV 9.80 (7.40-12.00) fL Neut % (Auto) 84.9 H (48.0-80.0) % Lymph % (Auto) 11.3 L (16.0-40.0) % [place] % (Auto) 3.1 (0.0-15.0) % Eos % (Auto) 0.0 (0.0-7.0) % Baso % (Auto) 0.7 (0.0-1.5) % Neut # (Auto) 5.2 (1.4-5.7) K/uL Lymph # (Auto) 0.7 (0.6-2.4) K/uL [place] # (Auto) 0.2 (0.0-0.8) K/uL Eos # (Auto) 0.0 (0.0-0.7) K/uL Baso # (Auto) 0.0 (0.0-0.1) K/uL Nucleated RBC % 0.0 /100WBC Nucleated RBCs # 0 K/uL Sodium 136 (136-145) mmol/L Potassium 3.8 (3.5-5.1) mmol/L Chloride 100 (98-107) mmol/L Carbon Dioxide 22.8 (21.0-32.0) mmol/L BUN 7 (7.0-18.0) mg/dL Creatinine 0.8 (0.6-1.0) mg/dL Est Cr Clr Drug Dosing 90.90 mL/min Estimated GFR (MDRD) > 60.0 ml/min Glucose 164 H (74-106) mg/dL Calcium 8.9 (8.5-10.1) mg/dL Total Bilirubin 0.4 (0.2-1.0) mg/dL AST 20 (15-37) IU/L ALT 23 (14-63) IU/L Alkaline Phosphatase 76 (46-116) U/L Troponin I < 0.050 (0.000-0.056) ng/mL Total Protein 8.0 (6.4-8.2) g/dL Albumin 4.4 (3.4-5.0) g/dL Globulin 3.6 (2.6-4.0) g/dL Albumin/Globulin Ratio 1.2 (0.9-1.6) Lipase 163 (73-393) U/L HCG, Qual NEGATIVE (NEG) Urine Color Urine Appearance Urine pH (5.0-8.0) Ur Specific Nelson (1.001-1.035) Urine Protein (NEGATIVE) mg/dL Urine Glucose (UA) (NEGATIVE) mg/dL Urine Ketones (NEGATIVE) mg/dL Urine Occult Blood (NEGATIVE) Urine Nitrite (NEGATIVE) Urine Bilirubin (NEGATIVE) Urine Urobilinogen (<2.0) EU/dL Ur Leukocyte Esterase (NEGATIVE) Urine RBC (0-2/HPF) Urine WBC (0-5/HPF) Ur Epithelial Cells (NONE-FEW) Urine Bacteria (NEGATIVE) 07/19/19 Range/Units 02:08 WBC (4.0-11.0) K/uL RBC (4.30-5.90) M/uL Hgb (12.0-16.0) g/dL Hct (36.0-46.0) % MCV (80.0-98.0) fL MCH (27.0-32.0) pg MCHC (31.0-37.0) g/dL RDW Std Deviation (28.0-62.0) fl RDW Coeff of Mikala (11.0-15.0) % Plt Count (150-400) K/uL MPV (7.40-12.00) fL Neut % (Auto) (48.0-80.0) % Lymph % (Auto) (16.0-40.0) % [place] % (Auto) (0.0-15.0) % Eos % (Auto) (0.0-7.0) % Baso % (Auto) (0.0-1.5) % Neut # (Auto) (1.4-5.7) K/uL Lymph # (Auto) (0.6-2.4) K/uL [place] # (Auto) (0.0-0.8) K/uL Eos # (Auto) (0.0-0.7) K/uL Baso # (Auto) (0.0-0.1) K/uL Nucleated RBC % /100WBC Nucleated RBCs # K/uL Sodium (136-145) mmol/L Potassium (3.5-5.1) mmol/L Chloride (98-107) mmol/L Carbon Dioxide (21.0-32.0) mmol/L BUN (7.0-18.0) mg/dL Creatinine (0.6-1.0) mg/dL Est Cr Clr Drug Dosing mL/min Estimated GFR (MDRD) ml/min Glucose (74-106) mg/dL Calcium (8.5-10.1) mg/dL Total Bilirubin (0.2-1.0) mg/dL AST (15-37) IU/L ALT (14-63) IU/L Alkaline Phosphatase (46-116) U/L Troponin I (0.000-0.056) ng/mL Total Protein (6.4-8.2) g/dL Albumin (3.4-5.0) g/dL Globulin (2.6-4.0) g/dL Albumin/Globulin Ratio (0.9-1.6) Lipase (73-393) U/L HCG, Qual (NEG) Urine Color YELLOW Urine Appearance CLEAR Urine pH 7.5 (5.0-8.0) Ur Specific Nelson 1.025 (1.001-1.035) Urine Protein TRACE H (NEGATIVE) mg/dL Urine Glucose (UA) NEGATIVE (NEGATIVE) mg/dL Urine Ketones 15 H (NEGATIVE) mg/dL Urine Occult Blood NEGATIVE (NEGATIVE) Urine Nitrite NEGATIVE (NEGATIVE) Urine Bilirubin NEGATIVE (NEGATIVE) Urine Urobilinogen 0.2 (<2.0) EU/dL Ur Leukocyte Esterase NEGATIVE (NEGATIVE) Urine RBC 0-1 (0-2/HPF) Urine WBC 0-1 (0-5/HPF) Ur Epithelial Cells RARE (NONE-FEW) Urine Bacteria FEW (NEGATIVE) Meds: Medications Generic Name Dose Route Start Last Admin Trade Name Daniel PRN Reason Stop Dose Admin Sodium Chloride 10 ml 07/19/19 01:28 Saline Flush FLUSH ASDIRECTED PRN Keep Vein Open Sodium Chloride 2.5 ml 07/19/19 01:28 Saline Flush FLUSH ASDIRECTED PRN Keep Vein Open Sodium Chloride 10 ml 07/19/19 01:28 Normal Saline IV ASDIRECTED PRN IV Use Discontinued Medications Generic Name Dose Route Start Last Admin Trade Name Daniel PRN Reason Stop Dose Admin Acetaminophen 1,000 mg 07/19/19 01:33 07/19/19 01:53 Tylenol Extra Strength PO 07/19/19 01:34 1,000 mg ONETIME ONE Administration Al Hydroxide/Mg Hydroxide 15 0 ml 07/19/19 01:33 07/19/19 01:52 ml/ Lidocaine HCl 5 ml PO 07/19/19 01:34 1 each ONETIME ONE Administration Haloperidol Lactate 5 mg 07/19/19 01:33 07/19/19 01:50 Haldol IM 07/19/19 01:34 5 mg ONETIME ONE Administration Lactated Ringer's 1,000 mls @ 1,000 mls/hr 07/19/19 01:28 07/19/19 01:45 Ringers, Lactated IV 07/19/19 02:27 1,000 mls/hr .BOLUS ONE Administration Iopamidol 100 ml 07/19/19 02:58 07/19/19 02:58 Isovue-370 (76%) IVPUSH 07/19/19 02:59 100 ml ONETIME ONE Administration Ondansetron HCl 4 mg 07/19/19 01:33 07/19/19 01:50 Zofran IVPUSH 07/19/19 01:34 4 mg ONETIME ONE Administration Departure - Departure Time of Disposition: 03:22 Disposition: Home, Self-Care 01 Condition: Good Clinical Impression: Abdominal pain - Discharge Information *PRESCRIPTION DRUG MONITORING PROGRAM REVIEWED*: Not Applicable *COPY OF PRESCRIPTION DRUG MONITORING REPORT IN PATIENT BERNABE: Not Applicable Instructions: Abdominal Pain, Adult, [id number], Pain Without a Known Cause Referrals: [facility] - [facility] Practice [Provider Group] - 1 Week (For follow-up of your symptoms. ) Forms: ED Department Discharge Additional Instructions: Thank you for choosing the [facility] emergency department in [place] for your medical needs today. It was a pleasure caring for you. You were seen in the emergency department for abdominal pain, nausea, and lightheadedness. Your tests are reassuring. Your CT scan was negative for an acute problem. Your prescribed Zofran via the [facility] machine. I recommend [id number] acetaminophen and ibuprofen as needed for pain. You should follow-up with a primary medical doctor next 3 to 5 days. Return to the emergency department if you are feeling worse. The following information is given to patients seen in the emergency department who are being discharged. This information is to outline your options for follow -up care. We provide all patients seen in our emergency department with a follow -up referral. The need for follow-up, as well as the timing and circumstances, are variable depending upon the specifics of your emergency department visit. If you don't have a primary care physician on staff, we will provide you with a referral. We always advise you to contact your personal physician following an emergency department visit to inform them of the circumstance of the visit and for follow-up with them and/or the need for any referrals to a consulting specialist. The emergency department will also refer you to a specialist when appropriate. This referral assures that you have the opportunity for follow-up care with a specialist. All of these measure are taken in an effort to provide you with optimal care, which includes your follow-up. Under all circumstances we always encourage you to contact your private physician who remains a resource for coordinating your care. When calling for follow-up care, please make the office aware that this follow-up is from your recent emergency room visit. If for any reason you are refused follow-up, please contact the [facility] Emergency Department at and asked to speak to the emergency department charge nurse. If you do not have a primary care physician that is caring for you, you can contact these clinics below to set up an appointment to establish care: [facility] - Primary Care [address] [place] [address] [facility] [address] [place] [address] Sepsis Event Note - Evaluation Sepsis Screening Result: No Definite Risk - Focused Exam Vital Signs: Vital Signs Temp Pulse Resp BP Pulse Ox 07/19/19 01:24 73 18 171/105 H 100 07/19/19 01:13 35.9 C L 66 18 180/110 H 98 Date Exam was Performed: 07/19/19 Time Exam was Performed: 03:21 - My Orders Last 24 Hours: My Active Orders 07/19/19 01:28 Sodium Chloride 0.9% [Normal Saline] 10 ml IV ASDIRECTED PRN Sodium Chloride 0.9% [Saline Flush] 10 ml FLUSH ASDIRECTED PRN Sodium Chloride 0.9% [Saline Flush] 2.5 ml FLUSH ASDIRECTED PRN Peripheral IV Insertion Adult [OM.PC] Stat 07/19/19 01:57 EKG 12 Lead [EKG Documentation Completion] [RC] STAT - Assessment/Plan Last 24 Hours: My Active Orders 07/19/19 01:28 Sodium Chloride 0.9% [Normal Saline] 10 ml IV ASDIRECTED PRN Sodium Chloride 0.9% [Saline Flush] 10 ml FLUSH ASDIRECTED PRN Sodium Chloride 0.9% [Saline Flush] 2.5 ml FLUSH ASDIRECTED PRN Peripheral IV Insertion Adult [OM.PC] Stat 07/19/19 01:57 EKG 12 Lead [EKG Documentation Completion] [RC] STAT
[2019-07-19 02:27] LABS: BLOOD UREA NITROGEN,BUN 7 mg/dL (7.0-18.0); CARBON DIOXIDE,CO2 22.8 mmol/L (21.0-32.0); CHLORIDE,CL 100 mmol/L (98-107); GLUCOSE RANDOM 164 mg/dL (74-106); LIPASE 163 U/L (73-393); POTASSIUM,K 3.8 mmol/L (3.5-5.1); SODIUM,NA 136 mmol/L (136-145)
[2019-07-19] MEDS ORDERED: Iopamidol 755 Mg/ML 100 ML Bottle IVPUSH ONE (02:58)
--- NOTE | 2019-07-19 03:20 | CT ---
INDICATION: Left lower quadrant and right lower quadrant pain TECHNIQUE: CT abdomen and pelvis acquired with IV contrast. 100 cc Isovue 370 COMPARISON: 06/30/2019 FINDINGS: Lower chest: Small hiatal hernia. Liver: Unremarkable. Spleen: Unremarkable. Pancreas: Unremarkable. Gallbladder and bile ducts: Cholecystectomy. Kidneys: Unremarkable. Adrenal glands: Unremarkable. GI tract: History of prior gastric bypass surgery. Appendix is normal. Vascular structures: Unremarkable. Lymph nodes: Unremarkable. Miscellaneous: Unremarkable. No free air or significant free fluid. Pelvic Organs: Hysterectomy. Bones: Unremarkable for age. IMPRESSION: Unremarkable CT of the abdomen and pelvis. No findings to explain the patient`s right lower and left lower quadrant pain. No evidence for appendicitis or diverticulitis. Dictated by Jourdan Mijares MD @ 07/19/2019 3:18:42 AM Please note that all CT scans at this facility use dose modulation, iterative reconstruction, and/or weight-based dosing when appropriate to reduce radiation dose to as low as reasonably achievable. Dictated by: Jourdan Mijares MD @ 07/19/2019 03:18:51 (Electronically Signed)
== END 2019-07-19 03:37 | disposition home or self-care (01) ==
LOC: MW.ED 01:06
DX: R10.12 Left upper quadrant pain (principal); R10.31 Right lower quadrant pain; R42 Dizziness and giddiness; I10 Essential (primary) hypertension; F41.9 Anxiety disorder, unspecified; F43.10 Post-traumatic stress disorder, unspecified; K21.9 Gastro-esophageal reflux disease without esophagitis; F17.210 Nicotine dependence, cigarettes, uncomplicated; Z88.8 Allergy status to other drugs, medicaments and biological substances; Z88.1 Allergy status to other antibiotic agents; Z91.048 Other nonmedicinal substance allergy status
CPT/HCPCS: 36415; 74177; 80053; 81001; 83690; 84484; 84703; 85025; 96361; 96372; 96374; 99284; A9270; J1630; J2405; J7120; Q9967

== ENCOUNTER 2019-08-07 17:00 | Observation (INO) | payer BC ==
[2019-08-07] MEDS ORDERED: Sodium Chloride 0.9% 10 ML Syringe FLUSH PRN ×2 (17:13→19:26)
[2019-08-07] MEDS ORDERED: Ketorolac 15 MG/ML SDV IVPUSH ONE (17:13)
[2019-08-07] MEDS ORDERED: Famotidine 20 MG/2 ML SDV IVPUSH ONE (17:13)
[2019-08-07] MEDS ORDERED: Sodium Chloride 0.9% 2.5 ML Syringe FLUSH PRN ×2 (17:13→19:26)
[2019-08-07] MEDS ORDERED: Ondansetron 4 MG/2 ML SDV IVPUSH ONE (17:13)
--- NOTE | 2019-08-07 17:19 | EDM.PDOC ---
ED HPI GENERAL MEDICAL PROBLEM - General Chief Complaint: Abdominal Pain Stated Complaint: NAUSEA AND VOMITING Time Seen by Provider: 08/07/19 17:05 - History of Present Illness INITIAL COMMENTS - FREE TEXT/NARRATIVE: History of present illness: Patient has severe abdominal pain. This started yesterday. 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 She suffered with constant abdominal pain for 5 years now. The pain is worse for 2 to 24 hours with severe exacerbations or crampy pain. She is nauseated and vomiting but she says she vomits only what looks like spit. She had a bowel movement yesterday but usually has 1 every morning. She feels like her abdomen is distended with her close fitting too tight now. He is also shaky because she has not been able to take some of her medicines. She had a visit the end of last month in which she had a CT of the abdomen and pelvis. She was here then for abdominal pain. Her findings were unremarkable. [] Review of systems: As per history of present illness and below otherwise all systems reviewed and negative. Past medical history: As per history of present illness and as reviewed below otherwise noncontributory. Surgical history: As per history of present illness and as reviewed below otherwise noncontributory. Social history: No reported history of drug or alcohol abuse. Family history: As per history of present illness and as reviewed below otherwise noncontributory. Physical exam: General: Patient is extremely thin and in moderate distress. She is somewhat shaky. HEENT: Atraumatic, normocephalic, pupils reactive, negative for conjunctival p allor or scleral icterus, mucous membranes moist, throat clear, neck supple, nontender, trachea midline. Lungs: Clear to auscultation, breath sounds equal bilaterally, chest nontender. Heart: S1S2, regular, negative for clicks, rubs, or JVD. Abdomen: Soft, nondistended, tender in the epigastrium. Negative for masses or hepatosplenomegaly. Negative for costovertebral tenderness. Pelvis: Stable nontender. Genitourinary: Deferred. Rectal: Deferred. Extremities: Atraumatic, negative for cords or calf pain. Neurovascular unremarkable. Neuro: Awake, alert, oriented. Cranial nerves II through XII unremarkable. Cerebellum unremarkable. Motor and sensory unremarkable throughout. Exam nonfocal. Diagnostics: [] Therapeutics: [] Impression: [] Plan: [] Definitive disposition and diagnosis as appropriate pending reevaluation and review of above. The radiologist reported SBO. I reported the findings and patient condition to Dr. Tristan and the surgeon Dr. Dawkins. They allowed me to order an admission and an NG tube here. At the end of my shift the tube had not been placed and the patient was quite anxious, so I ordered an anxiolytic agent. abdominal pain Pain Score (Numeric/FACES): 6 - Related Data Allergies Allergy/AdvReac Type Severity Reaction Status Date / Time adhesive tape Allergy Hives Verified 08/07/19 22:21 aloe vera Allergy Rash Verified 08/07/19 22:21 amoxicillin [From Augmentin] Allergy Rash Verified 08/07/19 22:21 ciprofloxacin [From Cipro] Allergy Anaphylactic Verified 08/07/19 22:21 Shock clarithromycin [From Biaxin] Allergy Hives Verified 08/07/19 22:21 clavulanic acid Allergy Rash Verified 08/07/19 22:21 [From Augmentin] cyclobenzaprine Allergy Seizure Verified 08/07/19 22:21 [From Flexeril] Home Meds: Home Meds diazePAM [Valium] 2 mg PO BID 10/22/18 [History] Pantoprazole [ProTONIX] 40 mg PO ACBREAKFAST 14 Days #14 tab.cr 10/27/18 [Rx] Dicyclomine [Bentyl] 10 mg PO QID PRN 11/03/18 [History] LORazepam 1 mg PO Q12H PRN 11/03/18 [History] Multivitamin [Multi-Vitamin Daily] 1 tab PO DAILY 11/03/18 [History] traMADol HCl [Tramadol HCl] 50 mg PO Q6H PRN 11/03/18 [History] Ondansetron [Zofran ODT] 4 mg PO Q8HR PRN 02/19/19 [History] carisoprodoL [Soma] 350 mg PO DAILY 06/15/19 [History] Amylase/Lipase/Protease [Pancrejosee GUTIERREZ 4,200 Unit] 4,200 unit PO QID 08/07/19 [History] GI Cocktail 15 ml PO DAILY PRN 08/07/19 [History] Past Medical History HEENT History: Reports: Other (See Below) Other HEENT History: wears glasses Cardiovascular History: Reports: Blood Clots/VTE/DVT, Hypertension Other Cardiovascular History: 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, does not take anticoagulants Respiratory History: Reports: None Gastrointestinal History: Reports: Chronic Constipation, Chronic Diarrhea, GERD Genitourinary History: Reports: Renal Calculus Other Genitourinary History: has passed a kidney stone [employer] History: Reports: None Musculoskeletal History: Reports: Fracture Other Musculoskeletal History: hx of fx fingers and toes Neurological History: Reports: None Psychiatric History: Reports: Anxiety, PTSD Endocrine/Metabolic History: Reports: None Hematologic History: Reports: None Immunologic History: Reports: None Oncologic (Cancer) History: Reports: None Dermatologic History: Reports: None - Infectious Disease History Infectious Disease History: Reports: Chicken Pox, MRSA - Past Surgical History Head Surgeries/Procedures: Reports: None HEENT Surgical History: Reports: Adenoidectomy, Naso-Sinus Surgery, Tonsillect [place] Cardiovascular Surgical History: Reports: None Respiratory Surgical History: Reports: None GI Surgical History: Reports: Bariatric Procedure, Cholecystectomy, Colon Other GI Surgeries/Procedures: repair of Intussusception following Sandra-En-Y gastric bypass, surgery to remove hematoma following Cholestectomy Female Surgical History: Reports: Breast Implant, Breast Reduction, Hysterectomy Other Female Surgeries/Procedures: bladder stents Endocrine Surgical History: Reports: None Neurological Surgical History: Reports: None Musculoskeletal Surgical History: Reports: Other (See Below) Other Musculoskeletal Surgeries/Procedures:: 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 ED EXAM, GENERAL - Physical Exam Exam: See Below Free Text/Narrative:: Physical exam as in HPI Course - Vital Signs Text/Narrative:: Discussed with who most graciously admitted the patient. Discussed with Dr. Dawkins. To consult. Patient was admitted in satisfactory condition. Last Recorded V/S: Last Vital Signs Temp 98.6 F 08/08/19 08:00 Pulse 78 08/08/19 08:00 Resp 18 08/08/19 08:00 BP 120/85 08/08/19 08:00 Pulse Ox 97 08/08/19 08:00 - Orders/Labs/Meds Orders: Active Orders 24 hr Category Date Time Status Notify Provider Consults [RC] ASDIRECTED Care 08/07/19 18:51 Active Consult to Physician [CONS] Stat Cons 08/07/19 18:50 Active Sodium Chloride 0.9% [Saline Flush] Med 08/07/19 17:13 Active 10 ml FLUSH ASDIRECTED PRN Sodium Chloride 0.9% [Saline Flush] Med 08/07/19 17:13 Active 2.5 ml FLUSH ASDIRECTED PRN NG [Nasogastric Orogastric Tube Insertion] [OM.PC] Stat Oth 08/07/19 18:49 Ordered Saline Lock Insert [OM.PC] Stat Oth 08/07/19 17:13 Ordered Medication Orders Albuterol/Ipratropium (Duoneb 3.0-0.5 Mg/3 Ml) 3 ml NEB Q4HRRT PRN PRN Reason: Shortness Of Breath/wheezing Heparin Sodium (Porcine) (Heparin Sodium) 5,000 units SUBCUT Q8H COLIN Last Admin: 08/08/19 04:26 Dose: 5,000 units Documented by: Admin: 08/07/19 21:56 Dose: 5,000 units Documented by: ORA Pantoprazole Sodium 40 mg/ (Sodium Chloride) 10 mls @ 300 mls/hr IV Q24H [facility] Last Admin: 08/07/19 21:36 Dose: 300 mls/hr Documented by: ORA Lactated Ringer's (Ringers, Lactated) 1,000 mls @ 125 mls/hr IV ASDIRECTED COLIN Potassium Chloride/Sodium Chloride (Normal Saline With 20 Meq Kcl) 1,000 mls @ 75 mls/hr IV ASDIRECTED COLIN Stop: 08/08/19 10:49 Last Admin: 08/07/19 22:15 Dose: 75 mls/hr Documented by: ORA Lorazepam (Ativan) 0.5 mg IV Q6H PRN PRN Reason: Nausea/Vomiting Last Admin: 08/08/19 09:17 Dose: 0.5 mg Documented by: Admin: 08/08/19 01:58 Dose: 0.5 mg Documented by: ORA Morphine Sulfate (Morphine) 2 mg IVPUSH Q4H PRN PRN Reason: Pain (severe 7-10) Last Admin: 08/08/19 09:18 Dose: 2 mg Documented by: Admin: 08/08/19 04:26 Dose: 2 mg Documented by: Admin: 08/08/19 00:06 Dose: 2 mg Documented by: ORA Ondansetron HCl (Zofran) 4 mg IVPUSH Q4H PRN PRN Reason: Nausea/Vomiting Last Admin: 08/08/19 09:18 Dose: 4 mg Documented by: Admin: 08/08/19 04:26 Dose: 4 mg Documented by: Admin: 08/08/19 00:06 Dose: 4 mg Documented by: Admin: 08/07/19 19:50 Dose: 4 mg Documented by: DORIS Sodium Chloride (Saline Flush) 10 ml FLUSH ASDIRECTED PRN PRN Reason: Keep Vein Open Sodium Chloride (Saline Flush) 2.5 ml FLUSH ASDIRECTED PRN PRN Reason: Keep Vein Open Sodium Chloride (Saline Flush) 10 ml FLUSH ASDIRECTED PRN PRN Reason: Keep Vein Open Sodium Chloride (Saline Flush) 2.5 ml FLUSH ASDIRECTED PRN PRN Reason: Keep Vein Open Sodium Chloride (Normal Saline) 10 ml IV ASDIRECTED PRN PRN Reason: IV Use Labs: Laboratory Tests 08/07/19 08/07/19 08/07/19 Range/Units 17:37 17:37 17:37 WBC 10.34 (4.0-11.0) K/uL RBC 4.57 (4.30-5.90) M/uL Hgb 10.3 L (12.0-16.0) g/dL Hct 32.8 L (36.0-46.0) % MCV 71.8 L (80.0-98.0) fL MCH 22.5 L (27.0-32.0) pg MCHC 31.4 (31.0-37.0) g/dL RDW Std Deviation 48.4 (28.0-62.0) fl RDW Coeff of Mikala 19 H (11.0-15.0) % Plt Count 344 (150-400) K/uL MPV 9.60 (7.40-12.00) fL Neut % (Auto) 87.4 H (48.0-80.0) % Lymph % (Auto) 6.3 L (16.0-40.0) % Love % (Auto) 6.1 (0.0-15.0) % Eos % (Auto) 0.1 (0.0-7.0) % Baso % (Auto) 0.1 (0.0-1.5) % Neut # (Auto) 9.0 H (1.4-5.7) K/uL Lymph # (Auto) 0.7 (0.6-2.4) K/uL Love # (Auto) 0.6 (0.0-0.8) K/uL Eos # (Auto) 0.0 (0.0-0.7) K/uL Baso # (Auto) 0.0 (0.0-0.1) K/uL Nucleated RBC % 0.0 /100WBC Nucleated RBCs # 0 K/uL Lactate 1.4 (0.20-2.00) mmol/L Sodium 133 L (136-145) mmol/L Potassium 3.3 L (3.5-5.1) mmol/L Chloride 99 (98-107) mmol/L Carbon Dioxide 20.3 L (21.0-32.0) mmol/L BUN 8 (7.0-18.0) mg/dL Creatinine 0.7 (0.6-1.0) mg/dL Est Cr Clr Drug Dosing 103.89 mL/min Estimated GFR (MDRD) > 60.0 ml/min Glucose 131 H (74-106) mg/dL Calcium 8.7 (8.5-10.1) mg/dL Total Bilirubin 0.5 (0.2-1.0) mg/dL AST 31 (15-37) IU/L ALT 26 (14-63) IU/L Alkaline Phosphatase 66 (46-116) U/L Total Protein 7.6 (6.4-8.2) g/dL Albumin 4.3 (3.4-5.0) g/dL Globulin 3.3 (2.6-4.0) g/dL Albumin/Globulin Ratio 1.3 (0.9-1.6) Lipase 123 (73-393) U/L Urine Color Urine Appearance Urine pH (5.0-8.0) Ur Specific [place] (1.001-1.035) Urine Protein (NEGATIVE) mg/dL Urine Glucose (UA) (NEGATIVE) mg/dL Urine Ketones (NEGATIVE) mg/dL Urine Occult Blood (NEGATIVE) Urine Nitrite (NEGATIVE) Urine Bilirubin (NEGATIVE) Urine Urobilinogen (<2.0) EU/dL Ur Leukocyte Esterase (NEGATIVE) Urine RBC (0-2/HPF) Urine WBC (0-5/HPF) Ur Epithelial Cells (NONE-FEW) Amorphous Sediment (NEGATIVE) Urine Bacteria (NEGATIVE) Urine Mucus (NONE-MOD) 08/07/19 Range/Units 18:03 WBC (4.0-11.0) K/uL RBC (4.30-5.90) M/uL Hgb (12.0-16.0) g/dL Hct (36.0-46.0) % MCV (80.0-98.0) fL MCH (27.0-32.0) pg MCHC (31.0-37.0) g/dL RDW Std Deviation (28.0-62.0) fl RDW Coeff of Mikala (11.0-15.0) % Plt Count (150-400) K/uL MPV (7.40-12.00) fL Neut % (Auto) (48.0-80.0) % Lymph % (Auto) (16.0-40.0) % Love % (Auto) (0.0-15.0) % Eos % (Auto) (0.0-7.0) % Baso % (Auto) (0.0-1.5) % Neut # (Auto) (1.4-5.7) K/uL Lymph # (Auto) (0.6-2.4) K/uL Love # (Auto) (0.0-0.8) K/uL Eos # (Auto) (0.0-0.7) K/uL Baso # (Auto) (0.0-0.1) K/uL Nucleated RBC % /100WBC Nucleated RBCs # K/uL Lactate (0.20-2.00) mmol/L Sodium (136-145) mmol/L Potassium (3.5-5.1) mmol/L Chloride (98-107) mmol/L Carbon Dioxide (21.0-32.0) mmol/L BUN (7.0-18.0) mg/dL Creatinine (0.6-1.0) mg/dL Est Cr Clr Drug Dosing mL/min Estimated GFR (MDRD) ml/min Glucose (74-106) mg/dL Calcium (8.5-10.1) mg/dL Total Bilirubin (0.2-1.0) mg/dL AST (15-37) IU/L ALT (14-63) IU/L Alkaline Phosphatase (46-116) U/L Total Protein (6.4-8.2) g/dL Albumin (3.4-5.0) g/dL Globulin (2.6-4.0) g/dL Albumin/Globulin Ratio (0.9-1.6) Lipase (73-393) U/L Urine Color YELLOW Urine Appearance CLEAR Urine pH 7.0 (5.0-8.0) Ur Specific [place] 1.025 (1.001-1.035) Urine Protein TRACE H (NEGATIVE) mg/dL Urine Glucose (UA) NEGATIVE (NEGATIVE) mg/dL Urine Ketones 40 H (NEGATIVE) mg/dL Urine Occult Blood NEGATIVE (NEGATIVE) Urine Nitrite NEGATIVE (NEGATIVE) Urine Bilirubin NEGATIVE (NEGATIVE) Urine Urobilinogen 0.2 (<2.0) EU/dL Ur Leukocyte Esterase NEGATIVE (NEGATIVE) Urine RBC 0-1 (0-2/HPF) Urine WBC 0-1 (0-5/HPF) Ur Epithelial Cells FEW (NONE-FEW) Amorphous Sediment LIGHT (NEGATIVE) Urine Bacteria RARE (NEGATIVE) Urine Mucus LIGHT (NONE-MOD) Meds: Medications Generic Name Dose Route Start Last Admin Trade Name Freq PRN Reason Stop Dose Admin Albuterol/Ipratropium 3 ml 08/07/19 19:26 Duoneb 3.0-0.5 Mg/3 Ml NEB Q4HRRT PRN Shortness Of Breath/wheezing Heparin Sodium (Porcine) 5,000 units 08/07/19 19:30 08/08/19 04:26 Heparin Sodium SUBCUT 5,000 units Q8H COLIN Administration Pantoprazole Sodium 40 mg/ 10 mls @ 300 mls/hr 08/07/19 19:45 08/07/19 21:36 Sodium Chloride IV 300 mls/hr Q24H COLIN Administration Lactated Ringer's 1,000 mls @ 125 mls/hr 08/07/19 21:00 Ringers, Lactated IV ASDIRECTED COLIN Potassium Chloride/Sodium Chloride 1,000 mls @ 75 mls/hr 08/07/19 21:30 08/07/19 22:15 Normal Saline With 20 Meq Kcl IV 08/08/19 10:49 75 mls/hr ASDIRECTED COLIN Administration Lorazepam 0.5 mg 08/07/19 19:26 08/08/19 09:17 Ativan IV 0.5 mg Q6H PRN Administration Nausea/Vomiting Morphine Sulfate 2 mg 08/08/19 00:00 08/08/19 09:18 Morphine IVPUSH 2 mg Q4H PRN Administration Pain (severe 7-10) Ondansetron HCl 4 mg 08/07/19 19:26 08/08/19 09:18 Zofran IVPUSH 4 mg Q4H PRN Administration Nausea/Vomiting Sodium Chloride 10 ml 08/07/19 17:13 Saline Flush FLUSH ASDIRECTED PRN Keep Vein Open Sodium Chloride 2.5 ml 08/07/19 17:13 Saline Flush FLUSH ASDIRECTED PRN Keep Vein Open Sodium Chloride 10 ml 08/07/19 19:26 Saline Flush FLUSH ASDIRECTED PRN Keep Vein Open Sodium Chloride 2.5 ml 08/07/19 19:26 Saline Flush FLUSH ASDIRECTED PRN Keep Vein Open Sodium Chloride 10 ml 08/07/19 19:26 Normal Saline IV ASDIRECTED PRN IV Use Discontinued Medications Generic Name Dose Route Start Last Admin Trade Name Freq PRN Reason Stop Dose Admin Dicyclomine HCl 10 mg 08/07/19 18:16 08/07/19 18:42 Bentyl PO 08/07/19 18:17 Not Given ONETIME ONE Famotidine 20 mg 08/07/19 17:13 08/07/19 17:32 Pepcid IVPUSH 08/07/19 17:14 20 mg ONETIME ONE Administration Fentanyl 50 mcg 08/07/19 18:31 08/07/19 18:37 Fentanyl IVPUSH 08/07/19 18:32 50 mcg ONETIME ONE Administration Lactated Ringer's 1,000 mls @ 125 mls/hr 08/07/19 19:30 Ringers, Lactated IV ASDIRECTED [facility] Potassium Chloride/Dextrose/Sod Cl 1,000 mls @ 75 mls/hr 08/07/19 19:45 D5 Ns With 20 Meq Kcl IV ASDIRECTED [facility] Ketorolac Tromethamine 15 mg 08/07/19 17:13 08/07/19 17:33 Toradol IVPUSH 08/07/19 17:14 15 mg ONETIME ONE Administration Lorazepam 1 mg 08/07/19 18:48 08/07/19 19:52 Ativan IVPUSH 08/07/19 18:49 1 mg ONETIME ONE Administration Metoclopramide HCl 10 mg 08/07/19 18:16 08/07/19 18:37 Reglan IVPUSH 08/07/19 18:17 10 mg ONETIME ONE Administration Morphine Sulfate 2 mg 08/07/19 19:26 08/07/19 19:54 Morphine IVPUSH 08/08/19 19:31 2 mg Q4H PRN Administration Pain (severe 7-10) Ondansetron HCl 4 mg 08/07/19 17:13 08/07/19 17:35 Zofran IVPUSH 08/07/19 17:14 Not Given ONETIME ONE Departure - Departure Time of Disposition: 19:19 Disposition: Admitted As Inpatient 65 Condition: Good Clinical Impression: Small bowel obstruction - Discharge Information - My Orders Last 24 Hours: My Active Orders 08/07/19 17:13 Sodium Chloride 0.9% [Saline Flush] 10 ml FLUSH ASDIRECTED PRN Sodium Chloride 0.9% [Saline Flush] 2.5 ml FLUSH ASDIRECTED PRN Saline Lock Insert [OM.PC] Stat 08/07/19 18:49 NG [Nasogastric Orogastric Tube Insertion] [OM.PC] Stat 08/07/19 18:50 Consult to Physician [CONS] Stat 08/07/19 18:51 Notify Provider Consults [RC] ASDIRECTED - Assessment/Plan Last 24 Hours: My Active Orders 08/07/19 17:13 Sodium Chloride 0.9% [Saline Flush] 10 ml FLUSH ASDIRECTED PRN Sodium Chloride 0.9% [Saline Flush] 2.5 ml FLUSH ASDIRECTED PRN Saline Lock Insert [OM.PC] Stat 08/07/19 18:49 NG [Nasogastric Orogastric Tube Insertion] [OM.PC] Stat 08/07/19 18:50 Consult to Physician [CONS] Stat 08/07/19 18:51 Notify Provider Consults [RC] ASDIRECTED
[2019-08-07 18:10] LABS: BLOOD UREA NITROGEN,BUN 8 mg/dL (7.0-18.0); CARBON DIOXIDE,CO2 20.3 mmol/L (21.0-32.0); CHLORIDE,CL 99 mmol/L (98-107); GLUCOSE RANDOM 131 mg/dL (74-106); LIPASE 123 U/L (73-393); POTASSIUM,K 3.3 mmol/L (3.5-5.1); SODIUM,NA 133 mmol/L (136-145)
--- NOTE | 2019-08-07 18:11 | CR ---
Abdominal series: Supine and upright views of the abdomen were obtained as well as frontal view of the chest. Dilated loops of small bowel are noted. Findings are suspicious for developing mid to distal small bowel obstruction. Surgical clips are seen from prior cholecystectomy. Surgical anastomotic sutures are seen within the left lower abdomen. No free air is seen. Heart size and mediastinum are normal. Lungs are clear. Bony structures shows minimal scoliosis within the spine. Calcifications are seen within the left pelvis compatible with phleboliths. Impression: 1. Findings have the appearance of developing mid to distal small bowel obstruction. 2. Other findings as noted above which are chronic. Diagnostic code #3 Study was dictated in MDT
[2019-08-07] MEDS ORDERED: Metoclopramide 10 MG/2 ML SDV IVPUSH ONE (18:16)
[2019-08-07] MEDS ORDERED: Dicyclomine 10 MG Cap PO ONE (18:16)
[2019-08-07] MEDS ORDERED: fentaNYL 50 MCG/ML SDV IVPUSH ONE (18:31)
[2019-08-07] MEDS ORDERED: LORazepam 2 MG/ML SDV IVPUSH ONE (18:48)
[2019-08-07] MEDS ORDERED: Albuterol/Ipratropium 3.0-0.5 MG/3 ML Neb Soln NEB PRN (19:26)
[2019-08-07] MEDS ORDERED: Morphine 10 MG/ML Syringe IVPUSH PRN (19:26)
[2019-08-07] MEDS ORDERED: Sodium Chloride 0.9% 10 ML SDV IV PRN (19:26)
[2019-08-07] MEDS ORDERED: Lactated Ringers 1,000 ML IV SCH ×2 (19:30→21:00)
--- NOTE | 2019-08-07 19:42 | PCM.HP.2 ---
H&P History of Present Illness - General Date of Service: 08/07/19 Admit Problem/Dx: Admission Diagnosis/Problem Admission Diagnosis/Problem Small bowel obstruction - History of Present Illness Initial Comments - Free Text/Narative: Patient is a 39 y/o F with h/o several abdominal surgeries including gastric bypass who comes in for severe abdominal pain that started yesterday. 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 Patient states that she has suffered with constant abdominal pain for 5 years now but since yesterday her pain has gotten much worse. She is nauseated and vomiting ,had a bowel movement yesterday. She feels like her abdomen is distended. Xray of her abdomen showed mid to distal SBO. Surgery was consulted, recommended to hold off on placing blind NG due to her previous surgical history. Patient is being admitted for further care. abdominal pain Pain Score (Numeric/FACES): 6 - Related Data Allergies/Adverse Reactions: Allergies Allergy/AdvReac Type Severity Reaction Status Date / Time adhesive tape Allergy Hives Verified 08/07/19 22:21 aloe vera Allergy Rash Verified 08/07/19 22:21 amoxicillin [From Augmentin] Allergy Rash Verified 08/07/19 22:21 ciprofloxacin [From Cipro] Allergy Anaphylactic Verified 08/07/19 22:21 Shock clarithromycin [From Biaxin] Allergy Hives Verified 08/07/19 22:21 clavulanic acid Allergy Rash Verified 08/07/19 22:21 [From Augmentin] cyclobenzaprine Allergy Seizure Verified 08/07/19 22:21 [From Flexeril] Home Medications: Home Meds diazePAM [Valium] 2 mg PO BID 10/22/18 [History] Dicyclomine [Bentyl] 10 mg PO QID PRN 11/03/18 [History] LORazepam 1 mg PO Q12H PRN 11/03/18 [History] Multivitamin [Multi-Vitamin Daily] 1 tab PO DAILY 11/03/18 [History] traMADol HCl [Tramadol HCl] 50 mg PO Q6H PRN 11/03/18 [History] Ondansetron [Zofran ODT] 4 mg PO Q8HR PRN 02/19/19 [History] carisoprodoL [Soma] 350 mg PO DAILY 06/15/19 [History] Amylase/Lipase/Protease [Vandana GUTIERREZ 4,200 Unit] 4,200 unit PO QID 08/07/19 [History] GI Cocktail 15 ml PO DAILY PRN 08/07/19 [History] Acetaminophen [Tylenol Extra Strength] 500 mg PO Q12H PRN #30 tablet 08/09/19 [Rx] Pantoprazole [ProTONIX] 40 mg PO ACBREAKFAST 14 Days #14 tab.cr 08/09/19 [Rx] Sennosides [Senna] 8.6 mg PO DAILY #30 tablet 08/09/19 [Rx] polyethylene glycoL 3350 [MiraLAX] 17 gm PO BEDTIME #30 packet 08/09/19 [Rx] Past Medical History HEENT History: Reports: Other (See Below) Other HEENT History: wears glasses Cardiovascular History: Reports: Blood Clots/VTE/DVT, Hypertension Other Cardiovascular History: 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, does not take anticoagulants Respiratory History: Reports: None Gastrointestinal History: Reports: Chronic Constipation, Chronic Diarrhea, GERD Genitourinary History: Reports: Renal Calculus Other Genitourinary History: has passed a kidney stone TRAINMASTER History: Reports: None Musculoskeletal History: Reports: Fracture Other Musculoskeletal History: hx of fx fingers and toes Neurological History: Reports: None Psychiatric History: Reports: Anxiety, PTSD Endocrine/Metabolic History: Reports: None Hematologic History: Reports: None Immunologic History: Reports: None Oncologic (Cancer) History: Reports: None Dermatologic History: Reports: None - Infectious Disease History Infectious Disease History: Reports: Chicken Pox, MRSA - Past Surgical History Head Surgeries/Procedures: Reports: None HEENT Surgical History: Reports: Adenoidectomy, Naso-Sinus Surgery, Tonsillectomy Cardiovascular Surgical History: Reports: None Respiratory Surgical History: Reports: None GI Surgical History: Reports: Bariatric Procedure, Cholecystectomy, Colon Other GI Surgeries/Procedures: repair of Intussusception following Sandra-En-Y gastric bypass, surgery to remove hematoma following Cholestectomy Female Surgical History: Reports: Breast Implant, Breast Reduction, Hysterectomy Other Female Surgeries/Procedures: bladder stents Endocrine Surgical History: Reports: None Neurological Surgical History: Reports: None Musculoskeletal Surgical History: Reports: Other (See Below) Other Musculoskeletal Surgeries/Procedures:: 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, developed MRSA and was treated with medical maggots, states MRSA has been "cleared" and tested negative with nasal swabs x3 Oncologic Surgical History: Reports: None Dermatological Surgical History: Reports: None Social & Family History - Family History Family Medical History: Noncontributory - Tobacco Use Smoking Status *Q: Current Every Day Smoker Years of Tobacco use: 20 Packs/Tins Daily: 0.5 - Caffeine Use Caffeine Use: Reports: None - Recreational Drug Use Recreational Drug Use: Yes Drug Use in Last 12 Months: Yes Recreational Drug Type: Reports: Marijuana/Hashish Recreational Drug Use Frequency: Daily H&P Review of Systems - Review of Systems: Review Of Systems: See Below General: Reports: Weakness. Denies: Fever, Chills, Malaise Pulmonary: Denies: Shortness of Breath, Wheezing Cardiovascular: Denies: Chest Pain, Palpitations, Dyspnea on Exertion Gastrointestinal: Reports: Abdominal Pain, Anorexia, Constipation, Decreased Appetite. Denies: Black Stool, Bloody Stool, Diarrhea, Difficulty Swallowing, Hematemesis, Hematochezia Genitourinary: Denies: Dysuria, Frequency, Burning Musculoskeletal: Denies: Neck Pain, Shoulder Pain, Arm Pain Skin: Denies: Cyanosis, Jaundice, Mottled Psychiatric: Denies: Confusion, Depression, Mood Lability Exam - Exam Exam: See Below - Vital Signs Vital Signs: Last Vital Signs Temp 36.6 C 08/07/19 17:05 Pulse 79 08/07/19 17:05 Resp 18 08/07/19 17:05 BP 173/105 H 08/07/19 17:05 Pulse Ox 98 08/07/19 17:05 Weight: 63.503 kg - Exam General: Alert, Oriented HEENT: Conjunctiva Clear Neck: Supple, Trachea Midline Lungs: Clear to Auscultation, Normal Respiratory Effort Cardiovascular: Regular Rate, Regular Rhythm, Normal S1, Normal S2 GI/Abdominal Exam: Distended, Tender, Abnormal Bowel Sounds. No: Normal Bowel Sounds, Soft, Non-Tender, No Distention Extremities: Normal Inspection, Normal Range of Motion - Patient Data Lab Results Last 24 hrs: Laboratory Results - last 24 hr 08/07/19 08/07/19 08/07/19 Range/Units 17:37 17:37 17:37 WBC 10.34 (4.0-11.0) K/uL RBC 4.57 (4.30-5.90) M/uL Hgb 10.3 L (12.0-16.0) g/dL Hct 32.8 L (36.0-46.0) % MCV 71.8 L (80.0-98.0) fL MCH 22.5 L (27.0-32.0) pg MCHC 31.4 (31.0-37.0) g/dL RDW Std Deviation 48.4 (28.0-62.0) fl RDW Coeff of Mikala 19 H (11.0-15.0) % Plt Count 344 (150-400) K/uL MPV 9.60 (7.40-12.00) fL Neut % (Auto) 87.4 H (48.0-80.0) % Lymph % (Auto) 6.3 L (16.0-40.0) % [place] % (Auto) 6.1 (0.0-15.0) % Eos % (Auto) 0.1 (0.0-7.0) % Baso % (Auto) 0.1 (0.0-1.5) % Neut # (Auto) 9.0 H (1.4-5.7) K/uL Lymph # (Auto) 0.7 (0.6-2.4) K/uL [place] # (Auto) 0.6 (0.0-0.8) K/uL Eos # (Auto) 0.0 (0.0-0.7) K/uL Baso # (Auto) 0.0 (0.0-0.1) K/uL Nucleated RBC % 0.0 /100WBC Nucleated RBCs # 0 K/uL Lactate 1.4 (0.20-2.00) mmol/L Sodium 133 L (136-145) mmol/L Potassium 3.3 L (3.5-5.1) mmol/L Chloride 99 (98-107) mmol/L Carbon Dioxide 20.3 L (21.0-32.0) mmol/L BUN 8 (7.0-18.0) mg/dL Creatinine 0.7 (0.6-1.0) mg/dL Est Cr Clr Drug Dosing 103.89 mL/min Estimated GFR (MDRD) > 60.0 ml/min Glucose 131 H (74-106) mg/dL Calcium 8.7 (8.5-10.1) mg/dL Total Bilirubin 0.5 (0.2-1.0) mg/dL AST 31 (15-37) IU/L ALT 26 (14-63) IU/L Alkaline Phosphatase 66 (46-116) U/L Total Protein 7.6 (6.4-8.2) g/dL Albumin 4.3 (3.4-5.0) g/dL Globulin 3.3 (2.6-4.0) g/dL Albumin/Globulin Ratio 1.3 (0.9-1.6) Lipase 123 (73-393) U/L Urine Color Urine Appearance Urine pH (5.0-8.0) Ur Specific [place] (1.001-1.035) Urine Protein (NEGATIVE) mg/dL Urine Glucose (UA) (NEGATIVE) mg/dL Urine Ketones (NEGATIVE) mg/dL Urine Occult Blood (NEGATIVE) Urine Nitrite (NEGATIVE) Urine Bilirubin (NEGATIVE) Urine Urobilinogen (<2.0) EU/dL Ur Leukocyte Esterase (NEGATIVE) Urine RBC (0-2/HPF) Urine WBC (0-5/HPF) Ur Epithelial Cells (NONE-FEW) Amorphous Sediment (NEGATIVE) Urine Bacteria (NEGATIVE) Urine Mucus (NONE-MOD) 08/07/19 Range/Units 18:03 WBC (4.0-11.0) K/uL RBC (4.30-5.90) M/uL Hgb (12.0-16.0) g/dL Hct (36.0-46.0) % MCV (80.0-98.0) fL MCH (27.0-32.0) pg MCHC (31.0-37.0) g/dL RDW Std Deviation (28.0-62.0) fl RDW Coeff of Mikala (11.0-15.0) % Plt Count (150-400) K/uL MPV (7.40-12.00) fL Neut % (Auto) (48.0-80.0) % Lymph % (Auto) (16.0-40.0) % [place] % (Auto) (0.0-15.0) % Eos % (Auto) (0.0-7.0) % Baso % (Auto) (0.0-1.5) % Neut # (Auto) (1.4-5.7) K/uL Lymph # (Auto) (0.6-2.4) K/uL [place] # (Auto) (0.0-0.8) K/uL Eos # (Auto) (0.0-0.7) K/uL Baso # (Auto) (0.0-0.1) K/uL Nucleated RBC % /100WBC Nucleated RBCs # K/uL Lactate (0.20-2.00) mmol/L Sodium (136-145) mmol/L Potassium (3.5-5.1) mmol/L Chloride (98-107) mmol/L Carbon Dioxide (21.0-32.0) mmol/L BUN (7.0-18.0) mg/dL Creatinine (0.6-1.0) mg/dL Est Cr Clr Drug Dosing mL/min Estimated GFR (MDRD) ml/min Glucose (74-106) mg/dL Calcium (8.5-10.1) mg/dL Total Bilirubin (0.2-1.0) mg/dL AST (15-37) IU/L ALT (14-63) IU/L Alkaline Phosphatase (46-116) U/L Total Protein (6.4-8.2) g/dL Albumin (3.4-5.0) g/dL Globulin (2.6-4.0) g/dL Albumin/Globulin Ratio (0.9-1.6) Lipase (73-393) U/L Urine Color YELLOW Urine Appearance CLEAR Urine pH 7.0 (5.0-8.0) Ur Specific [place] 1.025 (1.001-1.035) Urine Protein TRACE H (NEGATIVE) mg/dL Urine Glucose (UA) NEGATIVE (NEGATIVE) mg/dL Urine Ketones 40 H (NEGATIVE) mg/dL Urine Occult Blood NEGATIVE (NEGATIVE) Urine Nitrite NEGATIVE (NEGATIVE) Urine Bilirubin NEGATIVE (NEGATIVE) Urine Urobilinogen 0.2 (<2.0) EU/dL Ur Leukocyte Esterase NEGATIVE (NEGATIVE) Urine RBC 0-1 (0-2/HPF) Urine WBC 0-1 (0-5/HPF) Ur Epithelial Cells FEW (NONE-FEW) Amorphous Sediment LIGHT (NEGATIVE) Urine Bacteria RARE (NEGATIVE) Urine Mucus LIGHT (NONE-MOD) Result Diagrams: 08/09/19 05:55 08/09/19 05:55 Sepsis Event Note - Evaluation Sepsis Screening Result: No Definite Risk - Focused Exam Vital Signs: Vital Signs Temp Pulse Resp BP Pulse Ox 08/07/19 17:05 36.6 C 79 18 173/105 H 98 Date Exam was Performed: 08/12/19 Time Exam was Performed: 19:57 - Problem List (1) Abdominal pain SNOMED Code(s): 98778767 ICD Code: R10.9 - UNSPECIFIED ABDOMINAL PAIN Status: Acute Qualifiers: Abdominal location: generalized Qualified Code(s): R10.84 - Generalized abdominal pain (2) Chronic abdominal pain SNOMED Code(s): 047405700 ICD Code: R10.9 - UNSPECIFIED ABDOMINAL PAIN; G89.29 - OTHER CHRONIC PAIN Status: Acute (3) Constipation SNOMED Code(s): 65134976 ICD Code: K59.00 - CONSTIPATION, UNSPECIFIED Status: Acute Qualifiers: Constipation type: unspecified constipation type Qualified Code(s): K59.00 - Constipation, unspecified (4) Dehydration SNOMED Code(s): 31410715 ICD Code: E86.0 - DEHYDRATION Status: Acute (5) Hypertension SNOMED Code(s): 59972692 ICD Code: I10 - ESSENTIAL (PRIMARY) HYPERTENSION Status: Acute Qualifiers: Hypertension type: unspecified Qualified Code(s): I10 - Essential (primary) hypertension (6) Hypokalemia SNOMED Code(s): 69179822 ICD Code: E87.6 - HYPOKALEMIA Status: Acute (7) Vomiting SNOMED Code(s): 829001852 ICD Code: R11.10 - VOMITING, UNSPECIFIED Status: Acute Qualifiers: Vomiting type: unspecified Vomiting Intractability: unspecified Nausea presence: with nausea Qualified Code(s): R11.2 - Nausea with vomiting, unspecified (8) Anxiety SNOMED Code(s): 25257881 ICD Code: F41.9 - ANXIETY DISORDER, UNSPECIFIED Status: Chronic Problem List Initiated/Reviewed/Updated: Yes Orders Last 24hrs: Active Orders 24 hr Category Date Time Status Admission Status [Patient Status] [ADT] Stat ADT 08/07/19 18:52 Active Ambulate [RC] ASDIRECTED Care 08/07/19 19:26 Ordered Antiembolic Devices [RC] PER UNIT ROUTINE Care 08/07/19 19:32 Ordered Gastrointestinal Tube Mgmt [RC] ASDIRECTED Care 08/07/19 18:49 Active Notify Provider Consults [RC] ASDIRECTED Care 08/07/19 18:51 Active Oxygen Therapy [RC] PRN Care 08/07/19 19:28 Ordered Pulse Oximetry [RC] PRN Care 08/07/19 19:29 Ordered RT Aerosol Therapy [RC] ASDIRECTED Care 08/07/19 19:33 Ordered VTE/DVT Education [RC] PER UNIT ROUTINE Care 08/07/19 19:28 Ordered Vital Signs [RC] Q4H Care 08/07/19 19:28 Ordered Consult to Physician [CONS] Stat Cons 08/07/19 18:50 Active Nothing per Oral Now Diet [DIET] Diet 08/07/19 Dinner Ordered Albuterol/Ipratropium [DuoNeb 3.0-0.5 MG/3 ML] Med 08/07/19 19:26 Ordered 3 ml NEB Q4HRRT PRN Dextrose 5%-Normal Saline with KCl 20 mEq @ 75 mL/Hr ( Med 08/07/19 19:45 Ordered 1000 mL) Dextrose 5%-0.9% NaCl with KCl [D5 NS with 20 mEq KCl] 1,000 ml IV ASDIRECTED Heparin Sodium Med 08/07/19 19:30 Ordered 5,000 units SUBCUT Q8H LORazepam [Ativan] Med 08/07/19 19:26 Ordered 0.5 mg IV Q6H PRN Lactated Ringers [Ringers, Lactated] 1,000 ml Med 08/07/19 21:00 Ordered IV ASDIRECTED Morphine Med 08/07/19 19:26 Ordered 2 mg IVPUSH Q4H PRN Ondansetron [Zofran] Med 08/07/19 19:26 Ordered 4 mg IVPUSH Q4H PRN Pantoprazole [ProTONIX IV] 40 mg Med 08/07/19 19:45 Ordered Sodium Chloride 0.9% [Normal Saline] 10 ml IV Q24H Sodium Chloride 0.9% [Normal Saline] Med 08/07/19 19:26 Ordered 10 ml IV ASDIRECTED PRN Sodium Chloride 0.9% [Saline Flush] Med 08/07/19 17:13 Active 10 ml FLUSH ASDIRECTED PRN Sodium Chloride 0.9% [Saline Flush] Med 08/07/19 19:26 Ordered 10 ml FLUSH ASDIRECTED PRN Sodium Chloride 0.9% [Saline Flush] Med 08/07/19 17:13 Active 2.5 ml FLUSH ASDIRECTED PRN Sodium Chloride 0.9% [Saline Flush] Med 08/07/19 19:26 Ordered 2.5 ml FLUSH ASDIRECTED PRN NG [Nasogastric Orogastric Tube Insertion] [OM.PC] Stat Ot 08/07/19 18:49 Ordered Peripheral IV Insertion Adult [OM.PC] Routine Ot 08/07/19 19:26 Ordered Saline Lock Insert [OM.PC] Stat Ot 08/07/19 17:13 Ordered Sequential Compression Device [OM.PC] Per Unit Routine Ot 08/07/19 19:30 Ordered Medication Orders Albuterol/Ipratropium (Duoneb 3.0-0.5 Mg/3 Ml) 3 ml NEB Q4HRRT PRN PRN Reason: Shortness Of Breath/wheezing Heparin Sodium (Porcine) (Heparin Sodium) 5,000 units SUBCUT Q8H COLIN Pantoprazole Sodium 40 mg/ (Sodium Chloride) 10 mls @ 300 mls/hr IV Q24H COLIN Potassium Chloride/Dextrose/Sod Cl (D5 Ns With 20 Meq Kcl) 1,000 mls @ 75 mls/hr IV ASDIRECTED COLIN Lactated Ringer's (Ringers, Lactated) 1,000 mls @ 125 mls/hr IV ASDIRECTED COLIN Lorazepam (Ativan) 0.5 mg IV Q6H PRN PRN Reason: Nausea/Vomiting Morphine Sulfate (Morphine) 2 mg IVPUSH Q4H PRN PRN Reason: Pain (severe 7-10) Stop: 08/08/19 19:31 Ondansetron HCl (Zofran) 4 mg IVPUSH Q4H PRN PRN Reason: Nausea/Vomiting Sodium Chloride (Saline Flush) 10 ml FLUSH ASDIRECTED PRN PRN Reason: Keep Vein Open Sodium Chloride (Saline Flush) 2.5 ml FLUSH ASDIRECTED PRN PRN Reason: Keep Vein Open Sodium Chloride (Saline Flush) 10 ml FLUSH ASDIRECTED PRN PRN Reason: Keep Vein Open Sodium Chloride (Saline Flush) 2.5 ml FLUSH ASDIRECTED PRN PRN Reason: Keep Vein Open Sodium Chloride (Normal Saline) 10 ml IV ASDIRECTED PRN PRN Reason: IV Use Assessment/Plan Comment:: 39 y/o F admitted for SBO NPO for now Start IV fluids Pain control with morphine, will switch to Toradol when able to IV Zofran and PPI Ativan as needed for anxiety DuoNebs as needed Surgery on board
[2019-08-07] MEDS ORDERED: Dextrose 5%-0.9% NaCl with KCl 1,000 ML IV SCH (19:45)
[2019-08-07] MEDS: Ondansetron 4 MG/2 ML SDV IVPUSH PRN (19:50)
--- NOTE | 2019-08-07 21:16 | PCM.SN.2 ---
- Free Text/Narrative Note: Pt seen, chart reviewed; pt clinically doing much better than imaging study; would benefit from ngt decompression; with gastric bypass, ngt should be placed under direct flourscope and, unfortunate is not availbale in this facility; keep k above 4.0 to avoid chemical ileus; avoid narcotics; npo, ivf, PPI, will follow w you; [id number]
[2019-08-07] MEDS ORDERED: NS + KCl 20mEq/L 1,000 ML IV SCH (21:30)
[2019-08-07] MEDS: Pantoprazole 40 MG in Sodium Chloride 0.9% 10 ML IV SCH (21:36)
[2019-08-07] MEDS: Heparin Sodium 5,000 Units/ML Vial SUBCUT SCH (21:56)
[2019-08-08] MEDS: Ondansetron 4 MG/2 ML SDV IVPUSH PRN ×5 (00:06→20:31)
[2019-08-08] MEDS: Morphine 2 MG/ML Syringe IVPUSH PRN ×4 (00:06→16:03)
[2019-08-08] MEDS: LORazepam 2 MG/ML SDV IV PRN ×4 (01:58→22:10)
[2019-08-08] MEDS: Heparin Sodium 5,000 Units/ML Vial SUBCUT SCH ×3 (04:26→18:31)
[2019-08-08 06:40] LABS: BLOOD UREA NITROGEN,BUN 7 mg/dL (7.0-18.0); CHLORIDE,CL 100 mmol/L (98-107); GLUCOSE RANDOM 95 mg/dL (74-106); POTASSIUM,K 3.5 mmol/L (3.5-5.1); SODIUM,NA 135 mmol/L (136-145)
--- NOTE | 2019-08-08 10:08 | CONS ---
DATE OF CONSULTATION: 08/07/2019 DATE OF : 1980 PRIMARY CARE PHYSICIAN: Not In Area PCP Consult from Dr. Tristan. CONSULTING QUESTION: Early small-bowel obstruction. HISTORY OF PRESENT ILLNESS: The patient is a 39-year-old lady; has a history of gastric bypass 20+ years ago and a revision 7 years ago, all at an outside hospital; and was recently discharged 2 weeks ago for abdominal pain, and the patient now comes back with another episode of abdominal pain and nausea but no vomiting. The patient remarked that she has been doing fine after she was sent home 2 weeks ago; however, in the last 2 days, she has started to develop abdominal pain. She remarked the pain is about 5 or 6 on a pain scale of 10, and she is nauseated, but she did not vomit, and she attributed that situation she cannot vomit because of the gastric bypass revision. Again, the pain started 2 days ago, and she did have a normal bowel movement 1 day ago, and the point is she had a bowel movement 1 day before admission, and according to the patient, the stool was soft and was a well-formed stool, not diarrhea. She felt nauseated before coming to the hospital; now, she is feeling better. She also ate something before coming to the hospital and kept it down. She also passed gas during the process of admission. PAST MEDICAL HISTORY: Significant for no diabetes, MA, or CVA. The patient has hypertension. PAST SURGICAL HISTORY: Gastric bypass revision and gallbladder surgery. HOME MEDICATIONS: Refer to the nursing note for details. ALLERGIES: Refer to the nursing note for details. The patient has a very very detailed allergies. PHYSICAL EXAMINATION: GENERAL: A very pleasant lady, smiled to the doctor, cooperating, very polite, very very pleasant, and in no acute distress. HEENT: Normocephalic and atraumatic. Sclerae were anicteric. LUNGS: Clear to auscultation. HEART: Regular rate and rhythm. ABDOMEN: In fact, the abdomen is not even distended, it is scaphoid, suggests a lot of weight loss, soft with active bowel sounds in all 4 quadrants, nontender at all in all 4 quadrants. A well-healed surgical scar. No hernia. No pulsating tender midline abdominal structure. LABORATORY VALUES: White count is 10, H and H are 10 and 33, and platelets are 340. INR is 0.9. Lactate is 1.4. Sodium and potassium are 133 and 3.3, BUN is 8, and creatinine is 0.8. Total bilirubin is 0.5, AST and ALT of 31 and 26, and alkaline phosphatase 66. Lipase is 123. UA has no signs or symptoms of a urinary tract infection. IMAGING: Only a plain film on the abdomen, which suggests has the appearance of developing a [id number] small-bowel obstruction. ASSESSMENT AND PLAN: Another episode of admission for pain and nausea, no vomiting; however, the patient's pain has been 2 days, and the patient also has a 5-year chronic pain problem according to the hospital document chart, and the patient had a well- formed stool 1 day prior to admission. Again, the well-formed stool was after the pain developed, and also, the patient passed gas in the hospital. Suggests if anything else is appearance of developing an early small-bowel obstruction. I agree with conservative management, pain management, IV fluid hydration, and n.p.o. We will try to keep the potassium above 4.0 to avoid chemical ileus, and the patient's treatment should be nasogastric tube decompression; however, with a gastric bypass, a nasogastric tube should not be placed blindly, should be placed under fluoroscopy, and unfortunately, our hospital does not have the facility of fluoroscopy, so we cannot even offer her nasogastric tube decompression, and again, 3 of surgeons over here do gastric bypass, so in an emergency situation, we would just provide her surgery for bowel obstruction, and in that situation, the patient would probably be beneficial to be transferred to a place where they routinely do bariatric surgery, like [facility]. So for the time being, while she is staying in the hospital, she will get supportive care, and we will follow the patient with you. Again, adequate IV hydration, keep potassium above 4.0, and avoid narcotics. As always, thank you for your kind referral. HANSEL / MORGAN /[id number] YOMI
[2019-08-08] MEDS: Sennosides 8.6 MG Tab PO SCH (11:08)
--- NOTE | 2019-08-08 11:40 | PCM.PN ---
<Belen Doherty - Last Filed: 08/08/19 11:40> - General Info Date of Service: 08/08/19 Subjective Update: Pain improving; passing gas and less bloating since admission Functional Status: Reports: Pain Controlled - Review of Systems General: Reports: No Symptoms HEENT: Reports: No Symptoms Pulmonary: Reports: No Symptoms Cardiovascular: Reports: No Symptoms Gastrointestinal: Reports: Abdominal Pain, Constipation, Flatus. Denies: Diarrhea Genitourinary: Reports: No Symptoms Musculoskeletal: Reports: No Symptoms Skin: Reports: No Symptoms Neurological: Reports: No Symptoms - Patient Data Vitals - Most Recent: Last Vital Signs Temp 98.6 F 08/08/19 08:00 Pulse 78 08/08/19 08:00 Resp 18 08/08/19 08:00 BP 120/85 08/08/19 08:00 Pulse Ox 97 08/08/19 08:00 Weight - Most Recent: 63.503 kg I&O - Last 24 Hours: Intake & Output 08/07/19 08/08/19 08/08/19 22:59 06:59 14:59 Intake Total 527 Output Total 680 Balance -153 Lab Results Last 24 Hours: Laboratory Results - last 24 hr 08/07/19 08/07/19 08/07/19 Range/Units 17:37 17:37 17:37 WBC 10.34 (4.0-11.0) K/uL RBC 4.57 (4.30-5.90) M/uL Hgb 10.3 L (12.0-16.0) g/dL Hct 32.8 L (36.0-46.0) % MCV 71.8 L (80.0-98.0) fL MCH 22.5 L (27.0-32.0) pg MCHC 31.4 (31.0-37.0) g/dL RDW Std Deviation 48.4 (28.0-62.0) fl RDW Coeff of Mikala 19 H (11.0-15.0) % Plt Count 344 (150-400) K/uL MPV 9.60 (7.40-12.00) fL Neut % (Auto) 87.4 H (48.0-80.0) % Lymph % (Auto) 6.3 L (16.0-40.0) % [place] % (Auto) 6.1 (0.0-15.0) % Eos % (Auto) 0.1 (0.0-7.0) % Baso % (Auto) 0.1 (0.0-1.5) % Neut # (Auto) 9.0 H (1.4-5.7) K/uL Lymph # (Auto) 0.7 (0.6-2.4) K/uL [place] # (Auto) 0.6 (0.0-0.8) K/uL Eos # (Auto) 0.0 (0.0-0.7) K/uL Baso # (Auto) 0.0 (0.0-0.1) K/uL Nucleated RBC % 0.0 /100WBC Nucleated RBCs # 0 K/uL Lactate 1.4 (0.20-2.00) mmol/L Sodium 133 L (136-145) mmol/L Potassium 3.3 L (3.5-5.1) mmol/L Chloride 99 (98-107) mmol/L Carbon Dioxide 20.3 L (21.0-32.0) mmol/L BUN 8 (7.0-18.0) mg/dL Creatinine 0.7 (0.6-1.0) mg/dL Est Cr Clr Drug Dosing 103.89 mL/min Estimated GFR (MDRD) > 60.0 ml/min Glucose 131 H (74-106) mg/dL Calcium 8.7 (8.5-10.1) mg/dL Phosphorus (2.6-4.7) mg/dL Magnesium (1.8-2.4) mg/dL Iron (50-175) ug/dL TIBC (250-450) ug/dL % Saturation (20-55) % Ferritin (8-252) ng/mL Total Bilirubin 0.5 (0.2-1.0) mg/dL AST 31 (15-37) IU/L ALT 26 (14-63) IU/L Alkaline Phosphatase 66 (46-116) U/L Total Protein 7.6 (6.4-8.2) g/dL Albumin 4.3 (3.4-5.0) g/dL Globulin 3.3 (2.6-4.0) g/dL Albumin/Globulin Ratio 1.3 (0.9-1.6) Lipase 123 (73-393) U/L Urine Color Urine Appearance Urine pH (5.0-8.0) Ur Specific [place] (1.001-1.035) Urine Protein (NEGATIVE) mg/dL Urine Glucose (UA) (NEGATIVE) mg/dL Urine Ketones (NEGATIVE) mg/dL Urine Occult Blood (NEGATIVE) Urine Nitrite (NEGATIVE) Urine Bilirubin (NEGATIVE) Urine Urobilinogen (<2.0) EU/dL Ur Leukocyte Esterase (NEGATIVE) Urine RBC (0-2/HPF) Urine WBC (0-5/HPF) Ur Epithelial Cells (NONE-FEW) Amorphous Sediment (NEGATIVE) Urine Bacteria (NEGATIVE) Urine Mucus (NONE-MOD) 08/07/19 08/08/19 08/08/19 Range/Units 18:03 05:50 05:50 WBC 5.91 (4.0-11.0) K/uL RBC 4.47 (4.30-5.90) M/uL Hgb 10.0 L (12.0-16.0) g/dL Hct 32.4 L (36.0-46.0) % MCV 72.5 L (80.0-98.0) fL MCH 22.4 L (27.0-32.0) pg MCHC 30.9 L (31.0-37.0) g/dL RDW Std Deviation 48.7 (28.0-62.0) fl RDW Coeff of Mikala 19 H (11.0-15.0) % Plt Count 308 (150-400) K/uL MPV 9.60 (7.40-12.00) fL Neut % (Auto) 52.3 (48.0-80.0) % Lymph % (Auto) 31.8 (16.0-40.0) % Mesa % (Auto) 14.9 (0.0-15.0) % Eos % (Auto) 0.7 (0.0-7.0) % Baso % (Auto) 0.3 (0.0-1.5) % Neut # (Auto) 3.1 (1.4-5.7) K/uL Lymph # (Auto) 1.9 (0.6-2.4) K/uL Mes[place] # (Auto) 0.9 H (0.0-0.8) K/uL Eos # (Auto) 0.0 (0.0-0.7) K/uL Baso # (Auto) 0.0 (0.0-0.1) K/uL Nucleated RBC % 0.0 /100WBC Nucleated RBCs # 0 K/uL Lactate (0.20-2.00) mmol/L Sodium 135 L (136-145) mmol/L Potassium 3.5 (3.5-5.1) mmol/L Chloride 100 (98-107) mmol/L Carbon Dioxide 25.0 (21.0-32.0) mmol/L BUN 7 (7.0-18.0) mg/dL Creatinine 0.8 (0.6-1.0) mg/dL Est Cr Clr Drug Dosing 90.90 mL/min Estimated GFR (MDRD) > 60.0 ml/min Glucose 95 (74-106) mg/dL Calcium 8.4 L (8.5-10.1) mg/dL Phosphorus 3.6 (2.6-4.7) mg/dL Magnesium 2.0 (1.8-2.4) mg/dL Iron (50-175) ug/dL TIBC (250-450) ug/dL % Saturation (20-55) % Ferritin (8-252) ng/mL Total Bilirubin (0.2-1.0) mg/dL AST (15-37) IU/L ALT (14-63) IU/L Alkaline Phosphatase (46-116) U/L Total Protein (6.4-8.2) g/dL Albumin (3.4-5.0) g/dL Globulin (2.6-4.0) g/dL Albumin/Globulin Ratio (0.9-1.6) Lipase (73-393) U/L Urine Color YELLOW Urine Appearance CLEAR Urine pH 7.0 (5.0-8.0) Ur Specific [place] 1.025 (1.001-1.035) Urine Protein TRACE H (NEGATIVE) mg/dL Urine Glucose (UA) NEGATIVE (NEGATIVE) mg/dL Urine Ketones 40 H (NEGATIVE) mg/dL Urine Occult Blood NEGATIVE (NEGATIVE) Urine Nitrite NEGATIVE (NEGATIVE) Urine Bilirubin NEGATIVE (NEGATIVE) Urine Urobilinogen 0.2 (<2.0) EU/dL Ur Leukocyte Esterase NEGATIVE (NEGATIVE) Urine RBC 0-1 (0-2/HPF) Urine WBC 0-1 (0-5/HPF) Ur Epithelial Cells FEW (NONE-FEW) Amorphous Sediment LIGHT (NEGATIVE) Urine Bacteria RARE (NEGATIVE) Urine Mucus LIGHT (NONE-MOD) 08/08/19 Range/Units 08:38 WBC (4.0-11.0) K/uL RBC (4.30-5.90) M/uL Hgb (12.0-16.0) g/dL Hct (36.0-46.0) % MCV (80.0-98.0) fL MCH (27.0-32.0) pg MCHC (31.0-37.0) g/dL RDW Std Deviation (28.0-62.0) fl RDW Coeff of Mikala (11.0-15.0) % Plt Count (150-400) K/uL MPV (7.40-12.00) fL Neut % (Auto) (48.0-80.0) % Lymph % (Auto) (16.0-40.0) % [place] % (Auto) (0.0-15.0) % Eos % (Auto) (0.0-7.0) % Baso % (Auto) (0.0-1.5) % Neut # (Auto) (1.4-5.7) K/uL Lymph # (Auto) (0.6-2.4) K/uL [place] # (Auto) (0.0-0.8) K/uL Eos # (Auto) (0.0-0.7) K/uL Baso # (Auto) (0.0-0.1) K/uL Nucleated RBC % /100WBC Nucleated RBCs # K/uL Lactate (0.20-2.00) mmol/L Sodium (136-145) mmol/L Potassium (3.5-5.1) mmol/L Chloride (98-107) mmol/L Carbon Dioxide (21.0-32.0) mmol/L BUN (7.0-18.0) mg/dL Creatinine (0.6-1.0) mg/dL Est Cr Clr Drug Dosing mL/min Estimated GFR (MDRD) ml/min Glucose (74-106) mg/dL Calcium (8.5-10.1) mg/dL Phosphorus (2.6-4.7) mg/dL Magnesium (1.8-2.4) mg/dL Iron 94 (50-175) ug/dL TIBC 375 (250-450) ug/dL % Saturation 25.07 (20-55) % Ferritin 13 (8-252) ng/mL Total Bilirubin (0.2-1.0) mg/dL AST (15-37) IU/L ALT (14-63) IU/L Alkaline Phosphatase (46-116) U/L Total Protein (6.4-8.2) g/dL Albumin (3.4-5.0) g/dL Globulin (2.6-4.0) g/dL Albumin/Globulin Ratio (0.9-1.6) Lipase (73-393) U/L Urine Color Urine Appearance Urine pH (5.0-8.0) Ur Specific [place] (1.001-1.035) Urine Protein (NEGATIVE) mg/dL Urine Glucose (UA) (NEGATIVE) mg/dL Urine Ketones (NEGATIVE) mg/dL Urine Occult Blood (NEGATIVE) Urine Nitrite (NEGATIVE) Urine Bilirubin (NEGATIVE) Urine Urobilinogen (<2.0) EU/dL Ur Leukocyte Esterase (NEGATIVE) Urine RBC (0-2/HPF) Urine WBC (0-5/HPF) Ur Epithelial Cells (NONE-FEW) Amorphous Sediment (NEGATIVE) Urine Bacteria (NEGATIVE) Urine Mucus (NONE-MOD) Med Orders - Current: Current Medications Albuterol/Ipratropium (Duoneb 3.0-0.5 Mg/3 Ml) 3 ml NEB Q4HRRT PRN PRN Reason: Shortness Of Breath/wheezing Heparin Sodium (Porcine) (Heparin Sodium) 5,000 units SUBCUT Q8H [facility] Last Admin: 08/08/19 04:26 Dose: 5,000 units Documented by: Pantoprazole Sodium 40 mg/ (Sodium Chloride) 10 mls @ 300 mls/hr IV Q24H [facility] Last Admin: 08/07/19 21:36 Dose: 300 mls/hr Documented by: Potassium Chloride 40 meq/ (Premix) 100 mls @ 25 mls/hr IV ONETIME ONE Stop: 08/08/19 15:59 Lactated Ringer's (Ringers, Lactated) 1,000 mls @ 125 mls/hr IV ASDIRECTED [facility] Ketorolac Tromethamine (Toradol) 15 mg IVPUSH Q6H PRN PRN Reason: Pain Stop: 08/13/19 10:40 Lorazepam (Ativan) 0.5 mg IV Q6H PRN PRN Reason: Nausea/Vomiting Last Admin: 08/08/19 09:17 Dose: 0.5 mg Documented by: Morphine Sulfate (Morphine) 1 mg IVPUSH Q8HR PRN PRN Reason: Pain (severe 7-10) Ondansetron HCl (Zofran) 4 mg IVPUSH Q4H PRN PRN Reason: Nausea/Vomiting Last Admin: 08/08/19 09:18 Dose: 4 mg Documented by: Senna (Senna) 8.6 mg PO DAILY COLIN Sodium Chloride (Saline Flush) 10 ml FLUSH ASDIRECTED PRN PRN Reason: Keep Vein Open Sodium Chloride (Saline Flush) 2.5 ml FLUSH ASDIRECTED PRN PRN Reason: Keep Vein Open Sodium Chloride (Saline Flush) 10 ml FLUSH ASDIRECTED PRN PRN Reason: Keep Vein Open Sodium Chloride (Saline Flush) 2.5 ml FLUSH ASDIRECTED PRN PRN Reason: Keep Vein Open Sodium Chloride (Normal Saline) 10 ml IV ASDIRECTED PRN PRN Reason: IV Use Discontinued Medications Dicyclomine HCl (Bentyl) 10 mg PO ONETIME ONE Stop: 08/07/19 18:17 Last Admin: 08/07/19 18:42 Dose: Not Given Documented by: Famotidine (Pepcid) 20 mg IVPUSH ONETIME ONE Stop: 08/07/19 17:14 Last Admin: 08/07/19 17:32 Dose: 20 mg Documented by: Fentanyl (Fentanyl) 50 mcg IVPUSH ONETIME ONE Stop: 08/07/19 18:32 Last Admin: 08/07/19 18:37 Dose: 50 mcg Documented by: Lactated Ringer's (Ringers, Lactated) 1,000 mls @ 125 mls/hr IV ASDIRECTED [facility] Potassium Chloride/Dextrose/Sod Cl (D5 Ns With 20 Meq Kcl) 1,000 mls @ 75 mls/hr IV ASDIRECTED [facility] Potassium Chloride/Sodium Chloride (Normal Saline With 20 Meq Kcl) 1,000 mls @ 75 mls/hr IV ASDIRECTED [facility]IN Stop: 08/08/19 10:49 Last Admin: 06/19/20 22:15 Dose: 75 mls/hr Documented by: Ketorolac Tromethamine (Toradol) 15 mg IVPUSH ONETIME ONE Stop: 08/07/19 17:14 Last Admin: 08/07/19 17:33 Dose: 15 mg Documented by: Lorazepam (Ativan) 1 mg IVPUSH ONETIME ONE Stop: 08/07/19 18:49 Last Admin: 08/07/19 19:52 Dose: 1 mg Documented by: Metoclopramide HCl (Reglan) 10 mg IVPUSH ONETIME ONE Stop: 08/07/19 18:17 Last Admin: 08/07/19 18:37 Dose: 10 mg Documented by: Morphine Sulfate (Morphine) 2 mg IVPUSH Q4H PRN PRN Reason: Pain (severe 7-10) Stop: 08/08/19 19:31 Last Admin: 08/07/19 19:54 Dose: 2 mg Documented by: Morphine Sulfate (Morphine) 2 mg IVPUSH Q4H PRN PRN Reason: Pain (severe 7-10) Last Admin: 08/08/19 09:18 Dose: 2 mg Documented by: Ondansetron HCl (Zofran) 4 mg IVPUSH ONETIME ONE Stop: 08/07/19 17:14 Last Admin: 08/07/19 17:35 Dose: Not Given Documented by: - Exam Quality Assessment: No: Supplemental Oxygen General: Alert, Oriented, Cooperative, No Acute Distress HEENT: EOMI Neck: Supple Lungs: Clear to Auscultation, Normal Respiratory Effort Cardiovascular: Regular Rate, Regular Rhythm GI/Abdominal Exam: Soft, Other (minimal tenderness ) Back Exam: Full Range of Motion Neurological: No New Focal Deficit Psy/Mental Status: Alert Sepsis Event Note - Evaluation Sepsis Screening Result: No Definite Risk - Focused Exam Vital Signs: Vital Signs Temp Pulse Resp BP Pulse Ox 08/08/19 08:00 98.6 F 78 18 120/85 97 08/08/19 04:00 98.2 F 89 18 121/75 98 08/08/19 00:00 97.6 F 88 18 123/82 97 Date Exam was Performed: 08/08/19 Time Exam was Performed: 11:40 - Problem List Review Problem List Initiated/Reviewed/Updated: Yes - My Orders Last 24 Hours: My Active Orders 08/08/19 10:33 Morphine Sulfate [Morphine] 1 mg IVPUSH Q8HR PRN 08/08/19 10:40 Ketorolac [Toradol] 15 mg IVPUSH Q6H PRN 08/08/19 10:45 Sennosides [Senna] 8.6 mg PO DAILY 08/08/19 12:00 Potassium Chloride Riders [KCL 40 MEQ in Water 100 ML] 40 meq Premix Bag 1 bag IV ONETIME - Plan Plan:: 39 y/o F admitted for SBO Continue NPO Continue IV fluids+40 KCL to help avoid chemical ileus Pain control with morphine: increase t [id number] PRN+Toradol IV Zofran and PPI Ativan as needed for anxiety DuoNebs as needed Surgery on board <Juani Tristan - Last Filed: 08/12/19 19:55> - Patient Data Vitals - Most Recent: Last Vital Signs Temp 37.4 C 08/09/19 08:18 Pulse 62 08/09/19 08:18 Resp 18 08/09/19 04:00 BP 129/93 H 08/09/19 08:18 Pulse Ox 98 08/09/19 08:18 Med Orders - Current: Current Medications Discontinued Medications Acetaminophen (Tylenol Extra Strength) 500 mg PO Q12H PRN PRN Reason: Headache Last Admin: 08/08/19 13:48 Dose: 500 mg Documented by: Albuterol/Ipratropium (Duoneb 3.0-0.5 Mg/3 Ml) 3 ml NEB Q4HRRT PRN PRN Reason: Shortness Of Breath/wheezing Bisacodyl (Dulcolax) 10 mg RECTAL ONETIME ONE Stop: 08/08/19 16:31 Last Admin: 08/08/19 17:50 Dose: 10 mg Documented by: Dicyclomine HCl (Bentyl) 10 mg PO ONETIME ONE Stop: 08/07/19 18:17 Last Admin: 08/07/19 18:42 Dose: Not Given Documented by: Famotidine (Pepcid) 20 mg IVPUSH ONETIME ONE Stop: 08/07/19 17:14 Last Admin: 08/07/19 17:32 Dose: 20 mg Documented by: Fentanyl (Fentanyl) 50 mcg IVPUSH ONETIME ONE Stop: 08/07/19 18:32 Last Admin: 06/19/20 18:37 Dose: 50 mcg Documented by: Heparin Sodium (Porcine) (Heparin Sodium) 5,000 units SUBCUT Q8H [facility] Last Admin: 08/09/19 12:55 Dose: Not Given Documented by: Lactated Ringer's (Ringers, Lactated) 1,000 mls @ 125 mls/hr IV ASDIRECTED [facility] Pantoprazole Sodium 40 mg/ (Sodium Chloride) 10 mls @ 300 mls/hr IV Q24H [facility] Last Admin: 08/08/19 19:55 Dose: Not Given Documented by: Potassium Chloride/Dextrose/Sod Cl (D5 Ns With 20 Meq Kcl) 1,000 mls @ 75 mls/hr IV ASDIRECTED [facility] Potassium Chloride/Sodium Chloride (Normal Saline With 20 Meq Kcl) 1,000 mls @ 75 mls/hr IV ASDIRECTED [facility] Stop: 08/08/19 10:49 Last Admin: 08/07/19 22:15 Dose: 75 mls/hr Documented by: Potassium Chloride 40 meq/ (Premix) 100 mls @ 25 mls/hr IV ONETIME ONE Stop: 08/08/19 15:59 Last Admin: 08/08/19 11:59 Dose: 25 mls/hr Documented by: Lactated Ringer's (Ringers, Lactated) 1,000 mls @ 125 mls/hr IV ASDIRECTED [facility] Last Admin: 08/09/19 05:19 Dose: 125 mls/hr Documented by: Pantoprazole Sodium 40 mg/ (Sodium Chloride) 10 mls @ 300 mls/hr IV NOW ONE Stop: 08/08/19 13:21 Last Admin: 08/08/19 16:00 Dose: 300 mls/hr Documented by: Ketorolac Tromethamine (Toradol) 15 mg IVPUSH ONETIME ONE Stop: 08/07/19 17:14 Last Admin: 08/07/19 17:33 Dose: 15 mg Documented by: Ketorolac Tromethamine (Toradol) 15 mg IVPUSH Q6H PRN PRN Reason: Pain Stop: 08/13/19 10:40 Last Admin: 08/09/19 10:24 Dose: 15 mg Documented by: Lorazepam (Ativan) 1 mg IVPUSH ONETIME ONE Stop: 08/07/19 18:49 Last Admin: 08/07/19 19:52 Dose: 1 mg Documented by: Lorazepam (Ativan) 0.5 mg IV Q6H PRN PRN Reason: Nausea/Vomiting Last Admin: 08/09/19 11:11 Dose: 0.5 mg Documented by: Metoclopramide HCl (Reglan) 10 mg IVPUSH ONETIME ONE Stop: 08/07/19 18:17 Last Admin: 08/07/19 18:37 Dose: 10 mg Documented by: Morphine Sulfate (Morphine) 2 mg IVPUSH Q4H PRN PRN Reason: Pain (severe 7-10) Stop: 08/08/19 19:31 Last Admin: 08/07/19 19:54 Dose: 2 mg Documented by: Morphine Sulfate (Morphine) 2 mg IVPUSH Q4H PRN PRN Reason: Pain (severe 7-10) Last Admin: 08/08/19 09:18 Dose: 2 mg Documented by: Morphine Sulfate (Morphine) 1 mg IVPUSH Q8HR PRN PRN Reason: Pain (severe 7-10) Last Admin: 08/09/19 08:23 Dose: 1 mg Documented by: Ondansetron HCl (Zofran) 4 mg IVPUSH ONETIME ONE Stop: 08/07/19 17:14 Last Admin: 08/07/19 17:35 Dose: Not Given Documented by: Ondansetron HCl (Zofran) 4 mg IVPUSH Q4H PRN PRN Reason: Nausea/Vomiting Last Admin: 08/09/19 04:48 Dose: 4 mg Documented by: Polyethylene Glycol (Miralax) 17 gm PO BEDTIME [facility] Last Admin: 08/09/19 00:03 Dose: 17 gm Documented by: Senna (Senna) 8.6 mg PO DAILY [facility] Last Admin: 08/09/19 08:24 Dose: 8.6 mg Documented by: Sodium Chloride (Saline Flush) 10 ml FLUSH ASDIRECTED PRN PRN Reason: Keep Vein Open Sodium Chloride (Saline Flush) 2.5 ml FLUSH ASDIRECTED PRN PRN Reason: Keep Vein Open Sodium Chloride (Saline Flush) 10 ml FLUSH ASDIRECTED PRN PRN Reason: Keep Vein Open Sodium Chloride (Saline Flush) 2.5 ml FLUSH ASDIRECTED PRN PRN Reason: Keep Vein Open Sodium Chloride (Normal Saline) 10 ml IV ASDIRECTED PRN PRN Reason: IV Use Sepsis Event Note - Focused Exam Date Exam was Performed: 08/12/19 Time Exam was Performed: 19:54 - Problem List & Annotations (1) Abdominal pain SNOMED Code(s): 04746567 Code(s): R10.9 - UNSPECIFIED ABDOMINAL PAIN Status: Acute Qualifiers: Abdominal location: generalized Qualified Code(s): R10.84 - Generalized abdominal pain (2) Chronic abdominal pain SNOMED Code(s): 614446997 Code(s): R10.9 - UNSPECIFIED ABDOMINAL PAIN; G89.29 - OTHER CHRONIC PAIN Status: Acute (3) Constipation SNOMED Code(s): 61462062 Code(s): K59.00 - CONSTIPATION, UNSPECIFIED Status: Acute Qualifiers: Constipation type: unspecified constipation type Qualified Code(s): K59.00 - Constipation, unspecified (4) Dehydration SNOMED Code(s): 52178989 Code(s): E86.0 - DEHYDRATION Status: Acute (5) Hypertension SNOMED Code(s): 03664353 Code(s): I10 - ESSENTIAL (PRIMARY) HYPERTENSION Status: Acute Qualifiers: Hypertension type: unspecified Qualified Code(s): I10 - Essential (primary) hypertension (6) Hypokalemia SNOMED Code(s): 73435905 Code(s): E87.6 - HYPOKALEMIA Status: Acute (7) Vomiting SNOMED Code(s): 189252685 Code(s): R11.10 - VOMITING, UNSPECIFIED Status: Acute Qualifiers: Vomiting type: unspecified Vomiting Intractability: unspecified Nausea presence: with nausea Qualified Code(s): R11.2 - Nausea with vomiting, unspecified (8) Anxiety SNOMED Code(s): 34696036 Code(s): F41.9 - ANXIETY DISORDER, UNSPECIFIED Status: Chronic - Plan Plan:: I have seen and evaluated the patient and agree with the residents note unless specified in my note
[2019-08-08] MEDS: Lactated Ringers 1,000 ML IV SCH ×2 (11:58→20:31)
[2019-08-08] MEDS ORDERED: Potassium Chloride Riders 40 MEQ in Premix Bag 1 BAG IV ONE (12:00)
[2019-08-08] MEDS ORDERED: Pantoprazole 40 MG in Sodium Chloride 0.9% 10 ML IV ONE (13:20)
[2019-08-08] MEDS ORDERED: Acetaminophen 500 MG Tab PO PRN (13:31)
[2019-08-08] MEDS: Ketorolac 15 MG/ML SDV IVPUSH PRN ×2 (13:38→20:29)
--- NOTE | 2019-08-08 16:21 | PCM.SURGPN ---
- General Info Date of Service: 08/08/19 Functional Status: Reports: Pain Controlled (no complaint, passing flatus) - Patient Data Vitals - Most Recent: Last Vital Signs Temp 99.4 F 08/08/19 12:00 Pulse 74 08/08/19 12:00 Resp 18 08/08/19 12:00 BP 116/65 08/08/19 12:00 Pulse Ox 96 08/08/19 12:00 Weight - Most Recent: 140 lb I&O - Last 24 Hours: Intake & Output 08/08/19 08/08/19 08/08/19 06:59 14:59 22:59 Intake Total 527 Output Total 680 Balance -153 Lab Results Last 24 Hrs: Laboratory Results - last 24 hr 08/07/19 08/07/19 08/07/19 Range/Units 17:37 17:37 17:37 WBC 10.34 (4.0-11.0) K/uL RBC 4.57 (4.30-5.90) M/uL Hgb 10.3 L (12.0-16.0) g/dL Hct 32.8 L (36.0-46.0) % MCV 71.8 L (80.0-98.0) fL MCH 22.5 L (27.0-32.0) pg MCHC 31.4 (31.0-37.0) g/dL RDW Std Deviation 48.4 (28.0-62.0) fl RDW Coeff of Mikala 19 H (11.0-15.0) % Plt Count 344 (150-400) K/uL MPV 9.60 (7.40-12.00) fL Neut % (Auto) 87.4 H (48.0-80.0) % Lymph % (Auto) 6.3 L (16.0-40.0) % [place] % (Auto) 6.1 (0.0-15.0) % Eos % (Auto) 0.1 (0.0-7.0) % Baso % (Auto) 0.1 (0.0-1.5) % Neut # (Auto) 9.0 H (1.4-5.7) K/uL Lymph # (Auto) 0.7 (0.6-2.4) K/uL [place] # (Auto) 0.6 (0.0-0.8) K/uL Eos # (Auto) 0.0 (0.0-0.7) K/uL Baso # (Auto) 0.0 (0.0-0.1) K/uL Nucleated RBC % 0.0 /100WBC Nucleated RBCs # 0 K/uL Lactate 1.4 (0.20-2.00) mmol/L Sodium 133 L (136-145) mmol/L Potassium 3.3 L (3.5-5.1) mmol/L Chloride 99 (98-107) mmol/L Carbon Dioxide 20.3 L (21.0-32.0) mmol/L BUN 8 (7.0-18.0) mg/dL Creatinine 0.7 (0.6-1.0) mg/dL Est Cr Clr Drug Dosing 103.89 mL/min Estimated GFR (MDRD) > 60.0 ml/min Glucose 131 H (74-106) mg/dL Calcium 8.7 (8.5-10.1) mg/dL Phosphorus (2.6-4.7) mg/dL Magnesium (1.8-2.4) mg/dL Iron (50-175) ug/dL TIBC (250-450) ug/dL % Saturation (20-55) % Ferritin (8-252) ng/mL Total Bilirubin 0.5 (0.2-1.0) mg/dL AST 31 (15-37) IU/L ALT 26 (14-63) IU/L Alkaline Phosphatase 66 (46-116) U/L Total Protein 7.6 (6.4-8.2) g/dL Albumin 4.3 (3.4-5.0) g/dL Globulin 3.3 (2.6-4.0) g/dL Albumin/Globulin Ratio 1.3 (0.9-1.6) Lipase 123 (73-393) U/L Urine Color Urine Appearance Urine pH (5.0-8.0) Ur Specific [place] (1.001-1.035) Urine Protein (NEGATIVE) mg/dL Urine Glucose (UA) (NEGATIVE) mg/dL Urine Ketones (NEGATIVE) mg/dL Urine Occult Blood (NEGATIVE) Urine Nitrite (NEGATIVE) Urine Bilirubin (NEGATIVE) Urine Urobilinogen (<2.0) EU/dL Ur Leukocyte Esterase (NEGATIVE) Urine RBC (0-2/HPF) Urine WBC (0-5/HPF) Ur Epithelial Cells (NONE-FEW) Amorphous Sediment (NEGATIVE) Urine Bacteria (NEGATIVE) Urine Mucus (NONE-MOD) 08/07/19 08/08/19 08/08/19 Range/Units 18:03 05:50 05:50 WBC 5.91 (4.0-11.0) K/uL RBC 4.47 (4.30-5.90) M/uL Hgb 10.0 L (12.0-16.0) g/dL Hct 32.4 L (36.0-46.0) % MCV 72.5 L (80.0-98.0) fL MCH 22.4 L (27.0-32.0) pg MCHC 30.9 L (31.0-37.0) g/dL RDW Std Deviation 48.7 (28.0-62.0) fl RDW Coeff of Mikala 19 H (11.0-15.0) % Plt Count 308 (150-400) K/uL MPV 9.60 (7.40-12.00) fL Neut % (Auto) 52.3 (48.0-80.0) % Lymph % (Auto) 31.8 (16.0-40.0) % Blanco % (Auto) 14.9 (0.0-15.0) % Eos % (Auto) 0.7 (0.0-7.0) % Baso % (Auto) 0.3 (0.0-1.5) % Neut # (Auto) 3.1 (1.4-5.7) K/uL Lymph # (Auto) 1.9 (0.6-2.4) K/uL [place] # (Auto) 0.9 H (0.0-0.8) K/uL Eos # (Auto) 0.0 (0.0-0.7) K/uL Baso # (Auto) 0.0 (0.0-0.1) K/uL Nucleated RBC % 0.0 /100WBC Nucleated RBCs # 0 K/uL Lactate (0.20-2.00) mmol/L Sodium 135 L (136-145) mmol/L Potassium 3.5 (3.5-5.1) mmol/L Chloride 100 (98-107) mmol/L Carbon Dioxide 25.0 (21.0-32.0) mmol/L BUN 7 (7.0-18.0) mg/dL Creatinine 0.8 (0.6-1.0) mg/dL Est Cr Clr Drug Dosing 90.90 mL/min Estimated GFR (MDRD) > 60.0 ml/min Glucose 95 (74-106) mg/dL Calcium 8.4 L (8.5-10.1) mg/dL Phosphorus 3.6 (2.6-4.7) mg/dL Magnesium 2.0 (1.8-2.4) mg/dL Iron (50-175) ug/dL TIBC (250-450) ug/dL % Saturation (20-55) % Ferritin (8-252) ng/mL Total Bilirubin (0.2-1.0) mg/dL AST (15-37) IU/L ALT (14-63) IU/L Alkaline Phosphatase (46-116) U/L Total Protein (6.4-8.2) g/dL Albumin (3.4-5.0) g/dL Globulin (2.6-4.0) g/dL Albumin/Globulin Ratio (0.9-1.6) Lipase (73-393) U/L Urine Color YELLOW Urine Appearance CLEAR Urine pH 7.0 (5.0-8.0) Ur Specific [place] 1.025 (1.001-1.035) Urine Protein TRACE H (NEGATIVE) mg/dL Urine Glucose (UA) NEGATIVE (NEGATIVE) mg/dL Urine Ketones 40 H (NEGATIVE) mg/dL Urine Occult Blood NEGATIVE (NEGATIVE) Urine Nitrite NEGATIVE (NEGATIVE) Urine Bilirubin NEGATIVE (NEGATIVE) Urine Urobilinogen 0.2 (<2.0) EU/dL Ur Leukocyte Esterase NEGATIVE (NEGATIVE) Urine RBC 0-1 (0-2/HPF) Urine WBC 0-1 (0-5/HPF) Ur Epithelial Cells FEW (NONE-FEW) Amorphous Sediment LIGHT (NEGATIVE) Urine Bacteria RARE (NEGATIVE) Urine Mucus LIGHT (NONE-MOD) 20 Range/Units 08:38 WBC (4.0-11.0) K/uL RBC (4.30-5.90) M/uL Hgb (12.0-16.0) g/dL Hct (36.0-46.0) % MCV (80.0-98.0) fL MCH (27.0-32.0) pg MCHC (31.0-37.0) g/dL RDW Std Deviation (28.0-62.0) fl RDW Coeff of Mikala (11.0-15.0) % Plt Count (150-400) K/uL MPV (7.40-12.00) fL Neut % (Auto) (48.0-80.0) % Lymph % (Auto) (16.0-40.0) % [place] % (Auto) (0.0-15.0) % Eos % (Auto) (0.0-7.0) % Baso % (Auto) (0.0-1.5) % Neut # (Auto) (1.4-5.7) K/uL Lymph # (Auto) (0.6-2.4) K/uL [place] # (Auto) (0.0-0.8) K/uL Eos # (Auto) (0.0-0.7) K/uL Baso # (Auto) (0.0-0.1) K/uL Nucleated RBC % /100WBC Nucleated RBCs # K/uL Lactate (0.20-2.00) mmol/L Sodium (136-145) mmol/L Potassium (3.5-5.1) mmol/L Chloride (98-107) mmol/L Carbon Dioxide (21.0-32.0) mmol/L BUN (7.0-18.0) mg/dL Creatinine (0.6-1.0) mg/dL Est Cr Clr Drug Dosing mL/min Estimated GFR (MDRD) ml/min Glucose (74-106) mg/dL Calcium (8.5-10.1) mg/dL Phosphorus (2.6-4.7) mg/dL Magnesium (1.8-2.4) mg/dL Iron 94 (50-175) ug/dL TIBC 375 (250-450) ug/dL % Saturation 25.07 (20-55) % Ferritin 13 (8-252) ng/mL Total Bilirubin (0.2-1.0) mg/dL AST (15-37) IU/L ALT (14-63) IU/L Alkaline Phosphatase (46-116) U/L Total Protein (6.4-8.2) g/dL Albumin (3.4-5.0) g/dL Globulin (2.6-4.0) g/dL Albumin/Globulin Ratio (0.9-1.6) Lipase (73-393) U/L Urine Color Urine Appearance Urine pH (5.0-8.0) Ur Specific [place] (1.001-1.035) Urine Protein (NEGATIVE) mg/dL Urine Glucose (UA) (NEGATIVE) mg/dL Urine Ketones (NEGATIVE) mg/dL Urine Occult Blood (NEGATIVE) Urine Nitrite (NEGATIVE) Urine Bilirubin (NEGATIVE) Urine Urobilinogen (<2.0) EU/dL Ur Leukocyte Esterase (NEGATIVE) Urine RBC (0-2/HPF) Urine WBC (0-5/HPF) Ur Epithelial Cells (NONE-FEW) Amorphous Sediment (NEGATIVE) Urine Bacteria (NEGATIVE) Urine Mucus (NONE-MOD) Med Orders - Current: Current Medications Acetaminophen (Tylenol Extra Strength) 500 mg PO Q12H PRN PRN Reason: Headache Last Admin: 08/08/19 13:48 Dose: 500 mg Documented by: Albuterol/Ipratropium (Duoneb 3.0-0.5 Mg/3 Ml) 3 ml NEB Q4HRRT PRN PRN Reason: Shortness Of Breath/wheezing Heparin Sodium (Porcine) (Heparin Sodium) 5,000 units SUBCUT Q8H [facility] Last Admin: 08/08/19 12:08 Dose: 5,000 units Documented by: Pantoprazole Sodium 40 mg/ (Sodium Chloride) 10 mls @ 300 mls/hr IV Q24H [facility] Last Admin: 08/07/19 21:36 Dose: 300 mls/hr Documented by: Lactated Ringer's (Ringers, Lactated) 1,000 mls @ 125 mls/hr IV ASDIRECTED [facility] Last Admin: 08/08/19 11:58 Dose: 125 mls/hr Documented by: Ketorolac Tromethamine (Toradol) 15 mg IVPUSH Q6H PRN PRN Reason: Pain Stop: 08/13/19 10:40 Last Admin: 08/08/19 13:38 Dose: 15 mg Documented by: Lorazepam (Ativan) 0.5 mg IV Q6H PRN PRN Reason: Nausea/Vomiting Last Admin: 08/08/19 16:01 Dose: 0.5 mg Documented by: Morphine Sulfate (Morphine) 1 mg IVPUSH Q8HR PRN PRN Reason: Pain (severe 7-10) Last Admin: 08/08/19 16:03 Dose: 1 mg Documented by: Ondansetron HCl (Zofran) 4 mg IVPUSH Q4H PRN PRN Reason: Nausea/Vomiting Last Admin: 08/08/19 13:40 Dose: 4 mg Documented by: Senna (Senna) 8.6 mg PO DAILY [facility] Last Admin: 08/08/19 11:08 Dose: 8.6 mg Documented by: Sodium Chloride (Saline Flush) 10 ml FLUSH ASDIRECTED PRN PRN Reason: Keep Vein Open Sodium Chloride (Saline Flush) 2.5 ml FLUSH ASDIRECTED PRN PRN Reason: Keep Vein Open Sodium Chloride (Saline Flush) 10 ml FLUSH ASDIRECTED PRN PRN Reason: Keep Vein Open Sodium Chloride (Saline Flush) 2.5 ml FLUSH ASDIRECTED PRN PRN Reason: Keep Vein Open Sodium Chloride (Normal Saline) 10 ml IV ASDIRECTED PRN PRN Reason: IV Use Discontinued Medications Dicyclomine HCl (Bentyl) 10 mg PO ONETIME ONE Stop: 08/07/19 18:17 Last Admin: 08/07/19 18:42 Dose: Not Given Documented by: Famotidine (Pepcid) 20 mg IVPUSH ONETIME ONE Stop: 08/07/19 17:14 Last Admin: 08/07/19 17:32 Dose: 20 mg Documented by: Fentanyl (Fentanyl) 50 mcg IVPUSH ONETIME ONE Stop: 08/07/19 18:32 Last Admin: 08/07/19 18:37 Dose: 50 mcg Documented by: Lactated Ringer's (Ringers, Lactated) 1,000 mls @ 125 mls/hr IV ASDIRECTED [facility] Potassium Chloride/Dextrose/Sod Cl (D5 Ns With 20 Meq Kcl) 1,000 mls @ 75 mls/hr IV ASDIRECTED COLIN Potassium Chloride/Sodium Chloride (Normal Saline With 20 Meq Kcl) 1,000 mls @ 75 mls/hr IV ASDIRECTED COLIN Stop: 08/08/19 10:49 Last Admin: 08/07/19 22:15 Dose: 75 mls/hr Documented by: Potassium Chloride 40 meq/ (Premix) 100 mls @ 25 mls/hr IV ONETIME ONE Stop: 08/08/19 15:59 Last Admin: 08/08/19 11:59 Dose: 25 mls/hr Documented by: Pantoprazole Sodium 40 mg/ (Sodium Chloride) 10 mls @ 300 mls/hr IV NOW ONE Stop: 08/08/19 13:21 Last Admin: 08/08/19 16:00 Dose: 300 mls/hr Documented by: Ketorolac Tromethamine (Toradol) 15 mg IVPUSH ONETIME ONE Stop: 08/07/19 17:14 Last Admin: 08/07/19 17:33 Dose: 15 mg Documented by: Lorazepam (Ativan) 1 mg IVPUSH ONETIME ONE Stop: 08/07/19 18:49 Last Admin: 08/07/19 19:52 Dose: 1 mg Documented by: Metoclopramide HCl (Reglan) 10 mg IVPUSH ONETIME ONE Stop: 08/07/19 18:17 Last Admin: 08/07/19 18:37 Dose: 10 mg Documented by: Morphine Sulfate (Morphine) 2 mg IVPUSH Q4H PRN PRN Reason: Pain (severe 7-10) Stop: 08/08/19 19:31 Last Admin: 08/07/19 19:54 Dose: 2 mg Documented by: Morphine Sulfate (Morphine) 2 mg IVPUSH Q4H PRN PRN Reason: Pain (severe 7-10) Last Admin: 08/08/19 09:18 Dose: 2 mg Documented by: Ondansetron HCl (Zofran) 4 mg IVPUSH ONETIME ONE Stop: 08/07/19 17:14 Last Admin: 08/07/19 17:35 Dose: Not Given Documented by: - Exam GI/Abdominal Exam: Normal Bowel Sounds, Soft, Non-Tender Sepsis Event Note - Evaluation Sepsis Screening Result: No Definite Risk - Focused Exam Vital Signs: Vital Signs Temp Pulse Resp BP Pulse Ox 08/08/19 12:00 99.4 F 74 18 116/65 96 08/08/19 08:00 98.6 F 78 18 120/85 97 Date Exam was Performed: 08/08/19 Time Exam was Performed: 16:19 - Problem List Review Problem List Initiated/Reviewed/Updated: Yes - My Orders Last 24 Hours: Active Orders 24 hr Category Date Time Status Admission Status [Patient Status] [ADT] Stat ADT 08/07/19 18:52 Active Ambulate [RC] ASDIRECTED Care 08/07/19 19:26 Active Antiembolic Devices [RC] PER UNIT ROUTINE Care 08/07/19 19:32 Active Notify Provider Consults [RC] ASDIRECTED Care 08/07/19 18:51 Active Oxygen Therapy [RC] PRN Care 08/07/19 19:28 Active Pulse Oximetry [RC] PRN Care 08/07/19 19:29 Active RT Aerosol Therapy [RC] ASDIRECTED Care 08/07/19 19:33 Active VTE/DVT Education [RC] DAILY Care 08/07/19 19:28 Active Vital Signs [RC] Q4H Care 08/07/19 19:28 Active Consult to Physician [CONS] Stat Cons 08/07/19 18:50 Active Nothing per Oral Now Diet [DIET] Diet 08/07/19 Dinner Active Acetaminophen [Tylenol Extra Strength] Med 08/08/19 13:31 Active 500 mg PO Q12H PRN Albuterol/Ipratropium [DuoNeb 3.0-0.5 MG/3 ML] Med 08/07/19 19:26 Active 3 ml NEB Q4HRRT PRN Heparin Sodium Med 08/07/19 19:30 Active 5,000 units SUBCUT Q8H Ketorolac [Toradol] Med 08/08/19 10:40 Active 15 mg IVPUSH Q6H PRN LORazepam [Ativan] Med 08/07/19 19:26 Active 0.5 mg IV Q6H PRN Lactated Ringers [Ringers, Lactated] 1,000 ml Med 08/08/19 12:00 Active IV ASDIRECTED Morphine Sulfate [Morphine] Med 08/08/19 10:33 Active 1 mg IVPUSH Q8HR PRN Ondansetron [Zofran] Med 08/07/19 19:26 Active 4 mg IVPUSH Q4H PRN Pantoprazole [ProTONIX IV] 40 mg Med 08/07/19 19:45 Active Sodium Chloride 0.9% [Normal Saline] 10 ml IV Q24H Sennosides [Senna] Med 08/08/19 10:45 Active 8.6 mg PO DAILY Sodium Chloride 0.9% [Normal Saline] Med 08/07/19 19:26 Active 10 ml IV ASDIRECTED PRN Sodium Chloride 0.9% [Saline Flush] Med 08/07/19 17:13 Active 10 ml FLUSH ASDIRECTED PRN Sodium Chloride 0.9% [Saline Flush] Med 08/07/19 19:26 Active 10 ml FLUSH ASDIRECTED PRN Sodium Chloride 0.9% [Saline Flush] Med 08/07/19 17:13 Active 2.5 ml FLUSH ASDIRECTED PRN Sodium Chloride 0.9% [Saline Flush] Med 08/07/19 19:26 Active 2.5 ml FLUSH ASDIRECTED PRN NG [Nasogastric Orogastric Tube Insertion] [OM.PC] Stat Ot 08/07/19 18:49 Ordered Peripheral IV Insertion Adult [OM.PC] Routine Ot 08/07/19 19:26 Ordered Saline Lock Insert [OM.PC] Stat Ot 08/07/19 17:13 Ordered Sequential Compression Device [OM.PC] Per Unit Routine Ot 08/07/19 19:30 Ordered Medication Orders Acetaminophen (Tylenol Extra Strength) 500 mg PO Q12H PRN PRN Reason: Headache Last Admin: 08/08/19 13:48 Dose: 500 mg Documented by: REYNA Albuterol/Ipratropium (Duoneb 3.0-0.5 Mg/3 Ml) 3 ml NEB Q4HRRT PRN PRN Reason: Shortness Of Breath/wheezing Heparin Sodium (Porcine) (Heparin Sodium) 5,000 units SUBCUT Q8H [facility] Last Admin: 08/08/19 12:08 Dose: 5,000 units Documented by: Admin: 08/08/19 04:26 Dose: 5,000 units Documented by: Admin: 08/07/19 21:56 Dose: 5,000 units Documented by: ORA Pantoprazole Sodium 40 mg/ (Sodium Chloride) 10 mls @ 300 mls/hr IV Q24H [facility] Last Admin: 08/07/19 21:36 Dose: 300 mls/hr Documented by: ORA Lactated Ringer's (Ringers, Lactated) 1,000 mls @ 125 mls/hr IV ASDIRECTED [facility] Last Admin: 08/08/19 11:58 Dose: 125 mls/hr Documented by: BRUNSAM Ketorolac Tromethamine (Toradol) 15 mg IVPUSH Q6H PRN PRN Reason: Pain Stop: 08/13/19 10:40 Last Admin: 08/08/19 13:38 Dose: 15 mg Documented by: REYNA Lorazepam (Ativan) 0.5 mg IV Q6H PRN PRN Reason: Nausea/Vomiting Last Admin: 08/08/19 16:01 Dose: 0.5 mg Documented by: Admin: 08/08/19 09:17 Dose: 0.5 mg Documented by: Admin: 08/08/19 01:58 Dose: 0.5 mg Documented by: ORA Morphine Sulfate (Morphine) 1 mg IVPUSH Q8HR PRN PRN Reason: Pain (severe 7-10) Last Admin: 08/08/19 16:03 Dose: 1 mg Documented by: REYNA Ondansetron HCl (Zofran) 4 mg IVPUSH Q4H PRN PRN Reason: Nausea/Vomiting Last Admin: 08/08/19 13:40 Dose: 4 mg Documented by: Admin: 08/08/19 09:18 Dose: 4 mg Documented by: Admin: 08/08/19 04:26 Dose: 4 mg Documented by: Admin: 08/08/19 00:06 Dose: 4 mg Documented by: Admin: 08/07/19 19:50 Dose: 4 mg Documented by: DOIRS [place] (Senna) 8.6 mg PO DAILY [facility]IN Last Admin: 08/08/19 11:08 Dose: 8.6 mg Documented by: REYNA Sodium Chloride (Saline Flush) 10 ml FLUSH ASDIRECTED PRN PRN Reason: Keep Vein Open Sodium Chloride (Saline Flush) 2.5 ml FLUSH ASDIRECTED PRN PRN Reason: Keep Vein Open Sodium Chloride (Saline Flush) 10 ml FLUSH ASDIRECTED PRN PRN Reason: Keep Vein Open Sodium Chloride (Saline Flush) 2.5 ml FLUSH ASDIRECTED PRN PRN Reason: Keep Vein Open Sodium Chloride (Normal Saline) 10 ml IV ASDIRECTED PRN PRN Reason: IV Use - Assessment Assessment (Free Text/Narrative):: pain much improved, would back off pain meds; probably start po clear liquid in the morning; pt remarked continue to pass gas; will follow pt w you - Plan Plan (Free Text/Narrative):: pain much improved, would back off pain meds; probably start po clear liquid in the morning; pt remarked continue to pass gas; will follow pt w you
[2019-08-08] MEDS ORDERED: Bisacodyl 10 MG Supp RECTAL ONE (16:30)
[2019-08-08] MEDS: Pantoprazole 40 MG in Sodium Chloride 0.9% 10 ML IV SCH (19:55)
[2019-08-08] MEDS ORDERED: Polyethylene Glycol 3350 Powder 17 GM Packet PO SCH (23:04)
[2019-08-09] MEDS: Morphine 2 MG/ML Syringe IVPUSH PRN ×2 (00:04→08:23)
[2019-08-09] MEDS: Heparin Sodium 5,000 Units/ML Vial SUBCUT SCH ×2 (03:44→12:55)
[2019-08-09] MEDS: LORazepam 2 MG/ML SDV IV PRN ×2 (04:46→11:11)
[2019-08-09] MEDS: Ondansetron 4 MG/2 ML SDV IVPUSH PRN (04:48)
[2019-08-09] MEDS: Lactated Ringers 1,000 ML IV SCH (05:19)
[2019-08-09 06:32] LABS: BLOOD UREA NITROGEN,BUN 6 mg/dL (7.0-18.0); CARBON DIOXIDE,CO2 25.1 mmol/L (21.0-32.0); CHLORIDE,CL 102 mmol/L (98-107); GLUCOSE RANDOM 96 mg/dL (74-106); POTASSIUM,K 3.4 mmol/L (3.5-5.1); SODIUM,NA 135 mmol/L (136-145)
[2019-08-09] MEDS: Sennosides 8.6 MG Tab PO SCH (08:24)
[2019-08-09] MEDS: Ketorolac 15 MG/ML SDV IVPUSH PRN (10:24)
--- NOTE | 2019-08-09 12:16 | PCM.SURGPN ---
- General Info Date of Service: 08/09/19 Functional Status: Reports: Pain Controlled (no pain, had a BM, well formed; katja po diet) - Review of Systems Gastrointestinal: Reports: No Symptoms - Patient Data Vitals - Most Recent: Last Vital Signs Temp 99.4 F 08/09/19 08:18 Pulse 62 08/09/19 08:18 Resp 18 08/09/19 04:00 BP 129/93 H 08/09/19 08:18 Pulse Ox 98 08/09/19 08:18 Weight - Most Recent: 140 lb I&O - Last 24 Hours: Intake & Output 08/08/19 08/09/19 08/09/19 22:59 06:59 14:59 Intake Total 706 Output Total 1100 0 Balance -394 0 Lab Results Last 24 Hrs: Laboratory Results - last 24 hr 08/09/19 08/09/19 Range/Units 05:55 05:55 WBC 3.40 L (4.0-11.0) K/uL RBC 4.00 L (4.30-5.90) M/uL Hgb 9.2 L (12.0-16.0) g/dL Hct 29.4 L (36.0-46.0) % MCV 73.5 L (80.0-98.0) fL MCH 23.0 L (27.0-32.0) pg MCHC 31.3 (31.0-37.0) g/dL RDW Std Deviation 50.6 (28.0-62.0) fl RDW Coeff of Mikala 19 H (11.0-15.0) % Plt Count 264 (150-400) K/uL MPV 9.60 (7.40-12.00) fL Neut % (Auto) 32.3 L (48.0-80.0) % Lymph % (Auto) 51.5 H (16.0-40.0) % [place] % (Auto) 13.2 (0.0-15.0) % Eos % (Auto) 2.4 (0.0-7.0) % Baso % (Auto) 0.6 (0.0-1.5) % Neut # (Auto) 1.1 L (1.4-5.7) K/uL Lymph # (Auto) 1.8 (0.6-2.4) K/uL [place] # (Auto) 0.5 (0.0-0.8) K/uL Eos # (Auto) 0.1 (0.0-0.7) K/uL Baso # (Auto) 0.0 (0.0-0.1) K/uL Nucleated RBC % 0.0 /100WBC Nucleated RBCs # 0 K/uL Sodium 135 L (136-145) mmol/L Potassium 3.4 L (3.5-5.1) mmol/L Chloride 102 (98-107) mmol/L Carbon Dioxide 25.1 (21.0-32.0) mmol/L BUN 6 L (7.0-18.0) mg/dL Creatinine 0.8 (0.6-1.0) mg/dL Est Cr Clr Drug Dosing 90.90 mL/min Estimated GFR (MDRD) > 60.0 ml/min Glucose 96 (74-106) mg/dL Calcium 8.3 L (8.5-10.1) mg/dL Med Orders - Current: Current Medications Acetaminophen (Tylenol Extra Strength) 500 mg PO Q12H PRN PRN Reason: Headache Last Admin: 08/08/19 13:48 Dose: 500 mg Documented by: Albuterol/Ipratropium (Duoneb 3.0-0.5 Mg/3 Ml) 3 ml NEB Q4HRRT PRN PRN Reason: Shortness Of Breath/wheezing Heparin Sodium (Porcine) (Heparin Sodium) 5,000 units SUBCUT Q8H [facility] Last Admin: 08/09/19 03:44 Dose: 5,000 units Documented by: Pantoprazole Sodium 40 mg/ (Sodium Chloride) 10 mls @ 300 mls/hr IV Q24H [facility] Last Admin: 08/08/19 19:55 Dose: Not Given Documented by: Lactated Ringer's (Ringers, Lactated) 1,000 mls @ 125 mls/hr IV ASDIRECTED [facility] Last Admin: 08/09/19 05:19 Dose: 125 mls/hr Documented by: Ketorolac Tromethamine (Toradol) 15 mg IVPUSH Q6H PRN PRN Reason: Pain Stop: 08/13/19 10:40 Last Admin: 08/09/19 10:24 Dose: 15 mg Documented by: Lorazepam (Ativan) 0.5 mg IV Q6H PRN PRN Reason: Nausea/Vomiting Last Admin: 08/09/19 11:11 Dose: 0.5 mg Documented by: Morphine Sulfate (Morphine) 1 mg IVPUSH Q8HR PRN PRN Reason: Pain (severe 7-10) Last Admin: 08/09/19 08:23 Dose: 1 mg Documented by: Ondansetron HCl (Zofran) 4 mg IVPUSH Q4H PRN PRN Reason: Nausea/Vomiting Last Admin: 08/09/19 04:48 Dose: 4 mg Documented by: Polyethylene Glycol (Miralax) 17 gm PO BEDTIME [facility] Last Admin: 08/09/19 00:03 Dose: 17 gm Documented by: Senna (Senna) 8.6 mg PO DAILY [facility] Last Admin: 08/09/19 08:24 Dose: 8.6 mg Documented by: Sodium Chloride (Saline Flush) 10 ml FLUSH ASDIRECTED PRN PRN Reason: Keep Vein Open Sodium Chloride (Saline Flush) 2.5 ml FLUSH ASDIRECTED PRN PRN Reason: Keep Vein Open Sodium Chloride (Saline Flush) 10 ml FLUSH ASDIRECTED PRN PRN Reason: Keep Vein Open Sodium Chloride (Saline Flush) 2.5 ml FLUSH ASDIRECTED PRN PRN Reason: Keep Vein Open Sodium Chloride (Normal Saline) 10 ml IV ASDIRECTED PRN PRN Reason: IV Use Discontinued Medications Bisacodyl (Dulcolax) 10 mg RECTAL ONETIME ONE Stop: 08/08/19 16:31 Last Admin: 08/08/19 17:50 Dose: 10 mg Documented by: Dicyclomine HCl (Bentyl) 10 mg PO ONETIME ONE Stop: 08/07/19 18:17 Last Admin: 08/07/19 18:42 Dose: Not Given Documented by: Famotidine (Pepcid) 20 mg IVPUSH ONETIME ONE Stop: 08/07/19 17:14 Last Admin: 08/07/19 17:32 Dose: 20 mg Documented by: Fentanyl (Fentanyl) 50 mcg IVPUSH ONETIME ONE Stop: 08/07/19 18:32 Last Admin: 08/07/19 18:37 Dose: 50 mcg Documented by: Lactated Ringer's (Ringers, Lactated) 1,000 mls @ 125 mls/hr IV ASDIRECTED [facility] Potassium Chloride/Dextrose/Sod Cl (D5 Ns With 20 Meq Kcl) 1,000 mls @ 75 mls/hr IV ASDIRECTED [facility] Potassium Chloride/Sodium Chloride (Normal Saline With 20 Meq Kcl) 1,000 mls @ 75 mls/hr IV ASDIRECTED [facility] Stop: 08/08/19 10:49 Last Admin: 08/07/19 22:15 Dose: 75 mls/hr Documented by: Potassium Chloride 40 meq/ (Premix) 100 mls @ 25 mls/hr IV ONETIME ONE Stop: 08/08/19 15:59 Last Admin: 08/08/19 11:59 Dose: 25 mls/hr Documented by: Pantoprazole Sodium 40 mg/ (Sodium Chloride) 10 mls @ 300 mls/hr IV NOW ONE Stop: 08/08/19 13:21 Last Admin: 08/08/19 16:00 Dose: 300 mls/hr Documented by: Ketorolac Tromethamine (Toradol) 15 mg IVPUSH ONETIME ONE Stop: 08/07/19 17:14 Last Admin: 08/07/19 17:33 Dose: 15 mg Documented by: Lorazepam (Ativan) 1 mg IVPUSH ONETIME ONE Stop: 08/07/19 18:49 Last Admin: 08/07/19 19:52 Dose: 1 mg Documented by: Metoclopramide HCl (Reglan) 10 mg IVPUSH ONETIME ONE Stop: 08/07/19 18:17 Last Admin: 08/07/19 18:37 Dose: 10 mg Documented by: Morphine Sulfate (Morphine) 2 mg IVPUSH Q4H PRN PRN Reason: Pain (severe 7-10) Stop: 08/08/19 19:31 Last Admin: 08/07/19 19:54 Dose: 2 mg Documented by: Morphine Sulfate (Morphine) 2 mg IVPUSH Q4H PRN PRN Reason: Pain (severe 7-10) Last Admin: 08/08/19 09:18 Dose: 2 mg Documented by: Ondansetron HCl (Zofran) 4 mg IVPUSH ONETIME ONE Stop: 08/07/19 17:14 Last Admin: 08/07/19 17:35 Dose: Not Given Documented by: - Exam GI/Abdominal Exam: Normal Bowel Sounds, Soft, Non-Tender Sepsis Event Note - Evaluation Sepsis Screening Result: No Definite Risk - Focused Exam Vital Signs: Vital Signs Temp Pulse Resp BP Pulse Ox 08/09/19 08:18 99.4 F 62 129/93 H 98 08/09/19 04:00 98.6 F 67 18 148/90 H 99 Date Exam was Performed: 08/09/19 Time Exam was Performed: 12:11 - Problem List Review Problem List Initiated/Reviewed/Updated: Yes - My Orders Last 24 Hours: Active Orders 24 hr Category Date Time Status Acetaminophen [Tylenol Extra Strength] Med 08/08/19 13:31 Active 500 mg PO Q12H PRN Lactated Ringers [Ringers, Lactated] 1,000 ml Med 08/08/19 12:00 Active IV ASDIRECTED polyethylene glycoL 3350 [MiraLAX] Med 08/08/19 23:04 Active 17 gm PO BEDTIME Medication Orders Acetaminophen (Tylenol Extra Strength) 500 mg PO Q12H PRN PRN Reason: Headache Last Admin: 08/08/19 13:48 Dose: 500 mg Documented by: REYNA Albuterol/Ipratropium (Duoneb 3.0-0.5 Mg/3 Ml) 3 ml NEB Q4HRRT PRN PRN Reason: Shortness Of Breath/wheezing Heparin Sodium (Porcine) (Heparin Sodium) 5,000 units SUBCUT Q8H [facility] Last Admin: 08/09/19 03:44 Dose: 5,000 units Documented by: Admin: 08/08/19 18:31 Dose: 5,000 units Documented by: Admin: 08/08/19 12:08 Dose: 5,000 units Documented by: Admin: 08/08/19 04:26 Dose: 5,000 units Documented by: Admin: 08/07/19 21:56 Dose: 5,000 units Documented by: ORA Pantoprazole Sodium 40 mg/ (Sodium Chloride) 10 mls @ 300 mls/hr IV Q24H [facility] Last Admin: 08/08/19 19:55 Dose: Not Given Documented by: Admin: 08/07/19 21:36 Dose: 300 mls/hr Documented by: ORA Lactated Ringer's (Ringers, Lactated) 1,000 mls @ 125 mls/hr IV ASDIRECTED [facility] Last Admin: 08/09/19 05:19 Dose: 125 mls/hr Documented by: Infusion: 08/09/19 04:31 Dose: 125 mls/hr Documented by: Admin: 08/08/19 20:31 Dose: 125 mls/hr Documented by: Infusion: 08/08/19 19:58 Dose: 125 mls/hr Documented by: Admin: 08/08/19 11:58 Dose: 125 mls/hr Documented by: REYNA Ketorolac Tromethamine (Toradol) 15 mg IVPUSH Q6H PRN PRN Reason: Pain Stop: 08/13/19 10:40 Last Admin: 08/09/19 10:24 Dose: 15 mg Documented by: Admin: 08/08/19 20:29 Dose: 15 mg Documented by: Admin: 08/08/19 13:38 Dose: 15 mg Documented by: REYNA Lorazepam (Ativan) 0.5 mg IV Q6H PRN PRN Reason: Nausea/Vomiting Last Admin: 08/09/19 11:11 Dose: 0.5 mg Documented by: Admin: 08/09/19 04:46 Dose: 0.5 mg Documented by: Admin: 08/08/19 22:10 Dose: 0.5 mg Documented by: Admin: 08/08/19 16:01 Dose: 0.5 mg Documented by: Admin: 08/08/19 09:17 Dose: 0.5 mg Documented by: Admin: 08/08/19 01:58 Dose: 0.5 mg Documented by: ORA Morphine Sulfate (Morphine) 1 mg IVPUSH Q8HR PRN PRN Reason: Pain (severe 7-10) Last Admin: 08/09/19 08:23 Dose: 1 mg Documented by: Admin: 08/09/19 00:04 Dose: 1 mg Documented by: Admin: 08/08/19 16:03 Dose: 1 mg Documented by: REYNA Ondansetron HCl (Zofran) 4 mg IVPUSH Q4H PRN PRN Reason: Nausea/Vomiting Last Admin: 08/09/19 04:48 Dose: 4 mg Documented by: Admin: 06/20/20 20:31 Dose: 4 mg Documented by: Admin: 08/08/19 13:40 Dose: 4 mg Documented by: Admin: 08/08/19 09:18 Dose: 4 mg Documented by: Admin: 08/08/19 04:26 Dose: 4 mg Documented by: Admin: 08/08/19 00:06 Dose: 4 mg Documented by: Admin: 08/07/19 19:50 Dose: 4 mg Documented by: DORIS Polyethylene Glycol (Miralax) 17 gm PO BEDTIME [facility] Last Admin: 08/09/19 00:03 Dose: 17 gm Documented by: KOURTNEY Fajardo (Senna) 8.6 mg PO DAILY [facility] Last Admin: 08/09/19 08:24 Dose: 8.6 mg Documented by: Admin: 08/08/19 11:08 Dose: 8.6 mg Documented by: REYNA Sodium Chloride (Saline Flush) 10 ml FLUSH ASDIRECTED PRN PRN Reason: Keep Vein Open Sodium Chloride (Saline Flush) 2.5 ml FLUSH ASDIRECTED PRN PRN Reason: Keep Vein Open Sodium Chloride (Saline Flush) 10 ml FLUSH ASDIRECTED PRN PRN Reason: Keep Vein Open Sodium Chloride (Saline Flush) 2.5 ml FLUSH ASDIRECTED PRN PRN Reason: Keep Vein Open Sodium Chloride (Normal Saline) 10 ml IV ASDIRECTED PRN PRN Reason: IV Use - Assessment Assessment (Free Text/Narrative):: resolved sbo; feed, home; keep scheduled gastricbypass surgeon appointment - Plan Plan (Free Text/Narrative):: resolved sbo; feed, home; keep scheduled gastricbypass surgeon appointment
--- NOTE | 2019-08-09 12:39 | PCM.DCSUM1 ---
Discharge Summary - Discharge Data Discharge Date: 08/09/19 Discharge Disposition: Home, Self-Care 01 Condition: Stable - Referral to Home Health Primary Care Physician: PCP Not In Area - Discharge Diagnosis/Problem(s) (1) Abdominal pain SNOMED Code(s): 05983829 ICD Code: R10.9 - UNSPECIFIED ABDOMINAL PAIN Status: Acute Current Visit: No Qualifiers: Abdominal location: generalized Qualified Code(s): R10.84 - Generalized abdominal pain (2) Chronic abdominal pain SNOMED Code(s): 579511951 ICD Code: R10.9 - UNSPECIFIED ABDOMINAL PAIN; G89.29 - OTHER CHRONIC PAIN Status: Acute Current Visit: No (3) Constipation SNOMED Code(s): 30212124 ICD Code: K59.00 - CONSTIPATION, UNSPECIFIED Status: Acute Current Visit: No Qualifiers: Constipation type: unspecified constipation type Qualified Code(s): K59.00 - Constipation, unspecified (4) Dehydration SNOMED Code(s): 13639767 ICD Code: E86.0 - DEHYDRATION Status: Acute Current Visit: No (5) Hypertension SNOMED Code(s): 54272527 ICD Code: I10 - ESSENTIAL (PRIMARY) HYPERTENSION Status: Acute Current Visit: No Qualifiers: Hypertension type: unspecified Qualified Code(s): I10 - Essential (primary) hypertension (6) Hypokalemia SNOMED Code(s): 59808335 ICD Code: E87.6 - HYPOKALEMIA Status: Acute Current Visit: No (7) Vomiting SNOMED Code(s): 601206741 ICD Code: R11.10 - VOMITING, UNSPECIFIED Status: Acute Current Visit: No Qualifiers: Vomiting type: unspecified Vomiting Intractability: unspecified Nausea presence: with nausea Qualified Code(s): R11.2 - Nausea with vomiting, unspecified (8) Anxiety SNOMED Code(s): 48676419 ICD Code: F41.9 - ANXIETY DISORDER, UNSPECIFIED Status: Chronic Current Visit: No - Patient Summary/Data Consults: Consultations 08/07/19 18:50 Consult to Physician [CONS] Stat - Patient Instructions Diet: Regular Diet as Tolerated Activity: As Tolerated Driving: May Drive Today Showering/Bathing: May Shower Notify Provider of: Fever, Increased Pain, Swelling and Redness, Drainage, Nausea and/or Vomiting - Discharge Plan *PRESCRIPTION DRUG MONITORING PROGRAM REVIEWED*: No *COPY OF PRESCRIPTION DRUG MONITORING REPORT IN PATIENT BERNABE: No Prescriptions/Med Rec: polyethylene glycoL 3350 [MiraLAX] 17 gm PO BEDTIME #30 packet Pantoprazole [ProTONIX] 40 mg PO ACBREAKFAST 14 Days #14 tab.cr Sennosides [Senna] 8.6 mg PO DAILY #30 tablet Acetaminophen [Tylenol Extra Strength] 500 mg PO Q12H PRN #30 tablet PRN Reason: Headache Home Medications: Home Meds diazePAM [Valium] 2 mg PO BID 10/22/18 [History] Dicyclomine [Bentyl] 10 mg PO QID PRN 11/03/18 [History] LORazepam 1 mg PO Q12H PRN 11/03/18 [History] Multivitamin [Multi-Vitamin Daily] 1 tab PO DAILY 11/03/18 [History] traMADol HCl [Tramadol HCl] 50 mg PO Q6H PRN 11/03/18 [History] Ondansetron [Zofran ODT] 4 mg PO Q8HR PRN 02/19/19 [History] carisoprodoL [Soma] 350 mg PO DAILY 06/15/19 [History] Amylase/Lipase/Protease [Pancreaze DR 4,200 Unit] 4,200 unit PO QID 08/07/19 [History] GI Cocktail 15 ml PO DAILY PRN 08/07/19 [History] Acetaminophen [Tylenol Extra Strength] 500 mg PO Q12H PRN #30 tablet 08/09/19 [Rx] Pantoprazole [ProTONIX] 40 mg PO ACBREAKFAST 14 Days #14 tab.cr 08/09/19 [Rx] Sennosides [Senna] 8.6 mg PO DAILY #30 tablet 08/09/19 [Rx] polyethylene glycoL 3350 [MiraLAX] 17 gm PO BEDTIME #30 packet 08/09/19 [Rx] Referrals: PCP,Not In Area [Primary Care Provider] - - Patient Data Vitals - Most Recent: Last Vital Signs Temp 37.4 C 08/09/19 08:18 Pulse 62 08/09/19 08:18 Resp 18 08/09/19 04:00 BP 129/93 H 08/09/19 08:18 Pulse Ox 98 06/21/20 08:18 Weight - Most Recent: 63.503 kg I&O - Last 24 hours: Intake & Output 08/08/19 08/09/19 08/09/19 22:59 06:59 14:59 Intake Total 706 Output Total 1100 0 Balance -394 0 Lab Results - Last 24 hrs: Laboratory Results - last 24 hr 08/09/19 08/09/19 Range/Units 05:55 05:55 WBC 3.40 L (4.0-11.0) K/uL RBC 4.00 L (4.30-5.90) M/uL Hgb 9.2 L (12.0-16.0) g/dL Hct 29.4 L (36.0-46.0) % MCV 73.5 L (80.0-98.0) fL MCH 23.0 L (27.0-32.0) pg MCHC 31.3 (31.0-37.0) g/dL RDW Std Deviation 50.6 (28.0-62.0) fl RDW Coeff of Mikala 19 H (11.0-15.0) % Plt Count 264 (150-400) K/uL MPV 9.60 (7.40-12.00) fL Neut % (Auto) 32.3 L (48.0-80.0) % Lymph % (Auto) 51.5 H (16.0-40.0) % [place] % (Auto) 13.2 (0.0-15.0) % Eos % (Auto) 2.4 (0.0-7.0) % Baso % (Auto) 0.6 (0.0-1.5) % Neut # (Auto) 1.1 L (1.4-5.7) K/uL Lymph # (Auto) 1.8 (0.6-2.4) K/uL [place] # (Auto) 0.5 (0.0-0.8) K/uL Eos # (Auto) 0.1 (0.0-0.7) K/uL Baso # (Auto) 0.0 (0.0-0.1) K/uL Nucleated RBC % 0.0 /100WBC Nucleated RBCs # 0 K/uL Sodium 135 L (136-145) mmol/L Potassium 3.4 L (3.5-5.1) mmol/L Chloride 102 (98-107) mmol/L Carbon Dioxide 25.1 (21.0-32.0) mmol/L BUN 6 L (7.0-18.0) mg/dL Creatinine 0.8 (0.6-1.0) mg/dL Est Cr Clr Drug Dosing 90.90 mL/min Estimated GFR (MDRD) > 60.0 ml/min Glucose 96 (74-106) mg/dL Calcium 8.3 L (8.5-10.1) mg/dL Med Orders - Current: Current Medications Acetaminophen (Tylenol Extra Strength) 500 mg PO Q12H PRN PRN Reason: Headache Last Admin: 08/08/19 13:48 Dose: 500 mg Documented by: Albuterol/Ipratropium (Duoneb 3.0-0.5 Mg/3 Ml) 3 ml NEB Q4HRRT PRN PRN Reason: Shortness Of Breath/wheezing Heparin Sodium (Porcine) (Heparin Sodium) 5,000 units SUBCUT Q8H ON LICENSE OF [facility] Last Admin: 08/09/19 03:44 Dose: 5,000 units Documented by: Pantoprazole Sodium 40 mg/ (Sodium Chloride) 10 mls @ 300 mls/hr IV Q24H ON LICENSE OF [facility] Last Admin: 08/08/19 19:55 Dose: Not Given Documented by: Lactated Ringer's (Ringers, Lactated) 1,000 mls @ 125 mls/hr IV ASDIRECTED ON LICENSE OF [facility] Last Admin: 08/09/19 05:19 Dose: 125 mls/hr Documented by: Ketorolac Tromethamine (Toradol) 15 mg IVPUSH Q6H PRN PRN Reason: Pain Stop: 08/13/19 10:40 Last Admin: 08/09/19 10:24 Dose: 15 mg Documented by: Lorazepam (Ativan) 0.5 mg IV Q6H PRN PRN Reason: Nausea/Vomiting Last Admin: 08/09/19 11:11 Dose: 0.5 mg Documented by: Morphine Sulfate (Morphine) 1 mg IVPUSH Q8HR PRN PRN Reason: Pain (severe 7-10) Last Admin: 08/09/19 08:23 Dose: 1 mg Documented by: Ondansetron HCl (Zofran) 4 mg IVPUSH Q4H PRN PRN Reason: Nausea/Vomiting Last Admin: 08/09/19 04:48 Dose: 4 mg Documented by: Polyethylene Glycol (Miralax) 17 gm PO BEDTIME ON LICENSE OF [facility] Last Admin: 08/09/19 00:03 Dose: 17 gm Documented by: Senna (Senna) 8.6 mg PO DAILY ON LICENSE OF [facility] Last Admin: 08/09/19 08:24 Dose: 8.6 mg Documented by: Sodium Chloride (Saline Flush) 10 ml FLUSH ASDIRECTED PRN PRN Reason: Keep Vein Open Sodium Chloride (Saline Flush) 2.5 ml FLUSH ASDIRECTED PRN PRN Reason: Keep Vein Open Sodium Chloride (Saline Flush) 10 ml FLUSH ASDIRECTED PRN PRN Reason: Keep Vein Open Sodium Chloride (Saline Flush) 2.5 ml FLUSH ASDIRECTED PRN PRN Reason: Keep Vein Open Sodium Chloride (Normal Saline) 10 ml IV ASDIRECTED PRN PRN Reason: IV Use Discontinued Medications Bisacodyl (Dulcolax) 10 mg RECTAL ONETIME ONE Stop: 08/08/19 16:31 Last Admin: 08/08/19 17:50 Dose: 10 mg Documented by: Dicyclomine HCl (Bentyl) 10 mg PO ONETIME ONE Stop: 08/07/19 18:17 Last Admin: 08/07/19 18:42 Dose: Not Given Documented by: Famotidine (Pepcid) 20 mg IVPUSH ONETIME ONE Stop: 08/07/19 17:14 Last Admin: 08/07/19 17:32 Dose: 20 mg Documented by: Fentanyl (Fentanyl) 50 mcg IVPUSH ONETIME ONE Stop: 08/07/19 18:32 Last Admin: 08/07/19 18:37 Dose: 50 mcg Documented by: Lactated Ringer's (Ringers, Lactated) 1,000 mls @ 125 mls/hr IV ASDIRECTED [facility] Potassium Chloride/Dextrose/Sod Cl (D5 Ns With 20 Meq Kcl) 1,000 mls @ 75 mls/hr IV ASDIRECTED [facility] Potassium Chloride/Sodium Chloride (Normal Saline With 20 Meq Kcl) 1,000 mls @ 75 mls/hr IV ASDIRECTED [facility] Stop: 08/08/19 10:49 Last Admin: 08/07/19 22:15 Dose: 75 mls/hr Documented by: Potassium Chloride 40 meq/ (Premix) 100 mls @ 25 mls/hr IV ONETIME ONE Stop: 08/08/19 15:59 Last Admin: 08/08/19 11:59 Dose: 25 mls/hr Documented by: Pantoprazole Sodium 40 mg/ (Sodium Chloride) 10 mls @ 300 mls/hr IV NOW ONE Stop: 08/08/19 13:21 Last Admin: 08/08/19 16:00 Dose: 300 mls/hr Documented by: Ketorolac Tromethamine (Toradol) 15 mg IVPUSH ONETIME ONE Stop: 08/07/19 17:14 Last Admin: 08/07/19 17:33 Dose: 15 mg Documented by: Lorazepam (Ativan) 1 mg IVPUSH ONETIME ONE Stop: 08/07/19 18:49 Last Admin: 08/07/19 19:52 Dose: 1 mg Documented by: Metoclopramide HCl (Reglan) 10 mg IVPUSH ONETIME ONE Stop: 08/07/19 18:17 Last Admin: 08/07/19 18:37 Dose: 10 mg Documented by: Morphine Sulfate (Morphine) 2 mg IVPUSH Q4H PRN PRN Reason: Pain (severe 7-10) Stop: 08/08/19 19:31 Last Admin: 08/07/19 19:54 Dose: 2 mg Documented by: Morphine Sulfate (Morphine) 2 mg IVPUSH Q4H PRN PRN Reason: Pain (severe 7-10) Last Admin: 08/08/19 09:18 Dose: 2 mg Documented by: Ondansetron HCl (Zofran) 4 mg IVPUSH ONETIME ONE Stop: 08/07/19 17:14 Last Admin: 08/07/19 17:35 Dose: Not Given Documented by:
== END 2019-08-09 13:30 | disposition home or self-care (01) ==
LOC: MW.ED 17:00 → MW.MS 18:52
PROVIDERS: ADMIT Student in an Organized Health Care Education/Training Program; ATTEND Student in an Organized Health Care Education/Training Program
DX: K56.609 Unspecified intestinal obstruction, unspecified as to partial versus complete obstruction (principal); G89.29 Other chronic pain; R10.84 Generalized abdominal pain; F41.9 Anxiety disorder, unspecified; I10 Essential (primary) hypertension; K21.9 Gastro-esophageal reflux disease without esophagitis; F17.210 Nicotine dependence, cigarettes, uncomplicated; K59.00 Constipation, unspecified; E86.0 Dehydration; E87.6 Hypokalemia; Z88.0 Allergy status to penicillin; Z88.8 Allergy status to other drugs, medicaments and biological substances; Z79.899 Other long term (current) drug therapy; Z88.1 Allergy status to other antibiotic agents
CPT/HCPCS: 36415; 43752; 74022; 80048; 80053; 81001; 82728; 83550; 83605; 83690; 83735; 84100; 85025; 96361; 96372; 96374; 96375; 96376; 99285; A9270; C9113; G0378; J1644; J1885; J2060; J2270; J2405; J2765; J3010; J3480; J7050; J7120; S0028; 99284; J3490

== ENCOUNTER 2019-09-05 12:13 | Emergency (ER) | payer BC, MEDICAID ==
[2019-09-05] MEDS ORDERED: Diphtheria,Pertussis(Acell),Tetanus Vaccine 0.5 ML Syringe IM ONE (12:42)
[2019-09-05] MEDS ORDERED: Octyl 2-Cyanoacrylate 1 APPLIC TUBE TOP ONE (13:51)
[2019-09-05] MEDS ORDERED: Acetaminophen/HYDROcodone 325-5 MG Tab PO ONE (13:51)
--- NOTE | 2019-09-05 14:52 | EDM.PDOC ---
ED HPI GENERAL MEDICAL PROBLEM - General Chief Complaint: Upper Extremity Injury/Pain Stated Complaint: CUT FINGER Time Seen by Provider: 09/05/19 12:43 - History of Present Illness INITIAL COMMENTS - FREE TEXT/NARRATIVE: History of present illness: 39-year-old female presenting with left thumb tip laceration/partial amputation. Apparently she was slicing onions when she cut her finger earlier today. It has continued to bleed since the injury. She is very concerned because it is throbbing and she is hurting and she has been dealing with other chronic medical conditions. Review of systems: As per history of present illness and below otherwise all systems reviewed and negative. Past medical history: As per history of present illness and as reviewed below otherwise noncontributory. Surgical history: As per history of present illness and as reviewed below otherwise noncontributory. Social history: No reported history of drug or alcohol abuse. Family history: As per history of present illness and as reviewed below otherwise noncontributory. Physical exam: GEN: no acute distress, well appearing HEENT: Atraumatic, normocephalic, mucous membranes moist, Neck: supple, nontender, trachea midline. Lungs: No respiratory distress. Heart: RRR Extremities: Left thumb distal tip amputation without bony involvement, tender to palpation. Actively bleeding. Wound appears clean. Neurovascularly intact. Full range of motion of the left thumb Neuro: Awake, alert, oriented. Neuro Exam nonfocal. Skin: warm, dry, finger tip amputation/laceration as above. Diagnostics: [] Therapeutics: [place], Dermabond MDM: Impression: [] Plan: [] Definitive disposition and diagnosis as appropriate pending reevaluation and review of above. Left Finger-Thumb Pain Score (Numeric/FACES): 9 - Related Data Allergies Allergy/AdvReac Type Severity Reaction Status Date / Time adhesive tape Allergy Hives Verified 08/07/19 22:21 aloe vera Allergy Rash Verified 08/07/19 22:21 amoxicillin [From Augmentin] Allergy Rash Verified 08/07/19 22:21 ciprofloxacin [From Cipro] Allergy Anaphylactic Verified 08/07/19 22:21 Shock clarithromycin [From Biaxin] Allergy Hives Verified 08/07/19 22:21 clavulanic acid Allergy Rash Verified 08/07/19 22:21 [From Augmentin] cyclobenzaprine Allergy Seizure Verified 08/07/19 22:21 [From Flexeril] Home Meds: Home Meds diazePAM [Valium] 2 mg PO BID 10/22/18 [History] Dicyclomine [Bentyl] 10 mg PO QID PRN 11/03/18 [History] LORazepam 1 mg PO Q12H PRN 11/03/18 [History] Multivitamin [Multi-Vitamin Daily] 1 tab PO DAILY 11/03/18 [History] traMADol HCl [Tramadol HCl] 50 mg PO Q6H PRN 11/03/18 [History] Ondansetron [Zofran ODT] 4 mg PO Q8HR PRN 02/19/19 [History] carisoprodoL [Soma] 350 mg PO DAILY 06/15/19 [History] Amylase/Lipase/Protease [Pancreaze DR 4,200 Unit] 4,200 unit PO QID 08/07/19 [History] GI Cocktail 15 ml PO DAILY PRN 08/07/19 [History] Acetaminophen [Tylenol Extra Strength] 500 mg PO Q12H PRN #30 tablet 08/09/19 [Rx] Pantoprazole [ProTONIX] 40 mg PO ACBREAKFAST 14 Days #14 tab.cr 08/09/19 [Rx] Past Medical History HEENT History: Reports: Other (See Below) Other HEENT History: wears glasses Cardiovascular History: Reports: Blood Clots/VTE/DVT, Hypertension Other Cardiovascular History: 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, does not take anticoagulants Respiratory History: Reports: None Gastrointestinal History: Reports: Chronic Constipation, Chronic Diarrhea, GERD Genitourinary History: Reports: Renal Calculus Other Genitourinary History: has passed a kidney stone 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 [employer] 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: Reports: None Musculoskeletal History: Reports: Fracture Other Musculoskeletal History: hx of fx fingers and toes Neurological History: Reports: None Psychiatric History: Reports: Anxiety, PTSD Endocrine/Metabolic History: Reports: None Hematologic History: Reports: None Immunologic History: Reports: None Oncologic (Cancer) History: Reports: None Dermatologic History: Reports: None - Infectious Disease History Infectious Disease History: Reports: Chicken Pox, MRSA - Past Surgical History Head Surgeries/Procedures: Reports: None HEENT Surgical History: Reports: Adenoidectomy, Naso-Sinus Surgery, Tonsillectomy Cardiovascular Surgical History: Reports: None Respiratory Surgical History: Reports: None GI Surgical History: Reports: Bariatric Procedure, Cholecystectomy, Colon Other GI Surgeries/Procedures: repair of Intussusception following Sandra-En-Y gastric bypass, surgery to remove hematoma following Cholestectomy Female Surgical History: Reports: Breast Implant, Breast Reduction, Hysterectomy Other Female Surgeries/Procedures: bladder stents Endocrine Surgical History: Reports: None Neurological Surgical History: Reports: None Musculoskeletal Surgical History: Reports: Other (See Below) Other Musculoskeletal Surgeries/Procedures:: 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, developed MRSA and was treated with medical maggots, states MRSA has been "cleared" and tested negative with nasal swabs x3 Oncologic Surgical History: Reports: None Dermatological Surgical History: Reports: None Social & Family History - Family History Family Medical History: Noncontributory - Tobacco Use Smoking Status *Q: Current Every Day Smoker Years of Tobacco use: 15 Packs/Tins Daily: 0.5 - Caffeine Use Caffeine Use: Reports: None - Recreational Drug Use Recreational Drug Use: No Review of Systems - Review of Systems Review Of Systems: See Below (See HPI) ED EXAM, GENERAL - Physical Exam Exam: See Below (See HPI) ED TRAUMA EXTREMITY PROCEDURES - Laceration/Wound Repair Left Digit - 1st (Thumb) Lac/Wound Length In cm: 1 Appearance: Superficial, Clean Distal NVT: Neuro & Vascular Intact Skin Prep: Providone-Iodine (Betadine) Exploration/Debridement/Repair: Wound Explored, Explored to Base, No Foreign Material Found, Other (No bone visible, no bony loss) Closed With: Dermabond (Applied by nurse) Course - Vital Signs Text/Narrative:: Very distal fingertip amputation without bone involvement. No skin available to closed with stitches, therefore Dermabond applied to tip of finger with bleeding cessation. Patient tolerated well. Last Recorded V/S: Last Vital Signs Temp 97.5 F 09/05/19 12:42 Pulse 86 09/05/19 15:00 Resp 18 09/05/19 15:00 BP 120/74 09/05/19 15:00 Pulse Ox 98 09/05/19 15:00 - Orders/Labs/Meds Meds: Medications Discontinued Medications Generic Name Dose Route Start Last Admin Trade Name Freq PRN Reason Stop Dose Admin Hydrocodone Bitart/Acetaminophen 1 tab 09/05/19 13:51 09/05/19 13:59 [place] 325-5 Mg PO 09/05/19 13:52 1 tab ONETIME ONE Administration Diphtheria/Tetanus/Acell Pertussis 0.5 ml 09/05/19 12:42 09/05/19 13:02 Adacel IM 09/05/19 12:43 0.5 ml .ONCE ONE Administration Octyl Cyanoacrylate 1 applic 09/05/19 13:51 09/05/19 13:59 [place]erm[place] Mini TOP 09/05/19 13:52 1 applic ONETIME ONE Administration - Re-Assessments/Exams Free Text/Narrative Re-Assessment/Exam: 09/05/19 14:49 Patient is feeling much better. Her pain is much improved. She tolerated Dermabond application well. No further bleeding from the site. The patient is requesting we place a dressing as she is very concerned that she may bump the finger and cause the Dermabond to be pulled off. I discussed with the patient that we do not usually place dressing over Dermabond to allow time for it to fully dry, however it does appear dry and the patient is insistent. Nonadherent dressing will be placed. Departure - Departure Time of Disposition: 14:50 Disposition: Home, Self-Care 01 Clinical Impression: Fingertip amputation Qualifiers: Encounter type: initial encounter Qualified Code(s): S68.119A - Complete traumatic metacarpophalangeal amputation of unspecified finger, initial encounter Finger laceration Qualifiers: Encounter type: initial encounter Finger: thumb Damage to nail status: without damage Foreign body presence: without foreign body Laterality: left Qualified Code(s): S61.012A - Laceration without foreign body of left thumb without damage to nail, initial encounter - Discharge Information Instructions: Traumatic Finger Amputation, Wound Care, Adult, Laceration Care, Adult, [id number], Sutures, Mike, or Adhesive Wound Closure, [id number] Referrals: Abelardo Aguila MD [Primary Care Provider] - Forms: ED Department Discharge Additional Instructions: The following information is given to patients seen in the emergency department who are being discharged to home. This information is to outline your options for follow-up care. We provide all patients seen in our emergency department with a follow-up referral. The need for follow-up, as well as the timing and circumstances, are variable depending upon the specifics of your emergency department visit. If you don't have a primary care physician on staff, we will provide you with a referral. We always advise you to contact your personal physician following an emergency department visit to inform them of the circumstance of the visit and for follow-up with them and/or the need for any referrals to a consulting specialist. The emergency department will also refer you to a specialist when appropriate. This referral assures that you have the opportunity for follow-up care with a specialist. All of these measure are taken in an effort to provide you with optimal care, which includes your follow-up. Under all circumstances we always encourage you to contact your private physician who remains a resource for coordinating your care. When calling for follow-up care, please make the office aware that this follow-up is from your recent emergency room visit. If for any reason you are refused follow-up, please contact the [facility] Emergency Department at and asked to speak to the emergency department charge nurse. Sepsis Event Note (ED) - Evaluation Sepsis Screening Result: No Definite Risk
== END 2019-09-05 15:10 | disposition home or self-care (01) ==
LOC: MW.ED 12:13
DX: S68.522A Partial traumatic transphalangeal amputation of left thumb, initial encounter (principal); I10 Essential (primary) hypertension; K21.9 Gastro-esophageal reflux disease without esophagitis; F41.9 Anxiety disorder, unspecified; F17.210 Nicotine dependence, cigarettes, uncomplicated; Z23 Encounter for immunization; Z91.09 Other allergy status, other than to drugs and biological substances; Z88.1 Allergy status to other antibiotic agents; Z88.8 Allergy status to other drugs, medicaments and biological substances; Z79.899 Other long term (current) drug therapy; W26.0XXA Contact with knife, initial encounter
CPT/HCPCS: 12001; 90471; 90715; 99282; A9270; 99283

== ENCOUNTER 2019-10-05 20:38 | Emergency (ER) | payer BC, MEDICAID ==
[2019-10-05] MEDS ORDERED: Alum Hydrox/Mag Hydrox/Simeth 15 ML, Metoclopramide 5 MG, Lidocaine 2% 5 ML PO ONE ×3 (20:51)
[2019-10-05] MEDS ORDERED: Sodium Chloride 0.9% 1,000 ML IV ONE (20:51)
[2019-10-05] MEDS ORDERED: Aspirin 81 MG Tab.Chew PO ONE (20:51)
[2019-10-05] MEDS ORDERED: Morphine 4 MG/ML Syringe IVPUSH ONE ×2 (20:53→22:14)
--- NOTE | 2019-10-05 21:03 | EDM.PDOC ---
<Darren Do - Last Filed: 10/06/19 00:30> ED HPI GENERAL MEDICAL PROBLEM - General Chief Complaint: Abdominal Pain Stated Complaint: ABDOMINAL ISSUES Time Seen by Provider: 10/05/19 20:45 - Related Data Allergies Allergy/AdvReac Type Severity Reaction Status Date / Time adhesive tape Allergy Hives Verified 10/05/19 20:43 aloe vera Allergy Rash Verified 10/05/19 20:43 amoxicillin [From Augmentin] Allergy Rash Verified 10/05/19 20:43 ciprofloxacin [From Cipro] Allergy Anaphylactic Verified 10/05/19 20:43 Shock clarithromycin [From Biaxin] Allergy Hives Verified 10/05/19 20:43 clavulanic acid Allergy Rash Verified 10/05/19 20:43 [From Augmentin] cyclobenzaprine Allergy Seizure Verified 10/05/19 20:43 [From Flexeril] Home Meds: Home Meds diazePAM [Valium] 2 mg PO BID 10/22/18 [History] Dicyclomine [Bentyl] 10 mg PO QID PRN 11/03/18 [History] LORazepam 1 mg PO Q12H PRN 11/03/18 [History] Multivitamin [Multi-Vitamin Daily] 1 tab PO DAILY 11/03/18 [History] traMADol HCl [Tramadol HCl] 50 mg PO Q6H PRN 11/03/18 [History] Ondansetron [Zofran ODT] 4 mg PO Q8HR PRN 02/19/19 [History] carisoprodoL [Soma] 350 mg PO DAILY 06/15/19 [History] Amylase/Lipase/Protease [Vandana DR 4,200 Unit] 4,200 unit PO QID 08/07/19 [History] GI Cocktail 15 ml PO DAILY PRN 08/07/19 [History] Acetaminophen [Tylenol Extra Strength] 500 mg PO Q12H PRN #30 tablet 08/09/19 [Rx] Pantoprazole [ProTONIX] 40 mg PO ACBREAKFAST 14 Days #14 tab.cr 08/09/19 [Rx] Course - Vital Signs Text/Narrative:: Patient has no evidence for an acute surgical or infectious abnormality in the CT scan of her belly. Serial troponins are negative. On reassessment she is still feeling some spasms and discomfort related to her abdomen. On further questioning it seems that the symptoms are chronic in nature, she gets intermittent flareups from time to time, she is following with a GI doctor for this. I agreed to give her some more medication to help with her nausea and spasms to facilitate discharge home. I do believe she meets criteria for admission, she is a reassuring work-up in the ED, she is agreeable with this plan to get remedicated and then follow-up in the outpatient setting. Departure - Departure Time of Disposition: 00:32 Disposition: Home, Self-Care 01 Condition: Good Clinical Impression: Chronic abdominal pain - Discharge Information Instructions: Abdominal Pain, Adult Referrals: Geoff Chou MD [Primary Care Provider] - Forms: ED Department Discharge Additional Instructions: Follow-up with primary care doctor along with GI specialist. Take medications as previously prescribed. Return to the ER with any new or worsening symptoms. The following information is given to patients seen in the emergency department who are being discharged to home. This information is to outline your options for follow-up care. We provide all patients seen in our emergency department with a follow-up referral. The need for follow-up, as well as the timing and circumstances, are variable depending upon the specifics of your emergency department visit. If you don't have a primary care physician on staff, we will provide you with a referral. We always advise you to contact your personal physician following an emergency department visit to inform them of the circumstance of the visit and for follow-up with them and/or the need for any referrals to a consulting specialist. The emergency department will also refer you to a specialist when appropriate. This referral assures that you have the opportunity for follow-up care with a specialist. All of these measure are taken in an effort to provide you with optimal care, which includes your follow-up. Under all circumstances we always encourage you to contact your private physician who remains a resource for coordinating your care. When calling for follow-up care, please make the office aware that this follow-up is from your recent emergency room visit. If for any reason you are refused follow-up, please contact the [facility] Emergency Department at and asked to speak to the emergency department charge nurse. <Dann Hamlin E - Last Filed: 10/06/19 12:28> ED HPI GENERAL MEDICAL PROBLEM - General Source of Information: Reports: Patient History Limitations: Reports: No Limitations - History of Present Illness INITIAL COMMENTS - FREE TEXT/NARRATIVE: HISTORY AND PHYSICAL: History of present illness: Patient is a 39-year-old female who presents to the emergency room with complaints of abdominal pain, chest pain, burning sensation to epigastric x 2 days. Patient has a longstanding history of several abdominal surgeries including gastric bypass 7 years ago with revision and SBO. She states she has had constant intermittent abdominal pain over the past 5 years. She recently was seen by a GI specialist in [place], Dr. Singletary. She states she does not have any answers for her abdominal pain but does have another follow-up appointment on 10/20/19 for further testing. Patient states that she has had multiple loose stools and states they are "black" in color, she reports her GI specialist is aware of this. Patient's chest pain started this morning in the left upper anterior chest and radiates to her left shoulder. Nothing makes this pain better or worse. She describes the pain as a burning sensation similar to her epigastric pain. States she took her Protonix just prior to arrival. Has not taken anything additional for pain such as Tylenol, ibuprofen or aspirins. She does have some mild nausea without any vomiting. She is requesting a "GI cocktail" as this helps when she has been evaluated in the past. Patient denies any fever, chills, headache, change in vision, syncope or near syncope. Denies any back pain, shortness of breath or cough. Denies any dysuria or chance of (history of hysterectomy). Review of systems: As per history of present illness and below otherwise all systems reviewed and negative. Past medical history: As per history of present illness and as reviewed below otherwise noncontributory. Surgical history: As per history of present illness and as reviewed below otherwise noncontributory. Social history: See social history for further information Family history: As per history of present illness and as reviewed below otherwise noncontributory. Physical exam: General: Well developed and well nourished 39-year-old female. Alert and orientated x 3. Anxious and fidgety but nontoxic in appearance and in no acute distress. Vital signs are stable and have been reviewed by me. Nursing notes were reviewed. HEENT: Atraumatic, normocephalic, pupils equal and reactive bilaterally, negative for conjunctival pallor or scleral icterus, mucous membranes moist, TMs normal bilaterally, throat clear, neck supple, nontender, trachea midline. No drooling or trismus noted. No meningeal signs. No hot potato voice noted. Lungs: Clear to auscultation, breath sounds equal bilaterally, chest nontender. Normal work of breathing, no accessory muscles used. Heart: S1S2, regular rate and rhythm without overt murmur Abdomen: Soft, nondistended, nontender. Negative for masses or hepatosplenomegaly. Negative for costovertebral tenderness. Pelvis: Stable nontender. Rectal: This was done with consent and a charge entry at the bedside. Good rectal tone. Hemoccult negative. Skin: Intact, warm, dry. No lesions or rashes noted. Hematologic: No petechiae or purpra. Mucosa appropriate color and normal nail bed color and refill. Extremities: Atraumatic, moves all extremities per self without difficulty or deficits, negative for cords or calf pain. Neurovascular unremarkable. Neuro: Awake, alert, oriented. Cranial nerves II through XII unremarkable. Cerebellum unremarkable. Motor and sensory unremarkable throughout. Exam nonfocal. Psychiatric: Mood and affect are appropriate. Normal thought process. Answering questions appropriately. Notes: Patient had a CT angiography coronary artery with 3D reconstruction: This was due to a cardiac vascular mass seen on abdominal and pelvis CT on 08/20/19. Coronary artery disease with mixed plaque in the proximal LAD and 50 to 70% stenosis. Calcified plaque proximal right coronary artery with less than 50% stenosis. The radiologist is recommending correlation with EKG and stress test at this time. The vascular structure noted on the abdominal CT scan is an incidental prominent but normal great cardiac vein and is of no clinical significance. Patient is requesting Ativan, stating she takes this TID and has missed her evening dose. Awaiting diagnostic results (labs and CT scan). Dr Do was made aware of this patient and will follow patient as of 2199. He will disposition patient appropriately. Diagnostics: CBC, CMP, troponin, EKG, d-dimer, chest x-ray, CT abdomen and pelvis Therapeutics: Aspirin, GI cocktail, NS, Morphine, Zofran Impression: Chest Pain Abdominal Pain Uncontrolled HTN Plan: Follow-up with primary care doctor along with GI specialist. Take medications as previously prescribed. Return to the ER with any new or worsening symptoms. Definitive disposition and diagnosis as appropriate pending reevaluation and review of above. Abdomen Pain Score (Numeric/FACES): 9 Past Medical History HEENT History: Reports: Other (See Below) Other HEENT History: wears glasses Cardiovascular History: Reports: Blood Clots/VTE/DVT, Hypertension Other Cardiovascular History: 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, does not take anticoagulants Respiratory History: Reports: None Gastrointestinal History: Reports: Chronic Constipation, Chronic Diarrhea, GERD Genitourinary History: Reports: Renal Calculus Other Genitourinary History: has passed a kidney stone HEALTH BENEFITS SPECIALIST History: Reports: None Musculoskeletal History: Reports: Fracture Other Musculoskeletal History: hx of fx fingers and toes Neurological History: Reports: None Psychiatric History: Reports: Anxiety, PTSD Endocrine/Metabolic History: Reports: None Insulin Pump Model and Dry Sand Molder: None Hematologic History: Reports: None Immunologic History: Reports: None Oncologic (Cancer) History: Reports: None Dermatologic History: Reports: None - Infectious Disease History Infectious Disease History: Reports: None - Past Surgical History Head Surgeries/Procedures: Reports: None HEENT Surgical History: Reports: Adenoidectomy, Naso-Sinus Surgery, Tonsillectomy Cardiovascular Surgical History: Reports: None Respiratory Surgical History: Reports: None GI Surgical History: Reports: Bariatric Procedure, Cholecystectomy, Colon Other GI Surgeries/Procedures: repair of Intussusception following Sandra-En-Y gastric bypass, surgery to remove hematoma following Cholestectomy Female Surgical History: Reports: Breast Implant, Breast Reduction, Hysterectomy Other Female Surgeries/Procedures: bladder stents Endocrine Surgical History: Reports: None Neurological Surgical History: Reports: None Musculoskeletal Surgical History: Reports: Other (See Below) Other Musculoskeletal Surgeries/Procedures:: 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, developed MRSA and was treated with medical maggots, states MRSA has been "cleared" and tested negative with nasal swabs x3 Oncologic Surgical History: Reports: None Dermatological Surgical History: Reports: None Social & Family History - Family History Family Medical History: Noncontributory - Tobacco Use Smoking Status *Q: Current Every Day Smoker Years of Tobacco use: 10 Packs/Tins Daily: 0.5 - Caffeine Use Caffeine Use: Reports: Coffee - Recreational Drug Use Recreational Drug Use: No ED ROS GENERAL - Review of Systems Review Of Systems: Comprehensive ROS is negative, except as noted in HPI. ED EXAM, GI/ABD - Physical Exam Exam: See Below (See dictation) Course - Vital Signs Last Recorded V/S: Last Vital Signs Temp 96.5 F L 10/05/19 20:43 Pulse 93 10/06/19 00:41 Resp 19 10/06/19 00:41 BP 188/123 H 10/06/19 00:41 Pulse Ox 99 10/06/19 00:41 - Orders/Labs/Meds Labs: Laboratory Tests 10/05/19 10/05/19 10/05/19 Range/Units 21:05 21:10 21:10 WBC 10.12 (4.0-11.0) K/uL RBC 4.61 (4.30-5.90) M/uL Hgb 10.3 L (12.0-16.0) g/dL Hct 32.5 L (36.0-46.0) % MCV 70.5 L (80.0-98.0) fL MCH 22.3 L (27.0-32.0) pg MCHC 31.7 (31.0-37.0) g/dL RDW Std Deviation 47.5 (28.0-62.0) fl RDW Coeff of Mikala 19 H (11.0-15.0) % Plt Count 279 (150-400) K/uL MPV 10.00 (7.40-12.00) fL Neut % (Auto) 89.9 H (48.0-80.0) % Lymph % (Auto) 5.4 L (16.0-40.0) % [place] % (Auto) 4.2 (0.0-15.0) % Eos % (Auto) 0.0 (0.0-7.0) % Baso % (Auto) 0.5 (0.0-1.5) % Neut # (Auto) 9.1 H (1.4-5.7) K/uL Lymph # (Auto) 0.6 (0.6-2.4) K/uL [place] # (Auto) 0.4 (0.0-0.8) K/uL Eos # (Auto) 0.0 (0.0-0.7) K/uL Baso # (Auto) 0.1 (0.0-0.1) K/uL D-Dimer, Quantitative (0.0-0.50) mg/L FEU Sodium 136 (136-145) mmol/L Potassium 3.0 L (3.5-5.1) mmol/L Chloride 99 (98-107) mmol/L Carbon Dioxide 22.6 (21.0-32.0) mmol/L BUN 8 (7.0-18.0) mg/dL Creatinine 0.9 (0.6-1.0) mg/dL Est Cr Clr Drug Dosing 80.80 mL/min Estimated GFR (MDRD) > 60.0 ml/min Glucose 152 H (74-106) mg/dL Calcium 8.5 (8.5-10.1) mg/dL Total Bilirubin 0.4 (0.2-1.0) mg/dL AST 29 (15-37) IU/L ALT 29 (14-63) IU/L Alkaline Phosphatase 76 (46-116) U/L Troponin I < 0.050 (0.000-0.056) ng/mL Total Protein 7.9 (6.4-8.2) g/dL Albumin 4.6 (3.4-5.0) g/dL Globulin 3.3 (2.6-4.0) g/dL Albumin/Globulin Ratio 1.4 (0.9-1.6) Lipase 147 (73-393) U/L Urine Color YELLOW Urine Appearance CLEAR Urine pH 6.5 (5.0-8.0) Ur Specific [place] 1.025 (1.001-1.035) Urine Protein TRACE H (NEGATIVE) mg/dL Urine Glucose (UA) NEGATIVE (NEGATIVE) mg/dL Urine Ketones 15 H (NEGATIVE) mg/dL Urine Occult Blood NEGATIVE (NEGATIVE) Urine Nitrite NEGATIVE (NEGATIVE) Urine Bilirubin NEGATIVE (NEGATIVE) Urine Urobilinogen 0.2 (<2.0) EU/dL Ur Leukocyte Esterase NEGATIVE (NEGATIVE) Urine RBC 0-2 (0-2/HPF) Urine WBC 0-2 (0-5/HPF) Ur Epithelial Cells FEW (NONE-FEW) Urine Bacteria FEW (NEGATIVE) Urine Mucus LIGHT (NONE-MOD) 10/05/19 10/05/19 Range/Units 21:10 23:47 WBC (4.0-11.0) K/uL RBC (4.30-5.90) M/uL Hgb (12.0-16.0) g/dL Hct (36.0-46.0) % MCV (80.0-98.0) fL MCH (27.0-32.0) pg MCHC (31.0-37.0) g/dL RDW Std Deviation (28.0-62.0) fl RDW Coeff of Mikala (11.0-15.0) % Plt Count (150-400) K/uL MPV (7.40-12.00) fL Neut % (Auto) (48.0-80.0) % Lymph % (Auto) (16.0-40.0) % [place] % (Auto) (0.0-15.0) % Eos % (Auto) (0.0-7.0) % Baso % (Auto) (0.0-1.5) % Neut # (Auto) (1.4-5.7) K/uL Lymph # (Auto) (0.6-2.4) K/uL [place] # (Auto) (0.0-0.8) K/uL Eos # (Auto) (0.0-0.7) K/uL Baso # (Auto) (0.0-0.1) K/uL D-Dimer, Quantitative 0.34 (0.0-0.50) mg/L FEU Sodium (136-145) mmol/L Potassium (3.5-5.1) mmol/L Chloride (98-107) mmol/L Carbon Dioxide (21.0-32.0) mmol/L BUN (7.0-18.0) mg/dL Creatinine (0.6-1.0) mg/dL Est Cr Clr Drug Dosing mL/min Estimated GFR (MDRD) ml/min Glucose (74-106) mg/dL Calcium (8.5-10.1) mg/dL Total Bilirubin (0.2-1.0) mg/dL AST (15-37) IU/L ALT (14-63) IU/L Alkaline Phosphatase (46-116) U/L Troponin I < 0.050 (0.000-0.056) ng/mL Total Protein (6.4-8.2) g/dL Albumin (3.4-5.0) g/dL Globulin (2.6-4.0) g/dL Albumin/Globulin Ratio (0.9-1.6) Lipase (73-393) U/L Urine Color Urine Appearance Urine pH (5.0-8.0) Ur Specific [place] (1.001-1.035) Urine Protein (NEGATIVE) mg/dL Urine Glucose (UA) (NEGATIVE) mg/dL Urine Ketones (NEGATIVE) mg/dL Urine Occult Blood (NEGATIVE) Urine Nitrite (NEGATIVE) Urine Bilirubin (NEGATIVE) Urine Urobilinogen (<2.0) EU/dL Ur Leukocyte Esterase (NEGATIVE) Urine RBC (0-2/HPF) Urine WBC (0-5/HPF) Ur Epithelial Cells (NONE-FEW) Urine Bacteria (NEGATIVE) Urine Mucus (NONE-MOD) Meds: Medications Discontinued Medications Generic Name Dose Route Start Last Admin Trade Name Freq PRN Reason Stop Dose Admin Aspirin 324 mg 10/05/19 20:51 10/05/19 21:05 Aspirin PO 10/05/19 20:52 324 mg ONETIME ONE Administration Al Hydroxide/Mg Hydroxide 15 0 ml 10/05/19 20:51 10/05/19 21:05 ml/ Metoclopramide HCl 5 mg/ PO 10/05/19 20:52 1 each Lidocaine HCl 5 ml ONETIME ONE Administration Diphenhydramine HCl 50 mg 10/06/19 00:28 10/06/19 00:38 Benadryl IVPUSH 10/06/19 00:29 50 mg ONETIME ONE Administration Sodium Chloride 1,000 mls @ 999 mls/hr 10/05/19 20:51 10/05/19 21:05 Normal Saline IV 10/05/19 21:51 999 mls/hr STAT ONE Administration Iopamidol 75 ml 10/05/19 23:19 10/05/19 23:20 Isovue-370 (76%) IVPUSH 10/05/19 23:20 75 ml ONETIME STA Administration Lorazepam 1 mg 10/06/19 00:28 10/06/19 00:34 Ativan IVPUSH 10/06/19 00:29 1 mg ONETIME ONE Administration Metoclopramide HCl 10 mg 10/06/19 00:28 10/06/19 00:36 Reglan IVPUSH 10/06/19 00:29 10 mg ONETIME ONE Administration Morphine Sulfate 4 mg 10/05/19 20:53 10/05/19 21:10 Morphine IVPUSH 10/05/19 20:54 4 mg ONETIME ONE Administration Morphine Sulfate 4 mg 10/05/19 22:14 10/05/19 22:18 Morphine IVPUSH 10/05/19 22:15 4 mg ONETIME ONE Administration Ondansetron HCl 4 mg 10/05/19 21:33 10/05/19 22:13 Zofran IVPUSH 10/05/19 21:34 4 mg ONETIME ONE Administration Sepsis Event Note (ED) - Evaluation Sepsis Screening Result: No Definite Risk - Focused Exam Vital Signs: Vital Signs Pulse Resp BP Pulse Ox 10/06/19 00:41 93 19 188/123 H 99
[2019-10-05] MEDS ORDERED: Ondansetron 4 MG/2 ML SDV IVPUSH ONE (21:33)
[2019-10-05 21:49] LABS: BLOOD UREA NITROGEN,BUN 8 mg/dL (7.0-18.0); CARBON DIOXIDE,CO2 22.6 mmol/L (21.0-32.0); CHLORIDE,CL 99 mmol/L (98-107); GLUCOSE RANDOM 152 mg/dL (74-106); LIPASE 147 U/L (73-393); SODIUM,NA 136 mmol/L (136-145)
--- NOTE | 2019-10-05 22:15 | CR ---
INDICATION: Chest and abdominal pain, vomiting TECHNIQUE: Portable upright AP view of the chest. COMPARISON: Single-view chest radiograph 10/24/2018 FINDINGS: The lungs are clear. There is no sizable pleural effusion or pneumothorax. The cardiomediastinal silhouette is normal. The visualized osseous structures are unremarkable. There is no free air under the diaphragm. IMPRESSION: No acute intrathoracic process. Dictated by Yani Gonzales MD @ Oct 05 2019 10:11PM Signed by Dr. Yani Gonzales @ Oct 05 2019 10:13PM
[2019-10-05] MEDS ORDERED: Iopamidol 755 Mg/ML 100 ML Bottle IVPUSH STA (23:19)
--- NOTE | 2019-10-05 23:49 | CT ---
INDICATION: Abdominal pain. Vomiting. COMPARISON: 08/20/2019 TECHNIQUE: CT examination of the abdomen and pelvis was performed with the uneventful intravenous administration of 75 cc of Isovue 370 while 3 mm thick axial sections were obtained from the lung bases through the pubic symphysis. Oral contrast was not administered. Please note that all CT scans at this facility use dose modulation, iterative reconstruction, and/or weight-based dosing when appropriate to reduce radiation dose to as low as reasonably achievable. FINDINGS: In the abdomen, the liver is again seen to have moderate dilatation of the intrahepatic biliary ductal system with stable moderate dilatation of the common bile duct to 11 millimeters, extending through the pancreatic head, consistent with post cholecystectomy status. The liver is otherwise normal in appearance. Clips are again seen in the gall bladder fossa from cholecystectomy. The spleen, pancreas, and adrenals are normal in appearance. The kidneys are normal in appearance. The abdominal aorta is normal in caliber with no sign of dilatation. There is no sign of retroperitoneal mass or adenopathy. Again seen are several lines of surgical maria elena from gastric bypass surgery. Again seen is a small bowel anastomosis in the left upper quadrant with no sign of any structure. Another small bowel anastomosis is seen in the left lower quadrant, also without stricture. The distal stomach, the rest of the loops of small bowel, and colon in the abdomen are normal in appearance. In the pelvis, the appendix is normal in appearance with no sign of inflammatory process. The loops of small bowel and colon in the pelvis are normal in appearance. The uterus is again seen to be absent and the adnexal regions are normal in appearance. The urinary bladder is normal in appearance. There is no sign of pelvic or inguinal mass or adenopathy. There is no sign of free air or free fluid in the abdomen or pelvis. The lung bases are clear. Again seen is mild anterior wedging of the T10 through T12 vertebral bodies consistent with old mild compression fractures versus anatomic variant. Again seen is minimal scoliosis of the thoracolumbar spine convex towards the left. The rest of the osseous structures are normal in appearance. IMPRESSION: Nothing seen to explain the patient`s abdominal pain or vomiting. No sign bowel distension or bowel edema. CT of the abdomen shows stable moderate intrahepatic and extrahepatic biliary ductal dilatation related to post cholecystectomy status. Stable changes of gastric bypass surgery with 2 areas of small bowel anastomosis, with no sign of stricture. CT of the pelvis again shows changes of hysterectomy. Please note that all CT scans at this facility use dose modulation, iterative reconstruction, and/or weight-based dosing when appropriate to reduce radiation dose to as low as reasonably achievable. Dictated by Kilo Bain MD @ Oct 05 2019 11:34PM Signed by Dr. Kilo Bain @ Oct 05 2019 11:47PM
[2019-10-06] MEDS ORDERED: LORazepam 2 MG/ML SDV IVPUSH ONE (00:28)
[2019-10-06] MEDS ORDERED: diphenhydrAMINE 50 MG/ML SDV IVPUSH ONE (00:28)
[2019-10-06] MEDS ORDERED: Metoclopramide 10 MG/2 ML SDV IVPUSH ONE (00:28)
== END 2019-10-06 00:52 | disposition home or self-care (01) ==
LOC: MW.ED 20:38
DX: R07.89 Other chest pain (principal); R10.13 Epigastric pain; R11.0 Nausea; I10 Essential (primary) hypertension; F41.9 Anxiety disorder, unspecified; Z88.8 Allergy status to other drugs, medicaments and biological substances; Z88.1 Allergy status to other antibiotic agents; Z91.09 Other allergy status, other than to drugs and biological substances; Z79.899 Other long term (current) drug therapy
CPT/HCPCS: 36415; 71045; 74177; 80053; 81001; 83690; 84484; 85025; 85379; 93005; 96361; 96374; 96375; 96376; 99285; A9270; J1200; J2060; J2270; J2405; J2765; J7030; Q9967

== ENCOUNTER 2019-11-20 23:08 | Emergency (ER) | payer BC, MEDICAID ==
[2019-11-21] MEDS ORDERED: Sodium Chloride 0.9% 2.5 ML Syringe FLUSH PRN (00:01)
[2019-11-21] MEDS ORDERED: Sodium Chloride 0.9% 10 ML Syringe FLUSH PRN (00:01)
[2019-11-21] MEDS ORDERED: Haloperidol Lactate 5 MG/ML SDV IM ONE (00:11)
[2019-11-21] MEDS ORDERED: Sodium Chloride 0.9% 1,000 ML IV ONE (00:16)
[2019-11-21] MEDS ORDERED: diphenhydrAMINE 50 MG/ML SDV ONE (00:26)
[2019-11-21] MEDS ORDERED: diphenhydrAMINE 50 MG/ML SDV IVPUSH ONE (00:26)
[2019-11-21 00:36] LABS: BLOOD UREA NITROGEN,BUN 9 mg/dL (7.0-18.0); CARBON DIOXIDE,CO2 23.6 mmol/L (21.0-32.0); CHLORIDE,CL 103 mmol/L (98-107); GLUCOSE RANDOM 98 mg/dL (74-106); POTASSIUM,K 3.6 mmol/L (3.5-5.1); SODIUM,NA 136 mmol/L (136-145)
[2019-11-21] MEDS ORDERED: Iopamidol 755 Mg/ML 100 ML Bottle IVPUSH STA (01:25)
--- NOTE | 2019-11-21 01:44 | CT ---
INDICATION: Left lower quadrant abdominal pain TECHNIQUE: Axial images were obtained from the diaphragm to the pubic symphysis. Reformats were obtained in the coronal and sagittal plane. IV Contrast: 100 cc Isovue 370 Oral Contrast: None COMPARISON: Abdomen and pelvis CT 10/05/2019 FINDINGS: Lower chest: Bilateral breast implants. Lung bases clear. Liver: Unremarkable. Normal in size and attenuation. No masses. Gallbladder and bile ducts: Status post cholecystectomy. Spleen: Unremarkable. Normal in size without mass. Pancreas: Unremarkable. No mass or inflammation. Adrenal glands: Unremarkable. No nodules. Kidneys: Unremarkable. No masses, stones, or hydronephrosis. Vasculature: Unremarkable. GI tract: Status post gastric bypass. No dilated loops of large or small intestine. Some proximal small bowel loops have equivocal wall thickening (201, 63). No localized inflammation. Pelvis: Status posthysterectomy. Bones: Slight decreased height of T11 consistent with all compression fracture or congenital deformity. IMPRESSION: 1. Proximal small bowel loops with equivocal wall thickening. Differential diagnosis includes incomplete distention or mild enteritis. 2. Status post gastric bypass. Please note that all CT scans at this facility use dose modulation, iterative reconstruction, and/or weight-based dosing when appropriate to reduce radiation dose to as low as reasonably achievable. Dictated by Kristofer Padilla MD @ Nov 21 2019 1:36AM Signed by Dr. Kristofer Padilla @ Nov 21 2019 1:42AM
--- NOTE | 2019-11-21 02:02 | EDM.PDOC ---
ED HPI GENERAL MEDICAL PROBLEM - General Chief Complaint: Abdominal Pain Stated Complaint: ABDOMINAL PAIN Time Seen by Provider: 11/20/19 23:41 - History of Present Illness INITIAL COMMENTS - FREE TEXT/NARRATIVE: CHIEF COMPLAINT(S): "I am having trouble." HISTORY OF PRESENT ILLNESS: This is a 39-year-old woman with a past medical history of multiple gastric bypass and intra-abdominal surgery who comes to the emergency department with a chief complaint of "I am having trouble." The patient states that today she had severe abdominal pain in the left lower quadrant which she describes as the location for which her abdominal pain is usually located. She rates the pain as 8 out of 10 which she describes as sharp. She denies any radiation of the pain. She denies any aggravating or relieving symptoms. She describes the pain as sharp and had black stool x2 approximately 2 weeks ago. She denies any hematochezia or recurrence of this black stool. She states that she has had these symptoms for approximately 1 year now and that she has been to [place] for evaluation and had a scope and was told that they were not concerned. She states that she does have some nausea but she does not vomit anymore secondary to having chronic abdominal pain. She denies any chest pain or shortness of breath. She denies any fevers. She states that she has taken Zofran, pantoprazole, and Bentyl without any relief. REVIEW OF SYSTEMS: Constitutional: Denies fever, chills. Eyes: Denies eye pain Ears, Nose, Mouth, & Throat: Denies earache Cardiovascular: Denies chest pain Respiratory: Denies shortness of breath Gastrointestinal: Positive for left lower quadrant abdominal pain associated with nausea. Denies vomiting, diarrhea, hematochezia, current melena Genitourinary: Denies hematuria, dysuria, vaginal bleeding Skin:Denies a rash Neurological: Denies blurred vision Psychiatric: Denies depression PAST MEDICAL HISTORY: As per history of present illness and as reviewed below otherwise noncontributory. SURGICAL HISTORY: As per history of present illness and as reviewed below otherwise noncontributory. LMP: Hysterectomy SOCIAL HISTORY: As per history of present illness and as reviewed below otherwise noncontributory. FAMILY HISTORY: As per history of present illness and as reviewed below otherwise noncontributory. EXAMINATION OF ORGAN SYSTEMS/BODY AREAS: Constitutional: Blood pressure was 156/84, heart rate 82, respiratory rate 20 with an oxygen saturation 97% on room air. Temperature 35.9. General: Overall well-appearing woman who is in no acute distress Psychiatric: Appears anxious. Eyes: No scleral icterus or conjunctival erythema conjunctiva is not pale. ENMT: Moist mucous membranes. No pharyngeal erythema no pale mucosa. Cardiovascular: Regular, rate, and rhythym. No gallops, murmurs, or rubs. Bilateral upper extremity pulses symmetric and intact. No peripheral edema. No JVD. Respiratory: Lungs clear to auscultation bilaterally. No wheezes, rales, or rhonchi. Gastrointestinal: Soft, voluntary guarding of the entire abdomen, nondistended. There is multiple scars on the patient's abdomen. No rebound or guarding. Normoactive bowel sounds Genitourinary: No suprapubic tenderness no CVA tenderness Musculoskeletal: Normal range of motion. Skin: No lesions or abrasions. Neurological: Alert, GCS 15 MEDICAL DECISION MAKING AND COURSE IN THE ED WITH INTERPRETATION/REVIEW OF DIAGNOSTIC STUDIES: This is a 39-year-old female with a complex abdominal past medical history who comes to the emergency department with recurrent left lower quadrant pain for which she describes as similar to prior that has been going on for approximately 1 year. The patient's exam is not revealing and does not seem emergent however the patient does have significant risk factors for intra-ab dominal pathology. Therefore I will obtain labs including CBC, CMP, and urinalysis. Will obtain a CT abdomen pelvis for further evaluation. I did have a discussion with the patient regarding pain management. I did review the patient's chart and it appears the patient receives the same medication each time she comes into the hospital. I did discuss there at this time that I would like to attempt trying Haldol and Benadryl for nausea and pain relief. She was amenable to this plan. We will provide the patient with 1 L of normal saline bolus. Labs reveal a microcytic anemia with a hemoglobin of 9.2 and hematocrit of 29.2 which do not appear to be different from prior. CMP is unremarkable. Urinalysis was a clean catch and was negative for leukocyte esterase, negative for nitrites, and negative for blood. Interpretation: negative. The radiological images were viewed by myself along with reading the report from the radiologist. CT abdomen pelvis reveals no acute intra-abdominal pathology there is proximal small bowel loops with equivocal wall thickening which could be secondary to incomplete distention versus mild enteritis. Patient is status post gastric bypass. There is no evidence of localized inflammation. On reevaluation, the patient stated that her pain and nausea had significantly improved. I did discuss her the results of her work-up thus far. I discussed the importance of following up with her GI specialist. She was amenable to discharge at this time and had no further questions. She is to return for any new or worsening symptoms DISPOSITION: The patient was discharged home in stable condition. The patient will follow up with GI within 1 to 2-week CONDITION: Fair PROCEDURES: None FINAL IMPRESSION(S)/DIAGNOSES: 1. Acute on chronic abdominal pain secondary to unknown etiology 2. Acute nausea likely secondary to #1 3. Chronic microcytic anemia Ed Wilkinson M.D. abdomen Pain Score (Numeric/FACES): 7 - Related Data Allergies Allergy/AdvReac Type Severity Reaction Status Date / Time adhesive tape Allergy Hives Verified 11/20/19 23:35 aloe vera Allergy Rash Verified 11/20/19 23:35 amoxicillin [From Augmentin] Allergy Rash Verified 11/20/19 23:35 ciprofloxacin [From Cipro] Allergy Anaphylactic Verified 11/20/19 23:35 Shock clarithromycin [From Biaxin] Allergy Hives Verified 11/20/19 23:35 clavulanic acid Allergy Rash Verified 11/20/19 23:35 [From Augmentin] cyclobenzaprine Allergy Seizure Verified 11/20/19 23:35 [From Flexeril] Home Meds: Home Meds diazePAM [Valium] 2 mg PO BID 10/22/18 [History] Dicyclomine [Bentyl] 10 mg PO QID PRN 11/03/18 [History] LORazepam 1 mg PO Q12H PRN 11/03/18 [History] Multivitamin [Multi-Vitamin Daily] 1 tab PO DAILY 11/03/18 [History] traMADol HCl [Tramadol HCl] 50 mg PO Q6H PRN 11/03/18 [History] Ondansetron [Zofran ODT] 4 mg PO Q8HR PRN 02/19/19 [History] carisoprodoL [Soma] 350 mg PO DAILY 06/15/19 [History] Amylase/Lipase/Protease [Vandana GUTIERREZ 4,200 Unit] 4,200 unit PO QID 08/07/19 [History] GI Cocktail 15 ml PO DAILY PRN 08/07/19 [History] Acetaminophen [Tylenol Extra Strength] 500 mg PO Q12H PRN #30 tablet 08/09/19 [Rx] Pantoprazole [ProTONIX] 40 mg PO ACBREAKFAST 14 Days #14 tab.cr 08/09/19 [Rx] Past Medical History HEENT History: Reports: Other (See Below) Other HEENT History: wears glasses Cardiovascular History: Reports: Blood Clots/VTE/DVT, Hypertension Other Cardiovascular History: 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, does not take anticoagulants Respiratory History: Reports: None Gastrointestinal History: Reports: Chronic Constipation, Chronic Diarrhea, GERD Genitourinary History: Reports: Renal Calculus Other Genitourinary History: has passed a kidney stone 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: Musculoskeletal History: Reports: Fracture Other Musculoskeletal History: hx of fx fingers and toes Neurological History: Reports: None Psychiatric History: Reports: Anxiety, Depression, PTSD Endocrine/Metabolic History: Reports: None Insulin Pump Model and Log Operations Coordinator: None Hematologic History: Reports: None Immunologic History: Reports: None Oncologic (Cancer) History: Reports: None Dermatologic History: Reports: None - Infectious Disease History Infectious Disease History: Reports: MRSA - Past Surgical History Head Surgeries/Procedures: Reports: None HEENT Surgical History: Reports: Adenoidectomy, Naso-Sinus Surgery, Tonsillectomy Cardiovascular Surgical History: Reports: None Respiratory Surgical History: Reports: None GI Surgical History: Reports: Bariatric Procedure, Cholecystectomy, Colon Other GI Surgeries/Procedures: repair of Intussusception following Sandra-En-Y gastric bypass, surgery to remove hematoma following Cholestectomy Female Surgical History: Reports: Breast Implant, Breast Reduction, Section, Hysterectomy Other Female Surgeries/Procedures: bladder stents Endocrine Surgical History: Reports: None Neurological Surgical History: Reports: None Musculoskeletal Surgical History: Reports: Other (See Below) Other Musculoskeletal Surgeries/Procedures:: 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, developed MRSA and was treated with medical maggots, states MRSA has been "cleared" and tested negative with nasal swabs x3 Oncologic Surgical History: Reports: None Dermatological Surgical History: Reports: None Social & Family History - Family History Family Medical History: Noncontributory - Tobacco Use Smoking Status *Q: Current Every Day Smoker Years of Tobacco use: 10 Packs/Tins Daily: 0.5 - Caffeine Use Caffeine Use: Reports: Coffee - Recreational Drug Use Recreational Drug Use: No ED ROS GENERAL - Review of Systems Review Of Systems: See Below ED EXAM, GENERAL - Physical Exam Exam: See Below Course - Vital Signs Last Recorded V/S: Last Vital Signs Temp 36.4 C 11/21/19 02:00 Pulse 88 11/21/19 02:00 Resp 18 11/21/19 02:00 BP 131/61 11/21/19 02:00 Pulse Ox 97 11/21/19 02:00 - Orders/Labs/Meds Orders: Active Orders 24 hr Category Date Time Status Saline Lock Insert [OM.PC] Stat Oth 11/21/19 00:01 Ordered Labs: Laboratory Tests 11/20/19 11/21/19 11/21/19 Range/Units 23:42 00:09 00:09 WBC 6.32 (4.0-11.0) K/uL RBC 4.23 L (4.30-5.90) M/uL Hgb 9.2 L (12.0-16.0) g/dL Hct 29.2 L (36.0-46.0) % MCV 69.0 L (80.0-98.0) fL MCH 21.7 L (27.0-32.0) pg MCHC 31.5 (31.0-37.0) g/dL RDW Std Deviation 46.2 (28.0-62.0) fl RDW Coeff of Mikala 19 H (11.0-15.0) % Plt Count 254 (150-400) K/uL MPV 9.90 (7.40-12.00) fL Neut % (Auto) 48.0 (48.0-80.0) % Lymph % (Auto) 31.2 (16.0-40.0) % Wilcox % (Auto) 14.4 (0.0-15.0) % Eos % (Auto) 5.1 (0.0-7.0) % Baso % (Auto) 1.3 (0.0-1.5) % Neut # (Auto) 3.0 (1.4-5.7) K/uL Lymph # (Auto) 2.0 (0.6-2.4) K/uL Wilcox # (Auto) 0.9 H (0.0-0.8) K/uL Eos # (Auto) 0.3 (0.0-0.7) K/uL Baso # (Auto) 0.1 (0.0-0.1) K/uL Sodium 136 (136-145) mmol/L Potassium 3.6 (3.5-5.1) mmol/L Chloride 103 (98-107) mmol/L Carbon Dioxide 23.6 (21.0-32.0) mmol/L BUN 9 (7.0-18.0) mg/dL Creatinine 0.8 (0.6-1.0) mg/dL Est Cr Clr Drug Dosing 90.90 mL/min Estimated GFR (MDRD) > 60.0 ml/min Glucose 98 (74-106) mg/dL Calcium 8.5 (8.5-10.1) mg/dL Total Bilirubin 0.2 (0.2-1.0) mg/dL AST 20 (15-37) IU/L ALT 27 (14-63) IU/L Alkaline Phosphatase 69 (46-116) U/L Total Protein 7.5 (6.4-8.2) g/dL Albumin 4.2 (3.4-5.0) g/dL Globulin 3.3 (2.6-4.0) g/dL Albumin/Globulin Ratio 1.3 (0.9-1.6) Urine Color YELLOW Urine Appearance CLEAR Urine pH 6.5 (5.0-8.0) Ur Specific [place] 1.025 (1.001-1.035) Urine Protein NEGATIVE (NEGATIVE) mg/dL Urine Glucose (UA) NEGATIVE (NEGATIVE) mg/dL Urine Ketones NEGATIVE (NEGATIVE) mg/dL Urine Occult Blood NEGATIVE (NEGATIVE) Urine Nitrite NEGATIVE (NEGATIVE) Urine Bilirubin NEGATIVE (NEGATIVE) Urine Urobilinogen 0.2 (<2.0) EU/dL Ur Leukocyte Esterase NEGATIVE (NEGATIVE) Meds: Medications Discontinued Medications Generic Name Dose Route Start Last Admin Trade Name Freq PRN Reason Stop Dose Admin Diphenhydramine HCl 25 mg 11/21/19 00:26 11/21/19 00:27 Benadryl IVPUSH 10/03/20 00:27 25 mg ONETIME ONE Administration Diphenhydramine HCl Confirm 11/21/19 00:26 11/21/19 00:47 Benadryl Administered 11/21/19 00:27 Not Given Dose 50 mg .ROUTE .STK-MED ONE Haloperidol Lactate 2.5 mg 11/21/19 00:11 11/21/19 00:19 Haldol IM 11/21/19 00:12 2.5 mg ONETIME ONE Administration Sodium Chloride 1,000 mls @ 999 mls/hr 11/21/19 00:16 11/21/19 00:19 Normal Saline IV 11/21/19 01:16 999 mls/hr .Bolus ONE Administration Iopamidol 100 ml 11/21/19 01:25 11/21/19 01:25 Isovue-370 (76%) IVPUSH 11/21/19 01:26 100 ml ONETIME STA Administration Sodium Chloride 10 ml 11/21/19 00:01 Saline Flush FLUSH ASDIRECTED PRN Keep Vein Open Sodium Chloride 2.5 ml 11/21/19 00:01 Saline Flush FLUSH ASDIRECTED PRN Keep Vein Open Departure - Departure Time of Disposition: 02:01 Disposition: Home, Self-Care 01 Condition: Good Clinical Impression: Abdominal pain Qualifiers: Abdominal location: left lower quadrant Qualified Code(s): R10.32 - Left lower quadrant pain - Discharge Information *PRESCRIPTION DRUG MONITORING PROGRAM REVIEWED*: No *COPY OF PRESCRIPTION DRUG MONITORING REPORT IN PATIENT BERNABE: No Instructions: Abdominal Pain, Adult, [id number] Referrals: Geoff Chou MD [Primary Care Provider] - Forms: ED Department Discharge Additional Instructions: The patient is informed of any results of their evaluation and diagnostic workup and all questions are answered. They are given discharge instructions and return precautions. The patient is stable for discharge. The patient states they understand and agree with the plan and that they will return if their symptoms get worse or if they have any new concerns. The following information is given to patients seen in the emergency department who are being discharged to home. This information is to outline your options for follow-up care. We provide all patients seen in our emergency department with a follow-up referral. The need for follow-up, as well as the timing and circumstances, are variable de pending upon the specifics of your emergency department visit. If you don't have a primary care physician on staff, we will provide you with a referral. We always advise you to contact your personal physician following an emergency department visit to inform them of the circumstance of the visit and for follow-up with them and/or the need for any referrals to a consulting specialist. The emergency department will also refer you to a specialist when appropriate. This referral assures that you have the opportunity for follow-up care with a specialist. All of these measure are taken in an effort to provide you with optimal care, which includes your follow-up. Under all circumstances we always encourage you to contact your private physician who remains a resource for coordinating your care. When calling for follow-up care, please make the office aware that this follow-up is from your recent emergency room visit. If for any reason you are refused follow-up, please contact the [facility] Emergency Department at and asked to speak to the emergency department charge nurse. Please follow-up with your GI specialist in [place] and [facility] within 1 to 2 weeks. Return for any new or worsening symptoms. Sepsis Event Note (ED) - Evaluation Sepsis Screening Result: No Definite Risk - Focused Exam Vital Signs: Vital Signs Temp Pulse Resp BP Pulse Ox 11/21/19 02:00 36.4 C 88 18 131/61 97 11/21/19 00:50 78 18 135/78 97 11/20/19 23:15 35.9 C L 82 20 156/84 H 97 - My Orders Last 24 Hours: My Active Orders 11/21/19 00:01 Saline Lock Insert [OM.PC] Stat - Assessment/Plan Last 24 Hours: My Active Orders 11/21/19 00:01 Saline Lock Insert [OM.PC] Stat
== END 2019-11-21 02:10 | disposition home or self-care (01) ==
LOC: MW.ED 23:08
DX: R10.32 Left lower quadrant pain (principal); R11.0 Nausea; D50.9 Iron deficiency anemia, unspecified; I10 Essential (primary) hypertension; F41.9 Anxiety disorder, unspecified; F17.210 Nicotine dependence, cigarettes, uncomplicated; Z91.048 Other nonmedicinal substance allergy status; Z91.018 Allergy to other foods; Z88.1 Allergy status to other antibiotic agents; Z88.8 Allergy status to other drugs, medicaments and biological substances; Z79.899 Other long term (current) drug therapy
CPT/HCPCS: 36415; 74177; 80053; 81003; 85025; 96361; 96374; 96375; 99284; J1200; J1630; J7030; Q9967

== ENCOUNTER 2019-11-22 13:22 | Emergency (ER) | payer MEDICAID ==
--- NOTE | 2019-11-22 13:40 | EDM.PDOC ---
ED HPI GENERAL MEDICAL PROBLEM - General Chief Complaint: Abdominal Pain Stated Complaint: ABDOMINAL PAIN Time Seen by Provider: 11/22/19 13:24 Source of Information: Reports: Patient History Limitations: Reports: No Limitations - History of Present Illness INITIAL COMMENTS - FREE TEXT/NARRATIVE: HISTORY AND PHYSICAL: History of present illness: Patient is a 39-year-old female who presents to the emergency room with complaints of chronic abdominal pain. Patient has a past medical history of several abdominal surgeries including gastric bypass 7 years ago with revision and small bowel obstruction. Yesterday for this pain and had lab work including a CT of the abdomen and pelvis. She states she felt fine when she was discharged home and had gone to bed. She woke up this afternoon and ate lunch, pain started. She states she is frustrated as this "happens all the time" and she has seen multiple specialist, currently seeing in [place] for her chronic abdominal pain. She has a follow-up appointment 12/23/2019. She states she has been referred to [facility] for her scar tissue/chronic abdominal pain. Patient denies any fever, chills, headache, change in vision, syncope or near syncope. Denies any chest pain, back pain, shortness of breath or cough. Denies any diarrhea, constipation or dysuria. Has not noted any blood in urine or stool. Patient has been eating and drinking appropriately. Review of systems: As per history of present illness and below otherwise all systems reviewed and negative. Past medical history: As per history of present illness and as reviewed below otherwise noncontributory. Surgical history: As per history of present illness and as reviewed below otherwise noncontributory. Social history: See social history for further information Family history: As per history of present illness and as reviewed below otherwise noncontributory. Physical exam: General: Well developed and well nourished. Alert and orientated x 3. Nontoxic in appearance and in no acute distress. Vital signs are stable and have been reviewed by me. Nursing notes were reviewed. HEENT: Atraumatic, normocephalic, pupils equal and reactive bilaterally, negative for conjunctival pallor or scleral icterus, mucous membranes moist, trachea midline. No drooling or trismus noted. No meningeal signs. No hot potato voice noted. Lungs: Clear to auscultation, breath sounds equal bilaterally. Normal work of breathing, no accessory muscles used. Heart: S1S2, regular rate and rhythm without overt murmur Abdomen: Soft, nondistended, nontender. Negative for masses or costovertebral tenderness. Skin: Intact, warm, dry. No lesions or rashes noted. Hematologic: No petechiae or purpra. Mucosa appropriate color and normal nail bed color and refill. Extremities: Atraumatic, moves all extremities per self without difficulty or deficits, negative for cords or calf pain. Neurovascular unremarkable. Neuro: Awake, alert, oriented. Cranial nerves II through XII unremarkable. Cerebellum unremarkable. Motor and sensory unremarkable throughout. Exam nonfocal. Psychiatric: Mood and affect are appropriate. Normal thought process. Answering questions appropriately. Notes: As patient did have a full work-up 24 hours ago, she does not want any additional labs or imaging done at this time. She states she would like something for her pain. As this is a new visit and I did ask the patient to allow us to do basic labs, she is agreeable. Do not feel she needs any further imaging as she just had this done and states the pain is no different or worse. Pain has improved. I have spoken with the patient/caregiver and discussed today's findings, in addition to providing specific details for plan of care. Reassessment at the time of disposition demonstrates that the patient is in no acute distress. The patient is stable for discharge, counseling was provided and we discussed in great detail signs and symptoms that would prompt them to return to the Emergency Department. Medication, follow up and supportive care measures were reviewed and discussed. Voices understanding and is agreeable to plan of care. Denies any further questions or concerns at this time. Diagnostics: CBC, CMP, [employer]: IM Toradol, IM Dilaudid, Zofran Prescription: Zofran Impression: Chronic abdominal pain Plan: 1. Please get in contact with your GI specialist for pain management of your chronic abdominal pain. 2. You have multiple medications available to you, please take these as needed and as directed 3. We encourage you to follow up with your primary care provider and/or recommended specialist in the next few days for re-evaluation and further care/management. If your symptoms should worsen, new symptoms develop or any of the signs and symptoms we discussed should arise please return to the emergency room or call 911 (if needed). Definitive disposition and diagnosis as appropriate pending reevaluation and review of above. abdominal Pain Score (Numeric/FACES): 9 - Related Data Allergies Allergy/AdvReac Type Severity Reaction Status Date / Time adhesive tape Allergy Hives Verified 11/22/19 13:34 aloe vera Allergy Rash Verified 11/22/19 13:34 amoxicillin [From Augmentin] Allergy Rash Verified 11/22/19 13:34 ciprofloxacin [From Cipro] Allergy Anaphylactic Verified 11/22/19 13:34 Shock clarithromycin [From Biaxin] Allergy Hives Verified 11/22/19 13:34 clavulanic acid Allergy Rash Verified 11/22/19 13:34 [From Augmentin] cyclobenzaprine Allergy Seizure Verified 11/22/19 13:34 [From Flexeril] Home Meds: Home Meds diazePAM [Valium] 2 mg PO BID 10/22/18 [History] Dicyclomine [Bentyl] 10 mg PO QID PRN 11/03/18 [History] LORazepam 1 mg PO Q12H PRN 11/03/18 [History] Multivitamin [Multi-Vitamin Daily] 1 tab PO DAILY 11/03/18 [History] traMADol HCl [Tramadol HCl] 50 mg PO Q6H PRN 11/03/18 [History] Ondansetron [Zofran ODT] 4 mg PO Q8HR PRN 02/19/19 [History] carisoprodoL [Soma] 350 mg PO DAILY 06/15/19 [History] Amylase/Lipase/Protease [Pancreaze DR 4,200 Unit] 4,200 unit PO QID 08/07/19 [History] GI Cocktail 15 ml PO DAILY PRN 08/07/19 [History] Acetaminophen [Tylenol Extra Strength] 500 mg PO Q12H PRN #30 tablet 08/09/19 [Rx] Pantoprazole [ProTONIX] 40 mg PO ACBREAKFAST 14 Days #14 tab.cr 08/09/19 [Rx] Ondansetron [Zofran ODT] 4 mg PO Q6H PRN #15 tab.dis 11/22/19 [Rx] Past Medical History HEENT History: Reports: Other (See Below) Other HEENT History: wears glasses Cardiovascular History: Reports: Blood Clots/VTE/DVT, Hypertension Other Cardiovascular History: 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, does not take anticoagulants Respiratory History: Reports: None Gastrointestinal History: Reports: Chronic Constipation, Chronic Diarrhea, GERD Genitourinary History: Reports: Renal Calculus Other Genitourinary History: has passed a kidney stone [employer] History: Reports: Musculoskeletal History: Reports: Fracture Other Musculoskeletal History: hx of fx fingers and toes Neurological History: Reports: None Psychiatric History: Reports: Anxiety, Depression, PTSD Endocrine/Metabolic History: Reports: None Insulin Pump Model and Sample Puller: None Hematologic History: Reports: None Immunologic History: Reports: None Oncologic (Cancer) History: Reports: None Dermatologic History: Reports: None - Infectious Disease History Infectious Disease History: Reports: MRSA - Past Surgical History Head Surgeries/Procedures: Reports: None HEENT Surgical History: Reports: Adenoidectomy, Naso-Sinus Surgery, Tonsillectomy Cardiovascular Surgical History: Reports: None Respiratory Surgical History: Reports: None GI Surgical History: Reports: Bariatric Procedure, Cholecystectomy, Colon Other GI Surgeries/Procedures: repair of Intussusception following Sandra-En-Y gastric bypass, surgery to remove hematoma following Cholestectomy Female Surgical History: Reports: Breast Implant, Breast Reduction, Section, Hysterectomy Other Female Surgeries/Procedures: bladder stents Endocrine Surgical History: Reports: None Neurological Surgical History: Reports: None Musculoskeletal Surgical History: Reports: Other (See Below) Other Musculoskeletal Surgeries/Procedures:: 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 ED EXAM, GI/ABD - Physical Exam Exam: See Below (See dictation) Course - Vital Signs Last Recorded V/S: Last Vital Signs Temp Pulse 120 H 11/22/19 13:35 Resp 24 H 11/22/19 13:35 BP 130/97 H 11/22/19 13:35 Pulse Ox 97 11/22/19 13:35 - Orders/Labs/Meds Labs: Laboratory Tests 10/04/20 10/04/20 10/04/20 Range/Units 14:03 14:03 14:10 WBC 11.55 H (4.0-11.0) K/uL RBC 5.16 (4.30-5.90) M/uL Hgb 11.0 L (12.0-16.0) g/dL Hct 35.8 L (36.0-46.0) % MCV 69.4 L (80.0-98.0) fL MCH 21.3 L (27.0-32.0) pg MCHC 30.7 L (31.0-37.0) g/dL RDW Std Deviation 47.4 (28.0-62.0) fl RDW Coeff of Mikala 19 H (11.0-15.0) % Plt Count 296 (150-400) K/uL MPV 9.60 (7.40-12.00) fL Neut % (Auto) 77.0 (48.0-80.0) % Lymph % (Auto) 10.6 L (16.0-40.0) % [place] % (Auto) 12.2 (0.0-15.0) % Eos % (Auto) 0.0 (0.0-7.0) % Baso % (Auto) 0.2 (0.0-1.5) % Neut # (Auto) 8.9 H (1.4-5.7) K/uL Lymph # (Auto) 1.2 (0.6-2.4) K/uL [place] # (Auto) 1.4 H (0.0-0.8) K/uL Eos # (Auto) 0.0 (0.0-0.7) K/uL Baso # (Auto) 0.0 (0.0-0.1) K/uL Nucleated RBC % 0.0 /100WBC Nucleated RBCs # 0 K/uL Sodium 135 L (136-145) mmol/L Potassium 3.5 (3.5-5.1) mmol/L Chloride 98 (98-107) mmol/L Carbon Dioxide 23.3 (21.0-32.0) mmol/L BUN 11 (7.0-18.0) mg/dL Creatinine 1.0 (0.6-1.0) mg/dL Est Cr Clr Drug Dosing 72.72 mL/min Estimated GFR (MDRD) > 60.0 ml/min Glucose 109 H (74-106) mg/dL Calcium 9.4 (8.5-10.1) mg/dL Total Bilirubin 0.6 (0.2-1.0) mg/dL AST 41 H (15-37) IU/L ALT 33 (14-63) IU/L Alkaline Phosphatase 67 (46-116) U/L Total Protein 8.4 H (6.4-8.2) g/dL Albumin 4.7 (3.4-5.0) g/dL Globulin 3.7 (2.6-4.0) g/dL Albumin/Globulin Ratio 1.3 (0.9-1.6) Lipase 143 (73-393) U/L Urine Color YELLOW Urine Appearance HAZY Urine pH 6.0 (5.0-8.0) Ur Specific [place] >= 1.030 (1.001-1.035) Urine Protein 100 H (NEGATIVE) mg/dL Urine Glucose (UA) NEGATIVE (NEGATIVE) mg/dL Urine Ketones TRACE H (NEGATIVE) mg/dL Urine Occult Blood TRACE-INTACT H (NEGATIVE) Urine Nitrite NEGATIVE (NEGATIVE) Urine Bilirubin NEGATIVE (NEGATIVE) Urine Urobilinogen 0.2 (<2.0) EU/dL Ur Leukocyte Esterase NEGATIVE (NEGATIVE) U Hyaline Cast (Auto) 0-2 (0-2/LPF) Urine RBC 0-3 (0-2/HPF) Urine WBC 0-2 (0-5/HPF) Ur Epithelial Cells FEW (NONE-FEW) Urine Bacteria 1+ H (NEGATIVE) Meds: Medications Discontinued Medications Generic Name Dose Route Start Last Admin Trade Name Trinoq PRN Reason Stop Dose Admin Hydromorphone HCl 1 mg 11/22/19 13:49 11/22/19 13:58 Dilaudid IM 11/22/19 13:50 1 mg ONETIME ONE Administration Ketorolac Tromethamine 60 mg 11/22/19 13:50 11/22/19 13:57 Toradol IM 11/22/19 13:51 60 mg ONETIME ONE Administration Ondansetron HCl 4 mg 11/22/19 13:49 11/22/19 13:57 Zofran Odt PO 11/22/19 13:50 4 mg ONETIME ONE Administration Departure - Departure Time of Disposition: 14:54 Disposition: Home, Self-Care 01 Clinical Impression: Chronic abdominal pain - Discharge Information Prescriptions: Ondansetron [Zofran ODT] 4 mg PO Q6H PRN #15 tab.dis PRN Reason: Nausea Instructions: Abdominal Pain, Adult, [id number] Referrals: Geoff Chou MD [Primary Care Provider] - Forms: ED Department Discharge Additional Instructions: The following information is given to patients seen in the emergency department who are being discharged to home. This information is to outline your options for follow-up care. We provide all patients seen in our emergency department with a follow-up referral. The need for follow-up, as well as the timing and circumstances, are variable depending upon the specifics of your emergency department visit. If you don't have a primary care physician on staff, we will provide you with a referral. We always advise you to contact your personal physician following an emergency department visit to inform them of the circumstance of the visit and for follow-up with them and/or the need for any referrals to a consulting specialist. The emergency department will also refer you to a specialist when appropriate. This referral assures that you have the opportunity for follow-up care with a specialist. All of these measure are taken in an effort to provide you with optimal care, which includes your follow-up. Under all circumstances we always encourage you to contact your private physician who remains a resource for coordinating your care. When calling for follow-up care, please make the office aware that this follow-up is from your recent emergency room visit. If for any reason you are refused follow-up, please contact the [facility] Emergency Department at and asked to speak to the emergency department charge nurse. [facility] [address] [place] [id number] [address] Thank you for choosing the [facility] emergency department in [place] for your medical needs today. It was a pleasure caring for you. Today you were seen in the emergency department for abdominal pain. 1. Please get in contact with your GI specialist for pain management of your chronic abdominal pain. 2. You have multiple medications available to you, please take these as needed and as directed 3. We encourage you to follow up with your primary care provider and/or recommended specialist in the next few days for re-evaluation and further care/management. If your symptoms should worsen, new symptoms develop or any of the signs and symptoms we discussed should arise please return to the emergency room or call 911 (if needed). Sepsis Event Note (ED) - Focused Exam Vital Signs: Vital Signs Pulse Resp BP Pulse Ox 11/22/19 13:35 120 H 24 H 130/97 H 97
[2019-11-22] MEDS ORDERED: HYDROmorphone 1 MG/ML Syringe IM ONE (13:49)
[2019-11-22] MEDS ORDERED: Ondansetron 4 MG Tab.DIS PO ONE (13:49)
[2019-11-22] MEDS ORDERED: Ketorolac 60 MG/2 ML SDV IM ONE (13:50)
[2019-11-22 14:31] LABS: BLOOD UREA NITROGEN,BUN 11 mg/dL (7.0-18.0); CARBON DIOXIDE,CO2 23.3 mmol/L (21.0-32.0); CHLORIDE,CL 98 mmol/L (98-107); GLUCOSE RANDOM 109 mg/dL (74-106); LIPASE 143 U/L (73-393); POTASSIUM,K 3.5 mmol/L (3.5-5.1); SODIUM,NA 135 mmol/L (136-145)
== END 2019-11-22 15:09 | disposition home or self-care (01) ==
LOC: MW.ED 13:22
DX: R10.9 Unspecified abdominal pain (principal); I10 Essential (primary) hypertension; K21.9 Gastro-esophageal reflux disease without esophagitis; Z90.49 Acquired absence of other specified parts of digestive tract; Z98.890 Other specified postprocedural states; Z88.1 Allergy status to other antibiotic agents; Z88.8 Allergy status to other drugs, medicaments and biological substances; Z91.048 Other nonmedicinal substance allergy status; Z91.018 Allergy to other foods; Z79.899 Other long term (current) drug therapy
CPT/HCPCS: 36415; 80053; 81001; 83690; 85025; 96372; 99284; A9270; J1170; J1885; 99283

== ENCOUNTER 2019-12-09 00:22 | Emergency (ER) | payer BC, MEDICAID ==
[2019-12-09] MEDS ORDERED: diphenhydrAMINE 50 MG/ML SDV IVPUSH ONE (01:13)
[2019-12-09] MEDS ORDERED: Pantoprazole 80 MG in Sodium Chloride 0.9% 20 ML IVPUSH ONE (01:13)
[2019-12-09] MEDS ORDERED: Haloperidol Lactate 5 MG/ML SDV IM ONE (01:13)
--- NOTE | 2019-12-09 01:17 | EDM.PDOC ---
ED HPI GENERAL MEDICAL PROBLEM - General Chief Complaint: Gastrointestinal Problem Stated Complaint: STOMACH PAIN Time Seen by Provider: 12/09/19 00:48 - History of Present Illness INITIAL COMMENTS - FREE TEXT/NARRATIVE: HISTORY AND PHYSICAL: History of present illness: 39-year-old female with past medical history of gastric bypass, regular marijuana use, multiple abdominal surgeries, protein calorie malnutrition presents to the emergency department complaining of severe epigastric and left upper quadrant abdominal pain, persistent vomiting, and not using her marijuana normally. Patient states that she has been to multiple specialists and they are having trouble figuring out what is actually wrong with her. She does get better if she gets into a hot shower. Seem multiple times and had negative CTs. Seen gastroenterology and has no evidence of gastric ulcers or other pathology. Review of systems: A 10-point review of systems, other than pertinent positives and negatives as stated per HPI, is otherwise negative. Past medical history: As per history of present illness and as reviewed below otherwise noncontributory. Surgical history: As per history of present illness and as reviewed below otherwise nonc ontributory. Social history: No reported history of drug or alcohol abuse. Family history: As per history of present illness and as reviewed below otherwise noncontributory. Physical exam: VITAL SIGNS: Reviewed. GENERAL: Appears pretty miserable. She is intermittently vomiting and complaining of severe epigastric/left upper quadrant pain HEAD: No signs of head trauma. EYES: Pupils are equal. Extraocular motions intact. EARS: Hearing grossly intact. MOUTH: Oropharynx is normal. Dry mucous membranes are present NECK: No adenopathy, no JVD. CHEST: Chest with clear breath sounds bilaterally. No wheezes, rales, or rhonchi. CARDIAC: Regular rate and rhythm. Normal S1 and S2, without murmurs, gallops, or rubs. VASCULAR: Peripheral pulses normal and equal in all extremities. ABDOMEN: Soft, tender left upper quadrant, no distention, no rebound or guarding, no masses palpated. MUSCULOSKELETAL: Good range of motion of all major joints. Extremities without clubbing, cyanosis or edema. NEUROLOGIC EXAM: Alert and oriented x 3. No focal sensory or motor deficits. Speech normal. Follows commands. PSYCHIATRIC: Mood normal. SKIN: No rash or lesions. Initial Differential Diagnosis & Plan: Cannabis hyperemesis syndrome, biliary colic, obstruction, chronic abdominal pain, ulcerative disease. The patient presents with left upper quadrant pain we will also check for pancreatitis. Because she has had a gastric bypass surgery I will obtain a CT abdomen pelvis. I will give medications to help with her pain. I am highly suspicious that this is cannabis hyperemesis syndrome as the pain seems to get better when she is in a hot shower and this also makes the nausea go away. Given this I will obtain an EKG to look for prolonged QT syndrome and if this is normal we will give intravenous Haldol. Definitive disposition and diagnosis as appropriate pending reevaluation and review of above. Abdomen Pain Score (Numeric/FACES): 10 - Related Data Allergies Allergy/AdvReac Type Severity Reaction Status Date / Time adhesive tape Allergy Hives Verified 12/09/19 00:55 aloe vera Allergy Rash Verified 12/09/19 00:55 amoxicillin [From Augmentin] Allergy Rash Verified 12/09/19 00:55 ciprofloxacin [From Cipro] Allergy Anaphylactic Verified 12/09/19 00:55 Shock clarithromycin [From Biaxin] Allergy Hives Verified 12/09/19 00:55 clavulanic acid Allergy Rash Verified 12/09/19 00:55 [From Augmentin] cyclobenzaprine Allergy Seizure Verified 12/09/19 00:55 [From Flexeril] Home Meds: Home Meds diazePAM [Valium] 2 mg PO BID 10/22/18 [History] Dicyclomine [Bentyl] 10 mg PO QID PRN 11/03/18 [History] LORazepam 1 mg PO Q12H PRN 11/03/18 [History] Multivitamin [Multi-Vitamin Daily] 1 tab PO DAILY 11/03/18 [History] traMADol HCl [Tramadol HCl] 50 mg PO Q6H PRN 11/03/18 [History] Ondansetron [Zofran ODT] 4 mg PO Q8HR PRN 02/19/19 [History] carisoprodoL [Soma] 350 mg PO DAILY 06/15/19 [History] Amylase/Lipase/Protease [Pancreaze DR 4,200 Unit] 4,200 unit PO QID 08/07/19 [History] GI Cocktail 15 ml PO DAILY PRN 08/07/19 [History] Acetaminophen [Tylenol Extra Strength] 500 mg PO Q12H PRN #30 tablet 08/09/19 [Rx] Pantoprazole [ProTONIX] 40 mg PO ACBREAKFAST 14 Days #14 tab.cr 08/09/19 [Rx] Ondansetron [Zofran ODT] 4 mg PO Q6H PRN #15 tab.dis 11/22/19 [Rx] Capsaicin [Capzasin-P 0.0375% Crm] 42.5 gm .XX TID 10 Days #1 tube 12/09/19 [Rx] Pantoprazole Sodium [Protonix] 40 mg PO DAILY #14 suspdr.pkt 12/09/19 [Rx] Prochlorperazine Maleate [Compazine] 10 mg PO TID PRN #30 tablet 12/09/19 [Rx] Promethazine [Phenadoz] 25 mg RECTAL Q6H PRN #12 supp 12/09/19 [Rx] Past Medical History HEENT History: Reports: Other (See Below) Other HEENT History: wears glasses Cardiovascular History: Reports: Blood Clots/VTE/DVT, Hypertension Other Cardiovascular History: 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, does not take anticoagulants Respiratory History: Reports: None Gastrointestinal History: Reports: Chronic Constipation, Chronic Diarrhea, GERD Genitourinary History: Reports: Renal Calculus Other Genitourinary History: has passed a kidney stone CLOTH PIECER History: Reports: Musculoskeletal History: Reports: Fracture Other Musculoskeletal History: hx of fx fingers and toes Neurological History: Reports: None Psychiatric History: Reports: Anxiety, Depression, PTSD Endocrine/Metabolic History: Reports: None Insulin Pump Model and Topographic Computator: None Hematologic History: Reports: None Immunologic History: Reports: None Oncologic (Cancer) History: Reports: None Dermatologic History: Reports: None - Infectious Disease History Infectious Disease History: Reports: None - Past Surgical History Head Surgeries/Procedures: Reports: None HEENT Surgical History: Reports: Adenoidectomy, Naso-Sinus Surgery, Tonsillectomy Cardiovascular Surgical History: Reports: None Respiratory Surgical History: Reports: None GI Surgical History: Reports: Bariatric Procedure, Cholecystectomy, Colon Other GI Surgeries/Procedures: repair of Intussusception following Sandra-En-Y gastric bypass, surgery to remove hematoma following Cholestectomy Female Surgical History: Reports: Breast Implant, Breast Reduction, Section, Hysterectomy Other Female Surgeries/Procedures: bladder stents Endocrine Surgical History: Reports: None Neurological Surgical History: Reports: None Musculoskeletal Surgical History: Reports: Other (See Below) Other Musculoskeletal Surgeries/Procedures:: 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, developed MRSA and was treated with medical maggots, states MRSA has been "cleared" and tested negative with nasal swabs x3 Oncologic Surgical History: Reports: None Dermatological Surgical History: Reports: None Social & Family History - Family History Family Medical History: Noncontributory - Tobacco Use Tobacco Use Status *Q: Current Every Day Tobacco User Years of Tobacco use: 10 Packs/Tins Daily: 0.5 - Caffeine Use Caffeine Use: Reports: Coffee, Energy Drinks, Soda - Recreational Drug Use Recreational Drug Use: No ED ROS GENERAL - Review of Systems Review Of Systems: See Below (noted) ED EXAM, GI/ABD - Physical Exam Exam: See Below (noted) #1 Interpretation EKG Interpretation Comments: 12 lead EKG interpretation Obtained: December 09, 2019 at 2:09 AM Rhythm: Sinus Rate: 97 [place]: Normal Intervals: Prolonged QT interval at [address]/T Segments: No acute ischemic changes Interpretation: Sinus rhythm with prolonged QT interval #2 Interpretation EKG Interpretation Comments: 12 lead EKG interpretation Obtained: December 09, 2019 4:08 AM Rhythm: Sinus Rate: 77 [place]: Normal Intervals: The QT interval is now normal at [address]/T Segments: No acute ischemic changes Interpretation: Sinus rhythm now with a normal QT interval Course - Vital Signs Last Recorded V/S: Last Vital Signs Temp 97.7 F 12/09/19 00:35 Pulse 96 12/09/19 03:02 Resp 18 12/09/19 03:02 BP 170/111 H 12/09/19 03:02 Pulse Ox 98 12/09/19 03:02 - Orders/Labs/Meds Orders: Active Orders 24 hr Category Date Time Status Communication Order [RC] STAT Care 12/09/19 02:22 Active EKG 12 Lead [EKG Documentation Completion] [RC] STAT Care 12/09/19 01:11 Active EKG 12 Lead [EKG Documentation Completion] [RC] STAT Care 12/09/19 04:01 Active COMPREHENSIVE METABOLIC PN,CMP [CHEM] Stat Lab 12/09/19 04:05 Received LIPASE [CHEM] Stat Lab 12/09/19 04:05 Received MAGNESIUM [CHEM] Stat Lab 12/09/19 04:05 Received Labs: Laboratory Tests 12/09/19 12/09/19 12/09/19 Range/Units 03:00 03:00 04:00 WBC (4.0-11.0) K/uL RBC (4.30-5.90) M/uL Hgb (12.0-16.0) g/dL Hct (36.0-46.0) % MCV (80.0-98.0) fL MCH (27.0-32.0) pg MCHC (31.0-37.0) g/dL RDW Std Deviation (28.0-62.0) fl RDW Coeff of Mikala (11.0-15.0) % Plt Count (150-400) K/uL MPV (7.40-12.00) fL Neut % (Auto) (48.0-80.0) % Lymph % (Auto) (16.0-40.0) % [place] % (Auto) (0.0-15.0) % Eos % (Auto) (0.0-7.0) % Baso % (Auto) (0.0-1.5) % Neut # (Auto) (1.4-5.7) K/uL Lymph # (Auto) (0.6-2.4) K/uL [place] # (Auto) (0.0-0.8) K/uL Eos # (Auto) (0.0-0.7) K/uL Baso # (Auto) (0.0-0.1) K/uL Nucleated RBC % /100WBC Nucleated RBCs # K/uL VBG pH 7.46 H (7.31-7.41) VBG pCO2 28 L (35-45) mmHG VBG pO2 89 H (30-40) mmHG VBG HCO3 20 L (22-30) mEq/L VBG Total CO2 19 L (41-51) mmol/L VBG Base Excess -2.7 (-3.0-3.0) HCG, Qual (NEG) Urine Color YELLOW Urine Appearance CLEAR Urine pH 6.5 (5.0-8.0) Ur Specific [place] 1.015 (1.001-1.035) Urine Protein NEGATIVE (NEGATIVE) mg/dL Urine Glucose (UA) NEGATIVE (NEGATIVE) mg/dL Urine Ketones 15 H (NEGATIVE) mg/dL Urine Occult Blood NEGATIVE (NEGATIVE) Urine Nitrite NEGATIVE (NEGATIVE) Urine Bilirubin NEGATIVE (NEGATIVE) Urine Urobilinogen 0.2 (<2.0) EU/dL Ur Leukocyte Esterase NEGATIVE (NEGATIVE) Urine Opiates Screen NEGATIVE (NEGATIVE) Ur Oxycodone Screen NEGATIVE (NEGATIVE) Urine Methadone Screen NEGATIVE (NEGATIVE) Ur Barbiturates Screen NEGATIVE (NEGATIVE) Ur Phencyclidine Scrn NEGATIVE (NEGATIVE) Ur Amphetamine Screen NEGATIVE (NEGATIVE) U Methamphetamines Scrn NEGATIVE (NEGATIVE) U Benzodiazepines Scrn NEGATIVE (NEGATIVE) U Cocaine Metab Screen NEGATIVE (NEGATIVE) U Marijuana (THC) Screen POSITIVE (NEGATIVE) 12/09/19 12/09/19 Range/Units 04:05 04:05 WBC 9.16 (4.0-11.0) K/uL RBC 4.56 (4.30-5.90) M/uL Hgb 9.7 L (12.0-16.0) g/dL Hct 31.5 L (36.0-46.0) % MCV 69.1 L (80.0-98.0) fL MCH 21.3 L (27.0-32.0) pg MCHC 30.8 L (31.0-37.0) g/dL RDW Std Deviation 50.0 (28.0-62.0) fl RDW Coeff of Mikala 20 H (11.0-15.0) % Plt Count 383 (150-400) K/uL MPV 9.10 (7.40-12.00) fL Neut % (Auto) 88.7 H (48.0-80.0) % Lymph % (Auto) 7.3 L (16.0-40.0) % [place] % (Auto) 3.8 (0.0-15.0) % Eos % (Auto) 0.0 (0.0-7.0) % Baso % (Auto) 0.2 (0.0-1.5) % Neut # (Auto) 8.1 H (1.4-5.7) K/uL Lymph # (Auto) 0.7 (0.6-2.4) K/uL [place] # (Auto) 0.4 (0.0-0.8) K/uL Eos # (Auto) 0.0 (0.0-0.7) K/uL Baso # (Auto) 0.0 (0.0-0.1) K/uL Nucleated RBC % 0.0 /100WBC Nucleated RBCs # 0 K/uL VBG pH (7.31-7.41) VBG pCO2 (35-45) mmHG VBG pO2 (30-40) mmHG VBG HCO3 (22-30) mEq/L VBG Total CO2 (41-51) mmol/L VBG Base Excess (-3.0-3.0) HCG, Qual NEGATIVE (NEG) Urine Color Urine Appearance Urine pH (5.0-8.0) Ur Specific [place] (1.001-1.035) Urine Protein (NEGATIVE) mg/dL Urine Glucose (UA) (NEGATIVE) mg/dL Urine Ketones (NEGATIVE) mg/dL Urine Occult Blood (NEGATIVE) Urine Nitrite (NEGATIVE) Urine Bilirubin (NEGATIVE) Urine Urobilinogen (<2.0) EU/dL Ur Leukocyte Esterase (NEGATIVE) Urine Opiates Screen (NEGATIVE) Ur Oxycodone Screen (NEGATIVE) Urine Methadone Screen (NEGATIVE) Ur Barbiturates Screen (NEGATIVE) Ur Phencyclidine Scrn (NEGATIVE) Ur Amphetamine Screen (NEGATIVE) U Methamphetamines Scrn (NEGATIVE) U Benzodiazepines Scrn (NEGATIVE) U Cocaine Metab Screen (NEGATIVE) U Marijuana (THC) Screen (NEGATIVE) Meds: Medications Discontinued Medications Generic Name Dose Route Start Last Admin Trade Name Freq PRN Reason Stop Dose Admin Diphenhydramine HCl 50 mg 12/09/19 01:13 12/09/19 02:05 Benadryl IVPUSH 12/09/19 01:14 50 mg ONETIME ONE Administration Haloperidol Lactate 10 mg 12/09/19 01:13 12/09/19 02:15 Haldol IM 12/09/19 01:14 10 mg ONETIME ONE Administration Pantoprazole Sodium 80 mg/ 20 mls @ 420 mls/hr 12/09/19 01:13 12/09/19 02:05 Sodium Chloride IVPUSH 12/09/19 01:15 420 mls/hr ONETIME ONE Administration Iopamidol 100 ml 12/09/19 01:59 12/09/19 01:59 Isovue-370 (76%) IVPUSH 12/09/19 02:00 100 ml ONETIME ONE Administration Magnesium Sulfate 1 gm 12/09/19 02:17 12/09/19 03:00 Magnesium Sulfate 50% IV 12/09/19 02:18 1 gm ONETIME ONE Administration - Re-Assessments/Exams Free Text/Narrative Re-Assessment/Exam: 12/09/19 04:00 CT, UA and drug screen are all essentially normal. The patient is feeling much better after medications. She would like to be discharged home. Laboratory evaluation has not been completed. If this is normal. I feel the patient can be discharged home with rescue medications. I will prescribe capsaicin topical cream for her abdomen, oral Compazine, and Phenergan suppositories. I feel she can return to emergency department as needed. Repeat EKG will be done after the magnesium has infused. Departure - Departure Time of Disposition: 04:01 Disposition: Home, Self-Care 01 Clinical Impression: Prolonged Q-T interval on ECG, Nausea and vomiting, Dehydration, Cannabinoid hyperemesis syndrome - Discharge Information *PRESCRIPTION DRUG MONITORING PROGRAM REVIEWED*: Not Applicable *COPY OF PRESCRIPTION DRUG MONITORING REPORT IN PATIENT BERNABE: Not Applicable Prescriptions: Capsaicin [Capzasin-P 0.0375% Crm] 42.5 gm .XX TID 10 Days #1 tube Prochlorperazine Maleate [Compazine] 10 mg PO TID PRN #30 tablet PRN Reason: Nausea/Vomiting Promethazine [Phenadoz] 25 mg RECTAL Q6H PRN #12 supp PRN Reason: Nausea/Vomiting Pantoprazole Sodium [Protonix] 40 mg PO DAILY #14 suspdr.pkt Instructions: Cannabis Use Disorder, Electrocardiogram, [id number], What You Need to Know About Marijuana Use, Dehydration, Elderly, [id number] Referrals: PCP,None [Primary Care Provider] - Forms: ED Department Discharge Additional Instructions: The following information is given to patients seen in the emergency department who are being discharged to home. This information is to outline your options for follow-up care. We provide all patients seen in our emergency department with a follow-up referral. The need for follow-up, as well as the timing and circumstances, are variable depending upon the specifics of your emergency department visit. If you don't have a primary care physician on staff, we will provide you with a referral. We always advise you to contact your personal physician following an emergency department visit to inform them of the circumstance of the visit and for follow-up with them and/or the need for any referrals to a consulting specialist. The emergency department will also refer you to a specialist when appropriate. This referral assures that you have the opportunity for follow-up care with a specialist. All of these measure are taken in an effort to provide you with optimal care, which includes your follow-up. Thank you for coming to the [facility] urgency department for your care today. It was Dr. Nash's pleasure to take care of you. [facility] - Primary [facility] [address] [place] [address] [address] [ ] Under all circumstances we always encourage you to contact your private physician who remains a resource for coordinating your care. When calling for follow-up care, please make the office aware that this follow-up is from your recent emergency room visit. If for any reason you are refused follow-up, please contact the [facility] Emergency Department at and asked to speak to the emergency department charge nurse. Sepsis Event Note (ED) - Evaluation Sepsis Screening Result: No Definite Risk - Focused Exam Vital Signs: Vital Signs Temp Pulse Resp BP Pulse Ox 12/09/19 03:02 96 18 170/111 H 98 12/09/19 00:35 97.7 F 98 18 190/127 H 97 - My Orders Last 24 Hours: My Active Orders 12/09/19 01:11 EKG 12 Lead [EKG Documentation Completion] [RC] STAT 12/09/19 02:22 Communication Order [RC] STAT 12/09/19 04:01 EKG 12 Lead [EKG Documentation Completion] [RC] STAT 12/09/19 04:05 COMPREHENSIVE METABOLIC PN,CMP [CHEM] Stat LIPASE [CHEM] Stat MAGNESIUM [CHEM] Stat - Assessment/Plan Last 24 Hours: My Active Orders 12/09/19 01:11 EKG 12 Lead [EKG Documentation Completion] [RC] STAT 12/09/19 02:22 Communication Order [RC] STAT 12/09/19 04:01 EKG 12 Lead [EKG Documentation Completion] [RC] STAT 12/09/19 04:05 COMPREHENSIVE METABOLIC PN,CMP [CHEM] Stat LIPASE [CHEM] Stat MAGNESIUM [CHEM] Stat
--- NOTE | 2019-12-09 01:57 | CR ---
INDICATION: Atypical chest pain TECHNIQUE: Chest radiograph 1 view COMPARISON: None FINDINGS: Mediastinum: The mediastinum is normal in appearance. The heart silhouette is normal in size and morphology. Lung: Both lungs are unremarkable in appearance. No sign of pleural effusion seen. No pneumothorax is identified. Bone and Soft tissue: Unremarkable for age. IMPRESSION: 1. No acute cardiopulmonary disease is seen. Dictated by: Joselo Barrera MD @ 12/09/2019 01:56:44 (Electronically Signed)
[2019-12-09] MEDS ORDERED: Iopamidol 755 Mg/ML 100 ML Bottle IVPUSH ONE (01:59)
[2019-12-09] MEDS ORDERED: Magnesium Sulfate (4.06 MEQ/ML) 5 GM/10 ML SDV IV ONE (02:17)
--- NOTE | 2019-12-09 02:33 | CT ---
INDICATION: Nausea, vomiting, pain. Status post gastric bypass. COMPARISON: 11/21/2019 TECHNIQUE: CT examination of the abdomen and pelvis was performed with the uneventful intravenous administration of 100 cc of Omnipaque 350 while 3 mm thick axial sections were obtained from the lung bases through the pubic symphysis. Oral contrast was not administered. Please note that all CT scans at this facility use dose modulation, iterative reconstruction, and/or weight-based dosing when appropriate to reduce radiation dose to as low as reasonably achievable. FINDINGS: In the abdomen, the liver, spleen, pancreas, and adrenals are normal in appearance. The kidneys are normal in appearance. Clips are again seen in the gall bladder fossa from cholecystectomy. Again seen is moderate dilatation of the common bile duct, measuring 11 millimeters in diameter. The abdominal aorta is normal in caliber with no sign of dilatation. There is no sign of retroperitoneal mass or adenopathy. Again seen are several lines of surgical maria elena in the gastric fundus, consistent with gastric bypass surgery. A small bowel anastomosis is again seen in the left upper quadrant, with no sign of stricture. The distal stomach, the rest of the loops of small bowel, and colon in the abdomen are normal in appearance. The previously seen areas of possible thickening of wall of the proximal small bowel in the left upper quadrant have resolved. The findings are consistent with resolution of mild enteritis. In the pelvis, the appendix is nonvisualized, but there is no sign of an inflammatory process in the area of the appendix. The loops of small bowel and colon in the pelvis are normal in appearance. The uterus is again seen to be absent and the adnexal regions are normal in appearance. The urinary bladder is mildly distended and is otherwise normal in appearance. There is no sign of pelvic or inguinal mass or adenopathy. There is no sign of free air or free fluid in the abdomen or pelvis. The lung bases are clear. Again seen are bilateral breast prostheses no sign of any leaks in the inferior portions included on today`s study. Note is made of a lumbarized S1 segment with a well-defined S1-S2 disc space. Again seen is mild anterior wedging of the T12 vertebral body, an old mild compression fracture versus anatomic variant. IMPRESSION: Nothing seen to explain the patient`s nausea vomiting, or pain. CT of the abdomen shows resolution of previously seen moderate wall thickening of a loop of proximal small bowel in the left upper quadrant, consistent with resolution of enteritis. Stable satisfactory appearance status post gastric bypass surgery. Stable satisfactory appearance status post cholecystectomy with moderate dilatation of the common bile duct. CT of the pelvis again shows changes of hysterectomy. Please note that all CT scans at this facility use dose modulation, iterative reconstruction, and/or weight-based dosing when appropriate to reduce radiation dose to as low as reasonably achievable. Dictated by Kilo Bain MD @ Dec 09 2019 2:24AM Signed by Dr. Kilo Bain @ Dec 09 2019 2:32AM
[2019-12-09 04:50] LABS: BLOOD UREA NITROGEN,BUN 10 mg/dL (7.0-18.0); CARBON DIOXIDE,CO2 20.6 mmol/L (21.0-32.0); CHLORIDE,CL 99 mmol/L (98-107); GLUCOSE RANDOM 133 mg/dL (74-106); LIPASE 90 U/L (73-393); POTASSIUM,K 3.5 mmol/L (3.5-5.1); SODIUM,NA 133 mmol/L (136-145)
== END 2019-12-09 05:00 | disposition home or self-care (01) ==
LOC: MW.ED 00:22
DX: E86.0 Dehydration (principal); R11.2 Nausea with vomiting, unspecified; R94.31 Abnormal electrocardiogram [ECG] [EKG]; I10 Essential (primary) hypertension; K21.9 Gastro-esophageal reflux disease without esophagitis; F17.210 Nicotine dependence, cigarettes, uncomplicated; Z91.048 Other nonmedicinal substance allergy status; Z91.018 Allergy to other foods; Z88.1 Allergy status to other antibiotic agents; Z88.8 Allergy status to other drugs, medicaments and biological substances; Z79.899 Other long term (current) drug therapy
CPT/HCPCS: 36415; 71045; 74177; 80053; 80305; 81003; 82803; 83690; 83735; 84703; 85025; 93005; 96372; 96374; 96375; 99285; C9113; J1200; J1630; J3475; Q9967; 93010; 99284